=== PATIENT | female | born 1960 | race Caucasian/White ===

== ENCOUNTER 2016-05-07 15:34 | Emergency (ER) | payer MEDICAID ==
[~2016-05-07] VITALS: Ht 167.6 cm; Wt 60.0 kg
[~2016-05-07 15:34] MED LIST: ALBUAER3 INH; BENZ2TAB PO; HALO5TAB PO; HYDR1CAP30 PO; MIRTA15 PO; PRAZ5CAP PO; PRED20 PO; ZITHTAB PO
[2016-05-07 15:35] VITALS: BP 186/104; PULSE 120; RESP 14; TEMP 97.5; O2SAT 92
== END 2016-05-07 18:50 | disposition left against medical advice (07) ==
LOC: NED 15:34
DX: J98.9 Respiratory disorder, unspecified (principal)
CPT/HCPCS: 99281

== ENCOUNTER 2016-05-10 11:41 | Emergency (ER) | payer MEDICAID ==
[~2016-05-10] VITALS: Ht 167.6 cm; Wt 60.0 kg
[2016-05-10 11:49] VITALS: BP 127/94; PULSE 118; RESP 18; TEMP 97.7; O2SAT 94
== END 2016-05-10 18:55 | disposition left against medical advice (07) ==
LOC: NED 11:41
DX: R05 Cough (principal)
CPT/HCPCS: 99281

== ENCOUNTER 2016-05-12 15:56 | Inpatient (IN) | payer MEDICAID ==
[~2016-05-12] VITALS: Ht 167.6 cm; Wt 64.3 kg
[2016-05-12] VITALS (10 sets, daily range): BP systolic 118–177; BP diastolic 69–90; PULSE 93–135; RESP 16–24; TEMP 98–98.2; O2SAT 91–96
[2016-05-12] MEDS: SODIUM CHLORIDE 0.9% FLUSH 5 ML FLUSH IVF PRN ×2 (16:11→17:59)
[2016-05-12] MEDS ORDERED: methylPREDNISolone SOD SUCC 125 MG/2 ML VIAL IVP ONE (16:15)
--- NOTE | 2016-05-12 16:24 | PD ---
HPI Chief Complaint: Respiratory Distress Time Seen by Provider: 16:20 Travel History International Travel<30 days: No Contact w/Intl Traveler<30days: No Traveled to known affect area: No History of Present Illness HPI 55-year-old female presents to the ED via EMS for evaluation of 2 week history of shortness of breath. Patient states that she has become increasingly dyspneic on exertion. She endorses cough productive of yellowish sputum. She states she noticed small amount of blood in her sputum today. She denies fever or chills, chest pain or abdominal pain. Patient was evaluated on 04/26, diagnosis of bronchitis, prescribed azithromycin and endorses compliance. Current smoker. Patient endorses this years flu shot. EMS reports sats in the mid 80s on their arrival. Patient was administered [employer] nebs 2 in route. Sats in the low 90s on presentation. PFSH Past Medical History Asthma: No (S.O.B. ON EXERTION) Autoimmune Disease: No Anxiety: Yes Depression: Yes Cancer: No Cardiovascular Problems: No High Cholesterol: No Chemotherapy: No Chest Pain: Yes (THATS WHY SHE CAME TO HOSPITAL) Congestive Heart Failure: No COPD: No ( ) Cerebrovascular Accident: No Diabetes: No Diminished Hearing: No Endocrine: No GERD: No Genitourinary: No Headaches: No Hiatal Hernia: No Heparin Induced Thrombocytopen: No Hypertension: No Immune Disorder: No Implanted Vascular Access Dvce: No Kidney Stones: No Musculoskeletal: No Neurologic: No Psychiatric: Yes Reproductive: No Respiratory: Yes (S.O.B ON EXERTION) Migraines: No Radiation Therapy: No Renal Failure: No Schizophrenia: Yes Seizures: No Sickle Cell Disease: No Sleep Apnea: No Thyroid Disease: No Ulcer: No Menopausal: Yes Past Surgical History Abdominal Surgery: No AICD: No Arteriovenous Shunt: No Cardiac Surgery: No Section: Yes Ear Surgery: No Endocrine Surgery: No Eye Surgery: No Genitourinary Surgery: No Gynecologic Surgery: No Insulin Pump: No Joint Replacement: No Oral Surgery: No Pacemaker: No Thoracic Surgery: No Social History Alcohol Use: Yes (4 beers ) Tobacco Use: Yes (2PPD) Substance Use: No Allergies-Medications (Allergen,Severity, Reaction): Coded Allergies: Sulfa (Verified Allergy, Mild, 05/10/16) Reported Meds & Prescriptions Reported Meds & Active Scripts Active Zithromax Z-Darell (Azithromycin) 250 Mg Dspk 250 Mg PO DIRECTED 500 MG (2 tabs) day 1, then 1 tab days 2-5. Prednisone 20 Mg Tab 20 Mg PO BID Proair Hfa 8.5 GM Inh (Albuterol Sulfate) 90 Mcg/Act Aer 2 Puff INH Q4-6H PRN 108 mcg/actuation Reported Mirtazapine 15 Mg Tab 15 Mg PO HS Haloperidol 5 Mg Tab 5 Mg PO HS Hydroxyzine Pamoate 25 Mg Cap 25 Mg PO TID PRN Prazosin (Prazosin HCl) 5 Mg Cap 5 Mg PO HS Benztropine (Benztropine Mesylate) 2 Mg Tab 2 Mg PO HS Review of Systems Except as stated in HPI: all other systems reviewed are Neg Physical Exam Narrative GENERAL: Well-nourished, well-developed white female in no acute distress. SKIN: Warm and dry. HEAD: Normocephalic. EYES: No scleral icterus. No injection or drainage. NECK: Supple, trachea midline. No JVD or lymphadenopathy. CARDIOVASCULAR: Regular rate and rhythm without murmurs, gallops, or rubs. RESPIRATORY: Breath sounds equal bilaterally. Diffuse wheezing in all lung [place]. ++ accessory muscle use. Mildly tachypneic GASTROINTESTINAL: Abdomen soft, non-tender, nondistended. Active bowel sounds. MUSCULOSKELETAL: No cyanosis, or edema. BACK: Nontender without obvious deformity. No CVA tenderness. Data Data Last Documented VS Vital Signs Date Time Temp Pulse Resp B/P Pulse Ox O2 Delivery O2 Flow Rate FiO2 05/12/16 17:00 116 20 140/79 95 Nasal Cannula 2 05/12/16 16:00 98.0 Orders Complete Blood Count With Diff (05/12/16 16:05) Comprehensive Metabolic Panel (05/12/16 16:05) B-Type Natriuretic Peptide (05/12/16 16:05) Act Partial Throm Time (Ptt) (05/12/16 16:05) Prothrombin Time / Inr (Pt) (05/12/16 16:05) Magnesium (Mg) (05/12/16 16:05) Ckmb (Isoenzyme) Profile (05/12/16 16:05) Troponin I (05/12/16 16:05) Urinalysis - C+S If Indicated (05/12/16 16:05) Blood Culture (05/12/16 16:05) Iv Access Insert/Monitor (05/12/16 16:05) Electrocardiogram (05/12/16 16:05) Ecg Monitoring (05/12/16 16:05) Oximetry (05/12/16 16:05) Oxygen Administration (05/12/16 16:05) Chest, Single Ap (05/12/16 16:05) Sodium Chloride 0.9% Flush (Ns Flush) (05/12/16 16:15) Methylprednisolone So Succ Inj (Solumedr (05/12/16 16:15) Influenzae A/B Antigen (05/12/16 16:28) Urine Culture (05/12/16 16:15) Levofloxacin 500 Mg Premix Inj (Levaquin (05/12/16 17:45) Ceftriaxone Inj (Rocephin Inj) (05/12/16 17:45) Potassium Chloride (Kcl) (05/12/16 17:45) Admit Order (Ed Use Only) (05/12/16 17:54) Labs Laboratory Tests Test 05/12/16 16:15 White Blood Count 21.6 TH/MM3 Red Blood Count 4.24 MIL/MM3 Hemoglobin 12.9 GM/DL Hematocrit 38.1 % Mean Corpuscular Volume 89.9 FL Mean Corpuscular Hemoglobin 30.5 PG Mean Corpuscular Hemoglobin 33.9 % Concent Red Cell Distribution Width 15.3 % Platelet Count 320 TH/MM3 Mean Platelet Volume 8.3 FL Neutrophils (%) (Auto) 85.8 % Lymphocytes (%) (Auto) 5.8 % Monocytes (%) (Auto) 8.2 % Eosinophils (%) (Auto) 0.1 % Basophils (%) (Auto) 0.1 % Neutrophils # (Auto) 18.5 TH/MM3 Lymphocytes # (Auto) 1.3 TH/MM3 Monocytes # (Auto) 1.8 TH/MM3 Eosinophils # (Auto) 0.0 TH/MM3 Basophils # (Auto) 0.0 TH/MM3 CBC Comment DIFF FINAL Differential Comment Prothrombin Time 10.6 SEC Prothromb Time International 1.0 RATIO Ratio Activated Partial 34.5 SEC Thromboplast Time Urine Color YELLOW Urine Turbidity HAZY Urine pH 6.0 Urine Specific [place] 1.029 Urine Protein 300 mg/dL Urine Glucose (UA) NEG mg/dL Urine Ketones 10 mg/dL Urine Occult Blood MOD Urine Nitrite NEG Urine Bilirubin NEG Urine Urobilinogen 8.0 MG/DL Urine Leukocyte Esterase SMALL Urine RBC 10 /hpf Urine WBC 35 /hpf Urine Squamous Epithelial 4 /hpf Cells Urine Bacteria RARE /hpf Urine Hyaline Casts 4 /lpf Urine Mucus MANY /lpf Microscopic Urinalysis Comment CULTURE INDICATED Sodium Level 134 MEQ/L Potassium Level 3.2 MEQ/L Chloride Level 99 MEQ/L Carbon Dioxide Level 23.9 MEQ/L Anion Gap 11 MEQ/L Blood Urea Nitrogen 10 MG/DL Creatinine 0.91 MG/DL Estimat Glomerular Filtration 64 ML/MIN Rate Random Glucose 152 MG/DL Calcium Level 8.6 MG/DL Magnesium Level 1.8 MG/DL Total Bilirubin 0.8 MG/DL Aspartate Amino Transf 32 U/L (AST/SGOT) Alanine Aminotransferase 32 U/L (ALT/SGPT) Alkaline Phosphatase 130 U/L Total Creatine Kinase 99 U/L Troponin I LESS THAN 0.02 NG/ML B-Type Natriuretic Peptide 25 PG/ML Total Protein 7.8 GM/DL Albumin 2.8 GM/DL [facility] Medical Decision Making Medical Screen Exam Complete: Yes Emergency Medical Condition: Yes Differential Diagnosis Bronchitis versus COPD versus CHF versus pneumonia versus reactive airway disease versus other Narrative Course 55-year-old female presents to the ED via EMS for evaluation of 2 week history of shortness of breath. Patient states that she has become increasingly dyspneic on exertion. She endorses cough productive of yellowish sputum. She denies fever or chills, chest pain or abdominal pain. Patient was evaluated on 04/26, diagnosis of bronchitis, prescribed azithromycin and endorses compliance. Current smoker. Patient endorses this years flu shot. EMS reports sats in the mid 80s on their arrival. Patient was administered duo nebs 2 in route. Sats in the low 90s on 2 L NC on presentation. Patient tachycardic rate 135 on presentation. Physical exam reveals a ill appearing white female, racking wet cough. Diffuse wheezes and coarse breath sounds throughout all lung [place]. Otherwise unremarkable. IV was established. Patient was placed on continuous monitoring. CBC reveals WBCs 21.6, 85.8% neutrophil. Hemoglobin 12.9. INR 1.0. CMP: Sodium 134. Potassium 3.2. BNP 25. Cardiac enzymes negative. Chest x-ray reveals no acute cardiopulmonary process per radiology read. EKG rate 119, sinus rhythm. Normal intervals. Normal axis. No ischemic changes. Reviewed by Dr. Melgar. UA hazy, moderate occult blood, small leukocyte esterase, 35 wbc's, rare bacteria. Culture pending. Flu swab negative. Patient was administered IV Levaquin and Rocephin. By mouth potassium supplementation ordered. Discussed this patient with . The patient has failed outpatient treatment for bronchitis, now with leukocytosis, urinary tract infection, hypokalemia. Sats continue to drop into the high 80s without supplementation. Suspect early pneumonia based on physical exam. We'll admit to the medicine service for further evaluation, antibiotics. Dr. Melgar discussed this plan of care with the patient who is amenable. I discussed the case with the medical residents. They agreed to accept this patient to the service under Dr. Bowens. Please see medicine notes for disposition. Diagnosis Primary Impression: Pneumonia Qualified Code: J18.9 - Pneumonia due to infectious organism, unspecified laterality, unspecified part of lung Additional Impressions: Hypokalemia UTI (urinary tract infection) Qualified Code: N39.0 - Urinary tract infection without hematuria, site unspecified Steph Patricia May 12, 2016 16:24
[2016-05-12 16:36] LABS: AUTOMATED NEUTROPHIL # 18.5 TH/MM3 (1.8-7.7); BASOPHIL % 0.1 % (0.0-2.0); EOSINOPHIL % 0.1 % (0.0-4.0); HEMATOCRIT 38.1 % (35.0-46.0); HEMO FLAGS DIFF FINAL; LYMPH % 5.8 % (9.0-44.0); LYMPHOCYTE # 1.3 TH/MM3 (1.0-4.8); MEAN CELL VOLUME 89.9 FL (80.0-100.0); MEAN CORPUSCULAR HEMOGLOBIN 30.5 PG (27.0-34.0); MEAN CORPUSCULAR HGB CONC 33.9 % (32.0-36.0); MONO % 8.2 % (0.0-8.0); NEUT % 85.8 % (16.0-70.0); PLATELET COUNT 320 TH/MM3 (150-450); RED BLOOD COUNT 4.24 MIL/MM3 (4.00-5.30); RED CELL DISTRIBUTION WIDTH 15.3 % (11.6-17.2); WHITE BLOOD COUNT 21.6 TH/MM3 (4.0-11.0)
--- NOTE | 2016-05-12 16:37 | RADRPT ---
EXAM DATE/TIME: 05/12/2016 16:15 [place] COMPARISON: CHEST SINGLE AP, April 26, 2016, 17:05. INDICATIONS : Short of Breath, Chest Discomfort. MEDICAL HISTORY : Bronchitis. SURGICAL HISTORY : None. ENCOUNTER: Initial ACUITY: 2 weeks PAIN SCORE: 2/10 LOCATION: Bilateral chest FINDINGS: The heart and mediastinal structures are stable. The pulmonary vascular pattern is normal. The lung s are clear. CONCLUSION: 1. No acute cardiopulmonary disease. Jorge Johnson MD on May 12, 2016 at 16:27 Board Certified Radiologist. This report was verified electronically.
[2016-05-12 16:47] LABS: APTT (PATIENT) 34.5 SEC (24.3-30.1); PROTHROMBIN TIME - PATIENT 10.6 SEC (9.8-11.6)
[2016-05-12 16:50] LABS: BACTERIA, URINE RARE /hpf; BLOOD, URINE MOD (NEG); COMMENT (UR) CULTURE INDICATED; CULTURE IF INDICATED CULTURE INDICATED; GLUCOSE,URINE NEG (NEG); HYALINE CAST, URINE 4 /lpf (RARE); KETONE, URINE 10 mg/dL (NEG); MUCUS URINE MANY /lpf (OCC); NITRITE,URINE NEG (NEG); SQUAMOUS EPITHELIAL CELL URINE 4 /hpf (0-5); URINE COLOR YELLOW (YELLW/STRAW)
[2016-05-12 16:59] LABS: ALT (GPT) 32 U/L (10-53); ANION GAP 11 MEQ/L (5-15); AST (GOT) 32 U/L (15-37); BICARBONATE 23.9 MEQ/L (21.0-32.0); BLOOD UREA NITROGEN 10 MG/DL (7-18); CHLORIDE 99 MEQ/L (98-107); GLOMERULAR FILTRATION RATE 64 ML/MIN (>89); MAGNESIUM 1.8 MG/DL (1.5-2.5); POTASSIUM 3.2 MEQ/L (3.5-5.1); SODIUM (NA) 134 MEQ/L (136-145)
[2016-05-12 17:03] LABS: ALKALINE PHOSPHATASE 130 U/L (45-117); TOTAL BILIRUBIN ADULT 0.8 MG/DL (0.2-1.0)
[2016-05-12 17:09] LABS: CREATINE KINASE 99 U/L (26-192)
--- NOTE | 2016-05-12 17:35 | PD ---
Physical Exam Date Seen by Provider: May 12, 2016 Narrative Patient presents with cough and difficulty breathing. Even following several nebulizer treatments, she has diffuse expiratory wheezing and a persistent cough. Data Data Last Documented VS Vital Signs Date Time Temp Pulse Resp B/P Pulse Ox O2 Delivery O2 Flow Rate FiO2 05/12/16 17:00 116 20 140/79 95 Nasal Cannula 2 05/12/16 16:00 98.0 Orders Complete Blood Count With Diff (05/12/16 16:05) Comprehensive Metabolic Panel (05/12/16 16:05) B-Type Natriuretic Peptide (05/12/16 16:05) Act Partial Throm Time (Ptt) (05/12/16 16:05) Prothrombin Time / Inr (Pt) (05/12/16 16:05) Magnesium (Mg) (05/12/16 16:05) Ckmb (Isoenzyme) Profile (05/12/16 16:05) Troponin I (05/12/16 16:05) Urinalysis - C+S If Indicated (05/12/16 16:05) Blood Culture (05/12/16 16:05) Iv Access Insert/Monitor (05/12/16 16:05) Electrocardiogram (05/12/16 16:05) Ecg Monitoring (05/12/16 16:05) Oximetry (05/12/16 16:05) Oxygen Administration (05/12/16 16:05) Chest, Single Ap (05/12/16 16:05) Sodium Chloride 0.9% Flush (Ns Flush) (05/12/16 16:15) Methylprednisolone So Succ Inj (Solumedr (05/12/16 16:15) Influenzae A/B Antigen (05/12/16 16:28) Urine Culture (05/12/16 16:15) Labs Laboratory Tests Test 05/12/16 16:15 White Blood Count 21.6 TH/MM3 Red Blood Count 4.24 MIL/MM3 Hemoglobin 12.9 GM/DL Hematocrit 38.1 % Mean Corpuscular Volume 89.9 FL Mean Corpuscular Hemoglobin 30.5 PG Mean Corpuscular Hemoglobin 33.9 % Concent Red Cell Distribution Width 15.3 % Platelet Count 320 TH/MM3 Mean Platelet Volume 8.3 FL Neutrophils (%) (Auto) 85.8 % Lymphocytes (%) (Auto) 5.8 % Monocytes (%) (Auto) 8.2 % Eosinophils (%) (Auto) 0.1 % Basophils (%) (Auto) 0.1 % Neutrophils # (Auto) 18.5 TH/MM3 Lymphocytes # (Auto) 1.3 TH/MM3 Monocytes # (Auto) 1.8 TH/MM3 Eosinophils # (Auto) 0.0 TH/MM3 Basophils # (Auto) 0.0 TH/MM3 CBC Comment DIFF FINAL Differential Comment Prothrombin Time 10.6 SEC Prothromb Time International 1.0 RATIO Ratio Activated Partial 34.5 SEC Thromboplast Time Urine Color YELLOW Urine Turbidity HAZY Urine pH 6.0 Urine Specific [place] 1.029 Urine Protein 300 mg/dL Urine Glucose (UA) NEG mg/dL Urine Ketones 10 mg/dL Urine Occult Blood MOD Urine Nitrite NEG Urine Bilirubin NEG Urine Urobilinogen 8.0 MG/DL Urine Leukocyte Esterase SMALL Urine RBC 10 /hpf Urine WBC 35 /hpf Urine Squamous Epithelial 4 /hpf Cells Urine Bacteria RARE /hpf Urine Hyaline Casts 4 /lpf Urine Mucus MANY /lpf Microscopic Urinalysis Comment CULTURE INDICATED Sodium Level 134 MEQ/L Potassium Level 3.2 MEQ/L Chloride Level 99 MEQ/L Carbon Dioxide Level 23.9 MEQ/L Anion Gap 11 MEQ/L Blood Urea Nitrogen 10 MG/DL Creatinine 0.91 MG/DL Estimat Glomerular Filtration 64 ML/MIN Rate Random Glucose 152 MG/DL Calcium Level 8.6 MG/DL Magnesium Level 1.8 MG/DL Total Bilirubin 0.8 MG/DL Aspartate Amino Transf 32 U/L (AST/SGOT) Alanine Aminotransferase 32 U/L (ALT/SGPT) Alkaline Phosphatase 130 U/L Total Creatine Kinase 99 U/L Troponin I LESS THAN 0.02 NG/ML B-Type Natriuretic Peptide 25 PG/ML Total Protein 7.8 GM/DL Albumin 2.8 GM/DL MDM Supervised Visit with JOSEF: Yes Jhoana Melgar MD May 12, 2016 17:35
[2016-05-12] MEDS ORDERED: cefTRIAXone INJ 1,000 MG in SODIUM CHLORIDE 0.9% INJ 100 ML IV ONE (17:45)
[2016-05-12] MEDS ORDERED: POTASSIUM CHLORIDE 20 MEQ CONTROLLED RELEASE TAB PO ONE (17:45)
[2016-05-12] MEDS ORDERED: LEVOFLOXACIN 500 MG PREMIX INJ 100 ML IV ONE (17:45)
--- NOTE | 2016-05-12 18:05 | HHI.HP ---
[facility] Service Family Medicine Primary Care Physician Adonis Guerra MD Admission Diagnosis pneumonia, UTI, leukocytosis Diagnoses: International Travel<30 Days: No Contact w/Intl Traveler<30days: No Known Affected Area: No History of Present Illness Patient is a 55yo female with PMH significant for schizophrenia, possible COPD. Presented here today for continued productive cough and SOB on exertion. History significant for prior treatment of bronchitis that initially started as a cold 2 months ago and progressively worsened. Was treated with antibiotics ( azithromycin) and steroids 2 weeks ago. Since completion of that course, patient gradually began getting worse again which included both a productive cough and nasal discharge that were yellow in color. Endorses chest pain only when coughing that started today but not currently present. Denies any fevers. Also endorses urinary hesitancy but without dysuria. Sick contact includes boyfriend but this was 2 months ago at the initial onset. Also having decrease in appetite. (Cherelle Liu MD R2) Review of Systems Constitutional: COMPLAINS OF: Change in appetite, DENIES: Fever, Chills Endocrine: DENIES: Polyuria Eyes: DENIES: Eye pain Ears, nose, mouth, throat: COMPLAINS OF: Running Nose, DENIES: Throat pain Respiratory: COMPLAINS OF: Cough, Wheezing, Sputum production, Shortness of breath Cardiovascular: COMPLAINS OF: Chest pain, DENIES: Dyspnea on Exertion, Lower Extremity Edema, Orthopnea Gastrointestinal: DENIES: Abdominal pain, Nausea, Vomiting Genitourinary: DENIES: Dysuria Integumentary: DENIES: Rash Psychiatric: DENIES: Suicidal Ideation, Homicidal Ideation (Cherelle Liu MD R2) Past Family Social History Past Medical History Schizophrenia-Paranoid possible COPD Past Surgical History Reported Medications Patient reports that she has multiple medications for her schizophrenia but she does not take them, she only takes Seroquel 200 mg (Cherelle Liu MD R2 ) Allergies: Coded Allergies: Sulfa (Verified Allergy, Mild, 05/10/16) Family History Both mom and dad from heart attack. Grandmother had diabetes mellitus Brother: committed Suicide Sister overdosed on Percocet Social History Tobacco: 1-2ppd since age 22yo Alcohol: 4 16oz beer bottles a day. Denies a history of withdrawal Illicit: denies (Cherelle Liu MD R2) Physical Exam Vital Signs Vital Signs Date Time Temp Pulse Resp B/P Pulse Ox O2 Delivery O2 Flow Rate FiO2 05/12/16 17:00 116 20 140/79 95 Nasal Cannula 2 05/12/16 16:17 94 Nasal Cannula 2 05/12/16 16:17 24 91 Room Air 05/12/16 16:00 98.0 135 24 177/90 94 05/12/16 16:00 135 24 94 Nasal Cannula 2 Physical Exam GENERAL: This is a well-nourished, well-developed patient, in no apparent distress. SKIN: No rashes, ecchymoses or lesions. Cool and dry. EYES: Pupils equal round and reactive. Extraocular motions intact. No scleral icterus. No injection or drainage. ENT: Nose without bleeding, purulent drainage. Throat without erythema, tonsillar hypertrophy or exudate. Uvula midline. Airway patent. NECK: Trachea midline. No lymphadenopathy. Supple, nontender, no meningeal signs. CARDIOVASCULAR: Regular rate and rhythm without murmurs, gallops, or rubs. RESPIRATORY: Good air movement bilaterally. Diffuse wheezes with coarse crackles. No accessory muscle use. GASTROINTESTINAL: Abdomen soft, non-tender, nondistended. No hepato-splenomegaly , or palpable masses. No guarding. MUSCULOSKELETAL: Extremities without clubbing, cyanosis, or edema. No calf tenderness. NEUROLOGICAL: Awake and alert. Motor and sensory grossly within normal limits. Normal speech. Laboratory Laboratory Tests Test 05/12/16 16:15 White Blood Count 21.6 Red Blood Count 4.24 Hemoglobin 12.9 Hematocrit 38.1 Mean Corpuscular Volume 89.9 Mean Corpuscular Hemoglobin 30.5 Mean Corpuscular Hemoglobin 33.9 Concent Red Cell Distribution Width 15.3 Platelet Count 320 Mean Platelet Volume 8.3 Neutrophils (%) (Auto) 85.8 Lymphocytes (%) (Auto) 5.8 Monocytes (%) (Auto) 8.2 Eosinophils (%) (Auto) 0.1 Basophils (%) (Auto) 0.1 Neutrophils # (Auto) 18.5 Lymphocytes # (Auto) 1.3 Monocytes # (Auto) 1.8 Eosinophils # (Auto) 0.0 Basophils # (Auto) 0.0 CBC Comment DIFF FINAL Differential Comment Prothrombin Time 10.6 Prothromb Time International 1.0 Ratio Activated Partial 34.5 Thromboplast Time Urine Color YELLOW Urine Turbidity HAZY Urine pH 6.0 Urine Specific [place] 1.029 Urine Protein 300 Urine Glucose (UA) NEG Urine Ketones 10 Urine Occult Blood MOD Urine Nitrite NEG Urine Bilirubin NEG Urine Urobilinogen 8.0 Urine Leukocyte Esterase SMALL Urine RBC 10 Urine WBC 35 Urine Squamous Epithelial 4 Cells Urine Bacteria RARE Urine Hyaline Casts 4 Urine Mucus MANY Microscopic Urinalysis Comment CULTURE INDICATED Sodium Level 134 Potassium Level 3.2 Chloride Level 99 Carbon Dioxide Level 23.9 Anion Gap 11 Blood Urea Nitrogen 10 Creatinine 0.91 Estimat Glomerular Filtration 64 Rate Random Glucose 152 Calcium Level 8.6 Magnesium Level 1.8 Total Bilirubin 0.8 Aspartate Amino Transf 32 (AST/SGOT) Alanine Aminotransferase 32 (ALT/SGPT) Alkaline Phosphatase 130 Total Creatine Kinase 99 Troponin I LESS THAN 0.02 B-Type Natriuretic Peptide 25 Total Protein 7.8 Albumin 2.8 Date/Time Procedure Status Source Growth 05/12/16 17:00 Influenza Types A,B Antigen ([facility]) - Final Complete Nasal Washing NEGATIVE FOR FLU A AND B ANTIGEN.... 05/12/16 16:20 Aerobic Blood Culture Received Blood Line Pending 05/12/16 16:20 Anaerobic Blood Culture Received Blood Line Pending 05/12/16 16:15 Urine Culture Received Urine Clean Catch Pending (Cherelle Liu MD R2) Result Diagram: 05/12/16 1615 05/12/16 1615 Imaging Last 24 hours Impressions Chest X-Ray 05/12/16 1605 Signed Impressions: Service Date/Time: Thursday, May 12, 2016 16:15 - CONCLUSION: 1. No acute cardiopulmonary disease. Jorge Johnson MD (Cherelle Liu MD R2) Assessment and Plan Assessment and Plan Patient is a 55-year-old female with a PMH significant for schizophrenia and possible COPD. Admitted for possible pneumonia after failed outpatient therapy. Code Status Full Discussed Condition With Dr. Zhou (Cherelle Liu MD R2) Attending Attestation The patient has been seen and examined. The chart and all resident notes have been reviewed. I agree that inpatient care is appropriate and that a two midnight stay is expected for the reasons documented in the resident history and physical. I have discussed this with the resident and certify the resident s order for inpatient admission. (Jhoana Bowens MD) Problem List: (1) Pneumonia Status: Acute Plan: Failed outpatient treatment for bronchitis with steroids and azithromycin. Found to have leukocytosis and tachycardia on admission. Patient has an extensive smoking history likely contributing to respiratory issues. Etiology likely due to pneumonia versus COPD exacerbation. Will treat concomitantly. -Sputum cultures ordered, this is after antibiotic however -Troponin unremarkable. EKG still pending. * Unlikely to involve a cardiac component as chest pain is only present when coughing -Lactic acid ordered -O2 as needed needed to keep saturation 88 or above -Incentive spirometry Medications: * Levaquin 750 PO (05/13- * Levaquin 500 IV (05/12), Levaquin use rather than azithromycin due to failed previous treatment and need for coverage for atypicals. * Rocephin 1 g (05/12, continue due to possible UTI infection as well * Prednisone 40 mg daily * Solu-Medrol 60 mg 1 IV * Albuterol and Duonebs (2) Sepsis Status: Acute Plan: Met sepsis criteria on admission with tachycardia and leukocytosis. Source likely respiratory and/or urinary. -See plan above pneumonia (3) UTI (urinary tract infection) Status: Acute Plan: Possible UTI based on symptoms of urinary hesitancy as well as UA significant for occult blood, WBCs -Urine culture pending -Antibiotics for pneumonia also covers UTI (4) Alcohol abuse Status: Chronic Plan: Reports drinking 4 16 ounce bottles of beer daily. Denies a history of withdrawal -CIWA protocol ordered -Rally pack (5) Schizophrenia Status: Chronic Plan: History of paranoid schizophrenia. Treatment currently at [facility] -Has been prescribed multiple medications but only takes Seroquel 200 mg HS (6) Nutrition, metabolism, and development symptoms Status: Acute Plan: Diet: Regular Fluids: 1 L bolus 1, NS at 100 Electrolytes: Mild hypokalemia, repleted with 40 Meq DVT prophylaxis: Lovenox GI prophylaxis: Pepcid due to steroid use (Cherelle Liu MD R2) Physician Certification 2 Midnight Certification Type: Admission for Inpatient Services Order for Inpatient Services The services are ordered in accordance with Medicare regulations or non- Medicare payer requirements, as applicable. In the case of services not specified as inpatient-only, they are appropriately provided as inpatient services in accordance with the 2-midnight benchmark. Estimated LOS (days): 2 days is the estimated time the patient will need to remain in the hospital, assuming treatment plan goals are met and no additional complications. Post-Hospital Plan: Home (Cherelle Liu MD R2) Problem Qualifiers (1) Pneumonia: Qualified Code: J18.9 - Pneumonia due to infectious organism, unspecified laterality, unspecified part of lung (2) UTI (urinary tract infection): Qualified Code: N39.0 - Urinary tract infection without hematuria, site unspecified Cherelle Liu MD R2 May 12, 2016 18:05 Jhoana Bowens MD May 13, 2016 14:13
[2016-05-12] MEDS ORDERED: SERO200T PO (18:53)
[2016-05-12] MEDS ORDERED: RESP: ALBUTEROL 2.5 MG/3 ML NEB (PRN) INH (19:15)
[2016-05-12] MEDS ORDERED: LORazepam 1 MG TAB PO PRN (19:15)
[2016-05-12] MEDS ORDERED: NALOXONE HCL 0.4 MG/ML AMP IV PRN ×2 (19:15→20:30)
[2016-05-12] MEDS ORDERED: LORazepam 2 MG/ML VIAL IV PUSH PRN ×4 (19:15)
[2016-05-12] MEDS ORDERED: SODIUM CHLORIDE 0.9% FLUSH 5 ML FLUSH FLUSH PRN (19:15)
[2016-05-12] MEDS ORDERED: FLUMAZENIL 1 MG/10 ML VIAL IV PUSH PRN (19:15)
[2016-05-12] MEDS ORDERED: ONDANSETRON HCL 4 MG/2 ML VIAL IVP PRN (19:15)
[2016-05-12] MEDS ORDERED: LORazepam 2 MG TAB PO PRN (19:15)
[2016-05-12] MEDS ORDERED: SODIUM CHLOR 0.9% 1000 ML INJ 1,000 ML IV ONE (19:30)
[2016-05-12] MEDS: RESP: ALBUTEROL 2.5 MG/IPRATROPIUM 0.5 MG NEB (SCH) INH ×2 (19:41→23:44)
[2016-05-12] MEDS: ENOXAPARIN SODIUM 40 MG/0.4 ML SYRINGE SQ SCH (20:28)
[2016-05-12] MEDS: FAMOTIDINE 20 MG TAB PO SCH (20:28)
[2016-05-12] MEDS: NICOTINE 21 MG/24 HR PATCH TD SCH (20:29)
[2016-05-12] MEDS: SODIUM CHLOR 0.9% 1000 ML INJ 1,000 ML IV SCH (20:29)
[2016-05-12] MEDS ORDERED: ACETAMINOPHEN 325 MG TAB PO PRN (20:30)
[2016-05-12] MEDS ORDERED: ENALAPRILAT 1.25 MG/ML VIAL IV PRN (20:30)
[2016-05-12] MEDS: QUEtiapine FUMARATE 200 MG TAB PO SCH (21:00)
--- NOTE | 2016-05-12 21:26 | EKG ---
Date Performed: 05/12/2016 Time Performed: 17:08:00 PTAGE: 55 years EKG: SINUS TACHYCARDIA POSSIBLE RIGHT ATRIAL ENLARGEMENT POSSIBLE LEFT ATRIAL ENLARGEMENT BORDER LINE RIGHT AXIS DEVIATION NONSPECIFIC ST & T-WAVE ABNORMALITY ABNORMAL RHYTHM ECG PREVIOUS TRACING : 04/26/2016 16.42 No significant change from previous tracing noted. DOCTOR: John Resendez Interpretating Date/Time 05/12/2016 21:25:45
[2016-05-12] MEDS: SODIUM CHLORIDE 0.9% FLUSH 5 ML FLUSH FLUSH SCH (23:01)
[2016-05-13] VITALS (9 sets, daily range): BP systolic 108–126; BP diastolic 58–77; PULSE 86–102; RESP 18–20; TEMP 97.3–98.1; O2SAT 93–95
[2016-05-13] MEDS: RESP: ALBUTEROL 2.5 MG/IPRATROPIUM 0.5 MG NEB (SCH) INH ×5 (03:26→21:05)
[2016-05-13] MEDS: SODIUM CHLOR 0.9% 1000 ML INJ 1,000 ML IV SCH (05:43)
[2016-05-13 06:12] LABS: BASOPHIL % 0.3 % (0.0-2.0); HEMATOCRIT 34.4 % (35.0-46.0); HEMO FLAGS DIFF FINAL; LYMPH % 4.4 % (9.0-44.0); LYMPHOCYTE # 0.6 TH/MM3 (1.0-4.8); MEAN CORPUSCULAR HEMOGLOBIN 30.2 PG (27.0-34.0); MEAN CORPUSCULAR HGB CONC 33.5 % (32.0-36.0); MONO % 3.6 % (0.0-8.0); NEUT % 91.7 % (16.0-70.0); PLATELET COUNT 298 TH/MM3 (150-450); RED BLOOD COUNT 3.82 MIL/MM3 (4.00-5.30); RED CELL DISTRIBUTION WIDTH 15.2 % (11.6-17.2); WHITE BLOOD COUNT 14.1 TH/MM3 (4.0-11.0)
[2016-05-13 06:40] LABS: POTASSIUM 4.1 MEQ/L (3.5-5.1)
--- NOTE | 2016-05-13 08:49 | HHI.FPPN ---
Subjective Subjective Patient seen and examined with the resident team. Case reviewed and discussed Please refer to resident H&P for further details regarding HPI, ROS, PMH, SurgHx , Fh and SocHx In summary, patient is a 55yoF with a history of COPD, continued tobacco dependence, and schizophrenia presenting with 2 weeks of progressive worsening shortness of breath with exertion and productive cough. Intermittent chest pain with deep coughing. No fevers. Also complaining of urinary hesitancy. Patient is seen in her hospital room this am- reports some improvement with her breathing, but difficult with exertion. [facility] Objective Objective Last Impressions Chest X-Ray 05/12/16 1605 Signed Impressions: Service Date/Time: Thursday, May 12, 2016 16:15 - CONCLUSION: 1. No acute cardiopulmonary disease. Jorge Johnson MD Laboratory Tests - Abnormals Test 05/12/16 05/13/16 16:15 05:58 White Blood Count 21.6 TH/MM3 14.1 TH/MM3 Neutrophils (%) (Auto) 85.8 % 91.7 % Lymphocytes (%) (Auto) 5.8 % 4.4 % Monocytes (%) (Auto) 8.2 % Neutrophils # (Auto) 18.5 TH/MM3 13.0 TH/MM3 Monocytes # (Auto) 1.8 TH/MM3 Activated Partial 34.5 SEC Thromboplast Time Urine Turbidity HAZY Urine Protein 300 mg/dL Urine Ketones 10 mg/dL Urine Occult Blood MOD Urine Urobilinogen 8.0 MG/DL Urine Leukocyte Esterase SMALL Urine RBC 10 /hpf Urine WBC 35 /hpf Urine Bacteria RARE /hpf Urine Mucus MANY /lpf Sodium Level 134 MEQ/L Potassium Level 3.2 MEQ/L Estimat Glomerular Filtration 64 ML/MIN Rate Random Glucose 152 MG/DL 147 MG/DL Alkaline Phosphatase 130 U/L Troponin I LESS THAN 0.02 NG/ML Albumin 2.8 GM/DL Red Blood Count 3.82 MIL/MM3 Hemoglobin 11.5 GM/DL Hematocrit 34.4 % Lymphocytes # (Auto) 0.6 TH/MM3 Chloride Level 113 MEQ/L Blood Urea Nitrogen 6 MG/DL Vital Signs 05/12/16 05/12/16 05/12/16 05/12/16 16:00 16:00 16:17 16:17 Temp 98.0 Pulse 135 135 Resp 24 24 24 B/P 177/90 Pulse Ox 94 94 91 94 O2 Delivery Nasal Cannula Room Air Nasal Cannula O2 Flow Rate 2 2 05/12/16 05/12/16 05/12/16 05/12/16 17:00 18:00 19:43 20:30 Pulse 116 104 104 Resp 20 16 22 B/P 140/79 138/69 126/74 Pulse Ox 95 94 93 94 O2 Delivery Nasal Cannula Nasal Cannula Nasal Cannula Nasal Cannula O2 Flow Rate 2 2 2.00 2 05/12/16 05/12/16 05/12/16 05/12/16 20:57 22:00 22:00 23:16 Temp 98.2 Pulse 103 100 93 Resp 20 B/P 118/77 Pulse Ox 93 95 O2 Delivery Venturi Mask O2 Flow Rate 3.00 FiO2 31 05/12/16 05/13/16 05/13/16 05/13/16 23:46 00:23 04:00 08:27 Temp 97.8 97.9 Pulse 96 94 Resp 18 20 B/P 115/70 111/58 Pulse Ox 96 93 95 94 O2 Delivery Nasal Cannula Nasal Cannula O2 Flow Rate 2.00 2.00 INTAKE & OUTPUT 05/13/16 07:00 Intake Total 2273 ml Output Total 600 ml Balance 1673 ml Physical exam GENERAL: thin wdwn female, sitting up in bed SKIN: Warm and dry. Tanned skin, no rashes HEAD: Normocephalic. AT EYES: No scleral icterus. No injection or drainage. ENT: OP clear. MM slightly dry, NC in place. NECK: Supple, trachea midline. No JVD or lymphadenopathy. CARDIOVASCULAR: Regular rate and rhythm without audible murmurs, gallops, or rubs. RESPIRATORY: Breath sounds with extensive wheezing, prolonged expiratory phase. No accessory muscle use. GASTROINTESTINAL: Abdomen soft, non-tender, nondistended. normal active BS MUSCULOSKELETAL: No cyanosis, or edema. No calf tenderness BACK: Nontender without obvious deformity. No CVA tenderness. NEURO: Awake and alert. Normal speech. CN grossly intact. MAEW Assessment Assessment 55yoF admitted with: Sepsis due to UTI and possible PNA Acute exacerbation of COPD Tobacco dependence Hypokalemia Leukocytosis Failed outpatient therapy Homelessness Hyperglycemia PLAN PLAN Supplemental oxygen s/p IVF resuscitation blood and urine cultures Sputum culture Empiric antibiotic therapy Check flu, legionella, pneumococcal Duonebs Cm consult [facility] protocol Counseled on tobacco cessation monitor mood-stable at this time DVT proph Patient seen and examined. Case reviewed and discussed Agree with plan of care as discussed with me and documented in the resident note. Jhoana Bowens MD May 13, 2016 08:49
[2016-05-13] MEDS: cefTRIAXone INJ 1,000 MG in SODIUM CHLORIDE 0.9% INJ 100 ML IV SCH (09:36)
[2016-05-13] MEDS: FAMOTIDINE 20 MG TAB PO SCH ×2 (09:38→22:16)
[2016-05-13] MEDS: LEVOFLOXACIN 750 MG TAB PO SCH (09:38)
[2016-05-13] MEDS: MULTIVITAMINS/MINERALS THERAPEUTIC TAB PO SCH (09:38)
[2016-05-13] MEDS: FOLIC ACID 1 MG TAB PO SCH (09:38)
[2016-05-13] MEDS: predniSONE 20 MG TAB PO SCH (09:38)
[2016-05-13] MEDS: NICOTINE 21 MG/24 HR PATCH TD SCH (09:39)
[2016-05-13] MEDS: SODIUM CHLORIDE 0.9% FLUSH 5 ML FLUSH FLUSH SCH ×2 (09:39→22:17)
[2016-05-13] MEDS: THIAMINE HCL 100 MG TAB PO SCH (09:39)
[2016-05-13] MEDS: guaiFENesin E.R. 600 MG TAB PO SCH ×2 (13:07→22:16)
[2016-05-13] MEDS: QUEtiapine FUMARATE 200 MG TAB PO SCH (22:16)
[2016-05-13] MEDS: ACETAMINOPHEN/HYDROcodone 325 MG/5 MG TAB PO PRN (22:17)
[2016-05-13] MEDS: ENOXAPARIN SODIUM 40 MG/0.4 ML SYRINGE SQ SCH (22:18)
[2016-05-14] VITALS (9 sets, daily range): BP systolic 106–147; BP diastolic 66–84; PULSE 86–109; RESP 16–20; TEMP 97.6–98.4; O2SAT 91–96
[2016-05-14] MEDS: RESP: ALBUTEROL 2.5 MG/IPRATROPIUM 0.5 MG NEB (SCH) INH ×7 (00:57→23:55)
[2016-05-14 07:50] LABS: BASOPHIL % 0.2 % (0.0-2.0); EOSINOPHIL % 0.1 % (0.0-4.0); HEMATOCRIT 34.8 % (35.0-46.0); HEMO FLAGS DIFF FINAL; LYMPH % 13.5 % (9.0-44.0); LYMPHOCYTE # 2.5 TH/MM3 (1.0-4.8); MEAN CELL VOLUME 90.3 FL (80.0-100.0); MEAN CORPUSCULAR HEMOGLOBIN 29.8 PG (27.0-34.0); MONO % 4.9 % (0.0-8.0); NEUT % 81.3 % (16.0-70.0); PLATELET COUNT 320 TH/MM3 (150-450); RED BLOOD COUNT 3.85 MIL/MM3 (4.00-5.30); RED CELL DISTRIBUTION WIDTH 15.4 % (11.6-17.2); WHITE BLOOD COUNT 18.5 TH/MM3 (4.0-11.0)
[2016-05-14 08:01] LABS: BICARBONATE 24.2 MEQ/L (21.0-32.0)
[2016-05-14] MEDS: SODIUM CHLORIDE 0.9% FLUSH 5 ML FLUSH FLUSH SCH ×2 (09:00→21:10)
[2016-05-14] MEDS: THIAMINE HCL 100 MG TAB PO SCH (09:42)
[2016-05-14] MEDS: MULTIVITAMINS/MINERALS THERAPEUTIC TAB PO SCH (09:42)
[2016-05-14] MEDS: LEVOFLOXACIN 750 MG TAB PO SCH (09:42)
[2016-05-14] MEDS: FAMOTIDINE 20 MG TAB PO SCH (09:42)
[2016-05-14] MEDS: guaiFENesin E.R. 600 MG TAB PO SCH ×2 (09:42→21:10)
[2016-05-14] MEDS: predniSONE 20 MG TAB PO SCH (09:42)
[2016-05-14] MEDS: cefTRIAXone INJ 1,000 MG in SODIUM CHLORIDE 0.9% INJ 100 ML IV SCH (09:42)
[2016-05-14] MEDS: FOLIC ACID 1 MG TAB PO SCH (09:42)
[2016-05-14] MEDS: NICOTINE 21 MG/24 HR PATCH TD SCH (09:43)
[2016-05-14] MEDS: ACETAMINOPHEN/HYDROcodone 325 MG/10 MG TAB PO PRN ×2 (09:52→21:10)
--- NOTE | 2016-05-14 10:15 | HHI.FPPN ---
Subjective Remarks No acute events overnight. Vital signs unremarkable but remains on supplemental oxygen 1 L. This morning patient states that she does feel better but is continuing to have a productive cough with brown sputum. Denies bright red blood. Denies any chest pain but continues to have shortness of breath on exertion when walking to the bathroom. (Cherelle Liu MD R2) Objective Vitals Vital Signs Date Time Temp Pulse Resp B/P Pulse Ox O2 Delivery O2 Flow Rate FiO2 05/14/16 08:11 92 Nasal Cannula 2.00 05/14/16 08:00 97.8 90 16 111/70 94 05/14/16 04:00 Nasal Cannula 1.00 05/14/16 04:00 97.7 86 18 112/71 95 05/14/16 00:00 97.6 92 18 106/66 96 05/14/16 00:00 Nasal Cannula 1.00 05/13/16 22:30 Nasal Cannula 1.00 05/13/16 21:06 94 Nasal Cannula 2.00 05/13/16 20:00 89 05/13/16 20:00 Nasal Cannula 2.00 05/13/16 20:00 98.0 86 20 113/61 95 05/13/16 16:00 97.7 102 20 108/74 93 05/13/16 12:00 98.1 94 20 109/77 95 05/13/16 11:32 90 I/O 05/13/16 05/13/16 05/13/16 05/14/16 05/14/16 05/14/16 07:00 15:00 23:00 07:00 15:00 23:00 Intake Total 2273 ml 840 ml 360 ml Output Total 600 ml 200 ml 400 ml Balance 1673 ml 640 ml -40 ml Intake Oral 440 ml 840 ml 360 ml IV Total 1833 ml Output Urine Total 600 ml 200 ml 400 ml Emesis 0 ml # Voids 2 # Bowel Movements 0 0 0 (Cherelle Liu MD R2) Result Diagram: 05/14/1662905/14/1630 Objective Remarks GEN: Well-developed, well-nourished patient. No acute distress. CV: Regular rate and rhythm without obvious murmurs LUNGS: Good air movement bilaterally but with continued diffuse wheezing bilaterally. No crackles, rubs. No accessory muscle use. NEURO/PSYCH: Awake, aler. Appropriate insight and judgment. Normal speech (Cherelle Tucker MD R2) A/P Assessment and Plan Patient is a 55-year-old female with a PMH significant for schizophrenia and possible COPD. Admitted with: Discharge Planning Anticipate discharge tomorrow pending improvement of respiratory status dw Dr. Zhou wdw Dr. Bowens (Cherelle Liu MD R2) Attending Attestation Patient seen and examined. Case reviewed and discussed Agree with plan of care as discussed with me and documented in the resident note. (Jhoana Bowens MD) Problem List: (1) Pneumonia Status: Acute Plan: Failed outpatient treatment for bronchitis with steroids and azithromycin. Found to have leukocytosis and tachycardia on admission. Patient has an extensive smoking history likely contributing to respiratory issues. Etiology likely due to pneumonia versus COPD exacerbation. Will treat concomitantly. -Sputum cultures ordered, this is after antibiotic: results pending -O2 as needed needed to keep saturation 88 or above -Incentive spirometry, Acapella ordered -Home walk test ordered Medications: * Levaquin 750 PO (05/13- * Levaquin 500 IV (05/12), Levaquin use rather than azithromycin due to failed previous treatment and need for coverage for atypicals. * Rocephin 1 g (05/12, continued due to UTI infection). Anticipate discontinuing today * Prednisone 40 mg daily, will discuss with attending about increasing to 60 mg daily * Solu-Medrol 60 mg 1 IV * Albuterol and Duonebs * Mucinex * Added Fluticasone/Vilanterol (2) Sepsis Status: Resolved Plan: Met sepsis criteria on admission with tachycardia and leukocytosis. Source likely respiratory and/or urinary. Now resolved -See plan above pneumonia (3) UTI (urinary tract infection) Status: Acute Plan: UA positive for gram-negative sherie -Antibiotics for pneumonia also covers UTI (4) Alcohol abuse Status: Chronic Plan: Reports drinking 4 16 ounce bottles of beer daily. Denies a history of withdrawal. Currently asymptomatic -[facility] protocol ordered -Rally pack (5) Schizophrenia Status: Chronic Plan: History of paranoid schizophrenia. Treatment currently at [facility] -Has been prescribed multiple medications but only takes Seroquel 200 mg HS (6) Nutrition, metabolism, and development symptoms Status: Acute Plan: Diet: Regular Fluids: None Electrolytes: Unremarkable, continue to monitor DVT prophylaxis: Lovenox GI prophylaxis: Pepcid due to steroid use (Cherelle Liu MD R2) Problem Qualifiers (1) Pneumonia: Qualified Code: J18.9 - Pneumonia due to infectious organism, unspecified laterality, unspecified part of lung (2) UTI (urinary tract infection): Qualified Code: N39.0 - Urinary tract infection without hematuria, site unspecified Cherelle Liu MD R2 May 14, 2016 10:15 Jhoana Bowens MD May 14, 2016 17:05
[2016-05-14] MEDS: FLUTICASONE 100 MCG/VILANTEROL 25 MCG INHALER INH SCH (16:14)
[2016-05-14] MEDS: methylPREDNISolone SOD SUCC 40 MG/1 ML VIAL IV PUSH SCH ×3 (16:15→21:09)
[2016-05-14] MEDS ORDERED: PANTOPRAZOLE SOD 40 MG DELAYED RELEASE TAB PO SCH (21:00)
[2016-05-14] MEDS: ENOXAPARIN SODIUM 40 MG/0.4 ML SYRINGE SQ SCH (21:09)
[2016-05-14] MEDS: QUEtiapine FUMARATE 200 MG TAB PO SCH (21:10)
[2016-05-15] VITALS: BP 120/66; PULSE 95; RESP 20; TEMP 97.6; O2SAT 90; O2SAT 94
[2016-05-15 04:00] VITALS: BP 112/71; PULSE 101; RESP 20; TEMP 97.3; O2SAT 91
[2016-05-15] MEDS: RESP: ALBUTEROL 2.5 MG/IPRATROPIUM 0.5 MG NEB (SCH) INH ×3 (04:17→12:40)
[2016-05-15] MEDS: methylPREDNISolone SOD SUCC 40 MG/1 ML VIAL IV PUSH SCH (05:14)
[2016-05-15 07:13] LABS: AUTOMATED NEUTROPHIL # 10.9 TH/MM3 (1.8-7.7); BASOPHIL % 0.1 % (0.0-2.0); HEMATOCRIT 36.8 % (35.0-46.0); HEMO FLAGS DIFF FINAL; LYMPH % 5.9 % (9.0-44.0); LYMPHOCYTE # 0.7 TH/MM3 (1.0-4.8); MEAN CORPUSCULAR HEMOGLOBIN 29.4 PG (27.0-34.0); MEAN CORPUSCULAR HGB CONC 32.7 % (32.0-36.0); MONO % 4.1 % (0.0-8.0); NEUT % 89.9 % (16.0-70.0); PLATELET COUNT 368 TH/MM3 (150-450); RED BLOOD COUNT 4.09 MIL/MM3 (4.00-5.30); RED CELL DISTRIBUTION WIDTH 15.3 % (11.6-17.2); WHITE BLOOD COUNT 12.2 TH/MM3 (4.0-11.0)
[2016-05-15 07:49] LABS: BICARBONATE 29.2 MEQ/L (21.0-32.0); POTASSIUM 4.2 MEQ/L (3.5-5.1)
[2016-05-15 08:00] VITALS: BP 132/77; PULSE 100; RESP 16; TEMP 97.7; O2SAT 93
[2016-05-15] MEDS: guaiFENesin E.R. 600 MG TAB PO SCH (08:13)
[2016-05-15] MEDS: ACETAMINOPHEN/HYDROcodone 325 MG/10 MG TAB PO PRN (08:14)
[2016-05-15] MEDS: FOLIC ACID 1 MG TAB PO SCH (08:14)
[2016-05-15] MEDS: MULTIVITAMINS/MINERALS THERAPEUTIC TAB PO SCH (08:14)
[2016-05-15] MEDS: LEVOFLOXACIN 750 MG TAB PO SCH (08:14)
[2016-05-15] MEDS: THIAMINE HCL 100 MG TAB PO SCH (08:14)
[2016-05-15] MEDS: NICOTINE 21 MG/24 HR PATCH TD SCH (08:14)
[2016-05-15] MEDS: SODIUM CHLORIDE 0.9% FLUSH 5 ML FLUSH FLUSH SCH (08:15)
[2016-05-15] MEDS: FLUTICASONE 100 MCG/VILANTEROL 25 MCG INHALER INH SCH (08:15)
[2016-05-15] MEDS: cefTRIAXone INJ 1,000 MG in SODIUM CHLORIDE 0.9% INJ 100 ML IV SCH (08:15)
--- NOTE | 2016-05-15 08:20 | RADRPT ---
EXAM DATE/TIME: 05/15/2016 08:09 [place] COMPARISON: CHEST SINGLE AP, May 12, 2016, 16:15. INDICATIONS : Short of breath, chest pressure. MEDICAL HISTORY : None. SURGICAL HISTORY : None. ENCOUNTER: Subsequent ACUITY: 4 - 6 days PAIN SCORE: 0/10 LOCATION: Bilateral chest FINDINGS: A single view of the chest demonstrates the lungs to be symmetrically aerated without evidence of mas s, infiltrate or effusion. Hyperinflation is evident. The cardiomediastinal contours are unremarkab le. Osseous structures are intact. CONCLUSION: Hyperinflation otherwise negative. Zechariah Matson MD FACR on May 15, 2016 at 8:17 Board Certified Radiologist. This report was verified electronically.
--- NOTE | 2016-05-15 10:10 | HHI.FPPN ---
Subjective Remarks No events overnight. Patient is off oxygen this morning, maintaining oxygen sats > 90% at rest. O2 sats without oxygen during walk test this morning adequately remained at 90%. Patient reports she is feeling much better. Denies shortness of breath, denies cough, no fevers or chills. She has been afebrile, blood pressures stable. She denies chest pain, leg pain or swelling. (Kirk Zhou MD R1) Objective Vitals Vital Signs Date Time Temp Pulse Resp B/P Pulse Ox O2 Delivery O2 Flow Rate FiO2 05/15/16 08:00 97.7 100 16 132/77 93 05/15/16 04:00 Nasal Cannula 2.00 05/15/16 04:00 97.3 101 20 112/71 91 05/15/16 00:00 97.6 95 20 120/66 94 05/15/16 00:00 90 Nasal Cannula 2.00 05/14/16 20:17 92 05/14/16 20:00 Nasal Cannula 2.00 05/14/16 20:00 98.4 93 20 147/84 93 05/14/16 16:00 98.2 109 16 145/71 91 05/14/16 15:27 95 Nasal Cannula 2.00 05/14/16 12:00 98.4 103 16 108/68 93 I/O 05/14/16 05/14/16 05/14/16 05/15/16 05/15/16 05/15/16 07:00 15:00 23:00 07:00 15:00 23:00 Intake Total 360 ml 480 ml 480 ml 240 ml Output Total 400 ml 1600 ml 800 ml 700 ml Balance -40 ml -1120 ml -320 ml -460 ml Intake Oral 360 ml 480 ml 480 ml 240 ml Output Urine Total 400 ml 1600 ml 800 ml 700 ml # Bowel Movements 0 0 (Kirk Zhou MD R1) Result Diagram: 05/15/16 0646 05/15/16 0646 Objective Remarks GEN: Well-developed, well-nourished patient. No acute distress. CV: Regular rate and rhythm without obvious murmurs LUNGS: Good air movement bilaterally much improved from prior examination. Faint end-expiratory wheezing. No crackles. No accessory muscle use. NEURO/PSYCH: Awake, alert. Appropriate insight and judgment. Normal speech. ( Kirk Zhou MD R1) A/P Assessment and Plan Patient is a 55-year-old female with a PMH significant for schizophrenia admitted with: Discharge Planning Anticipate discharge today. (Kirk Zhou MD R1) Attending Attestation Patient seen and examined Case reviewed and discussed Agree with plan of care as discussed with me and documented in the resident note. (Jhoana Bowens MD) Problem List: (1) Pneumonia Status: Acute Plan: Failed outpatient treatment for bronchitis with steroids and azithromycin. Found to have leukocytosis and tachycardia on admission. Patient has an extensive smoking history likely contributing to respiratory issues. Etiology likely due to pneumonia versus COPD exacerbation. Will treat concomitantly. - Sputum cultures ordered, this is after antibiotic administration: heavy growth normal respiratory shashi - No longer requiring oxygen. Passed walk test this AM. - Incentive spirometry, Acapella ordered Medications: * Levaquin 750 PO (started 05/13) * Levaquin 500 IV (05/12), Levaquin use rather than azithromycin due to failed previous treatment and need for coverage for atypicals * Rocephin 1 g (started 05/12 continued due to UTI infection) * Solumedrol 40 mg IV q8h * Will send with prednisone taper on discharge * Albuterol and Duonebs * Mucinex * Added Fluticasone/Vilanterol (2) Sepsis Status: Resolved Plan: Met sepsis criteria on admission with tachycardia and leukocytosis. Source likely respiratory and/or urinary. Now resolved - Plan as above (3) UTI (urinary tract infection) Status: Acute Plan: Urine culture growing > 100,000 cfus E. coli, sensitive to Rocephin - Antibiotics for pneumonia also covers UTI (4) Alcohol abuse Status: Chronic Plan: Reports drinking 4 16 ounce bottles of beer daily. Denies a history of withdrawal. Currently asymptomatic -[facility] protocol ordered -Rally pack (5) Schizophrenia Status: Chronic Plan: History of paranoid schizophrenia. Treatment currently at [facility] -Has been prescribed multiple medications but only takes Seroquel 200 mg HS (6) Nutrition, metabolism, and development symptoms Status: Acute Plan: Diet: Regular Fluids: None Electrolytes: within normal limits DVT prophylaxis: Lovenox GI prophylaxis: Protonix sdw Dr. Liu wdw Dr. Bowens (Kirk Zhou MD R1) Problem Qualifiers (1) Pneumonia: Qualified Code: J18.9 - Pneumonia due to infectious organism, unspecified laterality, unspecified part of lung (2) UTI (urinary tract infection): Qualified Code: N39.0 - Urinary tract infection without hematuria, site unspecified Kirk Zhou MD R1 May 15, 2016 10:10 Jhoana Bowens MD May 15, 2016 13:25
[2016-05-15 12:00] VITALS: BP 106/59; PULSE 104; RESP 20; TEMP 98.5; O2SAT 90
[2016-05-15] MEDS ORDERED: LEVA750T PO ×2 (12:10→13:02)
[2016-05-15] MEDS: ACETAMINOPHEN/HYDROcodone 325 MG/5 MG TAB PO PRN (12:30)
[2016-05-15] MEDS ORDERED: PRED10 PO (13:01)
[2016-05-15] MEDS ORDERED: ADVA250A INH (13:01)
--- NOTE | 2016-05-15 13:05 | HHI.DCPOC ---
Discharge Care Plan Diagnosis: (1) COPD exacerbation (2) UTI (urinary tract infection) (3) Pneumonia Goals to Promote Your Health * To prevent worsening of your condition and complications * To maintain your health at the optimal level Directions to Meet Your Goals Take your medications as prescribed Follow your dietary instruction Follow activity as directed Keep your appointments as scheduled Take your immunizations and boosters as scheduled If your symptoms worsen call your PCP, if no PCP go to Urgent Care Center or Emergency Room Smoking is Dangerous to Your Health. Avoid second hand smoke Call the 24-hour hour crisis hotline for domestic abuse at Cherelle Liu MD R2 May 15, 2016 13:05
[2016-05-15] MEDS ORDERED: PANT40TA3 PO (13:06)
--- NOTE | 2016-05-15 13:50 | HHI.DS ---
Discharge Summary Admission Date May 12, 2016 at 17:56 Discharge Date: May 15, 2016 Admitting Diagnosis pneumonia, UTI, leukocytosis (1) Pneumonia Diagnosis: Principal Plan: Failed outpatient treatment for bronchitis with steroids and azithromycin. Found to have leukocytosis and tachycardia on admission. Patient has an extensive smoking history likely contributing to respiratory issues. Etiology likely due to pneumonia versus COPD exacerbation. Will treat concomitantly. - Sputum cultures ordered, this is after antibiotic administration: heavy growth normal respiratory shashi - No longer requiring oxygen. Passed walk test this AM. - Incentive spirometry, Acapella ordered Medications: * Levaquin 750 PO (started 05/13) * Levaquin 500 IV (05/12), Levaquin use rather than azithromycin due to failed previous treatment and need for coverage for atypicals * Rocephin 1 g (started 05/12 continued due to UTI infection) * Solumedrol 40 mg IV q8h * Will send with prednisone taper on discharge * Albuterol and Duonebs * Mucinex * Added Fluticasone/Vilanterol (2) Sepsis Diagnosis: Principal Plan: Met sepsis criteria on admission with tachycardia and leukocytosis. Source likely respiratory and/or urinary. Now resolved - Plan as above (3) UTI (urinary tract infection) Diagnosis: Principal Plan: Urine culture growing > 100,000 cfus E. coli, sensitive to Rocephin - Antibiotics for pneumonia also covers UTI (4) Alcohol abuse Diagnosis: Secondary Plan: Reports drinking 4 16 ounce bottles of beer daily. Denies a history of withdrawal. Currently asymptomatic -[facility] protocol ordered -Rally pack (5) Schizophrenia Diagnosis: Secondary Plan: History of paranoid schizophrenia. Treatment [facility] at [facility] -Has been prescribed multiple medications but only takes Seroquel 200 mg HS (6) Nutrition, metabolism, and development symptoms Diagnosis: Secondary Plan: Diet: Regular Fluids: None Electrolytes: within normal limits DVT prophylaxis: Lovenox GI prophylaxis: Protonix sdw Dr. Liu wdw Dr. Bowens Consultants None Brief History Patient is a 55yo female with PMH significant for schizophrenia, possible COPD. Presented here today for continued productive cough and SOB on exertion. History significant for prior treatment of bronchitis that initially started as a cold 2 months ago and progressively worsened. Was treated with antibiotics ( azithromycin) and steroids 2 weeks ago. Since completion of that course, patient gradually began getting worse again which included both a productive cough and nasal discharge that were yellow in color. Endorses chest pain only when coughing that started today but not currently present. Denies any fevers. Also endorses urinary hesitancy but without dysuria. Sick contact includes boyfriend but this was 2 months ago at the initial onset. Also having decrease in appetite. CBC/BMP: 05/15/16 0646 05/15/16 0646 Significant Findings Laboratory Tests Test 05/12/16 05/13/16 05/14/16 05/15/16 16:15 05:58 06:30 06:46 Activated Partial 34.5 SEC Thromboplast Time (24.3-30.1) Sodium Level 134 MEQ/L (136-145) Potassium Level 3.2 MEQ/L (3.5-5.1) Estimat Glomerular Filtration 64 ML/MIN (>89) Rate Random Glucose 152 MG/DL 147 MG/DL 133 MG/DL (74-106) (74-106) (74-106) Alkaline Phosphatase 130 U/L (45-117) Troponin I LESS THAN 0.02 NG/ML (0.02-0.05) Albumin 2.8 GM/DL (3.4-5.0) White Blood Count 21.6 TH/MM3 14.1 TH/MM3 18.5 TH/MM3 12.2 TH/MM3 (4.0-11.0) (4.0-11.0) (4.0-11.0) (4.0-11.0) Neutrophils (%) (Auto) 85.8 % 91.7 % 81.3 % 89.9 % (16.0-70.0) (16.0-70.0) (16.0-70.0) (16.0-70.0) Lymphocytes (%) (Auto) 5.8 % 4.4 % 5.9 % (9.0-44.0) (9.0-44.0) (9.0-44.0) Monocytes (%) (Auto) 8.2 % (0.0-8.0) Neutrophils # (Auto) 18.5 TH/MM3 13.0 TH/MM3 15.0 TH/MM3 10.9 TH/MM3 (1.8-7.7) (1.8-7.7) (1.8-7.7) (1.8-7.7) Monocytes # (Auto) 1.8 TH/MM3 (0-0.9) Urine Turbidity HAZY (CLEAR) Urine Protein 300 mg/dL (NEG-TRACE) Urine Ketones 10 mg/dL (NEG) Urine Occult Blood MOD (NEG) Urine Urobilinogen 8.0 MG/DL (LESS THAN 2.0) Urine Leukocyte Esterase SMALL (NEG) Urine RBC 10 /hpf (0-3) Urine WBC 35 /hpf (0-5) Urine Bacteria RARE /hpf (NONE) Urine Mucus MANY /lpf (OCC) Red Blood Count 3.82 MIL/MM3 3.85 MIL/MM3 (4.00-5.30) (4.00-5.30) Hemoglobin 11.5 GM/DL 11.5 GM/DL (11.6-15.3) (11.6-15.3) Hematocrit 34.4 % 34.8 % (35.0-46.0) (35.0-46.0) Lymphocytes # (Auto) 0.6 TH/MM3 0.7 TH/MM3 (1.0-4.8) (1.0-4.8) Chloride Level 113 MEQ/L 110 MEQ/L (98-107) (98-107) Blood Urea Nitrogen 6 MG/DL (7-18) 6 MG/DL (7-18) Calcium Level 8.3 MG/DL (8.5-10.1) Imaging Chest x-ray showing hyperinflation, otherwise negative PE at Discharge GEN: Well-developed, well-nourished patient. No acute distress. CV: Regular rate and rhythm without obvious murmurs LUNGS: Good air movement bilaterally much improved from prior examination. Faint end-expiratory wheezing. No crackles. No accessory muscle use. NEURO/PSYCH: Awake, alert. Appropriate insight and judgment. Normal speech. Hospital Course Levaquin was started for atypical coverage and as patient failed previous treatment with azithromycin, Rocephin was started given Escherichia coli found to be growing on urine culture. Patient had prompt improvement in respiratory status following IV administration of Solu-Medrol 40 mg every 8 hours. Blood cultures remained negative after 3 days, sputum culture was unremarkable. Patient passed home oxygen walk test, comfortable on room air. She is stable for discharge and will be discharged with instructions to complete a seven-day course of Levaquin as well as a steroid taper over 2 weeks. Pt Condition on Discharge: Stable Discharge Disposition: Discharge Home Discharge Instructions DIET: Follow Instructions for: As Tolerated, No Restrictions Activities you can perform: Regular-No Restrictions Follow up Referrals: PCP Follow-up - 1 Week New Medications: Fluticasone-Salmeterol Inh (Advair Diskus Inh) 250-50 Mcg/Blist Aer 1 PUFF INH BID Rinse mouth after use. #1 Ref 0 INHALER Prednisone (Prednisone) 10 Mg Tab 10 MG PO DIRECTED 2 Tabs (20mg) twice a day for 4 days. Then 1 Tab (10mg) twice a day for 4 days. Then 1 tab (10mg) daily for 4 days. #28 Ref 0 TAB Levofloxacin (Levaquin) 750 Mg Tab 750 MG PO DAILY #4 Ref 0 TAB Pantoprazole (Pantoprazole) 40 Mg Tab 40 MG PO DAILY@21 #21 TAB Continued Medications: Albuterol 8.5 GM Inh (Proair Hfa 8.5 GM Inh) 90 Mcg/Act Aer 2 PUFF INH Q4-6H 108 mcg/actuation PRN SHORTNESS OF BREATH #1 INHALER Quetiapine (Seroquel) 200 Mg Tab 200 MG PO HS #30 Ref 0 TAB Discontinued Medications: Azithromycin (Zithromax Z-Darell) 250 Mg Dspk 250 MG PO DIRECTED 500 MG (2 tabs) day 1, then 1 tab days 2-5. Infection #1 DSPK Benztropine (Benztropine) 2 Mg Tab 2 MG PO HS #30 Ref 0 TAB Haloperidol (Haloperidol) 5 Mg Tab 5 MG PO HS Ref 0 TAB Hydroxyzine Pamoate (Hydroxyzine Pamoate) 25 Mg Cap 25 MG PO TID PRN ANXIETY Ref 0 CAP Mirtazapine (Mirtazapine) 15 Mg Tab 15 MG PO HS Depression Control #30 Ref 0 TAB Prazosin (Prazosin) 5 Mg Cap 5 MG PO HS Blood Pressure Management #60 Ref 0 CAP Prednisone (Prednisone) 20 Mg Tab 20 MG PO BID #14 TAB Kirk Zhou MD R1 May 15, 2016 13:50
== END 2016-05-15 14:34 | disposition home or self-care (01) | DRG 871 ==
LOC: NEPA 15:56 → NEDA 17:56 → N04B 21:40
PROVIDERS: ADMIT Family Medicine; ATTEND Family Medicine
DX: A41.9 Sepsis, unspecified organism (principal); J18.9 Pneumonia, unspecified organism; J44.1 Chronic obstructive pulmonary disease with (acute) exacerbation; N39.0 Urinary tract infection, site not specified; F20.0 Paranoid schizophrenia; J44.0 Chronic obstructive pulmonary disease with (acute) lower respiratory infection; E87.6 Hypokalemia; F10.10 Alcohol abuse, uncomplicated; B96.20 Unspecified Escherichia coli [E. coli] as the cause of diseases classified elsewhere; F17.210 Nicotine dependence, cigarettes, uncomplicated
CPT/HCPCS: 71010; 80048; 80053; 81001; 82550; 83605; 83735; 83880; 84484; 85025; 85610; 85730; 87040; 87070; 87077; 87086; 87186; 87205; 87449; 87804; 93005; 94150; 94620; 94640; 94664; 94667; 94668; 96374; J0696; J1650; J1956; J2920; J2930; J7030; J7512

== ENCOUNTER 2016-06-02 18:49 | Observation (INO) | payer MEDICAID ==
[~2016-06-02] VITALS: Ht 162.6 cm; Wt 70.0 kg
[~2016-06-02 18:49] MED LIST changes: +ADVA250A INH; -BENZ2TAB PO; -HALO5TAB PO; -HYDR1CAP30 PO; +LEVA750T PO; -MIRTA15 PO; +PANT40TA3 PO; -PRAZ5CAP PO; +PRED10 PO; -PRED20 PO; +SERO200T PO; -ZITHTAB PO
[2016-06-02 19:03] VITALS: BP 129/85; PULSE 110; RESP 20; TEMP 98; O2SAT 96
--- NOTE | 2016-06-02 20:03 | PD ---
HPI Chief Complaint: Respiratory Distress Time Seen by Provider: 20:03 Travel History International Travel<30 days: No Contact w/Intl Traveler<30days: No Traveled to known affect area: No History of Present Illness HPI 55-year-old female with a history of COPD who continues to smoke cigarettes presents to the emergency department by EMS for evaluation of shortness of breath and wheezing. Per EMS report the patient had wheezing and shortness of breath on examination with 84% oxygen saturation on room air on initial assessment. She was given 2 albuterol treatments and Solu-Medrol 125 mg IV with improvement of symptoms. The patient states that she has had recurrent shortness of breath and productive cough with yellow sputum for about 2 months. States that she was seen in our ED for bronchitis and then again for pneumonia which she was admitted to the hospital. States that she was discharged with steroids and inhalers and has been using them as prescribed, last used her albuterol inhaler this afternoon. States that her symptoms have persisted and not improved. She admits to continuing to smoke cigarettes. She states that she is currently homeless and sleeps on the street. Denies any chest pain, lightheadedness, dizziness, nausea, vomiting, abdominal pain, swelling of the extremities. No other complaints. PFSH Past Medical History Autoimmune Disease: No Anxiety: Yes Depression: Yes Cancer: No Cardiovascular Problems: Yes High Cholesterol: No Chemotherapy: No Chest Pain: Yes (FROM COUGHING/BRONCHITIS) Congestive Heart Failure: No Cerebrovascular Accident: No Diabetes: No Diminished Hearing: No Endocrine: No GERD: No Genitourinary: No Headaches: No Hiatal Hernia: No Heparin Induced Thrombocytopen: No Hypertension: No Immune Disorder: No Implanted Vascular Access Dvce: No Kidney Stones: No Musculoskeletal: No Neurologic: Yes Psychiatric: Yes Reproductive: No Respiratory: Yes Migraines: No Radiation Therapy: No Renal Failure: No Schizophrenia: Yes Seizures: Yes (WITH PREG) Sickle Cell Disease: No Sleep Apnea: No Thyroid Disease: No Ulcer: No Menopausal: Yes Past Surgical History Abdominal Surgery: No AICD: No Arteriovenous Shunt: No Cardiac Surgery: No Section: Yes Ear Surgery: No Endocrine Surgery: No Eye Surgery: No Genitourinary Surgery: No Gynecologic Surgery: Yes (CSECTION) Insulin Pump: No Joint Replacement: No Oral Surgery: No Pacemaker: No Thoracic Surgery: No Social History Alcohol Use: Yes (4 beers ) Tobacco Use: Yes (2PPD) Substance Use: No Allergies-Medications (Allergen,Severity, Reaction): Coded Allergies: Sulfa (Verified Allergy, Mild, 06/02/16) Reported Meds & Prescriptions Reported Meds & Active Scripts Active Pantoprazole (Pantoprazole Sodium) 40 Mg Tab 40 Mg PO DAILY@21 Levaquin (Levofloxacin) 750 Mg Tab 750 Mg PO DAILY Prednisone 10 Mg Tab 10 Mg PO DIRECTED 2 Tabs (20mg) twice a day for 4 days. Then 1 Tab (10mg) twice a day for 4 days. Then 1 tab (10mg) daily for 4 days. Advair Diskus Inh (Fluticasone-Salmeterol Inh) 250-50 Mcg/Blist Aer 1 Puff INH BID Rinse mouth after use. Proair Hfa 8.5 GM Inh (Albuterol Sulfate) 90 Mcg/Act Aer 2 Puff INH Q4-6H PRN 108 mcg/actuation Reported Seroquel (Quetiapine Fumarate) 200 Mg Tab 200 Mg PO HS Review of Systems Except as stated in HPI: all other systems reviewed are Neg Physical Exam Narrative GENERAL: Well-nourished and well-developed female patient in no acute distress. SKIN: Warm and dry. HEAD: Normocephalic and atraumatic. EYES: No injection, drainage, or hyphema noted. PERRLA. EOMI. ENT: No nasal drainage noted. Oropharynx is clear. NECK: Supple and the trachea is midline. CARDIOVASCULAR: Regular rate and rhythm. RESPIRATORY: Slight expiratory wheeze at the bases bilaterally. No accessory muscle use, rhonchi, or crackles. GASTROINTESTINAL: Abdomen is soft, non-tender, and nondistended. MUSCULOSKELETAL: No obvious deformities, swelling, cyanosis, or ecchymosis is present throughout the upper and lower extremities. Patient has full range of motion without any signs of neurovascular compromise. NEUROLOGICAL: Awake, alert, and oriented. Normal speech and gait. Cranial nerves are grossly intact. Data Data Last Documented VS Vital Signs Date Time Temp Pulse Resp B/P Pulse Ox O2 Delivery O2 Flow Rate FiO2 06/02/16 21:53 102 15 101/59 97 Room Air 06/02/16 21:51 21 06/02/16 19:03 98.0 Orders Complete Blood Count With Diff (06/02/16 20:02) Comprehensive Metabolic Panel (06/02/16 20:02) Troponin I (06/02/16 20:02) Urinalysis - C+S If Indicated (06/02/16 20:02) Influenzae A/B Antigen (06/02/16 20:02) Iv Access Insert/Monitor (06/02/16 20:02) Electrocardiogram (06/02/16 20:02) Ecg Monitoring (06/02/16 20:02) Oximetry (06/02/16 20:02) Chest, Single Ap (06/02/16 20:02) Sodium Chloride 0.9% Flush (Ns Flush) (06/02/16 20:15) Albuterol-Ipratropium Neb (Duoneb Neb) (06/02/16 20:15) Sodium Chlor 0.9% 1000 Ml Inj (Ns 1000 M (06/02/16 21:47) Azithromycin Inj (Zithromax Inj) (06/02/16 22:45) Ceftriaxone Inj (Rocephin Inj) (06/02/16 22:45) Labs Laboratory Tests Test 06/02/16 20:40 White Blood Count 8.6 TH/MM3 Red Blood Count 4.78 MIL/MM3 Hemoglobin 14.4 GM/DL Hematocrit 43.3 % Mean Corpuscular Volume 90.5 FL Mean Corpuscular Hemoglobin 30.1 PG Mean Corpuscular Hemoglobin 33.3 % Concent Red Cell Distribution Width 16.0 % Platelet Count 371 TH/MM3 Mean Platelet Volume 7.7 FL Neutrophils (%) (Auto) 85.9 % Lymphocytes (%) (Auto) 12.7 % Monocytes (%) (Auto) 1.1 % Eosinophils (%) (Auto) 0.1 % Basophils (%) (Auto) 0.2 % Neutrophils # (Auto) 7.3 TH/MM3 Lymphocytes # (Auto) 1.1 TH/MM3 Monocytes # (Auto) 0.1 TH/MM3 Eosinophils # (Auto) 0.0 TH/MM3 Basophils # (Auto) 0.0 TH/MM3 CBC Comment DIFF FINAL Differential Comment Sodium Level 141 MEQ/L Potassium Level 4.6 MEQ/L Chloride Level 108 MEQ/L Carbon Dioxide Level 21.4 MEQ/L Anion Gap 12 MEQ/L Blood Urea Nitrogen 7 MG/DL Creatinine 0.72 MG/DL Estimat Glomerular Filtration 84 ML/MIN Rate Random Glucose 100 MG/DL Calcium Level 8.1 MG/DL Total Bilirubin 0.2 MG/DL Aspartate Amino Transf 32 U/L (AST/SGOT) Alanine Aminotransferase 23 U/L (ALT/SGPT) Alkaline Phosphatase 137 U/L Troponin I LESS THAN 0.02 NG/ML Total Protein 7.4 GM/DL Albumin 3.2 GM/DL MDM Medical Decision Making Medical Screen Exam Complete: Yes Emergency Medical Condition: Yes Differential Diagnosis COPD exacerbation versus pneumonia versus bronchitis versus tobacco abuse versus homelessness Narrative Course 55-year-old female is brought to the emergency department by EMS for evaluation of shortness of breath and wheezing. Patient is afebrile, vital signs are stable. She is slightly tachycardic with a rate of 110 bpm. She is currently on 2 L of oxygen and her oxygen saturations noted to be 98%. There is a slight wheeze to the lower lung [place] but otherwise physical examination is unremarkable. IV access is obtained, labs were drawn and sent. Chest x-ray has been ordered and is pending. Patient will be administered a DuoNeb treatment. CBC is unremarkable. Influenza swab is negative. Chest x-ray is negative for any acute Abnormalities. EKG shows sinus tachycardia with ventricular rate of 103 bpm with no acute ST elevations or depressions. CMP shows slightly elevated alkaline phosphatase but is otherwise unremarkable. Troponin is less than 0.02. The patient has received 125 mg IV Solu-Medrol, 2 albuterol treatments and 1 DuoNeb treatment. Her oxygen saturation on room air continues to remain around 90-91% and she continues to complain of shortness of breath with productive cough. We'll cover the patient with Zithromax 500 mg IV and Rocephin 1 g IV. We'll keep her in observation for repeat nebulizers and steroids. Physician Communication Physician Communication I spoke with Dr. Montoya [facility] who agrees to admit the patient under observation. Diagnosis Primary Impression: COPD exacerbation Admitting Information Admitting Physician Requests: Izabela Schulte Jun 02, 2016 20:03
[2016-06-02] MEDS ORDERED: RESP: ALBUTEROL 2.5 MG/IPRATROPIUM 0.5 MG NEB (SCH) INH ONE (20:15)
[2016-06-02] MEDS ORDERED: SODIUM CHLORIDE 0.9% FLUSH 5 ML FLUSH IVF PRN (20:15)
--- NOTE | 2016-06-02 20:43 | RADRPT ---
EXAM DATE/TIME: 06/02/2016 20:16 [place] COMPARISON: CHEST SINGLE AP, May 15, 2016, 8:09. INDICATIONS : Short of breath MEDICAL HISTORY : None. SURGICAL HISTORY : None. ENCOUNTER: Initial ACUITY: 2 months PAIN SCORE: 0/10 LOCATION: Bilateral chest FINDINGS: A single view of the chest demonstrates the lungs to be symmetrically aerated without evidence of mas s, infiltrate or effusion. The cardiomediastinal contours are unremarkable. Osseous structures are intact. CONCLUSION: The lungs are clear. Cordell Smith MD on June 02, 2016 at 20:41 Board Certified Radiologist. This report was verified electronically.
[2016-06-02 21:00] LABS: AUTOMATED NEUTROPHIL # 7.3 TH/MM3 (1.8-7.7); BASOPHIL % 0.2 % (0.0-2.0); EOSINOPHIL % 0.1 % (0.0-4.0); HEMATOCRIT 43.3 % (35.0-46.0); HEMO FLAGS DIFF FINAL; LYMPH % 12.7 % (9.0-44.0); LYMPHOCYTE # 1.1 TH/MM3 (1.0-4.8); MEAN CELL VOLUME 90.5 FL (80.0-100.0); MEAN CORPUSCULAR HEMOGLOBIN 30.1 PG (27.0-34.0); MEAN CORPUSCULAR HGB CONC 33.3 % (32.0-36.0); MONO % 1.1 % (0.0-8.0); NEUT % 85.9 % (16.0-70.0); PLATELET COUNT 371 TH/MM3 (150-450); RED BLOOD COUNT 4.78 MIL/MM3 (4.00-5.30); WHITE BLOOD COUNT 8.6 TH/MM3 (4.0-11.0)
[2016-06-02 21:29] LABS: ALKALINE PHOSPHATASE 137 U/L (45-117); ALT (GPT) 23 U/L (10-53); ANION GAP 12 MEQ/L (5-15); AST (GOT) 32 U/L (15-37); BICARBONATE 21.4 MEQ/L (21.0-32.0); BLOOD UREA NITROGEN 7 MG/DL (7-18); CHLORIDE 108 MEQ/L (98-107); GLOMERULAR FILTRATION RATE 84 ML/MIN (>89); SODIUM (NA) 141 MEQ/L (136-145); TOTAL BILIRUBIN ADULT 0.2 MG/DL (0.2-1.0)
[2016-06-02 21:30] LABS: POTASSIUM 4.6 MEQ/L (3.5-5.1)
[2016-06-02] MEDS ORDERED: SODIUM CHLOR 0.9% 1000 ML INJ 1,000 ML IV SCH (21:47)
[2016-06-02 21:51] VITALS: O2SAT 93
[2016-06-02 21:53] VITALS: BP 101/59; PULSE 102; RESP 15; O2SAT 97
[2016-06-02] MEDS ORDERED: NICOTINE 21 MG/24 HR PATCH TD PRN (22:45)
[2016-06-02] MEDS ORDERED: BISACODYL 10 MG SUPP PR PRN (22:45)
[2016-06-02] MEDS ORDERED: cefTRIAXone INJ 1,000 MG in SODIUM CHLORIDE 0.9% INJ 100 ML IV ONE (22:45)
[2016-06-02] MEDS ORDERED: RESP: ALBUTEROL 2.5 MG/IPRATROPIUM 0.5 MG NEB (PRN) NEB (22:45)
[2016-06-02] MEDS ORDERED: ACETAMINOPHEN/HYDROcodone 325 MG/10 MG TAB PO PRN (22:45)
[2016-06-02] MEDS ORDERED: AZITHROMYCIN INJ 500 MG in SODIUM CHLOR 0.9% 250 ML INJ 250 ML IV ONE (22:45)
[2016-06-02] MEDS ORDERED: ONDANSETRON HCL 4 MG/2 ML VIAL IVP PRN (22:45)
[2016-06-02] MEDS ORDERED: SODIUM CHLORIDE 0.9% FLUSH 5 ML FLUSH FLUSH PRN (22:45)
[2016-06-02] MEDS ORDERED: ACETAMINOPHEN 325 MG TAB PO PRN (22:45)
[2016-06-02] MEDS ORDERED: ACETAMINOPHEN/HYDROcodone 325 MG/5 MG TAB PO PRN (22:45)
--- NOTE | 2016-06-02 22:48 | HHI.HP ---
[facility] Physician Adonis Guerra MD Admission Diagnosis COPD Exacerbation Diagnoses: (1) COPD exacerbation Diagnosis: Principal (2) Schizophrenia Diagnosis: Principal (3) Tobacco abuse Diagnosis: Principal Travel History International Travel<30 Days: No Contact w/Intl Traveler <30 Da: No Traveled to Known Affected Are: No History of Present Illness This is a 55-year-old female with a PMH of COPD, Tobacco Abuse, Anxiety and Depression who was brought to the ER by EMS w/ complaints of SOB and wheezing x3 days. Denies fever or chills but reports productive cough w/ yellow-colored sputum. Recent admit 05/12-05/15/16 for Sepsis, PNA, UTI and COPD Exacerbation. Continues to smoke 2ppd. On arrival, BP 129/85, HR 110, O2 sat 96% on RA, Afebrile. CBC unremarkable. Chemistry essentially unremarkable. CXR no acute findings. S/p Solu-Medrol and DuoNeb w/ some improvement. Review of Systems Other ROS: 14 point review of systems otherwise negative. Past Family Social History Past Medical History PMH: COPD, Tobacco Abuse, Anxiety and Depression Past Surgical History PAST SURGICAL HISTORY: Allergies: Coded Allergies: Sulfa (Verified Allergy, Mild, 06/02/16) Family History PAST FAMILY HISTORY: Reviewed. No h/o DM or CAD Social History PAST SOCIAL HISTORY: Drinks 4 beers daily. Smokes 2ppd. Negative for drugs. Physical Exam Vital Signs Vital Signs Date Time Temp Pulse Resp B/P Pulse Ox O2 Delivery O2 Flow Rate FiO2 06/02/16 21:53 102 15 101/59 97 Room Air 06/02/16 21:51 93 21 06/02/16 19:03 18 97 06/02/16 19:03 98.0 110 20 129/85 96 Physical Exam PE: GENERAL: Middle-aged female in no acute distress. HEENT: PERRLA, EOMI. No scleral icterus or conjunctival pallor. No lid lag or facial droop. CARDIOVASCULAR: Regular rate and rhythm. No obvious murmurs to auscultation. No chest tenderness to palpation. RESPIRATORY: No obvious rhonchi. Occasional wheezing. Clear to auscultation. Breath sounds equal bilaterally. GASTROINTESTINAL: Abdomen soft, non-tender, nondistended. BS normal. MUSCULOSKELETAL: Extremities without clubbing, cyanosis, or edema. No obvious deformities. NEUROLOGICAL: Awake, alert and oriented x4. No focal neurologic deficits. Moving both upper and lower extremities spontaneously. Laboratory Laboratory Tests Test 06/02/16 20:40 White Blood Count 8.6 Red Blood Count 4.78 Hemoglobin 14.4 Hematocrit 43.3 Mean Corpuscular Volume 90.5 Mean Corpuscular Hemoglobin 30.1 Mean Corpuscular Hemoglobin 33.3 Concent Red Cell Distribution Width 16.0 Platelet Count 371 Mean Platelet Volume 7.7 Neutrophils (%) (Auto) 85.9 Lymphocytes (%) (Auto) 12.7 Monocytes (%) (Auto) 1.1 Eosinophils (%) (Auto) 0.1 Basophils (%) (Auto) 0.2 Neutrophils # (Auto) 7.3 Lymphocytes # (Auto) 1.1 Monocytes # (Auto) 0.1 Eosinophils # (Auto) 0.0 Basophils # (Auto) 0.0 CBC Comment DIFF FINAL Differential Comment Sodium Level 141 Potassium Level 4.6 Chloride Level 108 Carbon Dioxide Level 21.4 Anion Gap 12 Blood Urea Nitrogen 7 Creatinine 0.72 Estimat Glomerular Filtration 84 Rate Random Glucose 100 Calcium Level 8.1 Total Bilirubin 0.2 Aspartate Amino Transf 32 (AST/SGOT) Alanine Aminotransferase 23 (ALT/SGPT) Alkaline Phosphatase 137 Troponin I LESS THAN 0.02 Total Protein 7.4 Albumin 3.2 Date/Time Procedure Status Source Growth 06/02/16 20:40 Influenza Types A,B Antigen ([facility]IMO) - Final Complete Nasal Washing NEGATIVE FOR FLU A AND B ANTIGEN.... Result Diagram: 06/02/16203906/02/162039 Assessment and Plan Problem List: (1) COPD exacerbation ICD Code: J44.1 Status: Acute (2) Schizophrenia ICD Code: F20.9 Status: Chronic (3) Tobacco abuse ICD Code: Z72.0 Status: Acute Assessment and Plan A/P: 1. COPD: Chronic Respiratory Failure w/ Acute Exacerbation. +wheezing, continues to smoke. O2 sat 96% on RA. CXR w/ no acute findings. Continue Solu -Medrol, DuoNeb, Mucinex, Symbicort. Continue IV Levaquin for possible atypical PNA in light of productive cough 2. Tobacco Abuse: Pt counselled. Smokes 2ppd. Ativan/NicoDerm prn if needed 3. Schizophrenia: Resume home Seroquel. 4. DVT Prophylaxis: SCD/Teds. 5. Social work for d/c planning as needed. 6. Case discussed w/ ER physician at length Amanda Montoya MD Jun 02, 2016 22:48
[2016-06-02] MEDS ORDERED: LEVOFLOXACIN 750 MG PREMIX INJ 150 ML IV SCH (23:00)
[2016-06-02] MEDS: methylPREDNISolone SOD SUCC 40 MG/1 ML VIAL IV PUSH SCH (23:15)
[2016-06-02 23:17] VITALS: BP 105/62; PULSE 107; RESP 15; O2SAT 93
[2016-06-03] VITALS (11 sets, daily range): BP systolic 114–134; BP diastolic 61–84; PULSE 71–115; RESP 18–21; TEMP 96.9–98.4; O2SAT 92–97
[2016-06-03 05:07] LABS: BASOPHIL # 0.1 TH/MM3 (0-0.2); BASOPHIL % 0.6 % (0.0-2.0); HEMATOCRIT 39.8 % (35.0-46.0); HEMO FLAGS DIFF FINAL; LYMPH % 7.9 % (9.0-44.0); LYMPHOCYTE # 0.7 TH/MM3 (1.0-4.8); MEAN CELL VOLUME 90.1 FL (80.0-100.0); MEAN CORPUSCULAR HGB CONC 33.3 % (32.0-36.0); MONO % 0.5 % (0.0-8.0); PLATELET COUNT 336 TH/MM3 (150-450); RED BLOOD COUNT 4.42 MIL/MM3 (4.00-5.30); RED CELL DISTRIBUTION WIDTH 15.8 % (11.6-17.2); WHITE BLOOD COUNT 8.8 TH/MM3 (4.0-11.0)
[2016-06-03 05:47] LABS: ANION GAP 11 MEQ/L (5-15); AST (GOT) 17 U/L (15-37); BICARBONATE 19.6 MEQ/L (21.0-32.0); BLOOD UREA NITROGEN 6 MG/DL (7-18); CHLORIDE 111 MEQ/L (98-107); GLOMERULAR FILTRATION RATE 108 ML/MIN (>89); SODIUM (NA) 142 MEQ/L (136-145)
[2016-06-03 05:53] LABS: ALKALINE PHOSPHATASE 122 U/L (45-117); ALT (GPT) 21 U/L (10-53); TOTAL BILIRUBIN ADULT 0.2 MG/DL (0.2-1.0)
[2016-06-03] MEDS: methylPREDNISolone SOD SUCC 40 MG/1 ML VIAL IV PUSH SCH ×4 (05:58→23:26)
--- NOTE | 2016-06-03 06:12 | EKG ---
Date Performed: 06/02/2016 Time Performed: 20:35:49 PTAGE: 55 years EKG: SINUS TACHYCARDIA POSSIBLE RIGHT ATRIAL ENLARGEMENT BORDERLINE RIGHT AXIS DEVIATION POSSIBL E INFERIOR AND LATERAL INFARCT, AGE UNDETERMINED ABNORMAL RHYTHM ECG PREVIOUS TRACING : 05/12/2016 17.08 No significant change from previous tracing noted. DOCTOR: John Resendez Interpretating Date/Time 06/03/2016 06:09:54
[2016-06-03] MEDS: RESP: ALBUTEROL 2.5 MG/IPRATROPIUM 0.5 MG NEB (SCH) NEB ×4 (07:34→20:39)
[2016-06-03] MEDS: SODIUM CHLORIDE 0.9% FLUSH 5 ML FLUSH FLUSH SCH ×2 (08:01→21:54)
[2016-06-03] MEDS: guaiFENesin E.R. 600 MG TAB PO SCH ×2 (08:01→21:55)
[2016-06-03] MEDS: BUDESONIDE-FORMOTEROL 160/4.5 MCG INHALER INH SCH ×2 (08:10→21:55)
--- NOTE | 2016-06-03 11:20 | HHI.PR ---
Subjective Remarks Follow up for COPD exacerbation and possible pneumonia. The patient reports her breathing is slightly improved. She is still short of breath with cough productive of yellow sputum. Denies chest pain. No fevers or chills overnight. She does not feel ready for discharge yet today. She does not wear oxygen at home, O2 sat currently 93% on 2L NC. Objective Vitals Vital Signs Date Time Temp Pulse Resp B/P Pulse Ox O2 Delivery O2 Flow Rate FiO2 06/03/16 11:15 97.6 115 18 114/63 93 06/03/16 08:12 115 06/03/16 07:36 93 Nasal Cannula 2.00 06/03/16 07:27 98.0 110 18 120/68 94 06/03/16 04:00 97.8 71 21 134/84 97 06/03/16 00:45 95 06/03/16 00:40 96.9 102 20 117/71 92 06/02/16 23:17 107 15 105/62 93 Nasal Cannula 2 06/02/16 21:53 102 15 101/59 97 Room Air 06/02/16 21:51 93 21 06/02/16 19:03 18 97 06/02/16 19:03 98.0 110 20 129/85 96 Result Diagram: 06/03/16 0439 06/03/16 0439 Imaging Last Impressions Chest X-Ray 06/02/162001 Signed Impressions: Service Date/Time: Thursday, June 02, 2016 20:16 - CONCLUSION: The lungs are clear. Cordell Smith MD Objective Remarks GENERAL: Well-nourished, well-developed female patient in [facility]. SKIN: Warm and dry. HEAD: Atraumatic. Normocephalic. EYES: Pupils equal and round. No scleral icterus. No injection or drainage. ENT: No nasal bleeding or discharge. Mucous membranes pink and moist. NECK: Trachea midline. CARDIOVASCULAR: Regular rate and rhythm. RESPIRATORY: No accessory muscle use. Diffuse expiratory wheezing throughout all lung [place]. Breath sounds equal bilaterally. GASTROINTESTINAL: Abdomen soft, non-tender, nondistended. MUSCULOSKELETAL: Extremities without clubbing, cyanosis, or edema. No obvious deformities. NEUROLOGICAL: Awake and alert. No obvious cranial nerve deficits. Motor grossly within normal limits. Normal speech. PSYCHIATRIC: Appropriate mood and affect; insight and judgment normal. Medications and IVs Current Medications Medications (Trade) Dose Ordered Sig/Felipe Route Start Time Stop Time Status Last Admin (SoluMEDROL INJ) 40 mg Q6HR IV PUSH 06/03/16 00:00 06/03/16 05:58 (Mucinex Er) 600 mg BID PO 06/03/16 09:00 06/03/16 08:01 (Symbicort 160-4.5 Inh) 2 puff Q12HR INH 06/03/16 09:00 (Habitrol 21 Mg Patch.24 Hr) 1 patch DAILY PRN TD 06/02/16 22:45 (NS Flush) 2 ml UNSCH PRN FLUSH 06/02/16 22:45 (NS Flush) 2 ml BID FLUSH 06/03/16 09:00 06/03/16 08:01 (Zofran Inj) 4 mg Q6H PRN IVP 06/02/16 22:45 (Dulcolax Supp) 10 mg DAILY PRN OK 06/02/16 22:45 (Tylenol) 650 mg Q6H PRN PO 06/02/16 22:45 ([place] 5-325 Mg) 1 tab Q4H PRN PO 06/02/16 22:45 ([place] 10-325 Mg) 1 tab Q4H PRN PO 06/02/16 22:45 06/03/16 00:47 (Protonix) 40 mg DAILY@21 PO 06/03/16 21:00 Quetiapine Fumarate 200 mg 200 mg HS PO 06/03/16 21:00 (Levaquin 750 Mg Premix Inj) 150 ml @ 100 mls/hr Q24H IV 06/03/16 23:00 (Flu (Quadrivalent) Vaccine Inj) 0.5 ml ONCE ONCE IM 06/04/16 10:00 06/04/16 10:01 (Pneumovax-23 Inj) 25 mcg ONCE ONCE IM 06/04/16 10:00 06/04/16 10:01 Urinary Catheter: No Vascular Central Line Catheter: No A/P Problem List: (1) COPD exacerbation ICD Code: J44.1 Status: Acute (2) Schizophrenia ICD Code: F20.9 Status: Chronic (3) Tobacco abuse ICD Code: Z72.0 Status: Acute Assessment and Plan 55-year-old female with a PMH of COPD, Tobacco Abuse, Anxiety and Depression who was brought to the ER by EMS w/ complaints of SOB and wheezing x3 days. Acute COPD Exacerbation: +wheezing on exam, continues to smoke. CXR w/ no acute findings. Continue Solu-Medrol, DuoNeb, Mucinex, Symbicort. Continue IV Levaquin for possible atypical PNA in light of productive cough. Still wheezing today, not ready for discharge. Check home O2 walk test tomorrow am. Tobacco Abuse: Pt counselled. Smokes 2ppd. Nicotine patch ordered. Ativan prn. Schizophrenia: Resume home Seroquel. DVT Prophylaxis: SCD/Teds. Written by Diane Hollis, acting as scribe for Dr. Altman on 06/03/16 at 11:18. The documentation accurately reflects the work performed [id number] by me Dr. Altman on 06/03/16 at 11:18. Diane Hollis PA-C Jun 03, 2016 11:20 Juana Altman MD Jun 03, 2016 15:04
[2016-06-03] MEDS: NICOTINE 21 MG/24 HR PATCH TD SCH (12:07)
[2016-06-03] MEDS: REMOVE OLD NICODERM (NICOTINE) PATCH TD SCH (21:00)
[2016-06-03] MEDS: QUEtiapine FUMARATE 200 MG TAB PO SCH (21:55)
[2016-06-03] MEDS: PANTOPRAZOLE SOD 40 MG DELAYED RELEASE TAB PO SCH (21:55)
[2016-06-03] MEDS: LEVOFLOXACIN 750 MG PREMIX INJ 150 ML IV SCH (23:26)
[2016-06-04] VITALS (10 sets, daily range): BP systolic 104–125; BP diastolic 57–73; PULSE 91–125; RESP 16–18; TEMP 96.3–97.9; O2SAT 92–95
[2016-06-04] MEDS: methylPREDNISolone SOD SUCC 40 MG/1 ML VIAL IV PUSH SCH ×2 (06:30→11:28)
[2016-06-04] MEDS: BUDESONIDE-FORMOTEROL 160/4.5 MCG INHALER INH SCH ×2 (08:16→20:51)
[2016-06-04] MEDS: NICOTINE 21 MG/24 HR PATCH TD SCH (08:17)
[2016-06-04] MEDS: SODIUM CHLORIDE 0.9% FLUSH 5 ML FLUSH FLUSH SCH ×2 (08:17→20:49)
[2016-06-04] MEDS: guaiFENesin E.R. 600 MG TAB PO SCH ×2 (08:17→20:49)
[2016-06-04] MEDS: RESP: ALBUTEROL 2.5 MG/IPRATROPIUM 0.5 MG NEB (SCH) NEB ×4 (08:52→19:31)
--- NOTE | 2016-06-04 09:45 | HHI.PR ---
Subjective Remarks Follow-up for COPD exacerbation. The patient reports continued improvement overnight. She still has a mild cough, productive with yellow sputum. She denies any wheezing, chest pain with deep breath, nausea, vomiting, lightheadedness. 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 Objective Vitals Vital Signs Date Time Temp Pulse Resp B/P Pulse Ox O2 Delivery O2 Flow Rate FiO2 06/04/16 08:51 94 Nasal Cannula 2.50 06/04/16 08:07 96.3 93 18 113/70 94 06/04/16 08:02 109 06/04/16 06:03 97.9 125 16 125/66 92 06/04/16 00:09 97.8 91 16 108/57 93 06/03/16 20:39 96 Nasal Cannula 2.50 06/03/16 20:26 97.5 96 18 120/65 96 06/03/16 20:20 71 06/03/16 15:28 98.4 109 18 119/61 93 06/03/16 11:15 97.6 115 18 114/63 93 I/O 06/03/16 06/03/16 06/03/16 06/04/16 06/04/16 06/04/16 07:00 15:00 23:00 07:00 15:00 23:00 Intake Total 300 ml Balance 300 ml Intake Oral 300 ml # Voids 1 1 Result Diagram: 06/03/16 0439 06/03/16 0439 Imaging Last Impressions Chest X-Ray 06/02/162001 Signed Impressions: Service Date/Time: Thursday, June 02, 2016 20:16 - CONCLUSION: The lungs are clear. Cordell Smith MD Objective Remarks GENERAL: Well-developed well-nourished. In no acute distress. SKIN: Warm and dry. No lesions noted. HEENT: Normocephalic. Pupils equal and round. Mucous membranes pink and moist. CARDIOVASCULAR: Regular rate and rhythm. No murmur appreciated. RESPIRATORY: No accessory muscle use. Clear to auscultation. Breath sounds equal bilaterally. No wheezing. GASTROINTESTINAL: Abdomen soft, non-tender, nondistended. Bowel sounds x4. MUSCULOSKELETAL: No obvious deformities. No clubbing or cyanosis. No edema. NEUROLOGICAL: Awake and alert. No focal neurological deficits. Moves upper and lower extremities spontaneously. Normal speech. PSYCHIATRIC: Appropriate mood and affect; insight and judgment normal. A/P Problem List: (1) COPD exacerbation ICD Code: J44.1 Status: Acute (2) Schizophrenia ICD Code: F20.9 Status: Chronic (3) Tobacco abuse ICD Code: Z72.0 Status: Chronic Assessment and Plan 55-year-old female with a PMH of COPD, Tobacco Abuse, Anxiety and Depression who was brought to the ER by EMS w/ complaints of SOB and wheezing x3 days. Acute exacerbation of chronic COPD: Wheezing improved. CXR w/ no acute findings. Received IV Solu-Medrol, continue oral prednisone taper. Continue nebs, Symbicort. Antitussives as needed. Received IV Levaquin for possible atypical PNA in light of productive cough, continue oral Levaquin. Home O2 walk test performed, patient will need home oxygen, case management consulted. Tobacco Abuse: Pt counselled. Smokes 2ppd. Nicotine patch ordered. Ativan prn. Schizophrenia: Continue home Seroquel. DVT Prophylaxis: SCD/Teds. Written by Laureano Sanchez, acting as scribe for Dr. Altman on 06/04/16 at 09:45. The documentation accurately reflects the work performed [id number] by me Dr. Altman on 06/04/16 at 09:45. Discharge Planning Discharge patient to home Condition on discharge: Improved Regular Diet as tolerated Regular activity Rx written: Prednisone, Levaquin, nebulizer machine, oxygen Follow-up with primary care physician and pulmonology Laureano Sanchez Jun 04, 2016 09:45 Juana Altman MD Jun 04, 2016 14:11
[2016-06-04] MEDS ORDERED: PRED10PA2 PO (09:47)
[2016-06-04] MEDS ORDERED: LEVA750T PO (09:47)
[2016-06-04] MEDS ORDERED: IPRASOL NEB (09:47)
[2016-06-04] MEDS ORDERED: SYMB160A INH (09:47)
[2016-06-04] MEDS ORDERED: OXYGENTANK NAS.CANULA (09:49)
[2016-06-04] MEDS ORDERED: NEBULIZER1 MI1 (09:49)
[2016-06-04] MEDS ORDERED: PNEUMOCOCCAL POLYVALENT INJ 25 MCG/0.5 ML SYR IM ONE (10:00)
[2016-06-04] MEDS ORDERED: INFLUENZA VIRUS VACCINE (QUADRIVALENT) 0.5 ML SYR IM ONE (10:00)
[2016-06-04] MEDS: predniSONE 20 MG TAB PO SCH (20:49)
[2016-06-04] MEDS: PANTOPRAZOLE SOD 40 MG DELAYED RELEASE TAB PO SCH (20:49)
[2016-06-04] MEDS: QUEtiapine FUMARATE 200 MG TAB PO SCH (20:49)
[2016-06-04] MEDS: REMOVE OLD NICODERM (NICOTINE) PATCH TD SCH (20:53)
[2016-06-04] MEDS: LEVOFLOXACIN 750 MG PREMIX INJ 150 ML IV SCH (22:38)
[2016-06-05] VITALS (8 sets, daily range): BP systolic 124–139; BP diastolic 72–84; PULSE 68–96; RESP 18–20; TEMP 96.9–98.4; O2SAT 92–96
[2016-06-05] MEDS: SODIUM CHLORIDE 0.9% FLUSH 5 ML FLUSH FLUSH SCH ×2 (08:40→20:50)
[2016-06-05] MEDS: BUDESONIDE-FORMOTEROL 160/4.5 MCG INHALER INH SCH ×2 (08:41→20:49)
[2016-06-05] MEDS: guaiFENesin E.R. 600 MG TAB PO SCH ×2 (08:41→20:49)
[2016-06-05] MEDS: predniSONE 20 MG TAB PO SCH ×2 (08:41→20:49)
[2016-06-05] MEDS: REMOVE OLD NICODERM (NICOTINE) PATCH TD SCH (08:41)
[2016-06-05] MEDS: NICOTINE 21 MG/24 HR PATCH TD SCH (08:41)
[2016-06-05] MEDS: RESP: ALBUTEROL 2.5 MG/IPRATROPIUM 0.5 MG NEB (SCH) NEB ×2 (09:12→13:31)
--- NOTE | 2016-06-05 10:52 | HHI.PR ---
Subjective Remarks Follow-up for COPD exacerbation. The patient was discharged yesterday, but awaiting arrangement of home oxygen. She reports continued improvement in her breathing and feels at baseline today. Objective Vitals Vital Signs Date Time Temp Pulse Resp B/P Pulse Ox O2 Delivery O2 Flow Rate FiO2 06/05/16 09:12 96 Nasal Cannula 2.00 06/05/16 07:34 98.0 87 20 132/81 95 06/05/16 03:25 98.4 68 18 134/76 95 06/04/16 23:14 97.2 101 18 117/59 95 06/04/16 20:40 96 06/04/16 19:27 95 Nasal Cannula 2.00 06/04/16 18:17 101 18 122/73 95 06/04/16 12:00 104 18 104/64 94 I/O 06/04/16 06/04/16 06/04/16 06/05/16 06/05/16 06/05/16 07:00 15:00 23:00 07:00 15:00 23:00 Intake Total 700 ml Balance 700 ml Intake Oral 700 ml # Voids 2 Result Diagram: 06/03/16 0439 06/03/16 0439 Imaging Last Impressions Chest X-Ray 06/02/162001 Signed Impressions: Service Date/Time: Thursday, June 02, 2016 20:16 - CONCLUSION: The lungs are clear. Cordell Smith MD Objective Remarks GENERAL: Well-developed well-nourished. In no acute distress. SKIN: Warm and dry. No lesions noted. HEENT: Normocephalic. Pupils equal and round. Mucous membranes pink and moist. CARDIOVASCULAR: Regular rate and rhythm. No murmur appreciated. RESPIRATORY: No accessory muscle use. Clear to auscultation. Breath sounds equal bilaterally. No wheezing. GASTROINTESTINAL: Abdomen soft, non-tender, nondistended. Bowel sounds x4. MUSCULOSKELETAL: No obvious deformities. No clubbing or cyanosis. No edema. NEUROLOGICAL: Awake and alert. No focal neurological deficits. Moves upper and lower extremities spontaneously. Normal speech. PSYCHIATRIC: Appropriate mood and affect; insight and judgment normal. A/P Problem List: (1) COPD exacerbation ICD Code: J44.1 Status: Acute (2) Schizophrenia ICD Code: F20.9 Status: Chronic (3) Tobacco abuse ICD Code: Z72.0 Status: Chronic Assessment and Plan 55-year-old female with a PMH of COPD, Tobacco Abuse, Anxiety and Depression who was brought to the ER by EMS w/ complaints of SOB and wheezing x3 days. Acute exacerbation of chronic COPD: Wheezing improved. CXR w/ no acute findings. Received IV Solu-Medrol, continue oral prednisone taper. Continue nebs, Symbicort. Antitussives as needed. Received IV Levaquin for possible atypical PNA in light of productive cough, continue oral Levaquin. Home O2 walk test performed, patient will need home oxygen, case management consulted. Tobacco Abuse: Pt counselled. Smokes 2ppd. Nicotine patch ordered. Schizophrenia: Continue home Seroquel. DVT Prophylaxis: SCD/Teds. Written by Laureano Sanchez, acting as scribe for Dr. Altman on 06/05/16 at 10:51. The documentation accurately reflects the work performed [id number] by me Dr. Altman on 06/05/16 at 10:51. Discharge Planning Discharge patient to home Condition on discharge: Improved Regular Diet as tolerated Regular activity Rx written: Prednisone, Levaquin, nebulizer machine, oxygen Follow-up with primary care physician and pulmonology Laureano Sanchez Jun 05, 2016 10:52 Juana Altman MD Jun 05, 2016 13:33
[2016-06-05] MEDS: QUEtiapine FUMARATE 200 MG TAB PO SCH (20:49)
[2016-06-05] MEDS: PANTOPRAZOLE SOD 40 MG DELAYED RELEASE TAB PO SCH (20:49)
[2016-06-06 00:54] VITALS: BP 126/70; PULSE 86; RESP 20; TEMP 97.5; O2SAT 96
[2016-06-06 04:16] VITALS: BP 116/72; PULSE 82; RESP 20; TEMP 97.6; O2SAT 96
[2016-06-06 07:36] VITALS: O2SAT 96
[2016-06-06] MEDS: RESP: ALBUTEROL 2.5 MG/IPRATROPIUM 0.5 MG NEB (SCH) NEB ×2 (07:36→13:37)
[2016-06-06 08:00] VITALS: BP 110/76; PULSE 94; PULSE 96; RESP 18; TEMP 97.4; O2SAT 96
[2016-06-06] MEDS: NICOTINE 21 MG/24 HR PATCH TD SCH (08:32)
[2016-06-06] MEDS: BUDESONIDE-FORMOTEROL 160/4.5 MCG INHALER INH SCH (08:33)
[2016-06-06] MEDS: predniSONE 20 MG TAB PO SCH (08:33)
[2016-06-06] MEDS: guaiFENesin E.R. 600 MG TAB PO SCH (08:33)
[2016-06-06] MEDS: SODIUM CHLORIDE 0.9% FLUSH 5 ML FLUSH FLUSH SCH (08:34)
[2016-06-06] MEDS ORDERED: LEVOFLOXACIN 750 MG TAB PO SCH (09:00)
--- NOTE | 2016-06-06 11:52 | HHI.PR ---
Subjective Remarks Follow up for COPD exacerbation. The patient reports her breathing is much better, denies any current shortness of breath or wheezing. She passed her repeat Home O2 walk test and does not require home O2. She wants to be discharged. Objective Vitals Vital Signs Date Time Temp Pulse Resp B/P Pulse Ox O2 Delivery O2 Flow Rate FiO2 06/06/16 08:00 97.4 94 18 110/76 96 06/06/16 07:36 96 Nasal Cannula 2.00 06/06/16 04:16 97.6 82 20 116/72 96 06/06/16 00:54 97.5 86 20 126/70 96 06/05/16 20:15 95 06/05/16 19:44 98.2 96 20 134/84 96 06/05/16 15:28 98.0 95 18 139/72 92 Result Diagram: 06/03/16 0439 06/03/16 0439 Imaging Last Impressions Chest X-Ray 06/02/162001 Signed Impressions: Service Date/Time: Thursday, June 02, 2016 20:16 - CONCLUSION: The lungs are clear. Cordell Smith MD Objective Remarks GENERAL: Well-nourished, well-developed female patient in [facility]. SKIN: Warm and dry. HEAD: Atraumatic. Normocephalic. NECK: Trachea midline. CARDIOVASCULAR: Regular rate and rhythm. RESPIRATORY: No accessory muscle use. Lungs clear to auscultation. Breath sounds equal bilaterally. GASTROINTESTINAL: Abdomen soft, non-tender, nondistended. MUSCULOSKELETAL: Extremities without clubbing, cyanosis, or edema. No obvious deformities. NEUROLOGICAL: Awake and alert. No obvious cranial nerve deficits. Motor grossly within normal limits. Normal speech. PSYCHIATRIC: Appropriate mood and affect; insight and judgment normal. Medications and IVs Current Medications Medications (Trade) Dose Ordered Sig/Felipe Route Start Time Stop Time Status Last Admin (Mucinex Er) 600 mg BID PO 06/03/16 09:00 06/06/16 08:33 (Symbicort 160-4.5 Inh) 2 puff Q12HR INH 06/03/16 09:00 06/06/16 08:33 (NS Flush) 2 ml UNSCH PRN FLUSH 06/02/16 22:45 (NS Flush) 2 ml BID FLUSH 06/03/16 09:00 06/05/16 20:50 (Zofran Inj) 4 mg Q6H PRN IVP 06/02/16 22:45 (Dulcolax Supp) 10 mg DAILY PRN NM 06/02/16 22:45 (Tylenol) 650 mg Q6H PRN PO 06/02/16 22:45 (Protonix) 40 mg DAILY@21 PO 06/03/16 21:00 06/05/16 20:49 (SEROquel) 200 mg HS PO 06/03/16 21:00 06/05/16 20:49 (Habitrol 21 Mg Patch.24 Hr) 1 patch DAILY TD 06/03/16 11:30 06/06/16 08:32 Miscellaneous Information 1 HS TD 06/03/16 21:00 06/05/16 08:41 (Deltasone) 20 mg BID PO 06/04/16 21:00 06/06/16 08:33 (Levaquin) 750 mg DAILY PO 06/06/16 09:00 06/06/16 08:33 Urinary Catheter: No Vascular Central Line Catheter: No A/P Problem List: (1) COPD exacerbation ICD Code: J44.1 Status: Acute (2) Schizophrenia ICD Code: F20.9 Status: Chronic (3) Tobacco abuse ICD Code: Z72.0 Status: Chronic Assessment and Plan 55-year-old female with a PMH of COPD, Tobacco Abuse, Anxiety and Depression who was brought to the ER by EMS w/ complaints of SOB and wheezing x3 days. Acute exacerbation of chronic COPD: Significant wheezing upon arrival. CXR w/ no acute findings. Received IV Solu-Medrol, now on oral prednisone taper. Continue nebs, started on Symbicort. Antitussives as needed. Received IV Levaquin for possible atypical PNA in light of productive cough, continue oral Levaquin. Home O2 walk test performed 06/04, patient initially requiring home O2 however patient with continued improvement, repeat home O2 walk test done 06/06 and patient's O2 sat did not drop below 93% therefore she will not require home oxygen. Patient will be discharge. Tobacco Abuse: Pt counselled. Smokes 2ppd. Nicotine patch ordered. Patient has no desire to quit although extensive education provided. Schizophrenia: Continue home Seroquel. DVT Prophylaxis: SCD/Teds. Written by Diane Hollis, acting as scribe for Dr. Tripathi on 06/06/16 at 11: 51. Discharge Planning See discharge summary. Attending Statement The documentation accurately reflects the work performed [id number] by me on at 11:51. Diane Hollis PA-C Jun 06, 2016 11:52 Brian Payne MD Jun 11, 2016 13:14
[2016-06-06 12:00] VITALS: BP 112/78; PULSE 92; RESP 20; TEMP 97.1; O2SAT 96
--- NOTE | 2016-06-06 14:59 | HHI.DS ---
cc: Adonis Guerra MD Discharge Summary Admission Date Jun 02, 2016 at 10:45 pm Discharge Date: Jun 06, 2016 Admitting Diagnosis COPD Exacerbation (1) COPD exacerbation ICD Code: J44.1 Diagnosis: Principal (2) Schizophrenia ICD Code: F20.9 Diagnosis: Secondary (3) Tobacco abuse ICD Code: Z72.0 Diagnosis: Secondary Procedures None. Brief History - From Admission This is a 55-year-old female with a PMH of COPD, Tobacco Abuse, Anxiety and Depression who was brought to the ER by EMS w/ complaints of SOB and wheezing x3 days. Denies fever or chills but reports productive cough w/ yellow-colored sputum. Recent admit 05/12-05/15/16 for Sepsis, PNA, UTI and COPD Exacerbation. Continues to smoke 2ppd. On arrival, BP 129/85, HR 110, O2 sat 96% on RA, Afebrile. CBC unremarkable. Chemistry essentially unremarkable. CXR no acute findings. S/p Solu-Medrol and DuoNeb w/ some improvement. CBC/BMP: 06/03/16 0439 06/03/16 0439 Imaging Last Impressions Chest X-Ray 06/02/162001 Signed Impressions: Service Date/Time: Thursday, June 02, 2016 20:16 - CONCLUSION: The lungs are clear. Cordell Smith MD PE at Discharge GENERAL: Well-nourished, well-developed female patient in [facility]. SKIN: Warm and dry. HEAD: Atraumatic. Normocephalic. NECK: Trachea midline. CARDIOVASCULAR: Regular rate and rhythm. RESPIRATORY: No accessory muscle use. Lungs clear to auscultation. Breath sounds equal bilaterally. GASTROINTESTINAL: Abdomen soft, non-tender, nondistended. MUSCULOSKELETAL: Extremities without clubbing, cyanosis, or edema. No obvious deformities. NEUROLOGICAL: Awake and alert. No obvious cranial nerve deficits. Motor grossly within normal limits. Normal speech. PSYCHIATRIC: Appropriate mood and affect; insight and judgment normal. Hospital Course 55-year-old female with a PMH of COPD, Tobacco Abuse, Anxiety and Depression who was brought to the ER by EMS w/ complaints of SOB and wheezing x3 days. Acute exacerbation of chronic COPD: Significant wheezing upon arrival. CXR w/ no acute findings. Received IV Solu-Medrol, tapered to oral prednisone, Received duonebs q4h and prn. Started on Symbicort. Antitussives as needed. Received IV Levaquin for possible atypical PNA in light of productive cough, continued oral Levaquin at discharge. Home O2 walk test performed 06/04, patient initially requiring home O2 however patient with continued improvement, repeat home O2 walk test done 06/06 and patient's O2 sat did not drop below 93% therefore she will not require home oxygen. Patient will be discharge. Tobacco Abuse: Pt counselled. Smokes 2ppd. Nicotine patch ordered. Patient has no desire to quit although extensive education provided. Schizophrenia: Continue home Seroquel. DVT Prophylaxis: SCD/Teds. Written by Diane Hollis, acting as scribe for Dr. Tripathi on 06/06/16 at 11: 51. The documentation accurately reflects the work performed [id number] by me on at 11:51 Pt Condition on Discharge: Stable Discharge Disposition: Discharge Home Discharge Time: > 30 minutes Discharge Instructions DIET: Follow Instructions for: As Tolerated, No Restrictions Activities you can perform: Regular-No Restrictions Follow up Referrals: PCP Follow-up - 1 Week with Adonis Guerra MD Pulmonology - 2 Weeks New Medications: Nebulizer (Nebulizer) 1 Mis Mis 1 EA .ROUTE DIRECTED Breathing Treatment #1 Ref 0 EA Prednisone (48) 10 mg tab Dose Pack (Prednisone (48) 10 mg tab Dose Pack) 10 Mg Dspk 10 MG PO DIRECTED Inflammation #1 Ref 0 DSPK Budesonide-Formoterol Inh (Symbicort Inh) 160-4.5 Mcg/Act Aero 2 PUFF INH Q12HR Broncospasm #1 INHALER Ipratropium-Albuterol Neb (Duoneb) 0.5-2.5 Mg/3 Ml Neb 1 AMPULE NEB Q4-6H PRN SOB/WHEEZING #30 ML Continued Medications: Albuterol 8.5 GM Inh (Proair Hfa 8.5 GM Inh) 90 Mcg/Act Aer 2 PUFF INH Q4-6H 108 mcg/actuation PRN SHORTNESS OF BREATH #1 INHALER Levofloxacin (Levaquin) 750 Mg Tab 750 MG PO DAILY Broncospasm #7 Ref 0 TAB (This prescription has been renewed) Pantoprazole (Pantoprazole) 40 Mg Tab 40 MG PO DAILY@21 #21 TAB Quetiapine (Seroquel) 200 Mg Tab 200 MG PO HS #30 Ref 0 TAB Discontinued Medications: Fluticasone-Salmeterol Inh (Advair Diskus Inh) 250-50 Mcg/Blist Aer 1 PUFF INH BID Rinse mouth after use. #1 Ref 0 INHALER Prednisone (Prednisone) 10 Mg Tab 10 MG PO DIRECTED 2 Tabs (20mg) twice a day for 4 days. Then 1 Tab (10mg) twice a day for 4 days. Then 1 tab (10mg) daily for 4 days. #28 Ref 0 TAB Diane Hollis PA-C Jun 06, 2016 14:59 Brian Payne MD Jun 11, 2016 12:35
== END 2016-06-06 15:57 | disposition home or self-care (01) ==
LOC: NEPE 18:49 → NEDA 22:45 → NEPHCDU 06-03 00:06
PROVIDERS: ADMIT Hospitalist; ATTEND Hospitalist
DX: J44.1 Chronic obstructive pulmonary disease with (acute) exacerbation (principal); F20.9 Schizophrenia, unspecified; F17.210 Nicotine dependence, cigarettes, uncomplicated; R06.02 Shortness of breath; R06.2 Wheezing; F41.8 Other specified anxiety disorders; R05 Cough; Z59.0 Homelessness; Z23 Encounter for immunization
CPT/HCPCS: 71010; 80053; 84484; 85025; 87804; 90686; 90732; 93005; 94620; 94640; 94664; 99285; G0378; J0456; J0696; J1956; J2920; J7030; J7050; J7512; Q2038

== ENCOUNTER 2016-07-08 09:46 | Emergency (ER) | payer MEDICAID ==
[~2016-07-08] VITALS: Ht 167.6 cm; Wt 70.0 kg
[~2016-07-08 09:46] MED LIST changes: -ADVA250A INH; +IPRASOL NEB; +NEBULIZER1 MI1; -PRED10 PO; +PRED10PA2 PO; +SYMB160A INH
[2016-07-08 09:53] VITALS: PULSE 100; RESP 24; TEMP 98.6; O2SAT 93
[2016-07-08 10:15] VITALS: BP 116/82
[2016-07-08] MEDS ORDERED: methylPREDNISolone SOD SUCC 125 MG/2 ML VIAL IVP ONE (10:15)
[2016-07-08] MEDS ORDERED: SODIUM CHLORIDE 0.9% FLUSH 5 ML FLUSH IVF PRN (10:15)
--- NOTE | 2016-07-08 10:20 | PD ---
HPI Chief Complaint: Respiratory Distress Time Seen by Provider: 10:03 Travel History International Travel<30 days: No Contact w/Intl Traveler<30days: No Traveled to known affect area: No History of Present Illness HPI Patient is a 55-year-old female with history of COPD, presents to emergency room with complaints of COPD exacerbation and "pneumonia." Patient reports that she is a smoker and has history of COPD. Patient reports that she has had increased cough and increased thick yellow mucus production over the past few weeks. Patient reports that she was recently hospitalized last week at a hospital in [place] for treatment of COPD exacerbation as well as pneumonia, reports that she complete full course of antibiotics at that time. Reports that even after the antibiotics, she was still feeling sick with increased cough and congestion. Patient denies any fevers or chills at this time. Patient denies chest pain at this time. Patient reports that she is having her typical COPD exacerbation. PFSH Past Medical History Autoimmune Disease: No Anxiety: Yes Depression: Yes Cancer: No Cardiovascular Problems: Yes High Cholesterol: No Chemotherapy: No Chest Pain: Yes (FROM COUGHING/BRONCHITIS) Congestive Heart Failure: No Cerebrovascular Accident: No Diabetes: No Diminished Hearing: No Endocrine: No GERD: No Genitourinary: No Headaches: No Hiatal Hernia: No Heparin Induced Thrombocytopen: No Hypertension: No Immune Disorder: No Implanted Vascular Access Dvce: No Kidney Stones: No Musculoskeletal: No Neurologic: Yes Psychiatric: Yes Reproductive: No Respiratory: Yes Migraines: No Radiation Therapy: No Renal Failure: No Schizophrenia: Yes Seizures: Yes (WITH PREG) Sickle Cell Disease: No Sleep Apnea: No Thyroid Disease: No Ulcer: No Tetanus Vaccination: < 5 Years ?: Not Menopausal: Yes Past Surgical History Abdominal Surgery: No AICD: No Arteriovenous Shunt: No Cardiac Surgery: No Section: Yes Ear Surgery: No Endocrine Surgery: No Eye Surgery: No Genitourinary Surgery: No Gynecologic Surgery: Yes (CSECTION) Insulin Pump: No Joint Replacement: No Oral Surgery: No Pacemaker: No Thoracic Surgery: No Other Surgery: Yes Social History Alcohol Use: Yes (4 beers ) Tobacco Use: Yes (2PPD) Substance Use: No Allergies-Medications (Allergen,Severity, Reaction): Coded Allergies: Sulfa (Verified Allergy, Mild, 07/08/16) Reported Meds & Prescriptions Reported Meds & Active Scripts Active Proair Hfa 8.5 GM Inh (Albuterol Sulfate) 90 Mcg/Act Aer 2 Puff INH Q4-6H PRN 108 mcg/actuation Prednisone 20 Mg Tab 20 Mg PO BID Azithromycin 500 Mg Tab 500 Mg PO DAILY Nebulizer 1 Mis Mis 1 Ea .ROUTE DIRECTED Prednisone (48) 10 mg tab Dose Pack (Prednisone) 10 Mg Dspk 10 Mg PO DIRECTED Duoneb (Ipratropium-Albuterol Neb) 0.5-2.5 Mg/3 Ml Neb 1 Ampule NEB Q4-6H PRN Symbicort Inh (Budesonide/Formoterol Fumarate) 160-4.5 Mcg/Act Aero 2 Puff INH Q12HR Levaquin (Levofloxacin) 750 Mg Tab 750 Mg PO DAILY Pantoprazole (Pantoprazole Sodium) 40 Mg Tab 40 Mg PO DAILY@21 Proair Hfa 8.5 GM Inh (Albuterol Sulfate) 90 Mcg/Act Aer 2 Puff INH Q4-6H PRN 108 mcg/actuation Reported Seroquel (Quetiapine Fumarate) 200 Mg Tab 200 Mg PO HS Review of Systems General / Constitutional: No: Fever Eyes: No: Visual changes HENT: No: Headaches Cardiovascular: No: Chest Pain or Discomfort, Palpitations Respiratory: Positive: Cough, Shortness of Breath, Wheezing Gastrointestinal: No: Abdominal Pain Genitourinary: No: Dysuria Musculoskeletal: No: Pain Skin: No Rash Neurologic: No: Weakness Psychiatric: No: Depression Endocrine: No: Polydipsia Hematologic/Lymphatic: No: Easy Bruising Physical Exam Narrative GENERAL: Patient in mild distress SKIN: Warm and dry. HEAD: Atraumatic. Normocephalic. EYES: Pupils equal and round. No scleral icterus. No injection or drainage. ENT: No nasal bleeding or discharge. Mucous membranes pink and moist. NECK: Trachea midline. No JVD. CARDIOVASCULAR: Regular rate and rhythm. No murmur appreciated. RESPIRATORY: No accessory muscle use. Patient with scattered wheezing to upper and lower lobes of lungs GASTROINTESTINAL: Abdomen soft, non-tender, nondistended. Hepatic and splenic margins not palpable. MUSCULOSKELETAL: No obvious deformities. No clubbing. No cyanosis. No edema. NEUROLOGICAL: Awake and alert. No obvious cranial nerve deficits. Motor grossly within normal limits. Normal speech. PSYCHIATRIC: Appropriate mood and affect; insight and judgment normal. Data Data Last Documented VS Vital Signs Date Time Temp Pulse Resp B/P Pulse Ox O2 Delivery O2 Flow Rate FiO2 07/08/16 11:10 108 18 94 Nasal Cannula 2 07/08/16 10:29 21 07/08/16 10:15 116/82 07/08/16 09:53 98.6 Orders Complete Blood Count With Diff (07/08/16 10:09) Comprehensive Metabolic Panel (07/08/16 10:09) Act Partial Throm Time (Ptt) (07/08/16 10:09) Prothrombin Time / Inr (Pt) (07/08/16 10:09) Magnesium (Mg) (07/08/16 10:09) Urinalysis - C+S If Indicated (07/08/16 10:09) Iv Access Insert/Monitor (07/08/16 10:09) Electrocardiogram (07/08/16 10:09) Oximetry (07/08/16 10:09) Chest, Single Ap (07/08/16 10:09) Sodium Chloride 0.9% Flush (Ns Flush) (07/08/16 10:15) Methylprednisolone So Succ Inj (Solumedr (07/08/16 10:15) Albuterol-Ipratropium Neb (Duoneb Neb) (07/08/16 10:15) Magnesium Sulfate 1 Gm Premix (Magnesium (07/08/16 10:30) Labs Laboratory Tests Test 07/08/16 07/08/16 10:34 11:00 White Blood Count 10.4 TH/MM3 Red Blood Count 4.96 MIL/MM3 Hemoglobin 15.1 GM/DL Hematocrit 44.7 % Mean Corpuscular Volume 90.2 FL Mean Corpuscular Hemoglobin 30.4 PG Mean Corpuscular Hemoglobin 33.7 % Concent Red Cell Distribution Width 15.2 % Platelet Count 374 TH/MM3 Mean Platelet Volume 7.7 FL Neutrophils (%) (Auto) 65.4 % Lymphocytes (%) (Auto) 29.5 % Monocytes (%) (Auto) 3.6 % Eosinophils (%) (Auto) 0.2 % Basophils (%) (Auto) 1.3 % Neutrophils # (Auto) 6.8 TH/MM3 Lymphocytes # (Auto) 3.1 TH/MM3 Monocytes # (Auto) 0.4 TH/MM3 Eosinophils # (Auto) 0.0 TH/MM3 Basophils # (Auto) 0.1 TH/MM3 CBC Comment DIFF FINAL Differential Comment Prothrombin Time 10.6 SEC Prothromb Time International 1.0 RATIO Ratio Activated Partial 27.7 SEC Thromboplast Time Sodium Level 140 MEQ/L Potassium Level 4.0 MEQ/L Chloride Level 107 MEQ/L Carbon Dioxide Level 20.6 MEQ/L Anion Gap 12 MEQ/L Blood Urea Nitrogen 7 MG/DL Creatinine 0.70 MG/DL Estimat Glomerular Filtration 87 ML/MIN Rate Random Glucose 96 MG/DL Calcium Level 8.0 MG/DL Magnesium Level 2.1 MG/DL Total Bilirubin 0.2 MG/DL Aspartate Amino Transf 20 U/L (AST/SGOT) Alanine Aminotransferase 20 U/L (ALT/SGPT) Alkaline Phosphatase 151 U/L Total Protein 7.3 GM/DL Albumin 3.6 GM/DL Urine Color COLORLESS Urine Turbidity CLEAR Urine pH 5.0 Urine Specific [place] 1.002 Urine Protein NEG mg/dL Urine Glucose (UA) NEG mg/dL Urine Ketones NEG mg/dL Urine Occult Blood NEG Urine Nitrite NEG Urine Bilirubin NEG Urine Urobilinogen LESS THAN 2.0 MG/DL Urine Leukocyte Esterase NEG Urine WBC LESS THAN 1 /hpf Urine Squamous Epithelial 1 /hpf Cells Microscopic Urinalysis Comment CULT NOT INDICATED MDM Medical Decision Making Medical Screen Exam Complete: Yes Emergency Medical Condition: Yes Interpretation(s) Vital Signs Date Time Temp Pulse Resp B/P Pulse Ox O2 Delivery O2 Flow Rate FiO2 07/08/16 09:53 98.6 100 24 93 Differential Diagnosis COPD exacerbation, pneumonia, bronchitis, arrhythmia, electrolyte abnormality, PE Narrative Course Patient is a 55-year-old female who presents to emergency room for evaluation of COPD exacerbation. She reports that she is a smoker, reports that she was hospitalized last week for pneumonia with COPD exacerbation. Patient reports that she was discharged home with a prescription for albuterol treatments as well as a home nebulizer, patient reports that she has been unable to fill the prescription for albuterol treatments. Patient did report that she complete full course of antibiotic treatments. Patient with no fevers or chills at this time, reports increased productive cough. X-ray of the chest ordered, labwork ordered as well. Patient received Solu- Medrol by EMS on route to the emergency room. Will give patient neb treatments and reevaluate her after neb treatments Patient re-evaluated Patient feeling much better. Reviewed all labs and all studies with patient in detail. Patient will follow-up with her primary care doctor and return to ER as needed. Discussed need for her to stop smoking cigarettes cbc WBC 10.4 Hemoglobin 15.1 Hematocrit 44.7 Platelets 374 Sodium 140 Chloride 107 Potassium 4.0 BUN 7 Creatinine 0.7 Alkaline phosphatase 151 ua: neg nitrite, neg leuk esterase, less than 1 wbc chest xray: no acute cardiopulmonary abnormality all labs and studies reviewed with patient in detail Diagnosis Primary Impression: COPD exacerbation Additional Impression: Bronchitis Patient Instructions: General Instructions Additional Instructions: Please return to ER as needed Follow up with primary care doctor as soon as possible Please take all medications as prescribed Med/Other Pt SpecificInfo: Prescription(s) given Scripts Albuterol 8.5 GM Inh (Proair Hfa 8.5 GM Inh)90 Mcg/Act Aer2 Puff INH Q4-6H PRN ( SHORTNESS OF BREATH) #1 INHALER Ref 0 108 mcg/actuation Prov:Verónica Weaver DO 07/08/16 Prednisone 20 Mg Tab20 Mg PO BID #10 TAB Ref 0 Prov:Verónica Weaver DO 07/08/16 Azithromycin 500 Mg [id number] Mg PO DAILY #5 TAB Ref 0 Prov:Verónica Weaver DO 07/08/16 Disposition: 01 DISCHARGE HOME Condition: Stable Verónica Weaver DO Jul 08, 2016 10:20
[2016-07-08] MEDS: RESP: ALBUTEROL 2.5 MG/IPRATROPIUM 0.5 MG NEB (SCH) INH (10:26)
[2016-07-08 10:29] VITALS: O2SAT 95
[2016-07-08] MEDS: MAGNESIUM SULFATE 1 GM PREMIX 100 ML IV SCH ×2 (10:30→11:30)
--- NOTE | 2016-07-08 10:42 | RADRPT ---
EXAM DATE/TIME: 07/08/2016 10:15 [facility] COMPARISON: CHEST SINGLE AP, June 02, 2016, 20:16. INDICATIONS : Congestion, with shortness of breath. MEDICAL HISTORY : Chronic obstructive pulmonary disease. SURGICAL HISTORY : None. ENCOUNTER: Initial ACUITY: 1 day PAIN SCORE: 0/10 LOCATION: Bilateral chest FINDINGS: Portable AP view of the chest demonstrates a normal-sized cardiac silhouette. No effusion, consolidat ion, or pneumothorax is visualized. The bones and soft tissues demonstrate no acute abnormality. CONCLUSION: No acute cardiopulmonary abnormality is identified. Adonis Deleon MD on July 08, 2016 at 10:40 Board Certified Radiologist. This report was verified electronically.
[2016-07-08 10:49] LABS: AUTOMATED NEUTROPHIL # 6.8 TH/MM3 (1.8-7.7); BASOPHIL # 0.1 TH/MM3 (0-0.2); BASOPHIL % 1.3 % (0.0-2.0); EOSINOPHIL % 0.2 % (0.0-4.0); HEMATOCRIT 44.7 % (35.0-46.0); HEMO FLAGS DIFF FINAL; LYMPH % 29.5 % (9.0-44.0); LYMPHOCYTE # 3.1 TH/MM3 (1.0-4.8); MEAN CELL VOLUME 90.2 FL (80.0-100.0); MEAN CORPUSCULAR HEMOGLOBIN 30.4 PG (27.0-34.0); MEAN CORPUSCULAR HGB CONC 33.7 % (32.0-36.0); MONO % 3.6 % (0.0-8.0); NEUT % 65.4 % (16.0-70.0); PLATELET COUNT 374 TH/MM3 (150-450); RED BLOOD COUNT 4.96 MIL/MM3 (4.00-5.30); RED CELL DISTRIBUTION WIDTH 15.2 % (11.6-17.2); WHITE BLOOD COUNT 10.4 TH/MM3 (4.0-11.0)
[2016-07-08 10:57] LABS: APTT (PATIENT) 27.7 SEC (24.3-30.1); PROTHROMBIN TIME - PATIENT 10.6 SEC (9.8-11.6)
[2016-07-08 11:10] VITALS: PULSE 108; RESP 18; O2SAT 94
[2016-07-08 11:11] LABS: ALT (GPT) 20 U/L (10-53); ANION GAP 12 MEQ/L (5-15); AST (GOT) 20 U/L (15-37); BICARBONATE 20.6 MEQ/L (21.0-32.0); BLOOD UREA NITROGEN 7 MG/DL (7-18); CHLORIDE 107 MEQ/L (98-107); GLOMERULAR FILTRATION RATE 87 ML/MIN (>89); MAGNESIUM 2.1 MG/DL (1.5-2.5); SODIUM (NA) 140 MEQ/L (136-145)
[2016-07-08 11:14] LABS: ALKALINE PHOSPHATASE 151 U/L (45-117); TOTAL BILIRUBIN ADULT 0.2 MG/DL (0.2-1.0)
[2016-07-08 11:39] LABS: BLOOD, URINE NEG (NEG); COMMENT (UR) CULT NOT INDICATED; CULTURE IF INDICATED CULT NOT INDICATED; GLUCOSE,URINE NEG (NEG); KETONE, URINE NEG (NEG); NITRITE,URINE NEG (NEG); SQUAMOUS EPITHELIAL CELL URINE 1 /hpf (0-5); URINE COLOR COLORLESS (YELLW/STRAW)
[2016-07-08] MEDS ORDERED: ALBUAER3 INH (12:29)
[2016-07-08] MEDS ORDERED: PRED20 PO (12:29)
[2016-07-08] MEDS ORDERED: AZIT500T2 PO (12:29)
[2016-07-08 13:16] VITALS: BP 119/75; TEMP 98.3
--- NOTE | 2016-07-09 15:58 | EKG ---
Date Performed: 07/08/2016 Time Performed: 11:25:47 PTAGE: 55 years EKG: SINUS TACHYCARDIA POSSIBLE INFERIOR, LATERAL INFARCTS, AGE UNDETERMINED ABNORMAL RHYTHM ECG PREVIOUS TRACING : 06/02/2016 20.35 No significant change from previous tracing noted. DOCTOR: John Resendez Interpretating Date/Time 07/09/2016 15:56:28
== END 2016-07-08 13:00 | disposition home or self-care (01) ==
LOC: NEPC 09:46
DX: J44.1 Chronic obstructive pulmonary disease with (acute) exacerbation (principal); F17.210 Nicotine dependence, cigarettes, uncomplicated; R00.0 Tachycardia, unspecified; R06.02 Shortness of breath
CPT/HCPCS: 71010; 80053; 81001; 83735; 85025; 85610; 85730; 93005; 94640; 94664; 99284; J3475

== ENCOUNTER 2016-07-23 01:33 | Emergency (ER) | payer MEDICAID, OTHER ==
[~2016-07-23] VITALS: Ht 167.6 cm; Wt 80.0 kg
[~2016-07-23 01:33] MED LIST changes: +AZIT500T2 PO; -LEVA750T PO; -PRED10PA2 PO; +PRED20 PO
[2016-07-23 01:39] VITALS: BP 134/89; PULSE 110; RESP 18; TEMP 98.3; O2SAT 97
[2016-07-23 03:02] LABS: AUTOMATED NEUTROPHIL # 7.9 TH/MM3 (1.8-7.7); BASOPHIL # 0.1 TH/MM3 (0-0.2); BASOPHIL % 0.9 % (0.0-2.0); EOSINOPHIL # 0.1 TH/MM3 (0-0.4); HEMO FLAGS DIFF FINAL; LYMPH % 34.4 % (9.0-44.0); LYMPHOCYTE # 4.8 TH/MM3 (1.0-4.8); MEAN CELL VOLUME 91.1 FL (80.0-100.0); MEAN CORPUSCULAR HEMOGLOBIN 30.5 PG (27.0-34.0); MEAN CORPUSCULAR HGB CONC 33.5 % (32.0-36.0); MONO % 6.7 % (0.0-8.0); PLATELET COUNT 352 TH/MM3 (150-450); RED BLOOD COUNT 4.82 MIL/MM3 (4.00-5.30); RED CELL DISTRIBUTION WIDTH 15.4 % (11.6-17.2); WHITE BLOOD COUNT 13.9 TH/MM3 (4.0-11.0)
[2016-07-23 03:11] LABS: ACETAMINOPHEN LESS THAN 2.0 MCG/ML (10.0-30.0); ALT (GPT) 24 U/L (10-53); ANION GAP 9 MEQ/L (5-15); AST (GOT) 15 U/L (15-37); BICARBONATE 23.7 MEQ/L (21.0-32.0); BLOOD UREA NITROGEN 5 MG/DL (7-18); CHLORIDE 107 MEQ/L (98-107); GLOMERULAR FILTRATION RATE 104 ML/MIN (>89); POTASSIUM 3.8 MEQ/L (3.5-5.1); SODIUM (NA) 140 MEQ/L (136-145)
[2016-07-23 03:21] LABS: ALKALINE PHOSPHATASE 141 U/L (45-117); TOTAL BILIRUBIN ADULT 0.2 MG/DL (0.2-1.0)
--- NOTE | 2016-07-23 03:23 | PD ---
HPI Chief Complaint: Psychiatric Symptoms Time Seen by Provider: 03:19 Travel History International Travel<30 days: No Contact w/Intl Traveler<30days: No Traveled to known affect area: No History of Present Illness HPI 55-year-old white female presents to emergency department under [place] act by PD. The patient notified police that she was tired of living. She states that she can't live any longer out on the streets. She is tired of being homeless. She endorses alcohol abuse. She states that she suffers from schizophrenia. She feels that she cannot get any help. She is not been able to find a stable living facility. She denies any toxic ingestions. She will not elaborate on a plan on self-harm. She denies any homicidal ideation. Patient was just treated in the hospital for a COPD exacerbation. She continues to smoke. She denies any drugs. PFSH Past Medical History Autoimmune Disease: No Anxiety: Yes Depression: Yes Cancer: No Cardiovascular Problems: Yes High Cholesterol: No Chemotherapy: No Chest Pain: Yes (FROM COUGHING/BRONCHITIS) Congestive Heart Failure: No COPD: Yes ( ) Cerebrovascular Accident: No Diabetes: No Diminished Hearing: No Endocrine: No GERD: No Genitourinary: No Headaches: No Hiatal Hernia: No Heparin Induced Thrombocytopen: No Hypertension: No Immune Disorder: No Implanted Vascular Access Dvce: No Kidney Stones: No Musculoskeletal: No Neurologic: Yes Psychiatric: Yes Reproductive: No Respiratory: Yes Migraines: No Radiation Therapy: No Renal Failure: No Schizophrenia: Yes Seizures: Yes (WITH PREG) Sickle Cell Disease: No Sleep Apnea: No Thyroid Disease: No Ulcer: No ?: Not Menopausal: Yes Past Surgical History Abdominal Surgery: No AICD: No Arteriovenous Shunt: No Cardiac Surgery: No Section: Yes Ear Surgery: No Endocrine Surgery: No Eye Surgery: No Genitourinary Surgery: No Gynecologic Surgery: Yes (CSECTION) Insulin Pump: No Joint Replacement: No Oral Surgery: No Pacemaker: No Thoracic Surgery: No Other Surgery: Yes Social History Alcohol Use: Yes (4 beers ) Tobacco Use: Yes (2PPD) Substance Use: No Allergies-Medications (Allergen,Severity, Reaction): Coded Allergies: Sulfa (Verified Allergy, Mild, 07/23/16) Reported Meds & Prescriptions Reported Meds & Active Scripts Active Proair Hfa 8.5 GM Inh (Albuterol Sulfate) 90 Mcg/Act Aer 2 Puff INH Q4-6H PRN 108 mcg/actuation Prednisone 20 Mg Tab 20 Mg PO BID Azithromycin 500 Mg Tab 500 Mg PO DAILY Nebulizer 1 Mis Mis 1 Ea .ROUTE DIRECTED Duoneb (Ipratropium-Albuterol Neb) 0.5-2.5 Mg/3 Ml Neb 1 Ampule NEB Q4-6H PRN Symbicort Inh (Budesonide/Formoterol Fumarate) 160-4.5 Mcg/Act Aero 2 Puff INH Q12HR Pantoprazole (Pantoprazole Sodium) 40 Mg Tab 40 Mg PO DAILY@21 Reported Seroquel (Quetiapine Fumarate) 200 Mg Tab 200 Mg PO HS Review of Systems Except as stated in HPI: all other systems reviewed are Neg General / Constitutional: No: Fever, Chills Eyes: No: Diploplia, Photophobia HENT: No: Headaches, Lightheadedness Cardiovascular: No: Varicosities Respiratory: Positive: Cough, Shortness of Breath, Wheezing, No: Sneezing Gastrointestinal: No: Nausea, Vomiting, Abdominal Pain Genitourinary: No: Dysuria, Hematuria Musculoskeletal: No: Myalgias, Arthralgias Skin: No Rash, No Dryness Neurologic: No: Weakness, Headache Psychiatric: Positive: Depression, Suicidal Ideations, Mood Disorder, Substance Abuse, No: Anxiety, Disorder of Thought, Homicidal Ideation Physical Exam Narrative GENERAL: Well-nourished, well-developed patient. SKIN: Warm and dry. HEAD: Normocephalic and atraumatic. EYES: No scleral icterus. No injection or drainage. ENT: No nasal drainage noted. Mucous membranes pink. Airway patent. NECK: Supple, trachea midline. Moves head freely without obvious discomfort. CARDIOVASCULAR: Regular rate and rhythm without murmurs, gallops, or rubs. RESPIRATORY: Breath sounds equal bilaterally. No accessory muscle use. GASTROINTESTINAL: Abdomen soft, non-tender, nondistended. EXTREMITIES: No cyanosis or edema. BACK: Nontender without obvious deformity. No CVA tenderness. NEURO: Patient is alert and oriented. no sensorimotor deficits. Nonfocal. Normal speech. PSYCH: No delusions. No auditory or visual hallucinations. Data Data Last Documented VS Vital Signs Date Time Temp Pulse Resp B/P Pulse Ox O2 Delivery O2 Flow Rate FiO2 07/23/16 01:39 98.3 110 18 134/89 97 Orders Complete Blood Count With Diff (07/23/16 02:03) Comprehensive Metabolic Panel (07/23/16 02:03) Thyroid Stimulating Hormone (07/23/16 02:03) Urinalysis - C+S If Indicated (07/23/16 02:03) Psych Screen (07/23/16 02:03) Drug Screen, Random Urine (07/23/16 02:03) Alcohol (Ethanol) (07/23/16 02:03) Salicylates (Aspirin) (07/23/16 02:03) Tylenol (Acetaminophen) (07/23/16 02:03) Labs Laboratory Tests Test 07/23/16 07/23/16 02:40 02:45 White Blood Count 13.9 TH/MM3 Red Blood Count 4.82 MIL/MM3 Hemoglobin 14.7 GM/DL Hematocrit 44.0 % Mean Corpuscular Volume 91.1 FL Mean Corpuscular Hemoglobin 30.5 PG Mean Corpuscular Hemoglobin 33.5 % Concent Red Cell Distribution Width 15.4 % Platelet Count 352 TH/MM3 Mean Platelet Volume 7.4 FL Neutrophils (%) (Auto) 57.0 % Lymphocytes (%) (Auto) 34.4 % Monocytes (%) (Auto) 6.7 % Eosinophils (%) (Auto) 1.0 % Basophils (%) (Auto) 0.9 % Neutrophils # (Auto) 7.9 TH/MM3 Lymphocytes # (Auto) 4.8 TH/MM3 Monocytes # (Auto) 0.9 TH/MM3 Eosinophils # (Auto) 0.1 TH/MM3 Basophils # (Auto) 0.1 TH/MM3 CBC Comment DIFF FINAL Differential Comment Sodium Level 140 MEQ/L Potassium Level 3.8 MEQ/L Chloride Level 107 MEQ/L Carbon Dioxide Level 23.7 MEQ/L Anion Gap 9 MEQ/L Blood Urea Nitrogen 5 MG/DL Creatinine 0.60 MG/DL Estimat Glomerular Filtration 104 ML/MIN Rate Random Glucose 90 MG/DL Calcium Level 8.2 MG/DL Total Bilirubin 0.2 MG/DL Aspartate Amino Transf 15 U/L (AST/SGOT) Alanine Aminotransferase 24 U/L (ALT/SGPT) Alkaline Phosphatase 141 U/L Total Protein 7.1 GM/DL Albumin 3.3 GM/DL Thyroid Stimulating Hormone 2.350 uIU/ML 3rd Gen Acetaminophen Level LESS THAN 2.0 MCG/ML Ethyl Alcohol Level 295 MG/DL Salicylates Level 5.5 MG/DL MDM Medical Decision Making Medical Screen Exam Complete: Yes Emergency Medical Condition: Yes Medical Record Reviewed: Yes Interpretation(s) Laboratory Tests Test 07/23/16 07/23/16 02:40 02:45 White Blood Count 13.9 TH/MM3 Red Blood Count 4.82 MIL/MM3 Hemoglobin 14.7 GM/DL Hematocrit 44.0 % Mean Corpuscular Volume 91.1 FL Mean Corpuscular Hemoglobin 30.5 PG Mean Corpuscular Hemoglobin 33.5 % Concent Red Cell Distribution Width 15.4 % Platelet Count 352 TH/MM3 Mean Platelet Volume 7.4 FL Neutrophils (%) (Auto) 57.0 % Lymphocytes (%) (Auto) 34.4 % Monocytes (%) (Auto) 6.7 % Eosinophils (%) (Auto) 1.0 % Basophils (%) (Auto) 0.9 % Neutrophils # (Auto) 7.9 TH/MM3 Lymphocytes # (Auto) 4.8 TH/MM3 Monocytes # (Auto) 0.9 TH/MM3 Eosinophils # (Auto) 0.1 TH/MM3 Basophils # (Auto) 0.1 TH/MM3 CBC Comment DIFF FINAL Differential Comment Salicylates Level 5.5 MG/DL Differential Diagnosis MDM: High Differential diagnoses: Schizophrenia, schizoaffective disorder, bipolar, anxiety, depression, adjustment reaction, mood disorder NOS, ODD, depressive disorder NOS, dementia, dementia with agitation, psychosis NOS, substance induced mood disorder, intermittent explosive disorder, Asperger syndrome, infection,electrolyte abnormality, malingering. Narrative Course Mental health screening discussed with the patient. Psychiatric screen ordered. The patient's been medically cleared. This is alcohol induced mood disorder, depression Diagnosis Primary Impression: Alcohol-induced mood disorder Additional Impression: Depression Condition: Stable Myles Scott Jul 23, 2016 03:23
[2016-07-23 04:05] LABS: BLOOD, URINE NEG (NEG); GLUCOSE,URINE NEG (NEG); KETONE, URINE NEG (NEG); NITRITE,URINE NEG (NEG); SQUAMOUS EPITHELIAL CELL URINE 1 /hpf (0-5); URINE COLOR COLORLESS (YELLW/STRAW)
[2016-07-23 04:14] LABS: AMPHETAMINE, URINE NEG (NEG); BARBITURATES, URINE NEG (NEG); COCAINE, URINE NEG (NEG)
[2016-07-23 04:26] LABS: COMMENT (UR) CULT NOT INDICATED; CULTURE IF INDICATED CULT NOT INDICATED
== END 2016-07-23 05:20 | disposition short-term general hospital (02) ==
LOC: NEPA 01:33
DX: F10.14 Alcohol abuse with alcohol-induced mood disorder (principal); F17.200 Nicotine dependence, unspecified, uncomplicated; F20.9 Schizophrenia, unspecified; F32.9 Major depressive disorder, single episode, unspecified; Y90.8 Blood alcohol level of 240 mg/100 ml or more; Z59.0 Homelessness
CPT/HCPCS: 80053; 80307; 81001; 84443; 85025; 99284

== ENCOUNTER 2016-09-20 13:43 | Emergency (ER) | payer MEDICAID, OTHER ==
[~2016-09-20] VITALS: Ht 167.6 cm; Wt 59.0 kg
[2016-09-20 13:45] VITALS: BP 138/103; PULSE 97; TEMP 97.3; O2SAT 95
--- NOTE | 2016-09-20 13:49 | PD ---
Physical Exam Date Seen by Provider: September 20, 2016 Time Seen by Provider: 13:48 Narrative 55 YOWF C/O SOB H/O COPD STILL SMOKING. FAMILY MEMBER ALSO A PT IN THE ER. [facility] WAITING FOR BED PLACEMENT Data Data Last Documented VS Vital Signs Date Time Temp Pulse Resp B/P Pulse Ox O2 Delivery O2 Flow Rate FiO2 09/20/16 13:45 97.3 97 138/103 95 MDM Medical Record Reviewed: Yes Supervised Visit with JOSEF: Myles Coelho September 20, 2016 13:49
--- NOTE | 2016-09-20 14:16 | PD ---
HPI Chief Complaint: Respiratory Symptoms Time Seen by Provider: 14:16 Travel History International Travel<30 days: No Contact w/Intl Traveler<30days: No Traveled to known affect area: No History of Present Illness HPI 55-year-old female came to the emergency room with history of shortness of breath upon exertion. She says her abdomen is getting distended over the past 2 months. She used to be a chronic alcoholic and now she is trying to cut down. She also has history of COPD. No history of chest pain. She has an appointment with her primary care in another week or so but wanted to come in and be checked out anyway. Vital signs were within acceptable limits. Patient is a smoker as well. Patient is a smoker as well. [facility] Past Medical History Narrative Medical List of her past medical, surgical, social and family history was reviewed from the nursing note. Autoimmune Disease: No Anxiety: Yes Depression: Yes Cancer: No Cardiovascular Problems: Yes High Cholesterol: No Chemotherapy: No Chest Pain: Yes (FROM COUGHING/BRONCHITIS) Congestive Heart Failure: No COPD: Yes ( ) Cerebrovascular Accident: No Diabetes: No Diminished Hearing: No Endocrine: No GERD: No Genitourinary: No Headaches: No Hiatal Hernia: No Heparin Induced Thrombocytopen: No Hypertension: No Immune Disorder: No Implanted Vascular Access Dvce: No Kidney Stones: No Musculoskeletal: No Neurologic: Yes Psychiatric: Yes Reproductive: No Respiratory: Yes (COPD / PNEUMONIA) Migraines: No Radiation Therapy: No Renal Failure: No Schizophrenia: Yes Seizures: Yes (WITH PREG) Sickle Cell Disease: No Sleep Apnea: No Thyroid Disease: No Ulcer: No ?: Not Menopausal: Yes Past Surgical History Abdominal Surgery: No AICD: No Arteriovenous Shunt: No Cardiac Surgery: No Section: Yes Ear Surgery: No Endocrine Surgery: No Eye Surgery: No Genitourinary Surgery: No Gynecologic Surgery: Yes (CSECTION) Insulin Pump: No Joint Replacement: No Oral Surgery: No Pacemaker: No Thoracic Surgery: No Other Surgery: Yes Social History Alcohol Use: Yes (4 beers ) Tobacco Use: Yes (2PPD) Substance Use: Yes Allergies-Medications (Allergen,Severity, Reaction): Coded Allergies: Sulfa (Verified Allergy, Mild, 09/20/16) Comments List of her allergies reviewed from the nursing note. Reported Meds & Prescriptions Reported Meds & Active Scripts Active Symbicort Inh (Budesonide/Formoterol Fumarate) 80-4.5 Mcg/Act Aero 1 Puff INH Q12HR Ventolin Hfa 18 GM Inh (Albuterol Sulfate) 90 Mcg/Act Aer 2 Puff INH Q4-6H PRN Duoneb (Ipratropium-Albuterol Neb) 0.5-2.5 Mg/3 Ml Neb 1 Ampule NEB Q4-6H PRN Prednisone 20 Mg Tab 20 Mg PO BID 5 Days Proair Hfa 8.5 GM Inh (Albuterol Sulfate) 90 Mcg/Act Aer 2 Puff INH Q4-6H PRN 108 mcg/actuation Symbicort Inh (Budesonide/Formoterol Fumarate) 160-4.5 Mcg/Act Aero 2 Puff INH Q12HR Reported Tizanidine (Tizanidine HCl) 4 Mg Tab 4 Mg PO TID Seroquel (Quetiapine Fumarate) 200 Mg Tab 200 Mg PO HS Narrative Medication List of her home medications reviewed from the nursing note. Review of Systems Except as stated in HPI: all other systems reviewed are Neg Physical Exam Narrative GENERAL: Awake, alert, mild distress SKIN: Focused skin assessment warm/dry. HEAD: Atraumatic. Normocephalic. EYES: Pupils equal and round. No scleral icterus. No injection or drainage. ENT: No nasal bleeding or discharge. Mucous membranes pink and moist. NECK: Trachea midline. No JVD. CARDIOVASCULAR: Regular rate and rhythm. No murmur appreciated. RESPIRATORY: No accessory muscle use. Decreased air entry bilaterally with end expiratory wheeze. GASTROINTESTINAL: Abdomen soft, non-tender, abdomen is distended but not tense. Hepatic and splenic margins not palpable. MUSCULOSKELETAL: No obvious deformities. No clubbing. No cyanosis. No edema. NEUROLOGICAL: Awake and alert. No obvious cranial nerve deficits. Motor grossly within normal limits. Normal speech. PSYCHIATRIC: Appropriate mood and affect; insight and judgment normal. Data Data Last Documented VS Vital Signs Date Time Temp Pulse Resp B/P Pulse Ox O2 Delivery O2 Flow Rate FiO2 09/20/16 16:00 89 16 127/77 96 Room Air 09/20/16 13:45 97.3 Orders Complete Blood Count With Diff (09/20/16 14:26) Comprehensive Metabolic Panel (09/20/16 14:26) B-Type Natriuretic Peptide (09/20/16 14:26) Prothrombin Time / Inr (Pt) (09/20/16 14:26) Troponin I (09/20/16 14:26) Urinalysis - C+S If Indicated (09/20/16 14:26) Iv Access Insert/Monitor (09/20/16 14:26) Ecg Monitoring (09/20/16 14:26) Oximetry (09/20/16 14:26) Oxygen Administration (09/20/16 14:26) Chest, Single Ap (09/20/16 14:26) Sodium Chloride 0.9% Flush (Ns Flush) (09/20/16 14:30) Methylprednisolone So Succ Inj (Solumedr (09/20/16 14:30) Albuterol-Ipratropium Neb (Duoneb Neb) (09/20/16 14:30) Electrocardiogram (09/20/16 ) Labs Laboratory Tests Test 09/20/16 09/20/16 14:35 15:15 White Blood Count 9.4 TH/MM3 Red Blood Count 4.40 MIL/MM3 Hemoglobin 13.2 GM/DL Hematocrit 40.4 % Mean Corpuscular Volume 91.7 FL Mean Corpuscular Hemoglobin 30.0 PG Mean Corpuscular Hemoglobin 32.7 % Concent Red Cell Distribution Width 14.0 % Platelet Count 413 TH/MM3 Mean Platelet Volume 7.7 FL Neutrophils (%) (Auto) 54.4 % Lymphocytes (%) (Auto) 37.0 % Monocytes (%) (Auto) 6.1 % Eosinophils (%) (Auto) 1.4 % Basophils (%) (Auto) 1.1 % Neutrophils # (Auto) 5.1 TH/MM3 Lymphocytes # (Auto) 3.5 TH/MM3 Monocytes # (Auto) 0.6 TH/MM3 Eosinophils # (Auto) 0.1 TH/MM3 Basophils # (Auto) 0.1 TH/MM3 CBC Comment DIFF FINAL Differential Comment Prothrombin Time 10.0 SEC Prothromb Time International 0.9 RATIO Ratio Sodium Level 140 MEQ/L Potassium Level 3.8 MEQ/L Chloride Level 109 MEQ/L Carbon Dioxide Level 23.3 MEQ/L Anion Gap 8 MEQ/L Blood Urea Nitrogen 6 MG/DL Creatinine 0.77 MG/DL Estimat Glomerular Filtration 78 ML/MIN Rate Random Glucose 88 MG/DL Calcium Level 8.4 MG/DL Total Bilirubin 0.3 MG/DL Aspartate Amino Transf 20 U/L (AST/SGOT) Alanine Aminotransferase 22 U/L (ALT/SGPT) Alkaline Phosphatase 172 U/L Troponin I LESS THAN 0.02 NG/ML B-Type Natriuretic Peptide 5 PG/ML Total Protein 7.1 GM/DL Albumin 3.3 GM/DL Urine Color YELLOW Urine Turbidity CLEAR Urine pH 5.5 Urine Specific [place] 1.015 Urine Protein TRACE mg/dL Urine Glucose (UA) NEG mg/dL Urine Ketones NEG mg/dL Urine Occult Blood NEG Urine Nitrite NEG Urine Bilirubin NEG Urine Urobilinogen LESS THAN 2.0 MG/DL Urine Leukocyte Esterase NEG Urine WBC 1 /hpf Urine Squamous Epithelial 1 /hpf Cells Urine Mucus FEW /lpf Microscopic Urinalysis Comment CULT NOT INDICATED MDM Medical Decision Making Medical Screen Exam Complete: Yes Emergency Medical Condition: Yes Medical Record Reviewed: Yes Interpretation(s) Twelve-lead EKG was reviewed by me. Normal sinus rhythm, normal axis, nonspecific ST-T wave changes. Heart rate of 80 bpm. Differential Diagnosis COPD exacerbation, CHF, pneumonia, ascites Narrative Course 3:41 PM awaiting for the chemistry and BNP. Patient was given 3 duo nebs and IV Solu-Medrol. Chest x-rays within normal limit. CBC is within normal limit. I will reassess her in a bit. 4:43 PM BNP is back and within normal limit. I'll discharge her home on prednisone. Procedures EKG Prior to Arrival: No Diagnosis Primary Impression: Shortness of breath Additional Impressions: Acute asthma exacerbation Qualified Code: J45.41 - Moderate persistent asthma with acute exacerbation Needs smoking cessation education Chronic alcoholism Referrals: Primary Care Physician 3 days Additional Instructions: Please return to the ER if the condition worsens or any other new concerns. Otherwise follow-up with your primary care in couple days. You need to quit smoking in order to get better. Take your albuterol 2 puffs every 6 hours to see her primary care. Take the medication as per the prescription direction. Med/Other Pt SpecificInfo: Prescription(s) given Scripts Budesonide-Formoterol Inh (Symbicort Inh)80-4.5 Mcg/Act Aero1 Puff INH Q12HR # 1 INHALER Ref 0 Prov:Isidro Roe MD 09/20/16 Albuterol 18 GM Inh (Ventolin Hfa 18 GM Inh)90 Mcg/Act Aer2 Puff INH Q4-6H PRN ( SHORTNESS OF BREATH) #1 INHALER Ref 0 Prov:Isidro Roe MD 09/20/16 Ipratropium-Albuterol Neb (Duoneb)0.5-2.5 Mg/3 Ml Neb1 Ampule NEB Q4-6H PRN (SOB /WHEEZING) #30 ML Prov:Isidro Roe MD 09/20/16 Prednisone 20 Mg Tab20 Mg PO BID 5 Days Ref 0 Prov:Isidro Roe MD 09/20/16 Disposition: 01 DISCHARGE HOME Condition: Stable Isidro Roe MD September 20, 2016 14:16
[2016-09-20] MEDS ORDERED: TIZA4TAB PO (14:29)
[2016-09-20] MEDS ORDERED: SODIUM CHLORIDE 0.9% FLUSH 10 ML FLUSH IVF PRN (14:30)
[2016-09-20] MEDS ORDERED: methylPREDNISolone SOD SUCC 125 MG/2 ML VIAL IVP ONE (14:30)
[2016-09-20] MEDS: RESP: ALBUTEROL 2.5 MG/IPRATROPIUM 0.5 MG NEB (SCH) INH (14:47)
[2016-09-20 15:02] LABS: AUTOMATED NEUTROPHIL # 5.1 TH/MM3 (1.8-7.7); BASOPHIL # 0.1 TH/MM3 (0-0.2); BASOPHIL % 1.1 % (0.0-2.0); EOSINOPHIL # 0.1 TH/MM3 (0-0.4); EOSINOPHIL % 1.4 % (0.0-4.0); HEMATOCRIT 40.4 % (35.0-46.0); HEMO FLAGS DIFF FINAL; LYMPHOCYTE # 3.5 TH/MM3 (1.0-4.8); MEAN CELL VOLUME 91.7 FL (80.0-100.0); MEAN CORPUSCULAR HGB CONC 32.7 % (32.0-36.0); MONO % 6.1 % (0.0-8.0); NEUT % 54.4 % (16.0-70.0); PLATELET COUNT 413 TH/MM3 (150-450); WHITE BLOOD COUNT 9.4 TH/MM3 (4.0-11.0)
--- NOTE | 2016-09-20 15:25 | RADRPT ---
EXAM DATE/TIME: 09/20/2016 14:32 [facility] COMPARISON: CHEST SINGLE AP, July 08, 2016, 10:15. INDICATIONS : Short of breath, chest pain. MEDICAL HISTORY : Chronic obstructive pulmonary disease. fluid retention in her abdomen SURGICAL HISTORY : None. ENCOUNTER: Initial ACUITY: 1 day PAIN SCORE: 6/10 LOCATION: Bilateral chest FINDINGS: A single view of the chest demonstrates the lungs to be symmetrically aerated without evidence of mas s, infiltrate or effusion. The cardiomediastinal contours are unremarkable. Osseous structures are intact. CONCLUSION: No acute disease. Zechariah Matson MD FACR on September 20, 2016 at 15:23 Board Certified Radiologist. This report was verified electronically.
[2016-09-20 15:26] LABS: ANION GAP 8 MEQ/L (5-15); BICARBONATE 23.3 MEQ/L (21.0-32.0); BLOOD UREA NITROGEN 6 MG/DL (7-18); CHLORIDE 109 MEQ/L (98-107); GLOMERULAR FILTRATION RATE 78 ML/MIN (>89); POTASSIUM 3.8 MEQ/L (3.5-5.1); SODIUM (NA) 140 MEQ/L (136-145)
[2016-09-20 15:39] LABS: ALKALINE PHOSPHATASE 172 U/L (45-117); ALT (GPT) 22 U/L (10-53); AST (GOT) 20 U/L (15-37); TOTAL BILIRUBIN ADULT 0.3 MG/DL (0.2-1.0)
[2016-09-20 15:50] LABS: INTERNATIONAL NORMALIZED RATIO 0.9 RATIO
[2016-09-20 16:00] VITALS: BP 127/77; PULSE 89; RESP 16; O2SAT 96
[2016-09-20 16:05] LABS: BLOOD, URINE NEG (NEG); COMMENT (UR) CULT NOT INDICATED; CULTURE IF INDICATED CULT NOT INDICATED; GLUCOSE,URINE NEG (NEG); KETONE, URINE NEG (NEG); MUCUS URINE FEW /lpf (OCC); NITRITE,URINE NEG (NEG); PH, URINE 5.5 (5.0-8.5); SQUAMOUS EPITHELIAL CELL URINE 1 /hpf (0-5); URINE COLOR YELLOW (YELLW/STRAW)
[2016-09-20] MEDS ORDERED: PRED20 PO (16:45)
[2016-09-20] MEDS ORDERED: IPRASOL NEB (16:49)
[2016-09-20] MEDS ORDERED: VENTAER INH (16:49)
[2016-09-20] MEDS ORDERED: SYMB80AE INH (16:49)
--- NOTE | 2016-09-21 16:45 | EKG ---
Date Performed: 09/20/2016 Time Performed: 15:48:29 PTAGE: 55 years EKG: Sinus rhythm BORDERLINE RIGHT AXIS DEVIATION Compared to previous tracing, the patient is no longer tachycardic B ORDERLINE ECG PREVIOUS TRACING : 07/08/2016 11.25 DOCTOR: Melva Sullivan Interpretating Date/Time 09/21/2016 16:44:00
== END 2016-09-20 17:10 | disposition home or self-care (01) ==
LOC: NEPD 13:43
DX: R06.02 Shortness of breath (principal); J45.901 Unspecified asthma with (acute) exacerbation; F10.20 Alcohol dependence, uncomplicated; F17.210 Nicotine dependence, cigarettes, uncomplicated; R94.31 Abnormal electrocardiogram [ECG] [EKG]
CPT/HCPCS: 71010; 80053; 81001; 83880; 84484; 85025; 85610; 93005; 94664; 96374; 99284; J2930

== ENCOUNTER 2017-07-03 03:57 | Inpatient (IN) | payer MEDICAID ==
[~2017-07-03] VITALS: Ht 166.4 cm; Wt 51.9 kg
[~2017-07-03 03:57] MED LIST changes: -AZIT500T2 PO; -NEBULIZER1 MI1; -PANT40TA3 PO; +SYMB80AE INH; +TIZA4TAB PO; +VENTAER INH
[2017-07-03 03:59] VITALS: BP 109/76; PULSE 113; RESP 16; TEMP 98.1; O2SAT 98
[2017-07-03 04:22] LABS: BASOPHIL # 0.1 TH/MM3 (0-0.2); BASOPHIL % 1.1 % (0.0-2.0); EOSINOPHIL # 0.2 TH/MM3 (0-0.4); EOSINOPHIL % 2.2 % (0.0-4.0); LYMPH % 32.6 % (9.0-44.0); LYMPHOCYTE # 2.3 TH/MM3 (1.0-4.8); MEAN CELL VOLUME 86.6 FL (80.0-100.0); MEAN CORPUSCULAR HEMOGLOBIN 30.2 PG (27.0-34.0); MEAN CORPUSCULAR HGB CONC 34.9 % (32.0-36.0); MEAN PLATELET VOLUME 7.6 FL (7.0-11.0); MONO % 7.6 % (0.0-8.0); MONOCYTE # 0.5 TH/MM3 (0-0.9); NEUT % 56.5 % (16.0-70.0); PLATELET COUNT 343 TH/MM3 (150-450); RED BLOOD COUNT 4.97 MIL/MM3 (4.00-5.30); RED CELL DISTRIBUTION WIDTH 14.6 % (11.6-17.2); WHITE BLOOD COUNT 7.1 TH/MM3 (4.0-11.0)
[2017-07-03 04:34] LABS: BACTERIA, URINE RARE /hpf; BILIRUBIN, URINE NEG (NEG); BLOOD, URINE NEG (NEG); GLUCOSE,URINE NEG (NEG); KETONE, URINE NEG (NEG); MUCUS URINE FEW /lpf (OCC); NITRITE,URINE NEG (NEG); SQUAMOUS EPITHELIAL CELL URINE 21 /hpf (0-5); URINE COLOR LIGHT-YELLOW (YELLW/STRAW); URINE LEUKOCYTE ESTERASE NEG (NEG)
--- NOTE | 2017-07-03 04:57 | PD ---
HPI Chief Complaint: Psychiatric Symptoms Time Seen by Provider: 04:05 Travel History International Travel<30 days: No Contact w/Intl Traveler<30days: No Traveled to known affect area: No History of Present Illness HPI Patient is a 56-year-old female presenting to the emergency department voluntarily due to depression and suicidal ideations. Patient reported that she "does not know what time zone she is in". She started talking about how they used to be pine trees here and in ocean. Patient was advised that there continues to be pine trees and an ocean here and she said "oh that is right but it looks different now". She said she has been suicidal for a while. She reports wanting to put her head on a railroad track. Patient was not sure what year it was, what her location is. Patient is present with her significant other, he states that he is concerned because she wanders off and he has to go looking for her. He states he cannot leave her alone when he has to go often do things like go to the bathroom and go to the store. He states when he comes back she is gone. Patient denies any alcohol or drug use. PFSH Past Medical History Anxiety: Yes Depression: Yes Cardiovascular Problems: Yes COPD: Yes ( ) Neurologic: Yes Schizophrenia: Yes Seizures: Yes (WITH PREG) Tetanus Vaccination: Unknown ?: Not LMP: menapause Menopausal: Yes Past Surgical History Section: Yes (X 3) Other Surgery: Yes Social History Alcohol Use: No Tobacco Use: No Substance Use: No Allergies-Medications (Allergen,Severity, Reaction): Coded Allergies: Sulfa (Sulfonamide Antibiotics) (Unverified Allergy, Mild, 07/03/17) Reported Meds & Prescriptions Reported Meds & Active Scripts Active Symbicort Inh (Budesonide/Formoterol Fumarate) 80-4.5 Mcg/Act Aero 1 Puff INH Q12HR Ventolin Hfa 18 GM Inh (Albuterol Sulfate) 90 Mcg/Act Aer 2 Puff INH Q4-6H PRN Duoneb (Ipratropium-Albuterol Neb) 0.5-2.5 Mg/3 Ml Neb 1 Ampule NEB Q4-6H PRN Prednisone 20 Mg Tab 20 Mg PO BID 5 Days Proair Hfa 8.5 GM Inh (Albuterol Sulfate) 90 Mcg/Act Aer 2 Puff INH Q4-6H PRN 108 mcg/actuation Symbicort Inh (Budesonide/Formoterol Fumarate) 160-4.5 Mcg/Act Aero 2 Puff INH Q12HR Reported Tizanidine (Tizanidine HCl) 4 Mg Tab 4 Mg PO TID Seroquel (Quetiapine Fumarate) 200 Mg Tab 200 Mg PO HS Review of Systems Except as stated in HPI: all other systems reviewed are Neg Psychiatric: Positive: Depression, Suicidal Ideations, Disorder of Thought Physical Exam Narrative GENERAL: Thin, well-developed, alert, older than stated age appearing female. SKIN: Warm and dry. HEAD: Atraumatic. Normocephalic. EYES: Pupils equal and round. No scleral icterus. No injection or drainage. ENT: No nasal bleeding or discharge. Mucous membranes pink and moist. NECK: Trachea midline. No JVD. CARDIOVASCULAR: Regular rate and rhythm. RESPIRATORY: No accessory muscle use. Clear to auscultation. Breath sounds equal bilaterally. GASTROINTESTINAL: Abdomen soft, non-tender, nondistended. Hepatic and splenic margins not palpable. MUSCULOSKELETAL: Extremities without clubbing, cyanosis, or edema. No obvious deformities. NEUROLOGICAL: Awake and alert. No obvious cranial nerve deficits. Motor grossly within normal limits. Five out of 5 muscle strength in the arms and legs. Normal speech. PSYCHIATRIC: Appropriate mood and affect; insight and judgment impaired. Data Data Last Documented VS Vital Signs Date Time Temp Pulse Resp B/P (MAP) Pulse Ox O2 Delivery O2 Flow Rate FiO2 07/03/17 03:59 98.1 113 16 109/76 (87) 98 Orders Orders Complete Blood Count With Diff (07/03/17 04:05) Comprehensive Metabolic Panel (07/03/17 04:05) Thyroid Stimulating Hormone (07/03/17 04:05) Urinalysis - C+S If Indicated (07/03/17 04:05) Psych Screen (07/03/17 04:05) Drug Screen, Random Urine (07/03/17 04:05) Alcohol (Ethanol) (07/03/17 04:05) Salicylates (Aspirin) (07/03/17 04:05) Tylenol (Acetaminophen) (07/03/17 04:05) Iv Access Insert/Monitor (07/03/17 04:05) Potassium Chloride (Kcl) (3/1/18 05:15) Labs Laboratory Tests Test 07/03/17 04:15 07/03/17 04:20 White Blood Count 7.1 TH/MM3 Red Blood Count 4.97 MIL/MM3 Hemoglobin 15.0 GM/DL Hematocrit 43.0 % Mean Corpuscular Volume 86.6 FL Mean Corpuscular Hemoglobin 30.2 PG Mean Corpuscular Hemoglobin Concent 34.9 % Red Cell Distribution Width 14.6 % Platelet Count 343 TH/MM3 Mean Platelet Volume 7.6 FL Neutrophils (%) (Auto) 56.5 % Lymphocytes (%) (Auto) 32.6 % Monocytes (%) (Auto) 7.6 % Eosinophils (%) (Auto) 2.2 % Basophils (%) (Auto) 1.1 % Neutrophils # (Auto) 4.0 TH/MM3 Lymphocytes # (Auto) 2.3 TH/MM3 Monocytes # (Auto) 0.5 TH/MM3 Eosinophils # (Auto) 0.2 TH/MM3 Basophils # (Auto) 0.1 TH/MM3 CBC Comment DIFF FINAL Differential Comment Blood Urea Nitrogen 3 MG/DL Creatinine 0.66 MG/DL Random Glucose 120 MG/DL Total Protein 7.7 GM/DL Albumin 3.6 GM/DL Calcium Level 8.3 MG/DL Alkaline Phosphatase 180 U/L Aspartate Amino Transf (AST/SGOT) 16 U/L Alanine Aminotransferase (ALT/SGPT) 22 U/L Total Bilirubin 0.2 MG/DL Sodium Level 139 MEQ/L Potassium Level 3.1 MEQ/L Chloride Level 106 MEQ/L Carbon Dioxide Level 23.2 MEQ/L Anion Gap 10 MEQ/L Estimat Glomerular Filtration Rate 93 ML/MIN Thyroid Stimulating Hormone 3rd Gen 3.710 uIU/ML Salicylates Level 2.6 MG/DL Acetaminophen Level LESS THAN 2.0 MCG/ML Ethyl Alcohol Level LESS THAN 3 MG/DL Urine Color LIGHT-YELLOW Urine Turbidity HAZY Urine pH 6.0 Urine Specific [place] 1.003 Urine Protein NEG mg/dL Urine Glucose (UA) NEG mg/dL Urine Ketones NEG mg/dL Urine Occult Blood NEG Urine Nitrite NEG Urine Bilirubin NEG Urine Urobilinogen LESS THAN 2.0 MG/DL Urine Leukocyte Esterase NEG Urine RBC 1 /hpf Urine WBC 2 /hpf Urine Squamous Epithelial Cells 21 /hpf Urine Bacteria RARE /hpf Urine Mucus FEW /lpf Microscopic Urinalysis Comment CULT NOT INDICATED Urine Opiates Screen NEG Urine Barbiturates Screen NEG Urine Amphetamines Screen NEG Urine Benzodiazepines Screen NEG Urine Cocaine Screen NEG Urine Cannabinoids Screen NEG MDM Medical Decision Making Medical Screen Exam Complete: Yes Emergency Medical Condition: Yes Medical Record Reviewed: Yes Interpretation(s) Vital Signs Date Time Temp Pulse Resp B/P (MAP) Pulse Ox O2 Delivery O2 Flow Rate FiO2 07/03/17 03:59 98.1 113 16 109/76 (87) 98 Differential Diagnosis Mood disorder versus substance abuse versus metabolic abnormality versus other Narrative Course Patient is a 56-year-old female presenting voluntarily for psychiatric evaluation with her significant other. Patient is currently undomiciled, she was recently inpatient psych under a slightly different name (Holly Curry). Medical records reviewed, Mental health screening discussed with the patient. Psychiatric screen ordered. Labs reviewed, no acute findings in the thigh. Patient's potassium was 3.1, or replacement ordered. Patient is medically cleared for psychiatric evaluation. Diagnosis Primary Impression: Medical clearance for psychiatric admission Condition: Stable Esha Diane Jul 03, 2017 04:57
[2017-07-03 04:58] LABS: ALKALINE PHOSPHATASE 180 U/L (45-117); TOTAL BILIRUBIN ADULT 0.2 MG/DL (0.2-1.0); TOTAL PROTEIN 7.7 GM/DL (6.4-8.2)
[2017-07-03 05:09] LABS: ALBUMIN 3.6 GM/DL (3.4-5.0); ALT (GPT) 22 U/L (10-53); AST (GOT) 16 U/L (15-37); BICARBONATE 23.2 MEQ/L (21.0-32.0); BLOOD UREA NITROGEN 3 MG/DL (7-18); CALCIUM 8.3 MG/DL (8.5-10.1); CHLORIDE 106 MEQ/L (98-107); CREATININE 0.66 MG/DL (0.50-1.00); GLOMERULAR FILTRATION RATE 93 ML/MIN (>89); GLUCOSE,RANDOM 120 MG/DL (74-106); SODIUM (NA) 139 MEQ/L (136-145)
[2017-07-03 05:12] LABS: ACETAMINOPHEN LESS THAN 2.0 MCG/ML (10.0-30.0)
[2017-07-03] MEDS ORDERED: POTASSIUM CHLORIDE 10 MEQ CONTROLLED RELEASE TAB PO ONE (05:15)
[2017-07-03 06:25] VITALS: BP 124/82; PULSE 83; RESP 16; O2SAT 99
[2017-07-03 13:29] VITALS: BP 155/75; PULSE 80; RESP 18; RESP 20; TEMP 98.9; O2SAT 98
--- NOTE | 2017-07-03 14:42 | PD ---
History of Present Illness Chief Complaint: Schizophrenia, suicidal ideation Time Seen by Provider: 14:07 Travel History International Travel<30 Days: No Contact w/Intl Traveler<30days: No Known affected area: No Legal Status Legal Status: Voluntary History of Present Illness: Ms. Curry is a 56-year-old, single, homeless, female who presents voluntarily to the emergency department with reports of visual hallucinations and suicidal ideation. Patient has a long history of mental illness, and was discharged, after an inpatient stay, from this facility on June 29, 2017. She states that she "cannot grasp what it looks like outside". Reports being depressed and advises that she wants to "put my head on the railroad tracks until a train hits me". Reviewed emergency medical record and labs. Discussed patient with staff. Patient evaluated in D38. Patient is awake, alert, and oriented to self and place only. Her appearance is disheveled and she appears older than her stated age. Her speech is clear with some disorganization of thought pattern. She reports her mood as being depressed, however her affect is euthymic. She states that she is homeless, unemployed, [place] Reports difficulty getting to sleep at night and states she only sleeps 2-3 hours per night. She also reports a decreased appetite. She states that she complied with her follow-up instructions to go to [facility] and was given a prescription for Haldol. Additionally, she reports compliance with medication regimen. According to Ms. Curry, she began experiencing perceptual distortions and thoughts of self-harm a "couple of days ago". When asked to elaborate on what she sees, Ms. Curry states "I see the world and everything in it is really old, like it is the end of the world and everything is ." She denies having homicidal ideation as well as auditory hallucinations. Her thinking is bizarre as she reports that she "cannot see the people they all seem like they are ". When asked if this provider or her friend seem , she responds " I do not know". She reports being a some days cigarette smoker, denies using illicit substances, and states that she has not consumed alcohol in "a long time ". When asked, she denied having a history of alcohol abuse however, she does admit to having received multiple DUIs and DWIs. She has no family. She reports they have all . She does have a male friend with her whom she refers to as her boyfriend. She advises a family history of both mental illness , and reports that her brother by suicide. When asked if he had a firearm the patient responded "no, I wish I did". When asked what she meant by that statement, the patient stated "I would not be here now, I would already be ". Please note, the patient's last admission to this facility was made under the name Holly Curry with out her middle name. [facility] Past Medical History Narrative Medical Patient has been medically cleared by ED staff. Anxiety: Yes Depression: Yes Cardiovascular Problems: Yes COPD: Yes ( ) Neurologic: Yes Schizophrenia: Yes Seizures: Yes (WITH PREG) Tetanus Vaccination: Unknown ?: Not LMP: menapause Menopausal: Yes Past Surgical History Section: Yes (X 3) Other Surgery: Yes Psychiatric History Psychiatric History Patient's last admission was to this facility. She was discharged on the of this month. That record can be found under the name Holly Curry with no middle name. Hx Psychiatric Treatment: PATIENT WAS LAST ADMITTED TO [facility] FROM 04/02/10 TO 04/05/10 FOR DEPRESSION. History of Inpatient Treatment: Yes Guns or firearms in home: No Social History Homeless with "boyfriend", unemployed, reports smoking cigarettes some days, denies alcohol or substance abuse. Hx Alcohol Use: No Hx Tobacco Use: No Hx Substance Use: No Substance Use Type: Alcohol Hx of Substance Use Treatment: Yes Family Psychiatric History She reports that her brother committed suicide, there is an incidence of mental illness in several family members. Allergies-Medications (Allergen,Severity, Reaction): Coded Allergies: Sulfa (Sulfonamide Antibiotics) (Unverified Allergy, Mild, 07/03/17) Reported Meds & Prescriptions Reported Meds & Active Scripts Active Symbicort Inh (Budesonide/Formoterol Fumarate) 80-4.5 Mcg/Act Aero 1 Puff INH Q12HR Ventolin Hfa 18 GM Inh (Albuterol Sulfate) 90 Mcg/Act Aer 2 Puff INH Q4-6H PRN Duoneb (Ipratropium-Albuterol Neb) 0.5-2.5 Mg/3 Ml Neb 1 Ampule NEB Q4-6H PRN Prednisone 20 Mg Tab 20 Mg PO BID 5 Days Proair Hfa 8.5 GM Inh (Albuterol Sulfate) 90 Mcg/Act Aer 2 Puff INH Q4-6H PRN 108 mcg/actuation Symbicort Inh (Budesonide/Formoterol Fumarate) 160-4.5 Mcg/Act Aero 2 Puff INH Q12HR Reported Tizanidine (Tizanidine HCl) 4 Mg Tab 4 Mg PO TID Seroquel (Quetiapine Fumarate) 200 Mg Tab 200 Mg PO HS Mental Status Examination Appearance: Disheveled Consciousness: Alert Orientation: Person, Place, Situation Motor Activity: Other (Sitting on the bed) Speech: Unremarkable Language: Adequate Fund of Knowledge: Inadequate Attention and Concentration: Adequate Memory: Impaired Mood: Sad (Per patient) Affect: Euthymic (Smiles occasionally) Thought Process & Associations: Loose associations Thought Content: Bizarre thinking Hallucination Type: Visual (Reports that the outside looks "really old like the end of the world".) Delusion Type: None Suicidal Ideation: Yes Suicidal Plan: Yes ("I want to put my head on a railroad track and let the train hit me.") Suicidal Intention: Yes (Patient's boyfriend states he cannot leave her alone for fear that she will wander off and try to end her life.) Homicidal Ideation: No Homicidal Plan: No Homicidal Intention: No Insight: Poor Judgment: Poor MDM Medical Decision Making Medical Record Reviewed: Yes Assessment/Plan 56-year-old single, homeless, female presents voluntarily to the emergency department with reported visual hallucinations and suicidal ideation. Patient reports a history of schizophrenia. Her most recent inpatient admission was at this facility 4 days ago. She states that she complied with all follow-up instructions, yet began having thoughts of self-harm "a couple of days ago". Her thought process is bizarre. She endorses suicide by train. Denies homicidal ideation and auditory hallucinations. She reports insomnia and decreased appetite. Due to reported previous suicide attempt by overdose, and her current suicidal ideation, patient will be admitted voluntarily to the [facility] unit for further evaluation and treatment. Orders Orders Complete Blood Count With Diff (07/03/17 04:05) Comprehensive Metabolic Panel (07/03/17 04:05) Thyroid Stimulating Hormone (07/03/17 04:05) Urinalysis - C+S If Indicated (07/03/17 04:05) Psych Screen (07/03/17 04:05) Drug Screen, Random Urine (07/03/17 04:05) Alcohol (Ethanol) (07/03/17 04:05) Salicylates (Aspirin) (07/03/17 04:05) Tylenol (Acetaminophen) (07/03/17 04:05) Iv Access Insert/Monitor (07/03/17 04:05) Potassium Chloride (Kcl) (07/03/17 05:15) Diet Regular Basic (07/03/17 Breakfast) Results Vital Signs Date Time Temp Pulse Resp B/P (MAP) Pulse Ox O2 Delivery O2 Flow Rate FiO2 07/03/17 13:29 98.9 80 20 155/75 (101) 98 Room Air 07/03/17 06:25 83 16 124/82 (96) 99 Room Air 07/03/17 03:59 98.1 113 16 109/76 (87) 98 Laboratory Tests Test 07/03/17 04:15 07/03/17 04:20 White Blood Count 7.1 Red Blood Count 4.97 Hemoglobin 15.0 Hematocrit 43.0 Mean Corpuscular Volume 86.6 Mean Corpuscular Hemoglobin 30.2 Mean Corpuscular Hemoglobin Concent 34.9 Red Cell Distribution Width 14.6 Platelet Count 343 Mean Platelet Volume 7.6 Neutrophils (%) (Auto) 56.5 Lymphocytes (%) (Auto) 32.6 Monocytes (%) (Auto) 7.6 Eosinophils (%) (Auto) 2.2 Basophils (%) (Auto) 1.1 Neutrophils # (Auto) 4.0 Lymphocytes # (Auto) 2.3 Monocytes # (Auto) 0.5 Eosinophils # (Auto) 0.2 Basophils # (Auto) 0.1 CBC Comment DIFF FINAL Differential Comment Blood Urea Nitrogen 3 Creatinine 0.66 Random Glucose 120 Total Protein 7.7 Albumin 3.6 Calcium Level 8.3 Alkaline Phosphatase 180 Aspartate Amino Transf (AST/SGOT) 16 Alanine Aminotransferase (ALT/SGPT) 22 Total Bilirubin 0.2 Sodium Level 139 Potassium Level 3.1 Chloride Level 106 Carbon Dioxide Level 23.2 Anion Gap 10 Estimat Glomerular Filtration Rate 93 Thyroid Stimulating Hormone 3rd Gen 3.710 Salicylates Level 2.6 Acetaminophen Level LESS THAN 2.0 Ethyl Alcohol Level LESS THAN 3 Urine Color LIGHT-YELLOW Urine Turbidity HAZY Urine pH 6.0 Urine Specific [place] 1.003 Urine Protein NEG Urine Glucose (UA) NEG Urine Ketones NEG Urine Occult Blood NEG Urine Nitrite NEG Urine Bilirubin NEG Urine Urobilinogen LESS THAN 2.0 Urine Leukocyte Esterase NEG Urine RBC 1 Urine WBC 2 Urine Squamous Epithelial Cells 21 Urine Bacteria RARE Urine Mucus FEW Microscopic Urinalysis Comment CULT NOT INDICATED Urine Opiates Screen NEG Urine Barbiturates Screen NEG Urine Amphetamines Screen NEG Urine Benzodiazepines Screen NEG Urine Cocaine Screen NEG Urine Cannabinoids Screen NEG Diagnosis Primary Impression: Schizophrenia Additional Impression: Suicidal ideation Admitting Information Admitting Physician Requests: Admit Condition: Stable Problem Qualifiers Susu Ruggiero Jul 03, 2017 14:42
[2017-07-03] MEDS ORDERED: ACETAMINOPHEN 325 MG TAB PO PRN (14:45)
[2017-07-03] MEDS ORDERED: MAGNESIUM HYDROXIDE SUSP 30 ML CUP PO PRN (14:45)
[2017-07-03] MEDS ORDERED: ALUMINUM/MAGNESIUM/SIMETH 30 ML CUP PO PRN (14:45)
[2017-07-03 16:30] VITALS: BP 160/75; PULSE 82; RESP 18; TEMP 98.4; O2SAT 99
[2017-07-04 05:02] VITALS: BP 130/68; PULSE 99; RESP 16; TEMP 98.1; O2SAT 97
[2017-07-04] MEDS: NICOTINE 21 MG/24 HR PATCH T-DERMAL SCH (09:00)
[2017-07-04] MEDS: REMOVE OLD PATCH T-DERMAL SCH (09:00)
[2017-07-04 10:39] LABS: BICARBONATE 29.7 MEQ/L (21.0-32.0); BLOOD UREA NITROGEN 8 MG/DL (7-18); CALCIUM 9.1 MG/DL (8.5-10.1); CHLORIDE 103 MEQ/L (98-107); CHOLESTEROL 180 MG/DL (120-200); CHOLESTEROL/ HDL RATIO 3.55 RATIO; CREATININE 0.62 MG/DL (0.50-1.00); GLOMERULAR FILTRATION RATE 100 ML/MIN (>89); GLUCOSE,RANDOM 66 MG/DL (74-106); HDL CHOLESTEROL 50.6 MG/DL (40.0-60.0); LDL CHOLESTEROL 109 MG/DL (0-99); SODIUM (NA) 141 MEQ/L (136-145); TRIGLYCERIDES 101 MG/DL (42-150)
[2017-07-04] MEDS ORDERED: hydrOXYzine HCL 25 MG TAB PO PRN (10:45)
[2017-07-04] MEDS: SERTRALINE HCL 50 MG TAB PO SCH (10:45)
[2017-07-04] MEDS ORDERED: PILL SPLITTER OTHER PRN (11:00)
[2017-07-04] MEDS: HALOPERIDOL 5 MG TAB PO SCH ×2 (11:00→22:13)
--- NOTE | 2017-07-04 11:53 | HHI.HP ---
Provisional Diagnosis Admission Date Jul 03, 2017 at 14:46 [place]. Schizophrenia Certification of Person's Competence To Provide Express and Informed Consent I have personally examined Holly Curry , a person being served at [facility] on, Jul 04, 2017 11:50. Express and informed consent means consent voluntarily given in writing, by a competent person, after sufficient explanation and disclosure of the subject matter involved to enable the person to make a knowing and willful decision without any element of force, fraud, deceit, duress, or other form of constraint or coercion. This person is 18 years of age or older, is not now known to be incompetent to consent to treatment with a guardian advocate, and does not have a health care surrogate or proxy currently making medical treatment decisions. I have found this person to be one of the following: [xxx] Competent to provide express and informed consent, as defined above, for voluntary admission to this facility and is competent to provide express and informed consent for treatment. He/she has the consistent capacity to make well reasoned, willful, and knowing decisions concerning his or her medical or mental health treatment. The person fully and consistently understands the purpose of the admission for examination/placement and is fully capable of personally exercising all rights assured [place] Incompetent to provide express and informed consent to voluntary admission, and this is incompetent to provide express and informed consent to treatment. The person must be transferred to involuntary status and a petition for a guardian advocate filed with the Circuit Court. [] Refusing to provide express and informed consent to voluntary admission but is competent to provide express and informed consent for treatment. The person must be discharged or transferred to involuntary status. Form shall be completed within 24 hours of a person's arrival at the receiving facility and filed in the clinical record of each person: 1. Admitted on a voluntary basis 2. Permitted to provide express and informed consent to his/her own treatment 3. Allowed to transfer from involuntary to voluntary status 4. Prior to permitting a person to consent to his or her own treatment after having been previously found incompetent to consent to treatment. History of Present Illness Capacity: Has Capacity HPI Patient is a 56 y/o woman, but , unemployed, homeless , with past psychiatric history of schizophrenia, multiple psychiatric admissions, previous suicide attempt, no history of self injurious behavior, non compliance with treatment, who was brought in by self accompanied by boyfriend due to worsening depressive symptoms and suicidal ideation with plan to put her head [place] railroad tracks and was brought in by her boyfriend and admitted to the inpatient psychiatry unit for further evaluation and management. Patient was found in day room noted B, cooperative and. Respiratory patient was brought in by self due to present symptoms along with suicide ideation, recently discharged on 06/29/17. He had in the medial use patient states that after she was discharged from her recent hospitalization she regard to [email or web address] and had filled her prescriptions and received "shock" last week. Patient states that recently had an argument with her boyfriend which she was worried that she would her herself and brought her to the ED. Patient states she has been having suicide ideation for the past week with thoughts of going to the regular tracks. Patient continues report feeling depressed, "I do not like this world". Family psychiatric history: Brother committed suicide Past psychiatric history previous psychiatric diagnoses schizophrenia, multiple hospitalizations, one previous suicide attempt years ago via overdose. Substance use history: Tobacco use, denies any drug or alcohol use. Past Alvaro history: Denies Allergies: Sulfas Social history: , homeless, unemployed, [place]ic[place] which both have been homeless. Past Psych History Violence risk - others (6 mos) low Violence risk - self (6 mos) elevated due to current suicidal ideation and history of prior suicide attempt Substance Abuse History Drugs/Alcohol past 12 months denies Past Family Social History Coded Allergies: Sulfa (Sulfonamide Antibiotics) (Unverified Allergy, Mild, 07/03/17) Active Scripts Budesonide-Formoterol Inh (Symbicort Inh) 80-4.5 Mcg/Act Aero, 1 PUFF INH Q12HR for Asthma Management, #1 INHALER 0 Refills Prov:Isidro Roe MD 09/20/16 Albuterol 18 GM Inh (Ventolin Hfa 18 GM Inh) 90 Mcg/Act Aer, 2 PUFF INH Q4-6H Y for SHORTNESS OF BREATH, #1 INHALER 0 Refills Prov:Isidro Roe MD 09/20/16 Ipratropium-Albuterol Neb (Duoneb) 0.5-2.5 Mg/3 Ml Neb, 1 AMPULE NEB Q4-6H Y for SOB/WHEEZING, #30 ML Prov:Isidro Roe MD 09/20/16 Prednisone (Prednisone) 20 Mg Tab, 20 MG PO BID for 5 Days, TAB 0 Refills Prov:Isidro Roe MD 09/20/16 Albuterol 8.5 GM Inh (Proair Hfa 8.5 GM Inh) 90 Mcg/Act Aer, 2 PUFF INH Q4-6H Y for SHORTNESS OF BREATH, #1 INHALER 0 Refills 108 mcg/actuation Prov:Verónica Weaver DO 07/08/16 Budesonide-Formoterol Inh (Symbicort Inh) 160-4.5 Mcg/Act Aero, 2 PUFF INH Q12HR for Broncospasm, #1 INHALER Prov:Laureano Sanchez 06/04/16 Reported Medications Tizanidine (Tizanidine) 4 Mg Tab, 4 MG PO TID for Muscle Spasm, TAB 0 Refills 09/20/16 Quetiapine (Seroquel) 200 Mg Tab, 200 MG PO HS, #30 TAB 0 Refills 05/12/16 Current Medications Medications (Trade) Dose Ordered Sig/Felipe Route Start Time Stop Time Status Last Admin (Tylenol) 650 mg Q4H PRN PO 07/03/17 14:45 (Milk Of Magnesia Liq) 30 ml DAILY PRN PO 07/03/17 14:45 (Mag-Al Plus Susp Liq) 30 ml Q6H PRN PO 07/03/17 14:45 (Habitrol 21 Mg Patch.24 Hr) 1 patch DAILY T-DERMAL 07/04/17 09:00 Miscellaneous Information 1 DAILY T-DERMAL 07/04/17 09:00 (Haldol) 7.5 mg BID PO 07/04/17 11:00 07/04/17 11:00 (Zoloft) 50 mg DAILY PO 07/04/17 10:45 07/04/17 10:45 (Atarax) 25 mg Q6H PRN PO 07/04/17 10:45 (Benadryl) 50 mg HS PRN PO 07/04/17 21:00 (Pill Splitter) 1 ea UNSCH PRN OTHER 07/04/17 11:00 Family Psych History brother committed suicide Social History , homeless, unemployed, domic[place] which both have been homeless. Patient's Strengths (min. 2) verbal and communicative Physical Exam Vital Signs Vital Signs Date Time Temp Pulse Resp B/P (MAP) Pulse Ox O2 Delivery O2 Flow Rate FiO2 07/04/17 05:02 98.1 99 16 130/68 (88) 97 07/03/17 13:29 Room Air Lab Results Test 07/04/17 08:50 Blood Urea Nitrogen 8 MG/DL Creatinine 0.62 MG/DL Random Glucose 66 MG/DL Calcium Level 9.1 MG/DL Sodium Level 141 MEQ/L Potassium Level 4.2 MEQ/L Chloride Level 103 MEQ/L Carbon Dioxide Level 29.7 MEQ/L Anion Gap 8 MEQ/L Estimat Glomerular Filtration Rate 100 ML/MIN Triglycerides Level 101 MG/DL Cholesterol Level 180 MG/DL LDL Cholesterol 109 MG/DL HDL Cholesterol 50.6 MG/DL Cholesterol/HDL Ratio 3.55 RATIO Mental Status Examination Appearance: Disheveled Consciousness: Alert Orientation: Person, Place, Situation Motor Activity: Other (Sitting on the bed) Speech: Unremarkable Language: Adequate Fund of Knowledge: Inadequate Attention and Concentration: Adequate Memory: Impaired Mood: Sad (Per patient) Affect: Euthymic (Smiles occasionally) Thought Process & Associations: Loose associations Thought Content: Bizarre thinking Hallucination Type: Visual (Reports that the outside looks "really old like the end of the world".) Delusion Type: None Suicidal Ideation: Yes Suicidal Plan: Yes ("I want to put my head on a railroad track and let the train hit me.") Suicidal Intention: Yes (Patient's boyfriend states he cannot leave her alone for fear that she will wander off and try to end her life.) Homicidal Ideation: No Homicidal Plan: No Homicidal Intention: No Insight: Poor Judgment: Poor Assessment & Plan Problem List: (1) Schizophrenia ICD Codes: F20.9 - Schizophrenia, unspecified Status: Chronic Assessment & Plan Estimated LOS: 5-7 days. Patient is a 56 y/o woman, but , unemployed, homeless, with past psychiatric history of schizophrenia , multiple psychiatric admissions, previous suicide attempt, no history of self injurious behavior, non compliance with treatment, who was brought in by self accompanied by boyfriend due to worsening depressive symptoms and suicidal ideation with plan to put her head on railroad tracks and requires inpatient stabilization. Patient will be re-started on haloperidol 7.5mg PO BID, start sertraline 50mg PO daily, continue to monitor mood and behavior, Social work intervention for psychosocial assessment. Discharge planning in progress. Discharge Planning To be determined. Papa Tracy MD Jul 04, 2017 11:53
[2017-07-04 15:04] LABS: HEMOGLOBIN A1C 6.4 % (4.3-6.0)
[2017-07-04 17:36] VITALS: BP 127/83; PULSE 83; RESP 16; TEMP 97.9; O2SAT 97
--- NOTE | 2017-07-04 18:04 | EKG ---
Date Performed: 07/04/2017 Time Performed: 10:10:10 PTAGE: 56 years EKG: Sinus rhythm BORDERLINE RIGHT AXIS DEVIATION BORDERLINE ECG PREVIOUS TRACING : 09/20/2016 15.48 Since the prior tracing, there has been no significant julien DOCTOR: Melva Sullivan Interpretating Date/Time 07/04/2017 18:01:04
[2017-07-04] MEDS ORDERED: diphenhydrAMINE HCL 50 MG CAP PO PRN (21:00)
[2017-07-05 05:44] VITALS: BP 101/55; PULSE 68; RESP 18; TEMP 97.5; O2SAT 97
[2017-07-05] MEDS: NICOTINE 21 MG/24 HR PATCH T-DERMAL SCH (09:00)
[2017-07-05] MEDS: REMOVE OLD PATCH T-DERMAL SCH (09:00)
[2017-07-05] MEDS: HALOPERIDOL 5 MG TAB PO SCH ×2 (09:14→20:59)
[2017-07-05] MEDS: SERTRALINE HCL 50 MG TAB PO SCH (09:14)
--- NOTE | 2017-07-05 12:59 | HHI.PYPN ---
Subjective Remarks Patient was seen and case discussed with nursing. Patient is pleasant and cooperative with exam. Denies suicidal homicidal ideation intent or plan. She does appear to minimize her discharge and has poor insight. She is quite disheveled. Compliant with medications and behaving well on the unit Mental Status Examination Appearance: Disheveled Consciousness: Alert Orientation: Person, Place, Situation Motor Activity: Other (Sitting on the bed) Speech: Unremarkable Language: Adequate Fund of Knowledge: Inadequate Attention and Concentration: Adequate Memory: Impaired Mood: Sad (Per patient) Affect: Euthymic (Smiles occasionally) Thought Process & Associations: Loose associations Thought Content: Bizarre thinking Hallucination Type: Visual (Reports that the outside looks "really old like the end of the world".) Delusion Type: None Suicidal Ideation: No Suicidal Plan: No Suicidal Intention: No Homicidal Ideation: No Homicidal Plan: No Homicidal Intention: No Insight: Poor Judgment: Poor Results Vitals/IOs Vital Signs Date Time Temp Pulse Resp B/P (MAP) Pulse Ox O2 Delivery O2 Flow Rate FiO2 07/05/17 05:44 97.5 68 18 101/55 (70) 97 07/03/17 13:29 Room Air Assessment & Plan Problem List: (1) Schizophrenia ICD Codes: F20.9 - Schizophrenia, unspecified Status: Chronic Assessment & Plan Continue current treatment plan Justification for Cont. Inpt. Patient would decompensate in a less restrictive setting Kaushik Torres DO Jul 05, 2017 12:59
[2017-07-05 18:13] VITALS: BP 108/62; PULSE 66; RESP 18; TEMP 97.6; O2SAT 100
[2017-07-06 04:51] VITALS: BP 103/61; PULSE 92; RESP 16; TEMP 97.8; O2SAT 98
[2017-07-06] MEDS: NICOTINE 21 MG/24 HR PATCH T-DERMAL SCH (09:00)
[2017-07-06] MEDS: REMOVE OLD PATCH T-DERMAL SCH (09:00)
[2017-07-06] MEDS: HALOPERIDOL 5 MG TAB PO SCH ×2 (09:10→20:54)
[2017-07-06] MEDS: SERTRALINE HCL 50 MG TAB PO SCH (09:11)
--- NOTE | 2017-07-06 11:31 | HHI.PYPN ---
Subjective Remarks Patient was seen and case discussed with nursing. Patient continues to be disheveled with poor insight. Plans include going to act. Mood is described as "good." No outbursts or agitation. Compliant with medications. Denies auditory visual hallucinations Mental Status Examination Appearance: Disheveled Consciousness: Alert Orientation: Person, Place, Situation Motor Activity: Other (Sitting on the bed) Speech: Unremarkable Language: Adequate Fund of Knowledge: Inadequate Attention and Concentration: Adequate Memory: Impaired Mood: Appropriate Affect: Euthymic (Smiles occasionally) Thought Process & Associations: Loose associations Thought Content: Bizarre thinking Hallucination Type: Visual (Reports that the outside looks "really old like the end of the world".) Delusion Type: None Suicidal Ideation: No Suicidal Plan: No Suicidal Intention: No Homicidal Ideation: No Homicidal Plan: No Homicidal Intention: No Insight: Poor Judgment: Poor Results Vitals/IOs Vital Signs Date Time Temp Pulse Resp B/P (MAP) Pulse Ox O2 Delivery O2 Flow Rate FiO2 07/06/17 04:51 97.8 92 16 103/61 (75) 98 07/03/17 13:29 Room Air Assessment & Plan Problem List: (1) Schizophrenia ICD Codes: F20.9 - Schizophrenia, unspecified Status: Chronic Assessment & Plan Continue current treatment plan Justification for Cont. Inpt. Patient will decompensate in a less restrictive setting Kaushik Torres DO Jul 06, 2017 11:31
[2017-07-06 16:38] VITALS: BP 107/62; PULSE 91; RESP 18; TEMP 98.3; O2SAT 95
[2017-07-07 05:24] VITALS: BP 110/69; PULSE 78; RESP 16; TEMP 98.8; O2SAT 96
[2017-07-07] MEDS: NICOTINE 21 MG/24 HR PATCH T-DERMAL SCH (08:41)
[2017-07-07] MEDS: SERTRALINE HCL 50 MG TAB PO SCH (08:41)
[2017-07-07] MEDS: HALOPERIDOL 5 MG TAB PO SCH (08:41)
[2017-07-07] MEDS: REMOVE OLD PATCH T-DERMAL SCH (08:42)
[2017-07-07] MEDS ORDERED: HALO5TAB PO (15:11)
[2017-07-07] MEDS ORDERED: ZOLO50TA PO (15:11)
[2017-07-07] MEDS ORDERED: SERO200T PO (15:11)
[2017-07-07] MEDS ORDERED: DIPH50CA PO (15:11)
--- NOTE | 2017-07-07 15:19 | HHI.DS ---
Psychiatry Discharge Summary Inpatient Psychiatric care?: Yes Advance Directive: No Reason Not Provided: PT DOES NOT HAVE Mental Health AdvanceDirective: No Health Care Proxy: No Admission Admission Date Jul 03, 2017 at 14:46 Admission Diagnosis: (1) Schizophrenia ICD Code: F20.9 - Schizophrenia, unspecified Brief History Patient is a 56 y/o woman, but , unemployed, homeless , with past psychiatric history of schizophrenia, multiple psychiatric admissions, previous suicide attempt, no history of self injurious behavior, non compliance with treatment, who was brought in by self accompanied by boyfriend due to worsening depressive symptoms and suicidal ideation with plan to put her head on railroad tracks and was brought in by her boyfriend and admitted to the inpatient psychiatry unit for further evaluation and management. Patient was found in day room noted B, cooperative and. Respiratory patient was brought in by self due to present symptoms along with suicide ideation, recently discharged on 06/29/17. He had in the medial use patient states that after she was discharged from her recent hospitalization she regard to [facility] and had filled her prescriptions and received "shock" last week. Patient states that recently had an argument with her boyfriend which she was worried that she would her herself and brought her to the ED. Patient states she has been having suicide ideation for the past week with thoughts of going to the regular tracks. Patient continues report feeling depressed, "I do not like this world". Family psychiatric history: Brother committed suicide Past psychiatric history previous psychiatric diagnoses schizophrenia, multiple hospitalizations, one previous suicide attempt years ago via overdose. Substance use history: Tobacco use, denies any drug or alcohol use. Past Alvaro history: Denies Allergies: Sulfas Social history: , homeless, unemployed, [place]ic[place] which both have been homeless. Tobacco Use In Past 30 Days: Cigarettes But Not Daily Alcohol Use: Never Hospital Course Patient was admitted to a locked psychiatric facility with proper safety precautions in place at all times. She was seen on a daily basis by psychiatry as well as a counselor. Patient was stabilized on psychotropic medications. Patient tolerated medications well no reported side effects. Reviewed electronic medical record, labs, and discussed case with staff. Upon examination today patient reports feeling "good". She denies having any thoughts of self-harm, homicidal ideation, auditory or visual hallucinations. I can elicit no delusions at this time. She states that she would like to be discharged, and her boyfriend is waiting. She reports that she has been sleeping well and eating well. She claims that she is much improved from her original admission. She no longer meets inpatient admission criteria and has received maximum benefit from admission at this time. At this time patient presents no eminent danger to herself or others. She will be discharged with follow-up instructions and has been advised to return as necessary. Results Blood Pressure 110 / 69 Vital Signs Date Time Temp Pulse Resp B/P (MAP) Pulse Ox O2 Delivery O2 Flow Rate FiO2 07/07/17 05:24 98.8 78 16 110/69 (83) 96 07/03/17 13:29 Room Air Laboratory Results Test 07/04/17 08:50 Cholesterol Level 180 MG/DL (120-200) HDL Cholesterol 50.6 MG/DL (40.0-60.0) Hemoglobin A1c 6.4 % (4.3-6.0) LDL Cholesterol 109 MG/DL (0-99) Triglycerides Level 101 MG/DL (42-150) Summary of Procedures None Pending results at discharge: No Medications # of Antipsychotic meds at D/C: 1 Approp Antipsych med options 1 - Minimum of three failed multiple trials of monotherapy. 2 - Documented plan to taper to monotherapy due to previous use of multiple meds OR cross-taper in progress at D/C. 3 - Documentation of augmentation of Clozapine. 4 - Justification other than those listed in allowable values 1-3, document here : Discharge Discharge Date: Jul 07, 2017 Discharge Diagnosis: (1) Schizophrenia Diagnosis: Principal ICD Code: F20.9 - Schizophrenia, unspecified Status: Chronic Pt Condition on Discharge: Stable Discharge Disposition: Discharge Home Discharge Instructions Diet Instructions: As Tolerated, No Restrictions Activities you can perform: Regular-No Restrictions Discharge Time > 30 minutes Mental Status Examination Appearance: Disheveled Consciousness: Alert Orientation: Person, Place, Situation Motor Activity: Other (Sitting on the bed) Speech: Unremarkable Language: Adequate Fund of Knowledge: Inadequate Attention and Concentration: Adequate Memory: Impaired Mood: Appropriate Affect: Euthymic (Smiles occasionally) Thought Process & Associations: Loose associations Thought Content: Bizarre thinking Hallucination Type: Visual (Reports that the outside looks "really old like the end of the world".) Delusion Type: None Suicidal Ideation: No Suicidal Plan: No Suicidal Intention: No Homicidal Ideation: No Homicidal Plan: No Homicidal Intention: No Insight: Poor Judgment: Poor Discharge/Advance Care Plan Health Problems: (1) Schizophrenia Goals to promote your health * To prevent worsening of your condition and complications * To maintain your health at the optimal level Directions to meet your goals Take your medications as prescribed Follow your dietary instruction Follow activity as directed Keep your appointments as scheduled Take your immunizations and boosters as scheduled If your symptoms worsen call your PCP, if no PCP go to Urgent Care Center or Emergency Room For 25/11 questions related to your inpatient stay or results of tests pending at discharge, please contact Dr. Susu Ruggiero at Smoking is Dangerous to Your Health. Avoid second hand smoking Susu Ruggiero Jul 07, 2017 15:19
== END 2017-07-07 15:40 | disposition home or self-care (01) | DRG 885 ==
LOC: NEPD 03:57 → NEDA 14:46 → H260 16:19
PROVIDERS: ADMIT Student in an Organized Health Care Education/Training Program; ATTEND Student in an Organized Health Care Education/Training Program
DX: F20.9 Schizophrenia, unspecified (principal); R45.851 Suicidal ideations; Z68.1 Body mass index [BMI] 19.9 or less, adult; J44.9 Chronic obstructive pulmonary disease, unspecified; R63.0 Anorexia; F17.210 Nicotine dependence, cigarettes, uncomplicated; F32.9 Major depressive disorder, single episode, unspecified; Z59.0 Homelessness; Z81.8 Family history of other mental and behavioral disorders; Z88.2 Allergy status to sulfonamides; Z91.19 Patient's noncompliance with other medical treatment and regimen; Z91.5 Personal history of self-harm
CPT/HCPCS: 80048; 80053; 80061; 80307; 81001; 83036; 84443; 85025; 93005

== ENCOUNTER 2017-07-18 14:43 | Emergency (ER) | payer MEDICAID ==
[~2017-07-18] VITALS: Ht 167.6 cm; Wt 51.0 kg
[~2017-07-18 14:43] MED LIST changes: +DIPH50CA PO; +HALO5TAB PO; +ZOLO50TA PO
[2017-07-18 15:41] VITALS: BP 102/62; PULSE 104; RESP 18; TEMP 98.6; O2SAT 98
[2017-07-18 17:01] VITALS: BP 107/68; PULSE 111; RESP 16; TEMP 98.7; O2SAT 98
[2017-07-18] MEDS ORDERED: REME30TA PO (18:01)
[2017-07-18] MEDS ORDERED: SERO100T PO (18:01)
[2017-07-18] MEDS ORDERED: HALO100P IM (18:02)
[2017-07-18] MEDS ORDERED: COLA100C5 PO (18:03)
[2017-07-18 18:25] LABS: AUTOMATED NEUTROPHIL # 7.5 TH/MM3 (1.8-7.7); BASOPHIL # 0.1 TH/MM3 (0-0.2); EOSINOPHIL # 0.1 TH/MM3 (0-0.4); EOSINOPHIL % 0.5 % (0.0-4.0); HEMATOCRIT 40.5 % (35.0-46.0); HEMOGLOBIN 13.6 GM/DL (11.6-15.3); LYMPHOCYTE # 2.4 TH/MM3 (1.0-4.8); MEAN CELL VOLUME 87.3 FL (80.0-100.0); MEAN CORPUSCULAR HEMOGLOBIN 29.3 PG (27.0-34.0); MEAN CORPUSCULAR HGB CONC 33.5 % (32.0-36.0); MEAN PLATELET VOLUME 7.2 FL (7.0-11.0); MONO % 9.3 % (0.0-8.0); NEUT % 67.2 % (16.0-70.0); PLATELET COUNT 602 TH/MM3 (150-450); RED BLOOD COUNT 4.64 MIL/MM3 (4.00-5.30); RED CELL DISTRIBUTION WIDTH 15.1 % (11.6-17.2); WHITE BLOOD COUNT 11.1 TH/MM3 (4.0-11.0)
[2017-07-18 18:30] LABS: BACTERIA, URINE MOD /hpf; BLOOD, URINE NEG (NEG); GLUCOSE,URINE NEG (NEG); HYALINE CAST, URINE 21 /lpf (RARE); KETONE, URINE 10 mg/dL (NEG); MUCUS URINE MANY /lpf (OCC); NITRITE,URINE NEG (NEG); PH, URINE 6.5 (5.0-8.5); SQUAMOUS EPITHELIAL CELL URINE 11 /hpf (0-5); URINE COLOR YELLOW (YELLW/STRAW); URINE LEUKOCYTE ESTERASE SMALL (NEG)
[2017-07-18 18:35] LABS: BILIRUBIN, URINE NEG (NEG)
[2017-07-18 18:38] LABS: ALBUMIN 3.3 GM/DL (3.4-5.0); AST (GOT) 12 U/L (15-37); BICARBONATE 30.7 MEQ/L (21.0-32.0); BLOOD UREA NITROGEN 13 MG/DL (7-18); CALCIUM 9.3 MG/DL (8.5-10.1); CHLORIDE 99 MEQ/L (98-107); CREATININE 1.28 MG/DL (0.50-1.00); GLOMERULAR FILTRATION RATE 43 ML/MIN (>89); GLUCOSE,RANDOM 91 MG/DL (74-106); SODIUM (NA) 139 MEQ/L (136-145)
[2017-07-18 18:39] LABS: ALT (GPT) 20 U/L (10-53)
[2017-07-18 18:49] LABS: ALKALINE PHOSPHATASE 151 U/L (45-117); TOTAL BILIRUBIN ADULT 0.2 MG/DL (0.2-1.0)
[2017-07-18 19:06] LABS: ACETAMINOPHEN LESS THAN 2.0 MCG/ML (10.0-30.0)
--- NOTE | 2017-07-18 20:17 | PD ---
HPI Chief Complaint: Psychiatric Symptoms Time Seen by Provider: 19:57 Travel History International Travel<30 days: No Contact w/Intl Traveler<30days: No Traveled to known affect area: No History of Present Illness HPI Patient 56-year-old female with a history of schizophrenia has been taking all her medications presents emergency department for evaluation of suicidal ideation this morning. Patient states she has been depressed for the past 2 weeks. She states that she would lay down on the train tracks to try and kill herself. She denies any physical complaints at this time, denies any chest pain shortness breath abdominal pain nausea vomiting. Patient's symptoms are severe, context as above, duration as above, associated signs and symptoms as above, gradually worsening. PFSH Past Medical History Autoimmune Disease: No Anxiety: Yes Depression: Yes Cancer: No Cardiovascular Problems: No Chest Pain: No COPD: Yes ( ) Cerebrovascular Accident: No Patient Takes Glucophage: No Diminished Hearing: No Endocrine: No Genitourinary: No Immune Disorder: No Musculoskeletal: No Neurologic: Yes Psychiatric: Yes Reproductive: No Respiratory: Yes Schizophrenia: Yes Seizures: Yes (WITH PREG) Tetanus Vaccination: Unknown ?: Not Menopausal: Yes Past Surgical History Section: Yes (X 3) Gynecologic Surgery: Yes (CSECTION) Other Surgery: Yes Social History Alcohol Use: No Tobacco Use: No Substance Use: No Allergies-Medications (Allergen,Severity, Reaction): Coded Allergies: Sulfa (Sulfonamide Antibiotics) (Unverified Allergy, Mild, 07/03/17) Reported Meds & Prescriptions Reported Meds & Active Scripts Active Reported Colace (Docusate Sodium) 100 Mg Capsule 100 Mg PO BID Haldol Decanoate Inj (Haloperidol Decanoate) 100 Mg/Ml Inj 100 Mg IM Q28D Remeron (Mirtazapine) 30 Mg Tab 30 Mg PO HS Seroquel (Quetiapine Fumarate) 100 Mg Tab 100 Mg PO HS Review of Systems Except as stated in HPI: all other systems reviewed are Neg Physical Exam Narrative GENERAL: Well-developed well-nourished, no obvious distress peer SKIN: Focused skin assessment warm/dry. HEAD: Atraumatic. Normocephalic. EYES: Pupils equal and round. No scleral icterus. No injection or drainage. ENT: No nasal bleeding or discharge. Mucous membranes pink and moist. NECK: Trachea midline. No JVD. CARDIOVASCULAR: Regular rate and rhythm. No murmur appreciated. RESPIRATORY: No accessory muscle use. Clear to auscultation. Breath sounds equal bilaterally. GASTROINTESTINAL: Abdomen soft, non-tender, nondistended. Hepatic and splenic margins not palpable. MUSCULOSKELETAL: No obvious deformities. No clubbing. No cyanosis. No edema. NEUROLOGICAL: Awake and alert. No obvious cranial nerve deficits. Motor grossly within normal limits. Normal speech. PSYCHIATRIC: Endorses suicidal ideation, behavior, flat affect. Insight and judgment appear normal Data Data Last Documented VS Vital Signs Date Time Temp Pulse Resp B/P (MAP) Pulse Ox O2 Delivery O2 Flow Rate FiO2 07/19/17 02:11 99.4 82 17 118/55 (76) 95 Room Air Orders Orders Complete Blood Count With Diff (07/18/17 17:50) Comprehensive Metabolic Panel (07/18/17 17:50) Thyroid Stimulating Hormone (07/18/17 17:50) Urinalysis - C+S If Indicated (07/18/17 17:50) Psych Screen (07/18/17 17:50) Drug Screen, Random Urine (07/18/17 17:50) Alcohol (Ethanol) (07/18/17 17:50) Salicylates (Aspirin) (07/18/17 17:50) Tylenol (Acetaminophen) (07/18/17 17:50) Urine Culture (07/18/17 16:34) Cephalexin (Keflex) (07/18/17 20:30) Diphenhydramine (Benadryl) (07/18/17 22:45) Diet Regular Basic (07/19/17 Breakfast) Labs Laboratory Tests Test 07/18/17 16:34 07/18/17 18:10 Urine Color YELLOW Urine Turbidity HAZY Urine pH 6.5 Urine Specific [place] 1.018 Urine Protein 100 mg/dL Urine Glucose (UA) NEG mg/dL Urine Ketones 10 mg/dL Urine Occult Blood NEG Urine Nitrite NEG Urine Bilirubin NEG Urine Urobilinogen 4.0 MG/DL Urine Leukocyte Esterase SMALL Urine WBC 17 /hpf Urine Squamous Epithelial Cells 11 /hpf Urine Bacteria MOD /hpf Urine Hyaline Casts 21 /lpf Urine Granular Casts 21 /lpf Urine Mucus MANY /lpf Microscopic Urinalysis Comment CULTURE INDICATED Urine Opiates Screen NEG Urine Barbiturates Screen NEG Urine Amphetamines Screen NEG Urine Benzodiazepines Screen NEG Urine Cocaine Screen NEG Urine Cannabinoids Screen NEG White Blood Count 11.1 TH/MM3 Red Blood Count 4.64 MIL/MM3 Hemoglobin 13.6 GM/DL Hematocrit 40.5 % Mean Corpuscular Volume 87.3 FL Mean Corpuscular Hemoglobin 29.3 PG Mean Corpuscular Hemoglobin Concent 33.5 % Red Cell Distribution Width 15.1 % Platelet Count 602 TH/MM3 Mean Platelet Volume 7.2 FL Neutrophils (%) (Auto) 67.2 % Lymphocytes (%) (Auto) 22.0 % Monocytes (%) (Auto) 9.3 % Eosinophils (%) (Auto) 0.5 % Basophils (%) (Auto) 1.0 % Neutrophils # (Auto) 7.5 TH/MM3 Lymphocytes # (Auto) 2.4 TH/MM3 Monocytes # (Auto) 1.0 TH/MM3 Eosinophils # (Auto) 0.1 TH/MM3 Basophils # (Auto) 0.1 TH/MM3 CBC Comment DIFF FINAL Differential Comment Blood Urea Nitrogen 13 MG/DL Creatinine 1.28 MG/DL Random Glucose 91 MG/DL Total Protein 7.0 GM/DL Albumin 3.3 GM/DL Calcium Level 9.3 MG/DL Alkaline Phosphatase 151 U/L Aspartate Amino Transf (AST/SGOT) 12 U/L Alanine Aminotransferase (ALT/SGPT) 20 U/L Total Bilirubin 0.2 MG/DL Sodium Level 139 MEQ/L Potassium Level 3.0 MEQ/L Chloride Level 99 MEQ/L Carbon Dioxide Level 30.7 MEQ/L Anion Gap 9 MEQ/L Estimat Glomerular Filtration Rate 43 ML/MIN Thyroid Stimulating Hormone 3rd Gen 2.380 uIU/ML Salicylates Level 5.2 MG/DL Acetaminophen Level LESS THAN 2.0 MCG/ML Ethyl Alcohol Level LESS THAN 3 MG/DL MDM Medical Decision Making Medical Screen Exam Complete: Yes Emergency Medical Condition: Yes Differential Diagnosis Suicidal ideation, schizophrenia, depression. Narrative Course Patient seen and examined by me, has a history of depression, she states been compliant with Remeron Haldol. She woke this morning with suicidal ideations and plans to put her head on the railroad tracks to get run over. She states that she wants to see the psychiatrist but her only other complaint is that she cannot sleep. She has no medical complaints to warrant further workup this time. Minimal evidence of urinary tract infection will be placed on Keflex. She is medically cleared for psychiatric evaluation. She understands that she will be here until the morning until psychiatrist sees her peer Diagnosis Primary Impression: Suicidal ideation Condition: Jorge Red MD Jul 18, 2017 20:17
[2017-07-18] MEDS: CEPHALEXIN MONOHYDRATE 500 MG CAP PO SCH (20:30)
[2017-07-18 22:21] VITALS: BP 110/68; PULSE 94; RESP 18; TEMP 98.6; O2SAT 95
[2017-07-18] MEDS ORDERED: diphenhydrAMINE HCL 25 MG CAP PO ONE (22:45)
[2017-07-19] MEDS: CEPHALEXIN MONOHYDRATE 500 MG CAP PO SCH ×2 (01:36→06:00)
[2017-07-19 02:11] VITALS: BP 118/55; PULSE 82; RESP 17; TEMP 99.4; O2SAT 95
[2017-07-19] MEDS ORDERED: POTASSIUM CHLORIDE 20 MEQ CONTROLLED RELEASE TAB PO ONE (07:45)
--- NOTE | 2017-07-19 08:08 | PD ---
History of Present Illness Chief Complaint: adjustment disorder Time Seen by Provider: 07:49 Travel History International Travel<30 Days: No Contact w/Intl Traveler<30days: No Known affected area: No Legal Status Legal Status: Voluntary History of Present Illness: 56 year-old single, homeless, female presented to this facility voluntarily with c/o suicidal ideation. Patient is well known to this facility and her last admission was at this facility from 07/03-07/07/2017. Reviewed medical record, labs, and discussed patient with staff. Evaluated patient in her room in the [facility]. She is awake, alert and oriented X 4. Her speech is clear, logical, and organized. Her mood is good and her affect is euthymic. This morning she reports that she feels better after a good night's sleep. She denies SI, HI, visual and auditory hallucinations and I can elicit no delusional material. Her medical evaluation did reveal a urinary tract infection and hypokalemia for which she is being treated. Ms. Curry reports that she takes long acting injections for her psychotropic medications and the next one is due on the 07/21 and she plans on being at that appointment. She is homeless and travels with a boyfriend who she reports is "down the road" waiting for her. It is not uncommon for this patient to request discharge after a night or two of sleep in the hospital. [facility] Past Medical History Narrative Medical UTI and hypokalemia, treatment by ER staff. Autoimmune Disease: No Anxiety: Yes Depression: Yes Cancer: No Cardiovascular Problems: No Chest Pain: No COPD: Yes ( ) Cerebrovascular Accident: No Patient Takes Glucophage: No Diminished Hearing: No Endocrine: No Genitourinary: No Immune Disorder: No Musculoskeletal: No Neurologic: Yes Psychiatric: Yes Reproductive: No Respiratory: Yes Schizophrenia: Yes Seizures: Yes (WITH PREG) Tetanus Vaccination: Unknown ?: Not Menopausal: Yes Past Surgical History Section: Yes (X 3) Gynecologic Surgery: Yes (CSECTION) Other Surgery: Yes Psychiatric History Psychiatric History History of inpatient and is established outpatient with [facility]. Receives long- acting injections. Reports that she is compliant. Hx Psychiatric Treatment: Patient with a hx of schizophrenia currently receiving Haldol Deconate injection monthly at [facility]. Last dose given 06/30/2017. Patient states she also sees Dr. Guerra. Her last [facility] admission was Jul 2017. History of Inpatient Treatment: Yes Guns or firearms in home: No Social History Homeless. Smokes ~ 1ppd tobacco. Denies current ETOH and illicit drug use. 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 Hx Alcohol Use: Yes ("years ago") Hx Tobacco Use: No Hx Substance Use: No Substance Use Type: Alcohol Hx of Substance Use Treatment: Yes Allergies-Medications (Allergen,Severity, Reaction): Coded Allergies: Sulfa (Sulfonamide Antibiotics) (Unverified Allergy, Mild, 07/03/17) Reported Meds & Prescriptions Reported Meds & Active Scripts Active Reported Colace (Docusate Sodium) 100 Mg Capsule 100 Mg PO BID Haldol Decanoate Inj (Haloperidol Decanoate) 100 Mg/Ml Inj 100 Mg IM Q28D Remeron (Mirtazapine) 30 Mg Tab 30 Mg PO HS Seroquel (Quetiapine Fumarate) 100 Mg Tab 100 Mg PO HS Mental Status Examination Appearance: Dirty, Disheveled, Malodorous Consciousness: Alert Orientation: x4 Motor Activity: Normal gait Speech: Unremarkable Language: Adequate Fund of Knowledge: Adequate Attention and Concentration: Adequate Memory: Unremarkable Mood: Appropriate, Good Affect: Appropriate, Euthymic Thought Process & Associations: Intact Thought Content: Appropriate Hallucination Type: None Delusion Type: None Suicidal Ideation: No Suicidal Plan: No Suicidal Intention: No Homicidal Ideation: No Homicidal Plan: No Homicidal Intention: No Insight: Adequate Judgment: Adequate [facility] Medical Decision Making Assessment/Plan 56 y/o homeless, single, white female presents voluntarily to this facility with reported suicidal ideation. Patient is well known to this facility, last admission was 07/03-07/07/17. This morning upon evaluation, this patient advises that she feels "much better". Her speech is clear, logical, and organized. She is alert and oriented X 4. Her mood is good and her affect is euthymic. She reports that the "good nights sleep" helped her. She denies thoughts of self harm, homicidal ideation, auditory or visual hallucinations. She does not appear to be delusional. She advises that she will follow-up for her Haldol injection at [facility] on 07/21. Patient will be discharged with instructions to keep her follow-up, as well as medication from the medical side for her UTI. She is advised to return to the ED if her condition worsens. She will be provided with a bus pass to take her to her landscape engineer's location which she states is "down the road". She contracts for safety. Orders Orders Complete Blood Count With Diff (07/18/17 17:50) Comprehensive Metabolic Panel (07/18/17 17:50) Thyroid Stimulating Hormone (07/18/17 17:50) Urinalysis - C+S If Indicated (07/18/17 17:50) Psych Screen (07/18/17 17:50) Drug Screen, Random Urine (07/18/17 17:50) Alcohol (Ethanol) (07/18/17 17:50) Salicylates (Aspirin) (07/18/17 17:50) Tylenol (Acetaminophen) (07/18/17 17:50) Urine Culture (07/18/17 16:34) Cephalexin (Keflex) (07/18/17 20:30) Diphenhydramine (Benadryl) (07/18/17 22:45) Diet Regular Basic (07/19/17 Breakfast) Potassium Chloride (Kcl) (07/19/17 07:45) Results Vital Signs Date Time Temp Pulse Resp B/P (MAP) Pulse Ox O2 Delivery O2 Flow Rate FiO2 07/19/17 02:11 99.4 82 17 118/55 (76) 95 Room Air 07/18/17 22:21 98.6 94 18 110/68 (82) 95 Room Air 07/18/17 17:01 98.7 111 16 107/68 (81) 98 Room Air 07/18/17 15:41 98.6 104 18 102/62 (75) 98 Laboratory Tests Test 07/18/17 16:34 07/18/17 18:10 Urine Color YELLOW Urine Turbidity HAZY Urine pH 6.5 Urine Specific [place] 1.018 Urine Protein 100 Urine Glucose (UA) NEG Urine Ketones 10 Urine Occult Blood NEG Urine Nitrite NEG Urine Bilirubin NEG Urine Urobilinogen 4.0 Urine Leukocyte Esterase SMALL Urine WBC 17 Urine Squamous Epithelial Cells 11 Urine Bacteria MOD Urine Hyaline Casts 21 Urine Granular Casts 21 Urine Mucus MANY Microscopic Urinalysis Comment CULTURE INDICATED Urine Opiates Screen NEG Urine Barbiturates Screen NEG Urine Amphetamines Screen NEG Urine Benzodiazepines Screen NEG Urine Cocaine Screen NEG Urine Cannabinoids Screen NEG White Blood Count 11.1 Red Blood Count 4.64 Hemoglobin 13.6 Hematocrit 40.5 Mean Corpuscular Volume 87.3 Mean Corpuscular Hemoglobin 29.3 Mean Corpuscular Hemoglobin Concent 33.5 Red Cell Distribution Width 15.1 Platelet Count 602 Mean Platelet Volume 7.2 Neutrophils (%) (Auto) 67.2 Lymphocytes (%) (Auto) 22.0 Monocytes (%) (Auto) 9.3 Eosinophils (%) (Auto) 0.5 Basophils (%) (Auto) 1.0 Neutrophils # (Auto) 7.5 Lymphocytes # (Auto) 2.4 Monocytes # (Auto) 1.0 Eosinophils # (Auto) 0.1 Basophils # (Auto) 0.1 CBC Comment DIFF FINAL Differential Comment Blood Urea Nitrogen 13 Creatinine 1.28 Random Glucose 91 Total Protein 7.0 Albumin 3.3 Calcium Level 9.3 Alkaline Phosphatase 151 Aspartate Amino Transf (AST/SGOT) 12 Alanine Aminotransferase (ALT/SGPT) 20 Total Bilirubin 0.2 Sodium Level 139 Potassium Level 3.0 Chloride Level 99 Carbon Dioxide Level 30.7 Anion Gap 9 Estimat Glomerular Filtration Rate 43 Thyroid Stimulating Hormone 3rd Gen 2.380 Salicylates Level 5.2 Acetaminophen Level LESS THAN 2.0 Ethyl Alcohol Level LESS THAN 3 Date/Time Source Procedure Growth Status 07/18/17 16:34 Urine Clean Catch Urine Culture Pending Received Diagnosis Primary Impression: Adjustment disorder Psychiatrically Cleared: Yes Susu Ruggiero Jul 19, 2017 08:08
[2017-07-19] MEDS ORDERED: CEPH-460 PO (09:07)
--- NOTE | 2017-07-19 09:20 | PD ---
Physical Exam Narrative I was asked by the psych department to discharge patient after patient was evaluated and cleared by psych. Patient was previously medically cleared by previous provider. Please see their documentation for full H&P. Patient denies any homicidal or suicidal ideations. Denies any medical concerns at this time. Denies anything making symptoms better or worse. Denies any pain or radiation of pain. Data Data Last Documented VS Vital Signs Date Time Temp Pulse Resp B/P (MAP) Pulse Ox O2 Delivery O2 Flow Rate FiO2 07/19/17 02:11 99.4 82 17 118/55 (76) 95 Room Air Orders Orders Complete Blood Count With Diff (07/18/17 17:50) Comprehensive Metabolic Panel (07/18/17 17:50) Thyroid Stimulating Hormone (07/18/17 17:50) Urinalysis - C+S If Indicated (07/18/17 17:50) Psych Screen (07/18/17 17:50) Drug Screen, Random Urine (07/18/17 17:50) Alcohol (Ethanol) (07/18/17 17:50) Salicylates (Aspirin) (07/18/17 17:50) Tylenol (Acetaminophen) (07/18/17 17:50) Urine Culture (07/18/17 16:34) Cephalexin (Keflex) (07/18/17 20:30) Diphenhydramine (Benadryl) (07/18/17 22:45) Diet Regular Basic (07/19/17 Breakfast) Potassium Chloride (Kcl) (07/19/17 07:45) Ed Discharge Order (07/19/17 09:20) Labs Laboratory Tests Test 07/18/17 16:34 07/18/17 18:10 Urine Color YELLOW Urine Turbidity HAZY Urine pH 6.5 Urine Specific [place] 1.018 Urine Protein 100 mg/dL Urine Glucose (UA) NEG mg/dL Urine Ketones 10 mg/dL Urine Occult Blood NEG Urine Nitrite NEG Urine Bilirubin NEG Urine Urobilinogen 4.0 MG/DL Urine Leukocyte Esterase SMALL Urine WBC 17 /hpf Urine Squamous Epithelial Cells 11 /hpf Urine Bacteria MOD /hpf Urine Hyaline Casts 21 /lpf Urine Granular Casts 21 /lpf Urine Mucus MANY /lpf Microscopic Urinalysis Comment CULTURE INDICATED Urine Opiates Screen NEG Urine Barbiturates Screen NEG Urine Amphetamines Screen NEG Urine Benzodiazepines Screen NEG Urine Cocaine Screen NEG Urine Cannabinoids Screen NEG White Blood Count 11.1 TH/MM3 Red Blood Count 4.64 MIL/MM3 Hemoglobin 13.6 GM/DL Hematocrit 40.5 % Mean Corpuscular Volume 87.3 FL Mean Corpuscular Hemoglobin 29.3 PG Mean Corpuscular Hemoglobin Concent 33.5 % Red Cell Distribution Width 15.1 % Platelet Count 602 TH/MM3 Mean Platelet Volume 7.2 FL Neutrophils (%) (Auto) 67.2 % Lymphocytes (%) (Auto) 22.0 % Monocytes (%) (Auto) 9.3 % Eosinophils (%) (Auto) 0.5 % Basophils (%) (Auto) 1.0 % Neutrophils # (Auto) 7.5 TH/MM3 Lymphocytes # (Auto) 2.4 TH/MM3 Monocytes # (Auto) 1.0 TH/MM3 Eosinophils # (Auto) 0.1 TH/MM3 Basophils # (Auto) 0.1 TH/MM3 CBC Comment DIFF FINAL Differential Comment Blood Urea Nitrogen 13 MG/DL Creatinine 1.28 MG/DL Random Glucose 91 MG/DL Total Protein 7.0 GM/DL Albumin 3.3 GM/DL Calcium Level 9.3 MG/DL Alkaline Phosphatase 151 U/L Aspartate Amino Transf (AST/SGOT) 12 U/L Alanine Aminotransferase (ALT/SGPT) 20 U/L Total Bilirubin 0.2 MG/DL Sodium Level 139 MEQ/L Potassium Level 3.0 MEQ/L Chloride Level 99 MEQ/L Carbon Dioxide Level 30.7 MEQ/L Anion Gap 9 MEQ/L Estimat Glomerular Filtration Rate 43 ML/MIN Thyroid Stimulating Hormone 3rd Gen 2.380 uIU/ML Salicylates Level 5.2 MG/DL Acetaminophen Level LESS THAN 2.0 MCG/ML Ethyl Alcohol Level LESS THAN 3 MG/DL [facility] Supervised Visit with JOSEF: No Narrative Course Patient in no obvious distress upon re-evaluation. All pertinent laboratory result(s) discussed with patient. Patient was asked if they wanted to speak to my attending, which the patient did not wish to do at this time. Any questions/ concerns in reference to patient diagnosis/condition discussed and clarified prior to patient's discharge. Reinforced sheer importance of close follow up with patient's primary physician or primary care clinic. Instructed patient to return to ED immediately, if symptoms return/worsen. Patient showed understanding of above instructions. Further instructions and recommendations were detailed in discharge paperwork. Patient ambulated without difficulty out of ED at discharge. Diagnosis Primary Impression: Adjustment disorder Additional Impression: UTI (urinary tract infection) Qualified Codes: N39.0 - Urinary tract infection, site not specified Referrals: [facility] Patient Instructions: General Instructions, Urinary Tract Infection in Women ( ED) Additional Instruction: Follow-up with your primary care physician and/or Sunil Davis this week for reevaluation. Take all medication as prescribed. Return to the emergency department if symptoms get worse. Med/Other Pt SpecificInfo: Prescription(s) given Scripts Cephalexin (Keflex) 500 Mg Cap 500 MG PO Q8H for Infection, #30 CAP 0 Refills Prov: Jorge Delgado MD 07/19/17 Disposition: 01 DISCHARGE HOME Condition: Stable Migue Wilson Jul 19, 2017 09:20
[2017-07-19 09:40] VITALS: BP 118/76; TEMP 98.3
== END 2017-07-19 09:59 | disposition home or self-care (01) ==
LOC: NEPJ 14:43
DX: F43.20 Adjustment disorder, unspecified (principal); N39.0 Urinary tract infection, site not specified; Z79.899 Other long term (current) drug therapy
CPT/HCPCS: 80053; 80307; 81001; 84443; 85025; 87086; 99283

== ENCOUNTER 2017-09-22 16:55 | Emergency (ER) | payer MEDICAID ==
[~2017-09-22 16:55] MED LIST changes: -ALBUAER3 INH; +CEPH-460 PO; +COLA100C5 PO; -DIPH50CA PO; +HALO100P IM; -HALO5TAB PO; -IPRASOL NEB; -PRED20 PO; +REME30TA PO; +SERO100T PO; -SERO200T PO; -SYMB160A INH; -SYMB80AE INH; -TIZA4TAB PO; -VENTAER INH; -ZOLO50TA PO
[2017-09-22 17:00] VITALS: O2SAT 95
[2017-09-22 17:05] VITALS: BP 125/70; PULSE 114; RESP 30; TEMP 98.9; O2SAT 83; O2SAT 93
[2017-09-22] MEDS ORDERED: RESP: ALBUTEROL 2.5 MG/IPRATROPIUM 0.5 MG NEB (SCH) ONE (17:08)
[2017-09-22] MEDS ORDERED: RESP: ALBUTEROL 2.5 MG/3 ML NEB (SCH) ONE (17:09)
[2017-09-22] MEDS ORDERED: RESP: ALBUTEROL 2.5 MG/3 ML NEB (SCH) INH (17:15)
--- NOTE | 2017-09-22 17:41 | RADRPT ---
EXAM DATE/TIME: 09/22/2017 17:18 [place] COMPARISON: CHEST SINGLE AP, September 20, 2016, 14:32. INDICATIONS : Short of breath. MEDICAL HISTORY : Chronic obstructive pulmonary disease. SURGICAL HISTORY : None. ENCOUNTER: Initial ACUITY: 2 months PAIN SCORE: 0/10 LOCATION: Bilateral chest FINDINGS: A single view of the chest demonstrates the lungs to be symmetrically hyperinflated with no acute inf iltrate. Heart size is normal. Osseous structures are intact. CONCLUSION: Hyperinflation with no acute cardiopulmonary process. Héctor Fang MD on September 22, 2017 at 17:38 Board Certified Radiologist. This report was verified electronically.
[2017-09-22 17:55] LABS: AUTOMATED NEUTROPHIL # 9.2 TH/MM3 (1.8-7.7); BASOPHIL # 0.1 TH/MM3 (0-0.2); BASOPHIL % 0.6 % (0.0-2.0); EOSINOPHIL % 0.1 % (0.0-4.0); HEMOGLOBIN 15.7 GM/DL (11.6-15.3); LYMPH % 12.3 % (9.0-44.0); LYMPHOCYTE # 1.4 TH/MM3 (1.0-4.8); MEAN CELL VOLUME 92.1 FL (80.0-100.0); MEAN CORPUSCULAR HEMOGLOBIN 30.1 PG (27.0-34.0); MEAN CORPUSCULAR HGB CONC 32.6 % (32.0-36.0); MEAN PLATELET VOLUME 8.6 FL (7.0-11.0); MONOCYTE # 0.9 TH/MM3 (0-0.9); PLATELET COUNT 333 TH/MM3 (150-450); RED BLOOD COUNT 5.21 MIL/MM3 (4.00-5.30); RED CELL DISTRIBUTION WIDTH 16.2 % (11.6-17.2); WHITE BLOOD COUNT 11.7 TH/MM3 (4.0-11.0)
[2017-09-22 18:13] LABS: ALBUMIN 2.8 GM/DL (3.4-5.0); AST (GOT) 17 U/L (15-37); BICARBONATE 33.9 MEQ/L (21.0-32.0); BLOOD UREA NITROGEN 9 MG/DL (7-18); CALCIUM 8.7 MG/DL (8.5-10.1); CHLORIDE 98 MEQ/L (98-107); CREATININE 0.62 MG/DL (0.50-1.00); GLOMERULAR FILTRATION RATE 100 ML/MIN (>89); GLUCOSE,RANDOM 131 MG/DL (74-106); SODIUM (NA) 138 MEQ/L (136-145)
[2017-09-22 18:21] VITALS: BP 118/71; PULSE 114; RESP 20; O2SAT 94
[2017-09-22 18:23] LABS: ALKALINE PHOSPHATASE 152 U/L (45-117); ALT (GPT) 20 U/L (10-53); TOTAL BILIRUBIN ADULT 0.2 MG/DL (0.2-1.0); TOTAL PROTEIN 7.6 GM/DL (6.4-8.2); TROPONIN I LESS THAN 0.02 NG/ML (0.02-0.05)
--- NOTE | 2017-09-22 18:30 | PD ---
HPI Chief Complaint: Respiratory Distress Time Seen by Provider: 17:06 Travel History International Travel<30 days: No Contact w/Intl Traveler<30days: No Traveled to known affect area: No History of Present Illness HPI This is a 56-year-old female who presents to the emergency department with increasing shortness of breath it has been going on for 4 days, constant, severe , associated with a productive cough with yellow sputum. She denies any fevers or chills. She does smoke cigarettes. She has a known diagnosis of COPD but she is out of her albuterol. When EVAC got to her house she was 78% on room air. PFSH Past Medical History Autoimmune Disease: No Anxiety: Yes Depression: Yes Cancer: No Cardiovascular Problems: No Chest Pain: No COPD: Yes ( ) Cerebrovascular Accident: No Diminished Hearing: No Endocrine: No Genitourinary: No Immune Disorder: No Musculoskeletal: No Neurologic: Yes Psychiatric: Yes Reproductive: No Respiratory: Yes Schizophrenia: Yes Seizures: Yes (WITH PREG) ?: Not Menopausal: Yes Past Surgical History Section: Yes (X 3) Gynecologic Surgery: Yes (CSECTION) Other Surgery: Yes Social History Alcohol Use: Yes ("years ago") Tobacco Use: No (1PPD) Substance Use: No Allergies-Medications (Allergen,Severity, Reaction): Coded Allergies: Sulfa (Sulfonamide Antibiotics) (Unverified Allergy, Mild, 09/22/17) Reported Meds & Prescriptions Reported Meds & Active Scripts Active Reported Haldol Decanoate Inj (Haloperidol Decanoate) 100 Mg/Ml Inj 100 Mg IM Q28D Remeron (Mirtazapine) 30 Mg Tab 30 Mg PO HS Seroquel (Quetiapine Fumarate) 100 Mg Tab 100 Mg PO HS Review of Systems Except as stated in HPI: all other systems reviewed are Neg Physical Exam Narrative GENERAL: Thin, mild respiratory distress SKIN: Focused skin assessment warm and dry. HEAD: Atraumatic. Normocephalic. EYES: Pupils equal and round. No injection or drainage. ENT: Moist mucous membranes NECK: Trachea midline. CARDIOVASCULAR: Regular rate and rhythm. No murmur appreciated. RESPIRATORY: diffuse wheezing bilaterally, speaking 3-4 word sentences, tachypneic GASTROINTESTINAL: Abdomen soft, non-tender, nondistended. MUSCULOSKELETAL: No obvious deformities. NEUROLOGICAL: Awake and alert. No obvious cranial nerve deficits. Moving all extremities. PSYCHIATRIC: Appropriate mood and affect; insight and judgment normal. Data Data Last Documented VS Vital Signs Date Time Temp Pulse Resp B/P (MAP) Pulse Ox O2 Delivery O2 Flow Rate FiO2 09/22/17 18:21 114 20 118/71 (87) 94 Room Air 09/22/17 17:05 98.9 09/22/17 17:00 5.00 Orders Orders Albuterol-Ipratropium Neb (Duoneb Neb) (09/22/17 17:08) Electrocardiogram (09/22/17 17:09) Complete Blood Count With Diff (09/22/17 17:09) Comprehensive Metabolic Panel (09/22/17 17:09) Chest, Single Ap (09/22/17 17:09) Albuterol Neb (Albuterol Neb) (09/22/17 17:15) Troponin I (09/22/17 17:09) B-Type Natriuretic Peptide (09/22/17 17:09) Albuterol Neb (Albuterol Neb) (09/22/17 17:09) Labs Laboratory Tests Test 09/22/17 15:33 White Blood Count 11.7 TH/MM3 Red Blood Count 5.21 MIL/MM3 Hemoglobin 15.7 GM/DL Hematocrit 48.0 % Mean Corpuscular Volume 92.1 FL Mean Corpuscular Hemoglobin 30.1 PG Mean Corpuscular Hemoglobin Concent 32.6 % Red Cell Distribution Width 16.2 % Platelet Count 333 TH/MM3 Mean Platelet Volume 8.6 FL Neutrophils (%) (Auto) 79.0 % Lymphocytes (%) (Auto) 12.3 % Monocytes (%) (Auto) 8.0 % Eosinophils (%) (Auto) 0.1 % Basophils (%) (Auto) 0.6 % Neutrophils # (Auto) 9.2 TH/MM3 Lymphocytes # (Auto) 1.4 TH/MM3 Monocytes # (Auto) 0.9 TH/MM3 Eosinophils # (Auto) 0.0 TH/MM3 Basophils # (Auto) 0.1 TH/MM3 CBC Comment DIFF FINAL Differential Comment Blood Urea Nitrogen 9 MG/DL Creatinine 0.62 MG/DL Random Glucose 131 MG/DL Total Protein 7.6 GM/DL Albumin 2.8 GM/DL Calcium Level 8.7 MG/DL Alkaline Phosphatase 152 U/L Aspartate Amino Transf (AST/SGOT) 17 U/L Alanine Aminotransferase (ALT/SGPT) 20 U/L Total Bilirubin 0.2 MG/DL Sodium Level 138 MEQ/L Potassium Level 3.9 MEQ/L Chloride Level 98 MEQ/L Carbon Dioxide Level 33.9 MEQ/L Anion Gap 6 MEQ/L Estimat Glomerular Filtration Rate 100 ML/MIN Troponin I LESS THAN 0.02 NG/ML B-Type Natriuretic Peptide 154 PG/ML MDM Medical Decision Making Medical Screen Exam Complete: Yes Emergency Medical Condition: Yes Interpretation(s) Afebrile, tachycardic, tachypneic, hypoxic Mild leukocytosis Bicarb is 33 BNP is 154 Last 24 hours Impressions Chest X-Ray 09/22/17 1709 Signed Impressions: Service Date/Time: Friday, September 22, 2017 17:18 - CONCLUSION: Hyperinflation with no acute cardiopulmonary process. Héctor Fang MD Differential Diagnosis COPD exacerbation, pneumonia, pneumothorax, pleural effusion, congestive heart failure Narrative Course This is a 56-year-old female who has a history of COPD who presents to the emergency department with increasing wheezing and shortness of breath. She was placed on a monitor and IV was established. She was significantly hypoxic on arrival. She was given serial bronchodilator treatments. She received IV Solu- Medrol with EMS. Chest x-ray is reassuring with no evidence of pneumonia. Patient requires admission for continued bronchodilator treatments as she continues to have increased work of breathing. Diagnosis Primary Impression: COPD exacerbation Bev Osorio MD September 22, 2017 18:30
[2017-09-22 19:10] VITALS: BP 96/59; PULSE 119; RESP 32; O2SAT 93
[2017-09-22] MEDS ORDERED: DEXAMETHASONE 6 MG TAB PO ONE (19:30)
[2017-09-22] MEDS ORDERED: ALBUTEROL SULFATE 90 MCG/ACT HFA 8 GM INHALER INH ONE (19:30)
[2017-09-22] MEDS ORDERED: DEXAMETHASONE 4 MG TAB PO ONE (20:00)
[2017-09-23] MEDS ORDERED: methylPREDNISolone SOD SUCC 40 MG/1 ML VIAL IV PUSH SCH
--- NOTE | 2017-09-23 17:06 | EKG ---
Date Performed: 09/22/2017 Time Performed: 17:47:06 PTAGE: 56 years EKG: SINUS TACHYCARDIA RIGHT ATRIAL ENLARGEMENT POSSIBLE RIGHT VENTRICULAR HYPERTROPHY MODERATE ST DEPRESSION ABNORMAL ECG PREVIOUS TRACING : 07/04/2017 10.10 Since the previous tracing, no significant change noted DOCTOR: Aba Huggins Interpretating Date/Time 09/23/2017 17:04:56
== END 2017-09-22 20:26 | disposition left against medical advice (07) ==
LOC: NEPE 16:55
DX: J44.1 Chronic obstructive pulmonary disease with (acute) exacerbation (principal); F20.9 Schizophrenia, unspecified; F17.210 Nicotine dependence, cigarettes, uncomplicated
CPT/HCPCS: 71045; 80053; 83880; 84484; 85025; 93005; 94640; 94664; 99285; J7613

== ENCOUNTER 2017-10-17 14:48 | Emergency (ER) | payer MEDICAID ==
[~2017-10-17] VITALS: Ht 165.1 cm; Wt 57.0 kg
[~2017-10-17 14:48] MED LIST changes: -CEPH-460 PO; -COLA100C5 PO
[2017-10-17 14:57] VITALS: BP 129/78; PULSE 88; RESP 20; O2SAT 99
[2017-10-17 15:16] VITALS: BP 127/81; PULSE 80; RESP 20; O2SAT 92
--- NOTE | 2017-10-17 15:16 | PD ---
HPI Chief Complaint: Fall Time Seen by Provider: 14:56 Travel History International Travel<30 days: No Contact w/Intl Traveler<30days: No Traveled to known affect area: No History of Present Illness HPI Patient is a phasic secondary to stroke. She per EVAC. Patient has right- sided weakness from prior CVA and was trying to self transfer, when her foot got caught in a blanket and she failed. She did hit her head no LOC. Initially patient was complaining of neck and back pain, but not currently. She denies headache, chest pain, shortness of breath, abdominal pain. PFSH Past Medical History Autoimmune Disease: No Anxiety: Yes Depression: Yes Cancer: No Cardiovascular Problems: No Chest Pain: No COPD: Yes ( ) Cerebrovascular Accident: No Diminished Hearing: No Endocrine: No Genitourinary: No Immune Disorder: No Musculoskeletal: No Neurologic: Yes Psychiatric: Yes Reproductive: No Respiratory: Yes Schizophrenia: Yes Seizures: Yes (WITH PREG) ?: Not Menopausal: Yes Past Surgical History Section: Yes (X 3) Gynecologic Surgery: Yes (CSECTION) Other Surgery: Yes Social History Alcohol Use: Yes ("years ago") Tobacco Use: No (1PPD) Substance Use: No Allergies-Medications (Allergen,Severity, Reaction): Coded Allergies: Sulfa (Sulfonamide Antibiotics) (Unverified Allergy, Mild, 09/22/17) Reported Meds & Prescriptions Reported Meds & Active Scripts Active Review of Systems Except as stated in HPI: all other systems reviewed are Neg Physical Exam Exam Limitations: Other: (Aphasic from prior stroke) Narrative GENERAL: No acute distress. SKIN: Focused skin assessment warm/dry. HEAD: Mild swelling right periorbital area. Normocephalic. EYES: Pupils equal and round. No scleral icterus. No injection or drainage. ENT: No nasal bleeding or discharge. Mucous membranes pink and moist. NECK: Trachea midline. No JVD. No focal C-spine tenderness CARDIOVASCULAR: Regular rate and rhythm. No murmur appreciated. RESPIRATORY: No accessory muscle use. Clear to auscultation. Breath sounds equal bilaterally. GASTROINTESTINAL: Abdomen soft, non-tender, nondistended. Hepatic and splenic margins not palpable. MUSCULOSKELETAL: No obvious deformities. No clubbing. No cyanosis. No edema. No focal T or L-spine tenderness. NEUROLOGICAL: Awake and alert. Right-sided weakness from prior CVA. PSYCHIATRIC: Appropriate mood and affect; insight and judgment normal. Data Data Last Documented VS Vital Signs Date Time Temp Pulse Resp B/P (MAP) Pulse Ox O2 Delivery O2 Flow Rate FiO2 10/17/17 16:55 112/74 (87) 10/17/17 16:44 80 16 96 Room Air Orders Orders Ct Brain W/O Iv Contrast(Rout) (10/17/17 15:06) Ct Cerv Spine W/O Contrast (10/17/17 15:06) Ct Thor Spine W/O Contrast (10/17/17 15:06) Ct Lumb Spine W/O Contrast (10/17/17 15:06) Ct Facial Bones W/O Iv Cont (10/17/17 15:06) Electrocardiogram (10/17/17 16:36) Ecg Monitoring (10/17/17 16:36) Iv Access Insert/Monitor (10/17/17 16:36) Oximetry (10/17/17 16:36) Sodium Chloride 0.9% Flush (Ns Flush) (10/17/17 16:45) MDM Medical Decision Making Medical Screen Exam Complete: Yes Emergency Medical Condition: Yes Interpretation(s) Last Impressions Thoracic Spine CT 10/17/17 1506 Signed Impressions: CONCLUSION: 1. Negative for acute compression. Maxillofacial CT 10/17/17 1506 Signed Impressions: CONCLUSION: 1. Negative for fracture Head CT 10/17/17 1506 Signed Impressions: CONCLUSION: 1. Subacute stroke left proximal occipital region. Stroke is probably 3-[address] old[address] Spine CT 10/17/17 1506 Signed Impressions: CONCLUSION: No acute bony injury in the cervical spine. Differential Diagnosis CVA, ICH, spinal fracture, spinal dislocation Narrative Course Patient presents to the emergency department status post fall. Initially patient was complaining of neck pain and back pain we will do an Accu-Chek and CT head/face/C and T and L-spine. 1745: We will discharge patient. Her states that she is at her baseline since the stroke. Physician Communication Physician Communication Spoke to Dr. Matson and advised of patient's CVA at the end of September. She went to [facility], so we don't have results. States that they findings could be 2 /2 that CVA. 1700: Neurology paged. Believes that the CT findings are likely from the old stroke, particularly as it matches with her R side weakness. Called [facility] to determine who patient's neurologist was and what the outpatient plan was as her doesn't know. Apparently her medical records have been locked as I spoke to ER attending and he tried to access her records and someone else did in their ER and couldn't as well. He advised that her medical records have been locked and were in accessable. Diagnosis Primary Impression: Fall Qualified Codes: W19.XXXA - Unspecified fall, initial encounter Referrals: Wilmar Pickering MD Patient Instructions: Acute Headache (ED), General Instructions Additional Instructions: 1. Follow-up with neurology in 48-72 hours. Patient has been provided with the neurologist on-call today. 2. Return to ER for vomiting, fever, numbness/ tingling, any new neurological symptoms, chest pain, shortness of breath, or for any new/worrisome/worsening symptoms. Scripts No Active Prescriptions or Reported Meds Disposition: 01 DISCHARGE HOME Condition: Stable Anca Kowalski MD Oct 17, 2017 15:16
--- NOTE | 2017-10-17 15:48 | RADRPT ---
EXAM DATE: 10/17/2017 3:44 PM EDT AGE/SEX: 56 years / Female INDICATIONS: Fall today. Head and neck pain. CLINICAL DATA: This is the patient's initial encounter. Patient reports that signs and symptoms have been present for 1 day and indicates a pain score of 5/10. MEDICAL/SURGICAL HISTORY: Stroke. Seizures. Schizophrenia. None. RADIATION DOSE: 42.77 CTDI (mGy) [place] [facility] [place]. . TECHNIQUE: CT of the head without contrast. Using automated exposure control and adjustment of the mA and/or kV according to patient size, radiation dose was kept as low as reasonably achievable to ob tain optimal diagnostic quality images. FINDINGS: The study is abnormal. There is edema in the left proximal region suspicious for subacute stroke. The right hemisphere is unremarkable Ventricular size is appropriate There is no parenchymal hemorrhage Posterior fossa is unremarkable. CONCLUSION: 1. Subacute stroke left proximal occipital region. Stroke is probably 3-5 days old. Electronically signed by: Zechariah Matson MD 10/17/2017 3:46 PM EDT
--- NOTE | 2017-10-17 16:09 | RADRPT ---
EXAM DATE: 10/17/2017 4:02 PM EDT AGE/SEX: 56 years / Female INDICATIONS: Fall today. Head and neck pain. CLINICAL DATA: This is the patient's initial encounter. Patient reports that signs and symptoms have been present for 1 day and indicates a pain score of 5/10. MEDICAL/SURGICAL HISTORY: Stroke. Seizures. Schizophrenia. None. RADIATION DOSE: 13.59 CTDI (mGy) COMPARISON: No prior exams available for comparison. TECHNIQUE: Contiguous axial images were obtained using helical multirow detector technique. The vol umetric data was post-processed with multiplanar reconstruction in oblique axial, sagittal, and coron al planes. Using automated exposure control and adjustment of the mA and/or kV according to patient s ize, radiation dose was kept as low as reasonably achievable to obtain optimal diagnostic quality bryson ges. FINDINGS: The cervical spine alignment is satisfactory. There is no evidence of cervical spine fracture. There are degenerative changes throughout with disc space narrowing at multiple levels and prominent primar diane ventral endplate osteophytes and syndesmophytes. No significant bony canal compromise. Foramina a ppear satisfactory. There is no evidence of paraspinal hematoma. CONCLUSION: No acute bony injury in the cervical spine. Electronically signed by: Adonis Bianchi MD 10/17/2017 4:08 PM EDT
--- NOTE | 2017-10-17 16:13 | RADRPT ---
EXAM DATE: 10/17/2017 4:03 PM EDT AGE/SEX: 56 years / Female INDICATIONS: Fall today. Head and neck pain. CLINICAL DATA: This is the patient's initial encounter. Patient reports that signs and symptoms have been present for 1 day and indicates a pain score of 5/10. MEDICAL/SURGICAL HISTORY: Stroke. Seizures. Schizophrenia. None. RADIATION DOSE: 64.07 CTDI (mGy) COMPARISON: No prior exams available for comparison. TECHNIQUE: Contiguous images in the axial and coronal planes were obtained using helical multirow de tector technique. Using automated exposure control and adjustment of the mA and/or kV according to p atient size, radiation dose was kept as low as reasonably achievable to obtain optimal diagnostic nelly lity images. FINDINGS: Orbits: The orbital and infraorbital osseous structures are intact. The retroconal structures have a normal configuration. No radiopaque foreign bodies are seen. Nasal Bone: The nasal bone and maxillary spine are intact. Zygomatic Arches: Symmetric without evidence of fracture. Sinuses: The maxillary, ethmoid, and frontal sinuses are intact. No air-fluid levels seen. Nasal Cavity: The nasal septum is intact and midline. The lacrimal ducts are intact. Soft Tissues: No radiopaque foreign bodies seen. No soft-tissue swelling is seen. Intracranial: No intracranial air seen. Cribriform Plate: Grossly intact. CONCLUSION: 1. Negative for fracture Electronically signed by: Zechariah Matson MD 10/17/2017 4:11 PM EDT
--- NOTE | 2017-10-17 16:20 | RADRPT ---
EXAM DATE: 10/17/2017 4:16 PM EDT AGE/SEX: 56 years / Female INDICATIONS: Fall today. Back pain. CLINICAL DATA: This is the patient's initial encounter. Patient reports that signs and symptoms have been present for 1 day and indicates a pain score of 5/10. MEDICAL/SURGICAL HISTORY: Stroke. Seizures. Schizophrenia. None. RADIATION DOSE: 13.45 CTDI (mGy) ; Combined studies COMPARISON: No prior exams available for comparison. TECHNIQUE: Contiguous axial images were acquired using a multirow detector CT scanner without contra st. Multiplanar reconstruction in the sagittal and coronal planes was performed. Using automated exp osure control and adjustment of the mA and/or kV according to patient size, radiation dose was kept a s low as reasonably achievable to obtain optimal diagnostic quality images. FINDINGS: Vertebrae: Normal vertebral body height. Alignment: Normal. No subluxation. Mild degenerative changes with minimal anterior osteophytes. T1 - T2: Normal. T2 - T3: The thecal sac has a normal diameter. No evidence of disc bulge or protrusion. T3 - T4: The thecal sac has a normal diameter. No evidence of disc bulge or protrusion. T4 - T5: The thecal sac has a normal diameter. No evidence of disc bulge or protrusion. T5 - T6: The thecal sac has a normal diameter. No evidence of disc bulge or protrusion. T6 - T7: The thecal sac has a normal diameter. No evidence of disc bulge or protrusion. T7 - T8: The thecal sac has a normal diameter. No evidence of disc bulge or protrusion. T8 - T9: The thecal sac has a normal diameter. No evidence of disc bulge or protrusion. T9 - T10: The thecal sac has a normal diameter. No evidence of disc bulge or protrusion. T10 - T11: The thecal sac has a normal diameter. No evidence of disc bulge or protrusion. T11 - T12: The thecal sac has a normal diameter. No evidence of disc bulge or protrusion. T12 - L1: The thecal sac has a normal diameter. No evidence of disc bulge or protrusion. CONCLUSION: 1. Negative for acute compression. Electronically signed by: Zechariah Matson MD 10/17/2017 4:19 PM EDT
--- NOTE | 2017-10-17 16:30 | RADRPT ---
EXAM DATE: 10/17/2017 4:26 PM EDT AGE/SEX: 56 years / Female INDICATIONS: Fall today. Back pain. CLINICAL DATA: This is the patient's initial encounter. Patient reports that signs and symptoms have been present for 1 day and indicates a pain score of 5/10. MEDICAL/SURGICAL HISTORY: Stroke. Seizures. Schizophrenia. None. RADIATION DOSE: 13.45 CTDI (mGy) COMPARISON: No prior exams available for comparison. TECHNIQUE: Contiguous axial images were acquired with a multirow detector CT scanner without contras t. Multiplanar reconstructions in the sagittal and coronal plane were also performed. Using automate d exposure control and adjustment of the mA and/or kV according to patient size, radiation dose was k ept as low as reasonably achievable to obtain optimal diagnostic quality images. FINDINGS: Vertebrae: Normal vertebral body height. Alignment: Normal. No subluxation. T12-L1: The thecal sac has a normal diameter. No evidence of disc bulge or protrusion. The neural foramina are patent bilaterally. L1-L2: The thecal sac has a normal diameter. No evidence of disc bulge or protrusion. The neural f oramina are patent bilaterally. L2-L3: The thecal sac has a normal diameter. No evidence of disc bulge or protrusion. The neural f oramina are patent bilaterally. L3-L4: The thecal sac has a normal diameter. No evidence of disc bulge or protrusion. The neural f oramina are patent bilaterally. L4-L5: The thecal sac has a normal diameter. No evidence of disc bulge or protrusion. Minimal face t degenerative changes The neural foramina are patent bilaterally. L5-S1: The thecal sac has a normal diameter. Minimal central disc bulge.. Minimal facet degenerative changes The neural foramina are patent bilaterally. SI joints are normal CONCLUSION: 1. Minimal bulge L5-S1. 2. Negative for acute compression fracture. Electronically signed by: Zechariah Matson MD 10/17/2017 4:29 PM EDT
[2017-10-17 16:44] VITALS: BP 112/74; PULSE 80; RESP 16; O2SAT 96
[2017-10-17] MEDS ORDERED: SODIUM CHLORIDE 0.9% FLUSH 10 ML FLUSH IVF PRN (16:45)
[2017-10-17 16:55] VITALS: BP 112/74; PULSE 80; RESP 16; O2SAT 96
== END 2017-10-17 18:42 ==
LOC: NEPC 14:48
DX: S09.90XA Unspecified injury of head, initial encounter (principal); M54.2 Cervicalgia; I69.320 Aphasia following cerebral infarction; I69.351 Hemiplegia and hemiparesis following cerebral infarction affecting right dominant side; W19.XXXA Unspecified fall, initial encounter
CPT/HCPCS: 70450; 70486; 72125; 72128; 72131; 99283

== ENCOUNTER 2017-12-13 08:43 | Inpatient (IN) ==
--- NOTE | 2017-12-13 09:34 | ED ---
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 Per EMS family called because she was "not acting right." EMS does not have any further information. Patient is unable to provide much further information but does answer no to several questions. She denies chest pain, dyspnea, abdominal pain, back pain, extremity pain. Her later showed up and stated that she'd been doing well until several days ago when she seemed to forget she had a stroke and became anxious about her paralysis/weakness. Onset (ago): unknown Radiation: other Quality: other Pain Consistency: other Relieving factors: other Exacerbating factors: other Associated symptoms: other Treatments prior to arrival: none Related Data Home Medications Medication Instructions Recorded Confirmed No Known Home Medications 12/13/17 12/13/17 Allergies Allergy/AdvReac Type Severity Reaction Status Date / Time Sulfa (Sulfonamide Allergy Mild Swelling Verified 12/13/17 12:12 Antibiotics) of Lip/Tongue/Throat Review of Systems ROS Unobtainable ROS Unobtainable: other (Patient states 'No' but unable to understand other responses) ROS: all other systems reviewed are negative Constitutional Denies fever(s) ENT Denies sore throat Cardiovascular Denies chest pain Respiratory Denies dyspnea Gastrointestinal Denies abdominal pain Genitourinary Denies flank pain Musculoskeletal Denies back pain and Denies neck pain Integumentary/Breasts Denies rash Neurologic Denies headache(s) [facility] Medical History Medical History CVA (cerebral vascular accident) (Acute) Social History Social History Substance History: No History of Abuse Smoking Status: Former smoker How Often Do You Have a Drink Containing Alcohol: Never Recent Travel in [facility] within the Last 8 Weeks: No Recent Out of Country Travel within the Last 8 Weeks: No Immunization History Tetanus Immunization: Unsure Exam Narrative Exam Narrative: GENERAL: Well-appearing female in no acute distress SKIN: Focused skin assessment warm/dry. No rashes. HEAD: Atraumatic. Normocephalic. EYES: Pupils equal and round. No scleral icterus. No injection or drainage. ENT: No nasal bleeding or discharge. Mucous membranes pink and moist. NECK: Trachea midline. No JVD. CARDIOVASCULAR: Regular rate and rhythm. No murmur appreciated. RESPIRATORY: No accessory muscle use. Clear to auscultation. Breath sounds equal bilaterally. GASTROINTESTINAL: Abdomen soft, non-tender, nondistended. Hepatic and splenic margins not palpable. MUSCULOSKELETAL: No obvious deformities. No clubbing. No cyanosis. No edema. NEUROLOGICAL: Awake and alert. Significant aphasia, unable to understand speech. R extremity paralysis. PSYCHIATRIC: Anxious appearing Course Initial Documented Vital Signs Temperature 97.7 F 12/13/17 08:51 Pulse Rate 94 H 12/13/17 08:51 Respiratory Rate 19 12/13/17 08:51 Blood Pressure 117/74 12/13/17 08:51 Pulse Oximetry 95 12/13/17 08:51 Last Documented Vital Signs Temperature 97.7 F 12/13/17 08:51 Pulse Rate 90 12/13/17 13:05 Respiratory Rate 20 12/13/17 13:05 Blood Pressure 110/59 L 12/13/17 13:05 Pulse Oximetry 95 12/13/17 13:05 Medical Decision Making [facility] Narrative Medical decision making narrative: Patient is a 57-year-old female, past medical history significant for CVA with residual right-sided deficits and aphasia, who presents with complaint of worsening memory and anxiety. She is hemodynamically stable on arrival. Labs are unremarkable except for urinary tract infection for which she has been given Rocephin. CT did show an evolving old infarct in addition to a subacute infarct. Dr Zarate of neurology was then called regarding this infarct. He stated that it was not new, but recommended she be admitted for a stroke workup as she has not been worked up previously and is not taking any medications at home. Differential Diagnosis Differential Diagnosis: Differential diagnosis includes but is not limited to acute stroke, encephalitis, infection, acute coronary syndrome. Medical Records Medical records reviewed: Yes I reviewed the patient's medical records. Lab Data Lab results reviewed: Yes I reviewed the patient's lab results. Lab results narrative: Labs show UTI but otherwise unremarkable. Result diagrams: 12/13/17 09:48 12/13/17 11:52 Lab Results 12/13/17 12/13/1712/13/18 Range/Units 09:40 09:48 09:48 WBC 8.0 (4.0-11.0) th/mm3 RBC 5.02 (4.00-5.30) mil/mm3 Hgb 13.8 (11.6-15.3) gm/dL Hct 42.3 (35.0-46.0) % MCV 84.2 (80.0-100.0) fL MCH 27.5 (27.0-34.0) pg MCHC 32.7 (32.0-36.0) % RDW 17.2 (11.6-17.2) % Plt Count 365 (150-450) th/mm3 MPV 8.7 (7.0-11.0) fL Neut % (Auto) 50.8 (16.0-70.0) % Lymph % (Auto) 39.9 (9.0-44.0) % [place] % (Auto) 7.2 (0.0-8.0) % Eos % (Auto) 1.2 (0.0-4.0) % Baso % (Auto) 0.9 (0.0-2.0) % Neut # (Auto) 4.1 (1.8-7.7) th/mm3 Lymph # (Auto) 3.2 (1.0-4.8) th/mm3 [place] # (Auto) 0.6 (0.0-0.9) th/mm3 Eos # (Auto) 0.1 (0.0-0.4) th/mm3 Baso # (Auto) 0.1 (0.0-0.2) th/mm3 WBC Differential . Differential Comment Auto diff final ESR (0-30) mm/hr Sodium (136-145) meq/L Potassium (3.5-5.1) meq/L Chloride (98-107) meq/L Carbon Dioxide (21.0-32.0) meq/L Anion Gap (5-15) meq/L BUN (7-18) mg/dL Creatinine (0.50-1.00) mg/dL Estimated GFR (>89) mL/min Random Glucose (74-106) mg/dL Calcium (8.5-10.1) mg/dL Total Bilirubin (0.2-1.0) mg/dL AST (15-37) U/L ALT (10-53) U/L Alkaline Phosphatase (45-117) U/L Ammonia 17 (11-32) mcmol/L Troponin I (0.02-0.05) ng/mL Total Protein (6.4-8.2) g/dL Albumin (3.4-5.0) g/dL TSH (0.358-3.740) uIU/mL Urine Color [place] (Yellw/Straw) Urine Clarity Cloudy H (Clear) Urine pH 5.0 (5.0-8.5) Ur Specific [place] 1.017 (1.002-1.035) Urine Protein 30 H (Neg-Trace) mg/dL Urine Glucose (UA) Negative (Negative) mg/dL Urine Ketones Trace H (Negative) mg/dL Urine Occult Blood Moderate H (Negative) Urine Nitrate Negative (Negative) Urine Bilirubin Negative (Negative) Urine Urobilinogen 4 or greater (Less than 2) mg/dL Ur Leukocyte Esterase Moderate H (Negative) Urine RBC 11 H (0-3) /hpf Urine WBC (0-5) /hpf Ur Squamous Epith Cells 1 (0-5) /hpf Urine Bacteria Rare H (None) /hpf Urine Mucus Few H (Occasional) /lpf Micro UA Comment Cath-culture ind Urine Culture Comments Cath-cult indicated 12/13/17 12/13/17 Range/Units 09:48 11:52 WBC (4.0-11.0) th/mm3 RBC (4.00-5.30) mil/mm3 Hgb (11.6-15.3) gm/dL Hct (35.0-46.0) % MCV (80.0-100.0) fL MCH (27.0-34.0) pg MCHC (32.0-36.0) % RDW (11.6-17.2) % Plt Count (150-450) th/mm3 MPV (7.0-11.0) fL Neut % (Auto) (16.0-70.0) % Lymph % (Auto) (9.0-44.0) % [place] % (Auto) (0.0-8.0) % Eos % (Auto) (0.0-4.0) % Baso % (Auto) (0.0-2.0) % Neut # (Auto) (1.8-7.7) th/mm3 Lymph # (Auto) (1.0-4.8) th/mm3 [place] # (Auto) (0.0-0.9) th/mm3 Eos # (Auto) (0.0-0.4) th/mm3 Baso # (Auto) (0.0-0.2) th/mm3 WBC Differential Differential Comment ESR 11 (0-30) mm/hr Sodium 142 (136-145) meq/L Potassium 3.7 (3.5-5.1) meq/L Chloride 109 H (98-107) meq/L Carbon Dioxide 22.7 (21.0-32.0) meq/L Anion Gap 10 (5-15) meq/L BUN 6 L (7-18) mg/dL Creatinine 0.66 (0.50-1.00) mg/dL Estimated GFR Greater than 89 (>89) mL/min Random Glucose 85 (74-106) mg/dL Calcium 9.0 (8.5-10.1) mg/dL Total Bilirubin 0.4 (0.2-1.0) mg/dL AST 21 (15-37) U/L ALT 22 (10-53) U/L Alkaline Phosphatase 141 H (45-117) U/L Ammonia (11-32) mcmol/L Troponin I Less than 0.02 L (0.02-0.05) ng/mL Total Protein 7.3 (6.4-8.2) g/dL Albumin 3.3 L (3.4-5.0) g/dL TSH 1.700 (0.358-3.740) uIU/mL Urine Color (Yellw/Straw) Urine Clarity (Clear) Urine pH (5.0-8.5) Ur Specific [place] (1.002-1.035) Urine Protein (Neg-Trace) mg/dL Urine Glucose (UA) (Negative) mg/dL Urine Ketones (Negative) mg/dL Urine Occult Blood (Negative) Urine Nitrate (Negative) Urine Bilirubin (Negative) Urine Urobilinogen (Less than 2) mg/dL Ur Leukocyte Esterase (Negative) Urine RBC (0-3) /hpf Urine WBC (0-5) /hpf Ur Squamous Epith Cells (0-5) /hpf Urine Bacteria (None) /hpf Urine Mucus (Occasional) /lpf Micro UA Comment Urine Culture Comments Imaging Data Attestation: I personally reviewed and interpreted this imaging study as follows : My impression: Subacute infarct with old infarct. Radiologist's impression: Head MRI 12/13/17 00:00 CONCLUSION: 1. There is a subacute infarct involving the posterior temporal and posterior left parietal lobe. 2. Small old infarct involving the peripheral aspect the right cerebellar hemisphere. Head MRA 12/13/17 00:00 CONCLUSION: 1. Unremarkable MRA of the [place]. Neck MRA 12/13/17 00:00 CONCLUSION: 1. Grossly unremarkable MRA of the carotids. Percent stenosis is calculated using the diameter of the stenotic region over the diameter of the normal distal internal carotid artery Chest X-Ray 12/13/17 09:13 CONCLUSION: No acute cardiopulmonary disease Head CT 12/13/17 09:13 CONCLUSION: 1. Evolving left parietal infarct. 2. Subacute right cerebellar infarct. . Discharge Plan Discharge Disposition Patient Disposition: 30 Still Patient Discharge Condition Condition: Stable Discharge Details Diagnosis: CVA (cerebrovascular accident) Physicians Team ED Provider: Amie Villaseñor Primary Care Provider: Primary Care Charlene Garcia Attending Provider: Juana Altman Discharge Interventions Interventions: Vital Signs Last Done: 12/13/17 13:05 Status ED Status: Admitted Patient
--- NOTE | 2017-12-13 09:46 | CT ---
EXAM DATE: 12/13/2017 9:42 AM EDT AGE/SEX: 57 years / Female INDICATIONS: Altered mental status. CLINICAL DATA: This is the patient's initial encounter. Patient reports that signs and symptoms have been present for 1 day and indicates a pain score of Nonresponsive. MEDICAL/SURGICAL HISTORY: Stroke. None. RADIATION DOSE: 56.35 CTDI (mGy) COMPARISON: [facility] – [place] BRAIN W/O CONTRAST, 10/17/2017. . TECHNIQUE: CT of the head without contrast. Using automated exposure control and adjustment of the mA and/or kV according to patient size, radiation dose was kept as low as reasonably achievable to ob tain optimal diagnostic quality images. DICOM format image data is available electronically for revi ew and comparison. FINDINGS: Cerebrum: Evolving left parietal infarct. The ventricles are normal for age. No evidence of midline shift, mass lesion, hemorrhage . No extraaxial fluid collections are seen. Posterior Fossa: Brainstem intact. Small right subacute cerebellar infarct. The 4th ventricle is mi dline. The cerebellopontine angle is unremarkable. Extracranial: The visualized portion of the orbits is intact. Skull: The calvaria is intact. No evidence of skull fracture. CONCLUSION: 1. Evolving left parietal infarct. 2. Subacute right cerebellar infarct. . Electronically signed by: Papa Reza MD 12/13/2017 9:44 AM EDT
--- NOTE | 2017-12-13 09:50 | XR ---
EXAM DATE: 12/13/2017 9:37 AM EDT AGE/SEX: 57 years / Female INDICATIONS: Shortness of breath. CLINICAL DATA: This is the patient's initial encounter. Patient reports that signs and symptoms have been present for 1 day and indicates a pain score of 0/10. MEDICAL/SURGICAL HISTORY: Stroke. Seizures. None. COMPARISON: [facility] – [place], [place]ST SINGLE AP, 09/22/2017. . FINDINGS: A single AP view of the chest demonstrates the lungs to be hyperaerated without evidence of mass, inf iltrate or effusion. The cardiomediastinal contours are unremarkable. Osseous structures are intact . CONCLUSION: No acute cardiopulmonary disease Electronically signed by: Papa Reza MD 12/13/2017 9:49 AM EDT
[2017-12-13 10:15] LABS: Baso # (Auto) 0.1 th/mm3 (0.0-0.2); Baso % (Auto) 0.9 % (0.0-2.0); Eos # (Auto) 0.1 th/mm3 (0.0-0.4); Eos % (Auto) 1.2 % (0.0-4.0); Hematocrit 42.3 % (35.0-46.0); Hemoglobin 13.8 gm/dL (11.6-15.3); Lymph # (Auto) 3.2 th/mm3 (1.0-4.8); Lymph % (Auto) 39.9 % (9.0-44.0); Mean Corpuscular HGB Conc 32.7 % (32.0-36.0); Mean Corpuscular Hemoglobin 27.5 pg (27.0-34.0); Mean Corpuscular Volume 84.2 fL (80.0-100.0); Mean Platelet Volume 8.7 fL (7.0-11.0); Mono # (Auto) 0.6 th/mm3 (0.0-0.9); Mono % (Auto) 7.2 % (0.0-8.0); Neut # (Auto) 4.1 th/mm3 (1.8-7.7); Neut % (Auto) 50.8 % (16.0-70.0); Platelet Count 365 th/mm3 (150-450); Red Blood Count 5.02 mil/mm3 (4.00-5.30); Red Cell Distribution Width 17.2 % (11.6-17.2)
[2017-12-13 10:17] LABS: Bacteria,Urine Rare /hpf; Bilirubin,Urine Negative (Negative); Clarity,Urine Cloudy (Clear); Color,Urine Amber (Yellw/Straw); Glucose,Urine (UA) Negative (Negative); Leukocyte Esterase,Urine Moderate (Negative); Mucus,Urine Few /lpf (Occasional); Nitrite,Urine Negative (Negative); Specific Gravity,Urine 1.017 (1.002-1.035); Squamous Epithelial Cell,Urine 1 /hpf (0-5); Urobilinogen,Urine 4 or Greater mg/dL (Less than 2)
--- NOTE | 2017-12-13 12:42 | P.PNNEU ---
Subjective Subjective Comments: dictation service not work The patient is here in the ER a 57-year-old right-handed woman who comes in with her significant other with borderline diabetes COPD otherwise very healthy and on September 04 she had a stroke which left her aphasic and weak on the right side. She was seen up at [facility] unclear what the etiology was of the infarct. She has not been on aspirin or any blood thinners. She comes in today because her significant other felt like she just was not acting properly. Review of systems no history of hypertension hypercholesterolemia [place] stent angioplasty A. fib Coumadin CABG heart problems renal or hepatic disease thyroid disease lupus ulcer cancer seizure She does have some history of psychiatric history in the past. Social history is not a smoker or drinker lives with her family history negative for cancer seizure stroke. Home meds none. Active Medications: Active Medications Sodium Chloride (Ns Flush) 2 ml IV.FLUSH PRN PRN PRN Reason: FLUSH AFTER USING IV ACCESS Allergies/Adverse Reactions: Allergies Allergy/AdvReac Type Severity Reaction Status Date / Time Sulfa (Sulfonamide Allergy Mild Swelling Verified 12/13/17 12:12 Antibiotics) of Lip/Tongue/Throat Physical Exam Vital signs: Vital Signs 12/13/17 08:51 12/13/17 09:35 Temperature 97.7 F Pulse Rate 94 H Respiratory Rate 19 Blood Pressure 117/74 Pulse Oximetry 95 96 Intake & Output 12/12/17 12/13/17 12/13/17 18:59 06:59 18:59 Weight 58.967 kg Narrative: There are no carotid bruits heart was regular rhythm I did not take a murmur. She appears to have diminished visual field to the right. She face moves symmetrically tongue was midline she has increased tone in 0 out of 5 in the right upper extremity. Right lower extremity I can lift up and she can hold it up. The left upper and lower extremity seemed to work fine. Mild increased tone right lower extremity. She obviously has an expressive aphasia she cannot hold up 2 fingers when I hold her fingers up to the left side of her visual field. There is some receptive and expressive aphasia. She is in no apparent distress. DTRs slightly hyperreflexive on the right - Urinary Catheter Management Straight Cath placed during this visit: yes, but has since been removed by the nurse Reason for continuing: Not indwelling catheter Insertion date: 12/13/17 Insertion time: 09:48 Removal date: 12/13/17 Removal time: 09:49 Objective Laboratory Results - last 24 hr 12/13/17 12/13/17 12/13/17 09:40 09:48 09:48 WBC 8.0 RBC 5.02 Hgb 13.8 Hct 42.3 MCV 84.2 MCH 27.5 MCHC 32.7 RDW 17.2 Plt Count 365 MPV 8.7 Neut % (Auto) 50.8 Lymph % (Auto) 39.9 [place] % (Auto) 7.2 Eos % (Auto) 1.2 Baso % (Auto) 0.9 Neut # (Auto) 4.1 Lymph # (Auto) 3.2 [place] # (Auto) 0.6 Eos # (Auto) 0.1 Baso # (Auto) 0.1 WBC Differential . Differential Comment Auto diff final Ammonia 17 Urine Color Maegan Urine Clarity Cloudy H Urine pH 5.0 Ur Specific [place] 1.017 Urine Protein 30 H Urine Glucose (UA) Negative Urine Ketones Trace H Urine Occult Blood Moderate H Urine Nitrate Negative Urine Bilirubin Negative Urine Urobilinogen 4 or greater Ur Leukocyte Esterase Moderate H Urine RBC 11 H Urine WBC Ur Squamous Epith Cells 1 Urine Bacteria Rare H Urine Mucus Few H Micro UA Comment Cath-culture ind Urine Culture Comments Cath-cult indicated Review/Management - Review/Management Plan: Impression Most of the blood work is pending. CAT scan shows a subacute left large MCA infarct and a small what appears to be chronic right cerebellar infarct. I reviewed these films compared to a CAT scan done in October of this year and there is no significant change in the cerebellar region. Her UA is positive for UTI. It is unclear why she had a stroke but possibly she has had 2 infarcts in the past and anticoagulation could be considered. We will check a MRI of the brain and MRA neck and w[place] of [place] echocardiogram Holter monitor. Check your LDL. For now we will put her on an aspirin a day and depending on what we come up with could consider anticoagulation. I think it is unlikely that is anything new neurologically going on here however. She would benefit from seeing for Botox for the right arm.
[2017-12-13 12:59] LABS: Alanine Aminotransferase 22 U/L (10-53); Albumin 3.3 g/dL (3.4-5.0); Anion Gap 10 meq/L (5-15); Aspartate Aminotransferase 21 U/L (15-37); Blood Urea Nitrogen 6 mg/dL (7-18); Carbon Dioxide 22.7 meq/L (21.0-32.0); Chloride 109 meq/L (98-107); Glomerular Filtration Rate Greater Than 89 mL/min (>89); Potassium 3.7 meq/L (3.5-5.1); Sodium 142 meq/L (136-145)
[2017-12-13 13:00] LABS: Glucose,Random 85 mg/dL (74-106); Total Protein 7.3 g/dL (6.4-8.2)
[2017-12-13] MEDS: Aspirin 325 MG Tablet PO SCH (13:03)
[2017-12-13 13:08] LABS: Alkaline Phosphatase 141 U/L (45-117)
[2017-12-13] MEDS ORDERED: Gadobutrol PF 10 MMOL/10 ML Vial (for RAD) IV.SIG ONE (13:47)
[2017-12-13] MEDS ORDERED: Acetaminophen 325 MG Tablet PO PRN (14:23)
[2017-12-13] MEDS ORDERED: Prochlorperazine 25 MG Supp RECTAL PRN (14:23)
[2017-12-13] MEDS ORDERED: Bisacodyl 10 MG Supp RECTAL PRN (14:23)
--- NOTE | 2017-12-13 15:03 | MR ---
EXAM DATE: 12/13/2017 2:48 PM EDT AGE/SEX: 57 years / Female INDICATIONS: Altered mental status. Abnormal CT. CLINICAL DATA: This is the patient's initial encounter. Patient reports that signs and symptoms have been present for 1 day and indicates a pain score of 0/10. MEDICAL/SURGICAL HISTORY: Cerebrovascular disease. section. [place] [facility] [place]2017. . TECHNIQUE: Multiplanar, multisequence examination of the brain was performed without and with 10cc ml Gadavist (gadobutrol) contrast as a single exam dose. FINDINGS: Cerebrum: The ventricles are normal for age. No evidence of midline shift, mass lesion, hemorrhage. However, there is a subacute infarct involving the posterior left temporal and left posterior pariet al lobes. There is gyral enhancement on the postcontrast images consistent with a subacute infarct. White Matter: No significant signal abnormalities are seen in the white matter. Posterior Fossa: There appears to be a small old infarct involving the peripheral aspect the right ce rebellar hemisphere. Otherwise the fourth ventricle is normal in size and midline in position. The mi dbrain is unremarkable. Diffusion Imaging: There is increased signal involving the posterior left temporal and posterior lef t parietal lobe consistent with a subacute infarct. Extracranial: The visualized portions of the orbits and paranasal sinuses are unremarkable. Post Contrast: There is gyral enhancement involving the posterior left temporal and posterior left p arietal lobe consistent with a subacute infarct. CONCLUSION: 1. There is a subacute infarct involving the posterior temporal and posterior left parietal lobe. 2. Small old infarct involving the peripheral aspect the right cerebellar hemisphere. Electronically signed by: Shane Smith MD 12/13/2017 3:01 PM EDT
--- NOTE | 2017-12-13 15:04 | MR ---
EXAM DATE: 12/13/2017 2:47 PM EDT AGE/SEX: 57 years / Female INDICATIONS: Altered mental status. Abnormal CT. CLINICAL DATA: This is the patient's initial encounter. Patient reports that signs and symptoms have been present for 1 day and indicates a pain score of 0/10. MEDICAL/SURGICAL HISTORY: Cerebrovascular disease. section. COMPARISON: [facility] – [place], [place] HEAD W & W/O CONTRAST, 12/13/2017. . TECHNIQUE: 3D [id number] MRA was performed. Source images, multiplanar STS MIP, and 3D volum e MIP reconstructions were reviewed. FINDINGS: There is excellent visualization of the major intracranial arteries out to the second-order branch ve ssels. There is no evidence for aneurysm, vessel truncation or stenosis, and no evidence for vascula r malformation. CONCLUSION: 1. Unremarkable MRA of the [place]. Electronically signed by: Shane Smith MD 12/13/2017 3:03 PM EDT
--- NOTE | 2017-12-13 15:06 | MR ---
EXAM DATE: 12/13/2017 2:47 PM EDT AGE/SEX: 57 years / Female INDICATIONS: . Increased confusion. CLINICAL DATA: This is the patient's initial encounter. Patient reports that signs and symptoms have been present for 1 day and indicates a pain score of 0/10. MEDICAL/SURGICAL HISTORY: Cerebrovascular disease. section. COMPARISON: No prior exams available for comparison. TECHNIQUE: 10cc ml Gadavist (gadobutrol) contrast infused MRA (single exam dose) of the extracrania l circulation was performed using a neurovascular coil. Postprocessing was performed, including rota ting sub-volume maximum intensity projections of each carotid artery, rotating full-volume maximum in tensity projections of both carotid arteries, sagittal and coronal sliding thin-slab reformations of each carotid artery, and left oblique sliding thin-slab reformation through the aortic arch to includ e the origin of the arch branch vessels. FINDINGS: Aortic Arch : There is a three-vessel origin of the great vessels from the aorta. No evidence of o stial narrowing. Right Carotid : The common carotid artery is intact. The carotid bulb has a normal configuration wi thout ulceration or narrowing. The internal carotid artery lumen is smooth without stenosis. The ex ternal carotid artery is intact. Left Carotid : The common carotid artery is intact. The carotid bulb has a normal configuration wit hout ulceration or narrowing. The internal carotid artery lumen is smooth without stenosis. The ext ernal carotid artery is intact. Vertebrals : The vertebral arteries are patent bilaterally. The left side is dominant. CONCLUSION: 1. Grossly unremarkable MRA of the carotids. Percent stenosis is calculated using the diameter of the stenotic region over the diameter of the nor mal distal internal carotid artery Electronically signed by: Shane Smith MD 12/13/2017 3:05 PM EDT
[2017-12-13] MEDS: Sod Chloride 0.9% Inj 1,000 ML IV.CONT SCH (15:20)
--- NOTE | 2017-12-13 16:45 | P.HP ---
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 Per EMS family called because she was "not acting right." EMS does not have any further information. Patient is unable to provide much further information but does answer no to several questions. She denies chest pain, dyspnea, abdominal pain, back pain, extremity pain. Her /significant other stated that she'd been doing well until several days ago when she seemed to forget she had a stroke and became anxious about her paralysis/weakness. She is noted more lethargic at times and not at her normal. Says she was able to ambulate with a walker with supervision 2 day sago and she is not herself anymore. There is change in her behavior . other barb[place] patient is without fever, change in urination, n/v/d/c. No change in urination, no pain , frequency or change in color of the urine. However the patient is noted with UTI and started rocephin IV abx, urine cx pending/ Patient is with expressive aphasia and is not able to communicate whitch it seems is at baseline aphasia per significant other. Family History: Patient and significant other says no family history of stroke, HTN, diabetes, family is healthy Inpatient Certification: I certify that the inpatient services were ordered in accordance with Medicare regulations governing the order. This includes certification that hospital inpatient services are reasonable and necessary and in the case of services not specified as inpatient-only under 42 CFR 419.22(n), that they are appropriately provided as inpatient services in accordance to with the 2-midnight benchmark under 43 CFR 412.3(e) Review of Systems All other systems reviewed negative except as stated in HPI PMFSH - History History Provided By: [facility] / EMT - Medical History Medical History: Medical History (Last Reviewed 12/13/17 @ 16:31 by Juana Altman MD) CVA (cerebral vascular accident) - Surgical History Surgical History: Surgical History (Last Updated 12/13/17 @ 17:25 by Juana Altman MD) H/O: section (Acute) - Tobacco History Smoking Status: Former smoker - Alcohol History How Often Do You Have a Drink Containing Alcohol: Never - Substance Use History Substance History: No History of Abuse - Travel History Recent Travel in the [place] Within the Last 8 Weeks: No Recent Travel Out of the Country Within the Last 8 Weeks: No - Immunization History Tetanus Immunization: Unsure Medications and Allergies Active Medications: Active Medications Acetaminophen (Tylenol) 650 mg PO Q4H PRN PRN Reason: Temp > 100.4 Al Hydroxide/Mg Hydroxide (Milk Of Magnesia Liq) 30 ml PO Q12H PRN PRN Reason: Mild Constipation Aspirin (Aspirin) 325 mg PO DAILY [facility] Last Admin: 12/13/17 13:03 Dose: 325 mg Bisacodyl (Dulcolax Supp) 10 mg RECTAL DAILY PRN PRN Reason: SEVERE CONSITIPATION Sodium Chloride (Ns Inj) 1,000 mls @ 100 mls/hr IV.CONT .Q10H [facility] Last Admin: 12/13/17 15:20 Dose: 100 mls/hr Lactulose (Lactulose Liq) 30 ml PO DAILY PRN PRN Reason: SEVERE CONSITIPATION Ondansetron HCl (Zofran Inj) 4 mg IV.PUSH Q6H PRN PRN Reason: NAUSEA OR VOMITING Prochlorperazine (Compazine Supp) 25 mg RECTAL Q12H PRN PRN Reason: NAUSEA OR VOMITING Senna/Docusate Sodium (Rosetta-Colace) 1 tab PO BID [facility] Sennosides (Senokot) 17.2 mg PO Q12H PRN PRN Reason: Moderate Constipation Sodium Chloride (Ns Flush) 2 ml IV.FLUSH PRN PRN PRN Reason: FLUSH AFTER USING IV ACCESS Allergies Allergy/AdvReac Type Severity Reaction Status Date / Time Sulfa (Sulfonamide Allergy Mild Swelling Verified 12/13/17 12:12 Antibiotics) of Lip/Tongue/Throat Home Medications Medication Instructions Recorded Confirmed Type No Known Home Medications 12/13/17 12/13/17 History Exam Vital signs: Vital Signs 12/13/17 08:51 12/13/17 09:35 12/13/17 13:05 Temperature 97.7 F Pulse Rate 94 H 90 Respiratory Rate 19 20 Blood Pressure 117/74 110/59 L Pulse Oximetry 95 96 95 12/13/17 15:15 Temperature Pulse Rate 88 Respiratory Rate 19 Blood Pressure 141/87 H Pulse Oximetry 95 Intake & Output 12/12/17 12/13/17 12/13/17 18:59 06:59 18:59 Intake Total 100 / 100 Output Total 400 / 400 Balance -300 / -300 Weight 58.967 kg Intake: IV 100 / 100 Rocephin Inj 1,000 MG In NS Inj 100 / 100 100 ML @ 200 mls/hr IV.SIG ONCE ONE Rx#:[id number] Output: Urine 400 / 400 Other: # Voids 1 Narrative: GENERAL: Pleasant 57 yo female, in bed, with expressive aphasia. SKIN: Warm and dry. HEAD: Atraumatic. Normocephalic. EYES: Pupils equal and round. No scleral icterus. No injection or drainage. ENT: No nasal bleeding or discharge. Mucous membranes pink and moist. NECK: Trachea midline. No JVD. CARDIOVASCULAR: Regular rate and rhythm. RESPIRATORY: No accessory muscle use. Clear to auscultation. Breath sounds equal bilaterally. GASTROINTESTINAL: Abdomen soft, non-tender, nondistended. Hepatic and splenic margins not palpable. MUSCULOSKELETAL: Extremities without clubbing, cyanosis, or edema. Spasticity right arm. NEUROLOGICAL: Awake and alert. Five out of 5 muscle strength in the right arm and leg, 0/5 on left arm, 1/5 right leg. Diminished right visual field. Abnormal speech. Expressive aphasia. Results - Labs CBC & Chem 7: 12/13/17 09:48 12/13/17 11:52 Labs: Laboratory Results - last 24 hr 12/13/17 12/13/17 12/13/17 09:40 09:48 09:48 WBC 8.0 RBC 5.02 Hgb 13.8 Hct 42.3 MCV 84.2 MCH 27.5 MCHC 32.7 RDW 17.2 Plt Count 365 MPV 8.7 Neut % (Auto) 50.8 Lymph % (Auto) 39.9 [place] % (Auto) 7.2 Eos % (Auto) 1.2 Baso % (Auto) 0.9 Neut # (Auto) 4.1 Lymph # (Auto) 3.2 [place] # (Auto) 0.6 Eos # (Auto) 0.1 Baso # (Auto) 0.1 WBC Differential . Differential Comment Auto diff final ESR Sodium Potassium Chloride Carbon Dioxide Anion Gap BUN Creatinine Estimated GFR Random Glucose Calcium Total Bilirubin AST ALT Alkaline Phosphatase Ammonia 17 Troponin I Total Protein Albumin TSH Urine Color [place] Urine Clarity Cloudy H Urine pH 5.0 Ur Specific [place] 1.017 Urine Protein 30 H Urine Glucose (UA) Negative Urine Ketones Trace H Urine Occult Blood Moderate H Urine Nitrate Negative Urine Bilirubin Negative Urine Urobilinogen 4 or greater Ur Leukocyte Esterase Moderate H Urine RBC 11 H Urine WBC Ur Squamous Epith Cells 1 Urine Bacteria Rare H Urine Mucus Few H Micro UA Comment Cath-culture ind Urine Culture Comments Cath-cult indicated 12/13/17 12/13/17 09:48 11:52 WBC RBC Hgb Hct MCV MCH MCHC RDW Plt Count MPV Neut % (Auto) Lymph % (Auto) [place] % (Auto) Eos % (Auto) Baso % (Auto) Neut # (Auto) Lymph # (Auto) [place] # (Auto) Eos # (Auto) Baso # (Auto) WBC Differential Differential Comment ESR 11 Sodium 142 Potassium 3.7 Chloride 109 H Carbon Dioxide 22.7 Anion Gap 10 BUN 6 L Creatinine 0.66 Estimated GFR Greater than 89 Random Glucose 85 Calcium 9.0 Total Bilirubin 0.4 AST 21 ALT 22 Alkaline Phosphatase 141 H Ammonia Troponin I Less than 0.02 L Total Protein 7.3 Albumin 3.3 L TSH 1.700 Urine Color Urine Clarity Urine pH Ur Specific [place] Urine Protein Urine Glucose (UA) Urine Ketones Urine Occult Blood Urine Nitrate Urine Bilirubin Urine Urobilinogen Ur Leukocyte Esterase Urine RBC Urine WBC Ur Squamous Epith Cells Urine Bacteria Urine Mucus Micro UA Comment Urine Culture Comments - Imaging Impressions Head MRI 12/13/17 00:00 CONCLUSION: 1. There is a subacute infarct involving the posterior temporal and posterior left parietal lobe. 2. Small old infarct involving the peripheral aspect the right cerebellar hemisphere. Head MRA 12/13/17 00:00 CONCLUSION: 1. Unremarkable MRA of the ca[place] of [place]. Neck MRA 12/13/17 00:00 CONCLUSION: 1. Grossly unremarkable MRA of the carotids. Percent stenosis is calculated using the diameter of the stenotic region over the diameter of the normal distal internal carotid artery Chest X-Ray 12/13/17 09:13 CONCLUSION: No acute cardiopulmonary disease Head CT 12/13/17 09:13 CONCLUSION: 1. Evolving left parietal infarct. 2. Subacute right cerebellar infarct. . Caprini VTE Risk Assessment Caprini VTE Risk Assessment: No/Low Risk (score <= 1) Caprini Risk Assessment Model: Point Value = 1 Point Value = 2 Point Value = 3 Point Value = 5 Age 41-60 Minor surgery BMI > 25 kg/m2 Swollen legs Varicose veins or History of unexplained or recurrent spontaneous Oral contraceptives or hormone replacement Sepsis (< 1 month) Serious lung disease, including pneumonia (< 1 month) Abnormal pulmonary function Acute myocardial infarction Congestive heart failure (< 1 month) History of inflammatory bowel disease Medical patient at bed rest Age 61-74 Arthroscopic surgery Major open surgery (> 45 min) Laparoscopic surgery (> 45 min) Malignancy Confined to bed (> 72 hours) Immobilizing plaster cast Central venous access Age >= 75 History of VTE Family history of VTE Factor V Leiden Prothrombin [id number] Lupus anticoagulant Anticardiolipin antibodies Elevated serum homocysteine Heparin-induced thrombocytopenia Other congenital or acquired thrombophilia Stroke (< 1 month) Elective arthroplasty Hip, pelvis, or leg fracture Acute spinal cord injury (< 1 month) Prophylaxis Regimen: Total Risk Factor Score Risk Level Prophylaxis Regimen 0-1 Low Early ambulation 2 Moderate Order ONE of the following: *Sequential Compression Device (SCD) *Heparin 5000 units SQ BID 3-4 Higher Order ONE of the following medications: *Heparin 5000 units SQ TID *Enoxaparin/Lovenox 40 mg SQ daily (WT < 150 kg, CrCl > 30 mL/min) *Enoxaparin/Lovenox 30 mg SQ daily (WT < 150 kg, CrCl > 10-29 mL/min) *Enoxaparin/Lovenox 30 mg SQ BID (WT < 150 kg, CrCl > 30 mL/min) AND/OR *Sequential Compression Device (SCD) 5 or more Highest Order ONE of the following medications: *Heparin 5000 units SQ TID (Preferred with Epidurals) *Enoxaparin/Lovenox 40 mg SQ daily (WT < 150 kg, CrCl > 30 mL/min) *Enoxaparin/Lovenox 30 mg SQ daily (WT < 150 kg, CrCl > 10-29 mL/min) *Enoxaparin/Lovenox 30 mg SQ BID (WT < 150 kg, CrCl > 30 mL/min) AND *Sequential Compression Device (SCD) Assessment and Plan - Plan 57 yo F with h/o previous CVA Subacute left large MCA infarct and chronic right cerebellar infarct UTI Neurology has seen the patient Dr. Zarate, appreciate recommendations CAT scan shows a subacute left large MCA infarct and a small what appears to be chronic right cerebellar infarct. UA is positive for UTI. Start Rocephin. Monitor urione cx Check a MRI of the brain and MRA neck and cahto of [place], echocardiogram, Holter monitor. Check Lipid panel, A1c Started aspirin, pending further imaging results per neuro might consider anticoagulation. Per Neurology, she would benefit from seeing for Botox for the right arm. DVT ppx scd/teds
[2017-12-13] MEDS: Senna/Docusate Sodium 8.6/50 MG Tablet PO SCH (21:58)
[2017-12-14 08:14] LABS: Baso # (Auto) 0.1 th/mm3 (0.0-0.2); Baso % (Auto) 1.3 % (0.0-2.0); Eos # (Auto) 0.1 th/mm3 (0.0-0.4); Eos % (Auto) 1.2 % (0.0-4.0); Hematocrit 39.9 % (35.0-46.0); Hemoglobin 12.7 gm/dL (11.6-15.3); Lymph # (Auto) 2.5 th/mm3 (1.0-4.8); Lymph % (Auto) 38.4 % (9.0-44.0); Mean Corpuscular HGB Conc 31.8 % (32.0-36.0); Mean Corpuscular Volume 85.2 fL (80.0-100.0); Mean Platelet Volume 8.4 fL (7.0-11.0); Mono # (Auto) 0.5 th/mm3 (0.0-0.9); Mono % (Auto) 7.4 % (0.0-8.0); Neut # (Auto) 3.4 th/mm3 (1.8-7.7); Neut % (Auto) 51.7 % (16.0-70.0); Platelet Count 318 th/mm3 (150-450); Red Blood Count 4.69 mil/mm3 (4.00-5.30); Red Cell Distribution Width 17.3 % (11.6-17.2); White Blood Count 6.6 th/mm3 (4.0-11.0)
--- NOTE | 2017-12-14 08:18 | P.PN ---
Physical Exam Vital signs: Vital Signs 12/13/17 08:51 12/13/17 09:35 12/13/17 13:05 Temperature 97.7 F Pulse Rate 94 H 90 Respiratory Rate 19 20 Blood Pressure 117/74 110/59 L Pulse Oximetry 95 96 95 12/13/17 15:15 12/13/17 17:15 12/13/17 20:00 Temperature 98.3 F 97.6 F Pulse Rate 88 86 87 Respiratory Rate 19 20 18 Blood Pressure 141/87 H 137/82 133/84 Pulse Oximetry 95 94 L 94 L 12/14/17 00:00 Temperature 97.3 F L Pulse Rate 82 Respiratory Rate 18 Blood Pressure 127/79 Pulse Oximetry 94 L Intake & Output 12/13/17 12/14/17 12/14/17 18:59 06:59 18:59 Intake Total 100 / 100 Output Total 400 / 400 Balance -300 / -300 Weight 58.967 kg 58.3 kg Intake: IV 100 / 100 Rocephin Inj 1,000 MG In NS Inj 100 / 100 100 ML @ 200 mls/hr IV.SIG ONCE ONE Rx#:[id number] Output: Urine 400 / 400 Other: # Voids 1 1 Date of Last Bowel Movement 12/10/17 12/14/17 # Bowel Movements 1 Narrative: Subjective Follow up possible new CVA. Subacute left large MCA infarct and chronic right cerebral infarct/UTI She is in bed no new motor deficit. More awake and alert less agitated. No fever chills overnight. No suprapubic pain. Improving Physical examination GENERAL: Pleasant 57 yo female, in bed, with expressive aphasia. CARDIOVASCULAR: Regular rate and rhythm. RESPIRATORY: No accessory muscle use. Clear to auscultation. Breath sounds equal bilaterally. GASTROINTESTINAL: Abdomen soft, non-tender, nondistended. Hepatic and splenic margins not palpable. MUSCULOSKELETAL: Extremities without clubbing, cyanosis, or edema. Spasticity right arm. NEUROLOGICAL: Awake and alert. Five out of 5 muscle strength in the right arm and leg, 0/5 on left arm, 1/5 right leg. Diminished right visual field. Abnormal speech. Expressive aphasia. Assessment and Plan - Plan 57 yo F with h/o previous CVA Subacute left large MCA infarct and chronic right cerebellar infarct UTI Neurology has seen the patient Dr. Zarate, appreciate recommendations CAT scan shows a subacute left large MCA infarct and a small what appears to be chronic right cerebellar infarct. UA is positive for UTI. Start Rocephin. Monitor urione cx Check a MRI of the brain and MRA neck and ho[place] of [place], echocardiogram, Holter monitor. Check Lipid panel, A1c Started aspirin, pending further imaging results per neuro might consider anticoagulation. Per Neurology, she would benefit from seeing for Botox for the right arm , it is a doing patient or can follow-up as outpatient Lipid panel is pending hypercoag pending if echo neg and holter done can dc PT/OT/ST following DVT ppx scd/teds Discharge plan. Possible discharge to sniff versus home with home health. Significant other is taking care of her. She was able to ambulate with a walker prior to admission. - Urinary Catheter Management Straight Cath placed during this visit: yes, but has since been removed by the nurse Reason for continuing: Not indwelling catheter Insertion date: 12/13/17 Insertion time: 09:48 Removal date: 12/13/17 Removal time: 09:49 Results - Labs CBC & Chem 7: 12/14/17 06:56 12/14/17 06:56 Laboratory Results - last 24 hr 12/13/17 12/13/17 12/13/17 09:40 09:48 09:48 WBC 8.0 RBC 5.02 Hgb 13.8 Hct 42.3 MCV 84.2 MCH 27.5 MCHC 32.7 RDW 17.2 Plt Count 365 MPV 8.7 Neut % (Auto) 50.8 Lymph % (Auto) 39.9 [place] % (Auto) 7.2 Eos % (Auto) 1.2 Baso % (Auto) 0.9 Neut # (Auto) 4.1 Lymph # (Auto) 3.2 [place] # (Auto) 0.6 Eos # (Auto) 0.1 Baso # (Auto) 0.1 WBC Differential . Differential Comment Auto diff final ESR Sodium Potassium Chloride Carbon Dioxide Anion Gap BUN Creatinine Estimated GFR Random Glucose Calcium Total Bilirubin AST ALT Alkaline Phosphatase Ammonia 17 Troponin I Total Protein Albumin TSH Urine Color [place] Urine Clarity Cloudy H Urine pH 5.0 Ur Specific [place] 1.017 Urine Protein 30 H Urine Glucose (UA) Negative Urine Ketones Trace H Urine Occult Blood Moderate H Urine Nitrate Negative Urine Bilirubin Negative Urine Urobilinogen 4 or greater Ur Leukocyte Esterase Moderate H Urine RBC 11 H Urine WBC Ur Squamous Epith Cells 1 Urine Bacteria Rare H Urine Mucus Few H Micro UA Comment Cath-culture ind Urine Culture Comments Cath-cult indicated 12/13/17 12/13/17 12/14/17 09:48 11:52 06:56 WBC 6.6 RBC 4.69 Hgb 12.7 Hct 39.9 MCV 85.2 MCH 27.0 MCHC 31.8 L RDW 17.3 H Plt Count 318 MPV 8.4 Neut % (Auto) 51.7 Lymph % (Auto) 38.4 [place] % (Auto) 7.4 Eos % (Auto) 1.2 Baso % (Auto) 1.3 Neut # (Auto) 3.4 Lymph # (Auto) 2.5 [place] # (Auto) 0.5 Eos # (Auto) 0.1 Baso # (Auto) 0.1 WBC Differential . Differential Comment Auto diff final ESR 11 Sodium 142 Potassium 3.7 Chloride 109 H Carbon Dioxide 22.7 Anion Gap 10 BUN 6 L Creatinine 0.66 Estimated GFR Greater than 89 Random Glucose 85 Calcium 9.0 Total Bilirubin 0.4 AST 21 ALT 22 Alkaline Phosphatase 141 H Ammonia Troponin I Less than 0.02 L Total Protein 7.3 Albumin 3.3 L TSH 1.700 Urine Color Urine Clarity Urine pH Ur Specific [place] Urine Protein Urine Glucose (UA) Urine Ketones Urine Occult Blood Urine Nitrate Urine Bilirubin Urine Urobilinogen Ur Leukocyte Esterase Urine RBC Urine WBC Ur Squamous Epith Cells Urine Bacteria Urine Mucus Micro UA Comment Urine Culture Comments - Imaging Impressions Head MRI 12/13/17 00:00 CONCLUSION: 1. There is a subacute infarct involving the posterior temporal and posterior left parietal lobe. 2. Small old infarct involving the peripheral aspect the right cerebellar hemisphere. Head MRA 12/13/17 00:00 CONCLUSION: 1. Unremarkable MRA of the [place] of [place]. Neck MRA 12/13/17 00:00 CONCLUSION: 1. Grossly unremarkable MRA of the carotids. Percent stenosis is calculated using the diameter of the stenotic region over the diameter of the normal distal internal carotid artery Chest X-Ray 12/13/17 09:13 CONCLUSION: No acute cardiopulmonary disease Head CT 12/13/17 09:13 CONCLUSION: 1. Evolving left parietal infarct. 2. Subacute right cerebellar infarct. . Assessment and Plan - Plan 57 yo F with h/o previous CVA Subacute left large MCA infarct and chronic right cerebellar infarct UTI Neurology has seen the patient Dr. Zarate, appreciate recommendations CAT scan shows a subacute left large MCA infarct and a small what appears to be chronic right cerebellar infarct. UA is positive for UTI. Start Rocephin. Monitor urione cx Check a MRI of the brain and MRA neck and ho-chunk of [place], echocardiogram, Holter monitor. Check Lipid panel, A1c Started aspirin, pending further imaging results per neuro might consider anticoagulation. Per Neurology, she would benefit from seeing for Botox for the right arm. DVT ppx scd/teds
[2017-12-14 08:24] LABS: Anion Gap 8 meq/L (5-15); Blood Urea Nitrogen 8 mg/dL (7-18); Calcium 8.6 mg/dL (8.5-10.1); Carbon Dioxide 23.1 meq/L (21.0-32.0); Chloride 112 meq/L (98-107); Glomerular Filtration Rate Greater Than 89 mL/min (>89); Glucose,Random 80 mg/dL (74-106); Potassium 3.7 meq/L (3.5-5.1); Sodium 143 meq/L (136-145)
--- NOTE | 2017-12-14 08:41 | ECG ---
Date Performed: 12/13/2017 Time Performed: 10:05:48 PTAGE: 57 years EKG: Sinus rhythm BORDERLINE RIGHT AXIS DEVIATION BORDERLINE ECG PREVIOUS TRACING : 09/22/2017 17.47 DOCTOR: Jairo Hendricks Interpretating Date/Time 12/14/2017 08:32:48
[2017-12-14 09:01] LABS: Chol/HDL Ratio 3.8 Ratio; Free T4 (Free Thyroxine) 1.09 ng/dL (0.76-1.46); HDL Cholesterol 43.6 mg/dL (40.0-60.0); Thyroid Stimulating Hormone 2.17 uIU/mL (0.358-3.740)
--- NOTE | 2017-12-14 09:02 | P.PNNEU ---
Subjective Subjective Comments: sr Active Medications: Active Medications Acetaminophen (Tylenol) 650 mg PO Q4H PRN PRN Reason: Temp > 100.4 Al Hydroxide/Mg Hydroxide (Milk Of Magnesia Liq) 30 ml PO Q12H PRN PRN Reason: Mild Constipation Aspirin (Aspirin) 325 mg PO DAILY [facility] Last Admin: 12/13/17 13:03 Dose: 325 mg Bisacodyl (Dulcolax Supp) 10 mg RECTAL DAILY PRN PRN Reason: SEVERE CONSITIPATION Sodium Chloride (Ns Inj) 1,000 mls @ 100 mls/hr IV.CONT .Q10H [facility] Last Admin: 12/13/17 15:20 Dose: 100 mls/hr Ceftriaxone Sodium 1,000 mg/ (Sodium Chloride) 100 mls @ 200 mls/hr IV.SIG Q24H [facility] Lactulose (Lactulose Liq) 30 ml PO DAILY PRN PRN Reason: SEVERE CONSITIPATION Ondansetron HCl (Zofran Inj) 4 mg IV.PUSH Q6H PRN PRN Reason: NAUSEA OR VOMITING Prochlorperazine (Compazine Supp) 25 mg RECTAL Q12H PRN PRN Reason: NAUSEA OR VOMITING Senna/Docusate Sodium (Rosetta-Colace) 1 tab PO BID [facility] Last Admin: 12/13/17 21:58 Dose: Not Given Sennosides (Senokot) 17.2 mg PO Q12H PRN PRN Reason: Moderate Constipation Sodium Chloride (Ns Flush) 2 ml IV.FLUSH PRN PRN PRN Reason: FLUSH AFTER USING IV ACCESS Allergies/Adverse Reactions: Allergies Allergy/AdvReac Type Severity Reaction Status Date / Time Sulfa (Sulfonamide Allergy Mild Swelling Verified 12/13/17 12:12 Antibiotics) of Lip/Tongue/Throat Physical Exam Vital signs: Vital Signs 12/13/17 09:35 12/13/17 13:05 12/13/17 15:15 Temperature Pulse Rate 90 88 Respiratory Rate 20 19 Blood Pressure 110/59 L 141/87 H Pulse Oximetry 96 95 95 12/13/17 17:15 12/13/17 20:00 12/14/17 00:00 Temperature 98.3 F 97.6 F 97.3 F L Pulse Rate 86 87 82 Respiratory Rate 20 18 18 Blood Pressure 137/82 133/84 127/79 Pulse Oximetry 94 L 94 L 94 L Intake & Output 12/13/17 12/14/17 12/14/17 18:59 06:59 18:59 Intake Total 100 / 100 Output Total 400 / 400 Balance -300 / -300 Weight 58.967 kg 58.3 kg Intake: IV 100 / 100 Rocephin Inj 1,000 MG In NS Inj 100 / 100 100 ML @ 200 mls/hr IV.SIG ONCE ONE Rx#:[id number] Output: Urine 400 / 400 Other: # Voids 1 1 Date of Last Bowel Movement 12/10/17 12/14/17 # Bowel Movements 1 Narrative: aphasic moves left well alert frustrated - Urinary Catheter Management Straight Cath placed during this visit: yes, but has since been removed by the nurse Reason for continuing: Not indwelling catheter Insertion date: 12/13/17 Insertion time: 09:48 Removal date: 12/13/17 Removal time: 09:49 Objective Laboratory Results - last 24 hr 12/13/17 12/13/17 12/13/17 09:40 09:48 09:48 WBC 8.0 RBC 5.02 Hgb 13.8 Hct 42.3 MCV 84.2 MCH 27.5 MCHC 32.7 RDW 17.2 Plt Count 365 MPV 8.7 Neut % (Auto) 50.8 Lymph % (Auto) 39.9 [place] % (Auto) 7.2 Eos % (Auto) 1.2 Baso % (Auto) 0.9 Neut # (Auto) 4.1 Lymph # (Auto) 3.2 [place] # (Auto) 0.6 Eos # (Auto) 0.1 Baso # (Auto) 0.1 WBC Differential . Differential Comment Auto diff final ESR Sodium Potassium Chloride Carbon Dioxide Anion Gap BUN Creatinine Estimated GFR Random Glucose Calcium Total Bilirubin AST ALT Alkaline Phosphatase Ammonia 17 Troponin I Total Protein Albumin Triglycerides Cholesterol TSH Urine Color Maegan Urine Clarity Cloudy H Urine pH 5.0 Ur Specific [place] 1.017 Urine Protein 30 H Urine Glucose (UA) Negative Urine Ketones Trace H Urine Occult Blood Moderate H Urine Nitrate Negative Urine Bilirubin Negative Urine Urobilinogen 4 or greater Ur Leukocyte Esterase Moderate H Urine RBC 11 H Urine WBC Ur Squamous Epith Cells 1 Urine Bacteria Rare H Urine Mucus Few H Micro UA Comment Cath-culture ind Urine Culture Comments Cath-cult indicated 12/13/17 12/13/17 12/14/17 09:48 11:52 06:46 WBC RBC Hgb Hct MCV MCH MCHC RDW Plt Count MPV Neut % (Auto) Lymph % (Auto) [place] % (Auto) Eos % (Auto) Baso % (Auto) Neut # (Auto) Lymph # (Auto) [place] # (Auto) Eos # (Auto) Baso # (Auto) WBC Differential Differential Comment ESR 11 Sodium 142 Potassium 3.7 Chloride 109 H Carbon Dioxide 22.7 Anion Gap 10 BUN 6 L Creatinine 0.66 Estimated GFR Greater than 89 Random Glucose 85 Calcium 9.0 Total Bilirubin 0.4 AST 21 ALT 22 Alkaline Phosphatase 141 H Ammonia Troponin I Less than 0.02 L Total Protein 7.3 Albumin 3.3 L Triglycerides 104 Cholesterol 166 TSH 1.700 Urine Color Urine Clarity Urine pH Ur Specific [place] Urine Protein Urine Glucose (UA) Urine Ketones Urine Occult Blood Urine Nitrate Urine Bilirubin Urine Urobilinogen Ur Leukocyte Esterase Urine RBC Urine WBC Ur Squamous Epith Cells Urine Bacteria Urine Mucus Micro UA Comment Urine Culture Comments 12/14/17 12/14/17 06:56 06:56 WBC 6.6 RBC 4.69 Hgb 12.7 Hct 39.9 MCV 85.2 MCH 27.0 MCHC 31.8 L RDW 17.3 H Plt Count 318 MPV 8.4 Neut % (Auto) 51.7 Lymph % (Auto) 38.4 [place] % (Auto) 7.4 Eos % (Auto) 1.2 Baso % (Auto) 1.3 Neut # (Auto) 3.4 Lymph # (Auto) 2.5 [place] # (Auto) 0.5 Eos # (Auto) 0.1 Baso # (Auto) 0.1 WBC Differential . Differential Comment Auto diff final ESR Sodium 143 Potassium 3.7 Chloride 112 H Carbon Dioxide 23.1 Anion Gap 8 BUN 8 Creatinine 0.54 Estimated GFR Greater than 89 Random Glucose 80 Calcium 8.6 Total Bilirubin AST ALT Alkaline Phosphatase Ammonia Troponin I Total Protein Albumin Triglycerides Cholesterol TSH Urine Color Urine Clarity Urine pH Ur Specific [place] Urine Protein Urine Glucose (UA) Urine Ketones Urine Occult Blood Urine Nitrate Urine Bilirubin Urine Urobilinogen Ur Leukocyte Esterase Urine RBC Urine WBC Ur Squamous Epith Cells Urine Bacteria Urine Mucus Micro UA Comment Urine Culture Comments Review/Management - Review/Management Plan: Impression Most of the blood work is pending. CAT scan shows a subacute left large MCA infarct and a small what appears to be chronic right cerebellar infarct. I reviewed these films compared to a CAT scan done in October of this year and there is no significant change in the cerebellar region. Her UA is positive for UTI. It is unclear why she had a stroke but possibly she has had 2 infarcts in the past and anticoagulation could be considered. We will check a MRI of the brain and MRA neck and [place] echocardiogram Holter monitor. Check your LDL. For now we will put her on an aspirin a day and depending on what we come up with could consider anticoagulation. I think it is unlikely that is anything new neurologically going on here however. She would benefit from seeing for Botox for the right arm. 12/14/17 imp no new cva left ica mild dz left vert dom and r vert ends in ? pica ldl pend hypercoag ordered ua positive on abt oob if echo neg and holter done can dc would benefit see dr vickers here or o/p for botox rue
[2017-12-14] MEDS: Aspirin 325 MG Tablet PO SCH (09:47)
[2017-12-14] MEDS: Senna/Docusate Sodium 8.6/50 MG Tablet PO SCH ×2 (09:47→22:13)
--- NOTE | 2017-12-14 10:30 | MG ---
cc: Rubens Zarate MD EEG NUMBER: [id number] INDICATIONS: Left stroke, right cerebellar stroke, left MCA stroke. FINDINGS: A lot of muscle artifact is seen. Some diffuse alpha and beta rhythms are noted over the central head region. A small amount of theta slowing is seen over the left hemisphere, but there is so much muscle artifact throughout much of the recording, especially over the left temporal lobe, it makes interpretation difficult. Photic stimulation is performed without significant posterior driving. IMPRESSION: Generally unremarkable recording. Some mild left hemisphere slowing. No seizure activity seen. No epileptiform activity noted. Rubens Zarate MD DJM/daniella , 07:57 AM , 08:01 AM
[2017-12-14] MEDS: Sod Chloride 0.9% Inj 1,000 ML IV.CONT SCH (22:13)
--- NOTE | 2017-12-15 07:30 | P.PN ---
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 Per EMS family called because she was "not acting right. " EMS does not have any further information. Patient is unable to provide much further information but does answer no to several questions. She denies chest pain, dyspnea, abdominal pain, back pain, extremity pain. Her /significant other stated that she'd been doing well until several days ago when she seemed to forget she had a stroke and became anxious about her paralysis/weakness. She is noted more lethargic at times and not at her normal. Says she was able to ambulate with a walker with supervision 2 day sago and she is not herself anymore. There is change in her behavior . other [place] patient is without fever, change in urination, n/v/d/c. No change in urination, no pain , frequency or change in color of the urine. However the patient is noted with UTI and started rocephin IV abx, urine cx pending/ Patient is with expressive aphasia and is not able to communicate whitch it seems is at baseline aphasia per significant other. 12/15 No significant change. Discussed with nursing staff, no acute issues noted overnight. Patient with expressive aphasia and unable to communicate effectively. She appears comfortable and in no distress. No family at the bedside this morning. Physical Exam Vital signs: Vital Signs 12/14/17 08:00 12/14/17 09:01 12/14/17 12:00 Temperature 97.5 F L 98.1 F Pulse Rate 83 96 H Respiratory Rate 20 20 Blood Pressure 138/87 128/88 Pulse Oximetry 92 L 93 L 94 L 12/14/17 16:00 12/14/17 20:00 12/15/17 00:00 Temperature 97.7 F 97.9 F 97.8 F Pulse Rate 79 77 68 Respiratory Rate 20 18 18 Blood Pressure 157/84 H 135/83 148/82 H Pulse Oximetry 94 L 94 L 90 L 12/15/17 04:00 Temperature Pulse Rate 67 Respiratory Rate Blood Pressure Pulse Oximetry Intake & Output 12/14/17 12/15/17 12/15/17 18:59 06:59 18:59 Intake Total 480 / 480 Output Total Balance 479 / 479 Intake: Oral 480 / 480 Output: Stool Other: # Voids 3 Date of Last Bowel Movement 12/14/17 12/14/17 Narrative: GENERAL: WDWN female, INAD. Awake and alert. +Expressive aphasia. SKIN: Warm and dry. No generalized rash. HEAD: Atraumatic. Normocephalic. EYES: Pupils equal and round. No scleral icterus. No injection or drainage. + diminished right visual field. ENT: No nasal bleeding or discharge. Mucous membranes pink and moist. NECK: Trachea midline. No JVD. CARDIOVASCULAR: Regular rate and rhythm. No murmur appreciated on auscultation. RESPIRATORY: No accessory muscle use. Clear to auscultation. Breath sounds equal bilaterally. GASTROINTESTINAL: Abdomen soft, non-tender, nondistended. +BS. MUSCULOSKELETAL: Extremities without clubbing, cyanosis, or edema. +Spasticity in right arm. Unable to move right upper or lower extremity. NEUROLOGICAL: Awake and alert. Motor grossly within normal limits in left upper and lower extremity. 0/5 muscle strength in RUE and RLE. Abnormal speech , expressive aphasia.. PSYCHIATRIC: Calm and cooperative. - Urinary Catheter Management Straight Cath placed during this visit: yes, but has since been removed by the nurse Reason for continuing: Not indwelling catheter Insertion date: 12/13/17 Insertion time: 09:48 Removal date: 12/13/17 Removal time: 09:49 Results - Labs CBC & Chem 7: 12/14/17 06:56 12/14/17 06:56 Laboratory Results - last 24 hr 12/13/17 12/14/17 12/14/17 09:48 06:46 06:56 WBC 6.6 RBC 4.69 Hgb 12.7 Hct 39.9 MCV 85.2 MCH 27.0 MCHC 31.8 L RDW 17.3 H Plt Count 318 MPV 8.4 Neut % (Auto) 51.7 Lymph % (Auto) 38.4 [place] % (Auto) 7.4 Eos % (Auto) 1.2 Baso % (Auto) 1.3 Neut # (Auto) 3.4 Lymph # (Auto) 2.5 [place] # (Auto) 0.5 Eos # (Auto) 0.1 Baso # (Auto) 0.1 WBC Differential . Differential Comment Auto diff final Sodium Potassium Chloride Carbon Dioxide Anion Gap BUN Creatinine Estimated GFR Random Glucose Calcium Total Protein (PEP) 6.2 L Triglycerides 104 Cholesterol 166 LDL Cholesterol, Calc 102 H HDL Cholesterol 43.6 Cholesterol/HDL Ratio 3.80 Vitamin B12 419 TSH 2.170 Free T4 1.09 Urine Color Maegan Urine Clarity Cloudy H Urine pH 5.0 Ur Specific [place] 1.017 Urine Protein 30 H Urine Glucose (UA) Negative Urine Ketones Trace H Urine Occult Blood Moderate H Urine Nitrate Negative Urine Bilirubin Negative Urine Urobilinogen 4 or greater Ur Leukocyte Esterase Moderate H Urine RBC 11 H Urine WBC Ur Squamous Epith Cells 1 Urine Bacteria Rare H Urine Mucus Few H Micro UA Comment Cath-culture ind Urine Culture Comments Cath-cult indicated 12/14/17 06:56 WBC RBC Hgb Hct MCV MCH MCHC RDW Plt Count MPV Neut % (Auto) Lymph % (Auto) [place] % (Auto) Eos % (Auto) Baso % (Auto) Neut # (Auto) Lymph # (Auto) [place] # (Auto) Eos # (Auto) Baso # (Auto) WBC Differential Differential Comment Sodium 143 Potassium 3.7 Chloride 112 H Carbon Dioxide 23.1 Anion Gap 8 BUN 8 Creatinine 0.54 Estimated GFR Greater than 89 Random Glucose 80 Calcium 8.6 Total Protein (PEP) Triglycerides Cholesterol LDL Cholesterol, Calc HDL Cholesterol Cholesterol/HDL Ratio Vitamin B12 TSH Free T4 Urine Color Urine Clarity Urine pH Ur Specific [place] Urine Protein Urine Glucose (UA) Urine Ketones Urine Occult Blood Urine Nitrate Urine Bilirubin Urine Urobilinogen Ur Leukocyte Esterase Urine RBC Urine WBC Ur Squamous Epith Cells Urine Bacteria Urine Mucus Micro UA Comment Urine Culture Comments Microbiology 12/13/17 09:48 Clean Catch Urine Urine Culture - Preliminary gram negative rods - Imaging ITS Impressions Head MRI 12/13/17 00:00 CONCLUSION: 1. There is a subacute infarct involving the posterior temporal and posterior left parietal lobe. 2. Small old infarct involving the peripheral aspect the right cerebellar hemisphere. Head MRA 12/13/17 00:00 CONCLUSION: 1. Unremarkable MRA of the [place]. Neck MRA 12/13/17 00:00 CONCLUSION: 1. Grossly unremarkable MRA of the carotids. Percent stenosis is calculated using the diameter of the stenotic region over the diameter of the normal distal internal carotid artery Chest X-Ray 12/13/17 09:13 CONCLUSION: No acute cardiopulmonary disease Head CT 12/13/17 09:13 CONCLUSION: 1. Evolving left parietal infarct. 2. Subacute right cerebellar infarct. . - Procedures None Assessment and Plan - Plan 57 yo F with h/o previous CVA and residual aphasia and right sided paralysis who presented with AMS: Hx of left large MCA infarct and chronic right cerebellar infarct with residual expressive and receptive aphasia and right sided weakness September 2017 MRI +subacute infarct involving the posterior temporal and posterior left parietal lobe and small old infarct involving the peripheral aspect the right cerebellar hemisphere -Neurology following, appreciate recommendations. No new CVA. Continue ASA for now unless echo is abnl. ?ALEX, pending records from [facility]. -Hypercoagulable w/u pending -LDL 102 fasting, start on Lipitor 10mg qhs -2D echo pending -Per Neuro, patient would benefit from eval by Dr. Weber for possible botox to right arm. Consult pending. -continue with PT/OT/ST - recommending rehab UTI UA + GNR -Continue on IV Ceftriaxone -follow up on final urine cx results DVT ppx scd/teds Code Status: FULL Discussed Condition With: patient. nursing staff, CM Discharge Planning: D/c planning in progress. Possibly home with home health vs SNF placement. CM assisting with ongoing discharge planning.
--- NOTE | 2017-12-15 07:50 | P.PNNEU ---
Subjective Subjective Comments: sr Active Medications: Active Medications Acetaminophen (Tylenol) 650 mg PO Q4H PRN PRN Reason: Temp > 100.4 Al Hydroxide/Mg Hydroxide (Milk Of Magnesia Liq) 30 ml PO Q12H PRN PRN Reason: Mild Constipation Aspirin (Aspirin) 325 mg PO DAILY [facility] Last Admin: 12/14/17 09:47 Dose: 325 mg Bisacodyl (Dulcolax Supp) 10 mg RECTAL DAILY PRN PRN Reason: SEVERE CONSITIPATION Sodium Chloride (Ns Inj) 1,000 mls @ 100 mls/hr IV.CONT .Q10H [facility] Last Admin: 12/14/17 22:13 Dose: 100 mls/hr Ceftriaxone Sodium 1,000 mg/ (Sodium Chloride) 100 mls @ 200 mls/hr IV.SIG Q24H [facility] Last Admin: 12/14/17 14:42 Dose: 200 mls/hr Lactulose (Lactulose Liq) 30 ml PO DAILY PRN PRN Reason: SEVERE CONSITIPATION Ondansetron HCl (Zofran Inj) 4 mg IV.PUSH Q6H PRN PRN Reason: NAUSEA OR VOMITING Prochlorperazine (Compazine Supp) 25 mg RECTAL Q12H PRN PRN Reason: NAUSEA OR VOMITING Senna/Docusate Sodium (Rosetta-Colace) 1 tab PO BID [facility] Last Admin: 12/14/17 22:13 Dose: 1 tab Sennosides (Senokot) 17.2 mg PO Q12H PRN PRN Reason: Moderate Constipation Sodium Chloride (Ns Flush) 2 ml IV.FLUSH PRN PRN PRN Reason: FLUSH AFTER USING IV ACCESS Allergies/Adverse Reactions: Allergies Allergy/AdvReac Type Severity Reaction Status Date / Time Sulfa (Sulfonamide Allergy Mild Swelling Verified 12/13/17 12:12 Antibiotics) of Lip/Tongue/Throat Physical Exam Vital signs: Vital Signs 12/14/17 08:00 12/14/17 09:01 12/14/17 12:00 Temperature 97.5 F L 98.1 F Pulse Rate 83 96 H Respiratory Rate 20 20 Blood Pressure 138/87 128/88 Pulse Oximetry 92 L 93 L 94 L 12/14/17 16:00 12/14/17 20:00 12/15/17 00:00 Temperature 97.7 F 97.9 F 97.8 F Pulse Rate 79 77 68 Respiratory Rate 20 18 18 Blood Pressure 157/84 H 135/83 148/82 H Pulse Oximetry 94 L 94 L 90 L 12/15/17 04:00 Temperature Pulse Rate 67 Respiratory Rate Blood Pressure Pulse Oximetry Intake & Output 12/14/17 12/15/17 12/15/17 18:59 06:59 18:59 Intake Total 480 / 480 Output Total Balance 479 / 479 Intake: Oral 480 / 480 Output: Stool Other: # Voids 3 Date of Last Bowel Movement 12/14/17 12/14/17 Narrative: awake alert aphasic rhp no change - Urinary Catheter Management Straight Cath placed during this visit: yes, but has since been removed by the nurse Reason for continuing: Not indwelling catheter Insertion date: 12/13/17 Insertion time: 09:48 Removal date: 12/13/17 Removal time: 09:49 Objective Laboratory Results - last 24 hr 12/13/17 12/14/17 12/14/17 09:48 06:46 06:56 WBC 6.6 RBC 4.69 Hgb 12.7 Hct 39.9 MCV 85.2 MCH 27.0 MCHC 31.8 L RDW 17.3 H Plt Count 318 MPV 8.4 Neut % (Auto) 51.7 Lymph % (Auto) 38.4 [place] % (Auto) 7.4 Eos % (Auto) 1.2 Baso % (Auto) 1.3 Neut # (Auto) 3.4 Lymph # (Auto) 2.5 [place] # (Auto) 0.5 Eos # (Auto) 0.1 Baso # (Auto) 0.1 WBC Differential . Differential Comment Auto diff final Sodium Potassium Chloride Carbon Dioxide Anion Gap BUN Creatinine Estimated GFR Random Glucose Calcium Total Protein (PEP) 6.2 L Triglycerides 104 Cholesterol 166 LDL Cholesterol, Calc 102 H HDL Cholesterol 43.6 Cholesterol/HDL Ratio 3.80 Vitamin B12 419 TSH 2.170 Free T4 1.09 Urine Color Maegan Urine Clarity Cloudy H Urine pH 5.0 Ur Specific [place] 1.017 Urine Protein 30 H Urine Glucose (UA) Negative Urine Ketones Trace H Urine Occult Blood Moderate H Urine Nitrate Negative Urine Bilirubin Negative Urine Urobilinogen 4 or greater Ur Leukocyte Esterase Moderate H Urine RBC 11 H Urine WBC Ur Squamous Epith Cells 1 Urine Bacteria Rare H Urine Mucus Few H Micro UA Comment Cath-culture ind Urine Culture Comments Cath-cult indicated 12/14/17 06:56 WBC RBC Hgb Hct MCV MCH MCHC RDW Plt Count MPV Neut % (Auto) Lymph % (Auto) [place] % (Auto) Eos % (Auto) Baso % (Auto) Neut # (Auto) Lymph # (Auto) [place] # (Auto) Eos # (Auto) Baso # (Auto) WBC Differential Differential Comment Sodium 143 Potassium 3.7 Chloride 112 H Carbon Dioxide 23.1 Anion Gap 8 BUN 8 Creatinine 0.54 Estimated GFR Greater than 89 Random Glucose 80 Calcium 8.6 Total Protein (PEP) Triglycerides Cholesterol LDL Cholesterol, Calc HDL Cholesterol Cholesterol/HDL Ratio Vitamin B12 TSH Free T4 Urine Color Urine Clarity Urine pH Ur Specific [place] Urine Protein Urine Glucose (UA) Urine Ketones Urine Occult Blood Urine Nitrate Urine Bilirubin Urine Urobilinogen Ur Leukocyte Esterase Urine RBC Urine WBC Ur Squamous Epith Cells Urine Bacteria Urine Mucus Micro UA Comment Urine Culture Comments Microbiology 12/13/17 09:48 Urine Culture - Preliminary Clean Catch Urine gram negative rods Review/Management - Review/Management Plan: Impression Most of the blood work is pending. CAT scan shows a subacute left large MCA infarct and a small what appears to be chronic right cerebellar infarct. I reviewed these films compared to a CAT scan done in October of this year and there is no significant change in the cerebellar region. Her UA is positive for UTI. It is unclear why she had a stroke but possibly she has had 2 infarcts in the past and anticoagulation could be considered. We will check a MRI of the brain and MRA neck and [place] echocardiogram Holter monitor. Check your LDL. For now we will put her on an aspirin a day and depending on what we come up with could consider anticoagulation. I think it is unlikely that is anything new neurologically going on here however. She would benefit from seeing for Botox for the right arm. 12/14/17 imp no new cva left ica mild dz left vert dom and r vert ends in ? pica ldl pend hypercoag ordered ua positive on abt oob if echo neg and holter done can dc would benefit see dr vickers here or o/p for botox rue 12/15/17 no change echo pend ldl 102 if this is not fasting then i would not start statin asa for now unless echo is abn hypercoag pend at some point could do nirmala i will have to see what was done at [facility]
[2017-12-15] MEDS: Aspirin 325 MG Tablet PO SCH (08:12)
[2017-12-15] MEDS: Senna/Docusate Sodium 8.6/50 MG Tablet PO SCH ×2 (08:12→21:25)
[2017-12-15] MEDS: Sod Chloride 0.9% Inj 1,000 ML IV.CONT SCH ×3 (08:16→16:43)
--- NOTE | 2017-12-15 16:51 | HM ---
Date Performed: 12/13/2017 Time Performed: 15:40:00 HOOKUP DATE: 12/13/17 03:40:00 PM Sat ANALYSIS START TIME: 12/13/2017 3:45:00 PM ANALYSIS END TIME: 12/14/2017 3:42:06 PM PATIENT AGE: 57 PATIENT HEIGHT: 67 PATIENT WEIGHT: 130 DRUG LIST: ROOM 1502 PATIENT DIAGNOSIS: NEURO TEST NARRATIVE: The patient's average heart rate was 83 BPM. Heart rates greater than 120 B PM were noted < 1% of the time. No episodes of bradycardia were noted. No pauses exceeding 2.0 s econds were noted. No ventricular ectopics were noted. 9 supraventricular ectopics, which rep resented < 1% of the total beat count, were noted. The highest supraventricular ectopic frequency oc curred from 04:00 PM to 05:00 PM Sat. During this time 2 SVE(s) occurred. No episodes of ST depr ession (defined as -1.0 mm or more) were noted in channel 1. In channel 2, a single episode of ST de pression (defined as -1.0 mm or more) occurred at 11:07:29 AM Sun with a maximum depression of -1.6 m m. No episodes of ST depression (defined as -1.0 mm or more) were noted in channel 3. NO DIARY ENTRI ES WERE RECORDED BY PATIENT TEST INTERPRETATION: MINIMUM HEART RATE 55, MAXIMUM HEART RATE 145, AVERAGE 83. OBVIOUSLY HOLTER . OCCASIONAL PAC'S. NO SIGNIFICANT PVC'S, NO ATRIAL FIBRILLATION. Signed by : Aba Huggins
--- NOTE | 2017-12-15 16:56 | ECHRPT ---
Indication: CVA/TIA CONCLUSIONS The left ventricular systolic function is mildly reduced with an estimated ejection fraction in the range of 45- 50%. There is global left ventricular dysfunction. There is trace tricuspid valve regurgitation. There is a small pericardial effusion present. No hemodynamically significant echocardiographic features were observed (no pre-tamponade physiology). BP: / HR: Rhythm: MEASUREMENTS (Male / Female) Normal Values Technical Quality: 2D ECHO LV Diastolic Diameter PLAX 4.2 cm 4.2 - 5.9 / 3.9 - 5.3 cm LV Systolic Diameter PLAX 3.1 cm IVS Diastolic Thickness 0.8 cm 0.6 - 1.0 / 0.6 - 0.9 cm LVPW Diastolic Thickness 0.6 cm 0.6 - 1.0 / 0.6 - 0.9 cm LV Relative Wall Thickness 0.3 RV Internal Dim ED PLAX 2.2 cm LA Systolic Diameter LX 3.1 cm 3.0 - 4.0 / 2.7 - 3.8 cm M-MODE AV Cusp Separation MM 1.8 cm DOPPLER Mitral E Point Velocity 60.7 cm/s Mitral A Point Velocity 73.1 cm/s Mitral E to A Ratio 0.8 TR Peak Velocity 175.0 cm/s TR Peak Gradient 12.3 mmHg Right Atrial Pressure 10.0 mmHg Pulmonary Artery Systolic Pressu 22.3 mmHg Right Ventricular Systolic Press 22.3 mmHg FINDINGS LEFT VENTRICLE Normal left ventricular size. Wall thickness is normal. The left ventricular systolic function is mildly reduced with an estimated ejection fraction in the range of 45- 50%. There is global left ventricular dysfunction. RIGHT VENTRICLE Normal right ventricular size and systolic function. LEFT ATRIUM The left atrial size is normal. RIGHT ATRIUM The right atrial size is normal. ATRIAL SEPTUM Normal atrial septal thickness AORTA The aortic root and proximal ascending aorta are normal in size on limited imaging. MITRAL VALVE Grossly normal mitral valve. No mitral valve stenosis or regurgitation. AORTIC VALVE Grossly normal aortic valve. No aortic valve stenosis or regurgitation. TRICUSPID VALVE Grossly normal There is trace tricuspid valve regurgitation. The estimated pulmonary arterial pressure is 23 mmHg. PULMONARY VALVE No pulmonary valve regurgitation or stenosis. VESSELS The inferior vena cava is normal in size. PERICARDIUM There is a small pericardial effusion present. No hemodynamically significant echocardiographic features were observed (no pre-tamponade physiology). Donald Paniagua DO (Electronically Signed) Final Date:15 December 2017 16:55
[2017-12-16] MEDS: Sod Chloride 0.9% Inj 1,000 ML IV.CONT SCH ×3 (06:22→20:02)
--- NOTE | 2017-12-16 07:08 | P.PNNEU ---
Subjective Subjective Comments: No acute events reported No headache No chest pain No dyspnea Active Medications: Active Medications Acetaminophen (Tylenol) 650 mg PO Q4H PRN PRN Reason: Temp > 100.4 Al Hydroxide/Mg Hydroxide (Milk Of Magnesia Liq) 30 ml PO Q12H PRN PRN Reason: Mild Constipation Aspirin (Aspirin) 325 mg PO DAILY [facility] Last Admin: 12/15/17 08:12 Dose: 325 mg Atorvastatin Calcium (Lipitor) 10 mg PO HS [facility] Last Admin: 12/15/17 21:25 Dose: 10 mg Bisacodyl (Dulcolax Supp) 10 mg RECTAL DAILY PRN PRN Reason: SEVERE CONSITIPATION Sodium Chloride (Ns Inj) 1,000 mls @ 100 mls/hr IV.CONT .Q10H [facility] Last Admin: 12/16/17 06:22 Dose: 100 mls/hr Ceftriaxone Sodium 1,000 mg/ (Sodium Chloride) 100 mls @ 200 mls/hr IV.SIG Q24H [facility] Last Infusion: 12/15/17 13:53 Dose: Infused Lactulose (Lactulose Liq) 30 ml PO DAILY PRN PRN Reason: SEVERE CONSITIPATION Ondansetron HCl (Zofran Inj) 4 mg IV.PUSH Q6H PRN PRN Reason: NAUSEA OR VOMITING Prochlorperazine (Compazine Supp) 25 mg RECTAL Q12H PRN PRN Reason: NAUSEA OR VOMITING Senna/Docusate Sodium (Rosetta-Colace) 1 tab PO BID [facility] Last Admin: 12/15/17 21:25 Dose: 1 tab Sennosides (Senokot) 17.2 mg PO Q12H PRN PRN Reason: Moderate Constipation Sodium Chloride (Ns Flush) 2 ml IV.FLUSH PRN PRN PRN Reason: FLUSH AFTER USING IV ACCESS Allergies/Adverse Reactions: Allergies Allergy/AdvReac Type Severity Reaction Status Date / Time Sulfa (Sulfonamide Allergy Mild Swelling Verified 12/13/17 12:12 Antibiotics) of Lip/Tongue/Throat Physical Exam Vital signs: Vital Signs 12/15/17 08:00 12/15/17 15:44 12/15/17 20:00 Temperature 97.5 F L 97.5 F L 97.7 F Pulse Rate 116 H 80 87 Respiratory Rate 20 19 18 Blood Pressure 130/74 91/53 L 135/85 Pulse Oximetry 95 95 95 12/15/17 23:31 12/16/17 00:00 12/16/17 04:00 Temperature 98.3 F 98.3 F 98.2 F Pulse Rate 81 70 75 Respiratory Rate 18 Blood Pressure 137/80 156/85 H 140/82 Pulse Oximetry 95 95 95 Intake & Output 12/15/17 12/16/17 12/16/17 18:59 06:59 18:59 Intake Total 3464 / 3464 1224 / 1224 Output Total 400 / 400 401 / 401 Balance 3064 / 3064 823 / 823 Intake: IV 3200 / 3200 NS Inj 1,000 ML @ 100 mls/hr IV 3000 / 3000 .CONT .Q10H [facility] Rx#:[id number] Rocephin Inj 1,000 MG In NS Inj 200 / 200 100 ML @ 200 mls/hr IV.SIG Q24H [facility] Rx#:[id number] Oral 264 / 264 24 / 24 Other 1200 / 1200 Output: Urine 400 / 400 400 / 400 Stool Other: # Incontinent Voids 1 # Urine Diapers 2 Date of Last Bowel Movement 12/15/17 # Bowel Movements 1 Narrative: no change aphasic r hp - Urinary Catheter Management Straight Cath placed during this visit: yes, but has since been removed by the nurse Reason for continuing: Not indwelling catheter Insertion date: 12/13/17 Insertion time: 09:48 Removal date: 12/13/17 Removal time: 09:49 Objective Laboratory Results - last 24 hr 12/14/17 12/14/17 06:46 06:56 Albumin (PEP) 3.48 L Albumin/Globulin Ratio 1.28 L Tebdr-2-Erfurpvba 0.22 Oyxrh-6-Qcvanxovf 0.78 Beta Globulins 0.70 Gamma Globulins 1.02 ABRAM Screen Neg Microbiology 12/13/17 09:48 Urine Culture - Final Clean Catch Urine Escherichia coli Review/Management - Review/Management Plan: Impression Most of the blood work is pending. CAT scan shows a subacute left large MCA infarct and a small what appears to be chronic right cerebellar infarct. I reviewed these films compared to a CAT scan done in October of this year and there is no significant change in the cerebellar region. Her UA is positive for UTI. It is unclear why she had a stroke but possibly she has had 2 infarcts in the past and anticoagulation could be considered. We will check a MRI of the brain and MRA neck and [place] echocardiogram Holter monitor. Check your LDL. For now we will put her on an aspirin a day and depending on what we come up with could consider anticoagulation. I think it is unlikely that is anything new neurologically going on here however. She would benefit from seeing for Botox for the right arm. 12/14/17 imp no new cva left ica mild dz left vert dom and r vert ends in ? pica ldl pend hypercoag ordered ua positive on abt oob if echo neg and holter done can dc would benefit see dr vickers here or o/p for botox rue 12/15/17 no change echo pend ldl 102 if this is not fasting then i would not start statin asa for now unless echo is abn hypercoag pend at some point could do nirmala i will have to see what was done at [facility] 12/16/17 no change echo and holter neg hyper pend was not of [facility] have been [facility] would have to get records there
--- NOTE | 2017-12-16 07:29 | P.PN ---
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 Per EMS family called because she was "not acting right. " EMS does not have any further information. Patient is unable to provide much further information but does answer no to several questions. She denies chest pain, dyspnea, abdominal pain, back pain, extremity pain. Her /significant other stated that she'd been doing well until several days ago when she seemed to forget she had a stroke and became anxious about her paralysis/weakness. She is noted more lethargic at times and not at her normal. Says she was able to ambulate with a walker with supervision 2 day sago and she is not herself anymore. There is change in her behavior . other [place] patient is without fever, change in urination, n/v/d/c. No change in urination, no pain , frequency or change in color of the urine. However the patient is noted with UTI and started rocephin IV abx, urine cx pending/ Patient is with expressive aphasia and is not able to communicate which seems is at baseline aphasia per significant other. 12/15 No significant change. Discussed with nursing staff, no acute issues noted overnight. Patient with expressive aphasia and unable to communicate effectively. She appears comfortable and in no distress. No family at the bedside this morning. 12/16 No change. Patient appears comfortable. She does not seem to indicate she is having any pain. DW nursing staff, patient with poor po intake. Patient is afebrile. VSS. Physical Exam Vital signs: Vital Signs 12/15/17 08:00 12/15/17 15:44 12/15/17 20:00 Temperature 97.5 F L 97.5 F L 97.7 F Pulse Rate 116 H 80 87 Respiratory Rate 20 18 Blood Pressure 130/74 91/53 L 135/85 Pulse Oximetry 95 95 95 12/15/17 23:31 12/16/17 00:00 12/16/17 04:00 Temperature 98.3 F 98.3 F 98.2 F Pulse Rate 81 70 75 Respiratory Rate 18 18 Blood Pressure 137/80 156/85 H 140/82 Pulse Oximetry 95 95 95 Intake & Output 12/15/17 12/16/17 12/16/17 18:59 06:59 18:59 Intake Total 3464 / 3464 1224 / 1224 Output Total 400 / 400 401 / 401 Balance 3064 / 3064 823 / 823 Intake: IV 3200 / 3200 NS Inj 1,000 ML @ 100 mls/hr IV 3000 / 3000 .CONT .Q10H [facility] Rx#:[id number] Rocephin Inj 1,000 MG In NS Inj 200 / 200 100 ML @ 200 mls/hr IV.SIG Q24H [facility] Rx#:[id number] Oral 264 / 264 24 / 24 Other 1200 / 1200 Output: Urine 400 / 400 400 / 400 Stool 1 / Other: # Incontinent Voids 1 # Urine Diapers 2 Date of Last Bowel Movement 12/15/17 # Bowel Movements 1 Narrative: GENERAL: WDWN female, INAD. Awake and alert lying in bed. + Expressive/receptive aphasia. SKIN: Warm and dry. No generalized rash. HEENT: Atraumatic. Normocephalic. Pupils equal and round. No scleral icterus. No injection or drainage. +diminished right visual field. No nasal bleeding or discharge. Mucous membranes pink and moist. NECK: Trachea midline. CARDIOVASCULAR: Regular rate and rhythm. No murmur appreciated on auscultation. RESPIRATORY: No accessory muscle use. Clear to auscultation. Breath sounds equal bilaterally. GASTROINTESTINAL: Abdomen soft, non-tender, nondistended. +BS. MUSCULOSKELETAL: Extremities without clubbing, cyanosis, or edema. +Spasticity in right arm. Unable to move right upper or lower extremity. NEUROLOGICAL: Awake and alert. Motor grossly within normal limits in left upper and lower extremity. 0/5 muscle strength in RUE and RLE. Abnormal speech , expressive aphasia. PSYCHIATRIC: Calm and cooperative. - Urinary Catheter Management Straight Cath placed during this visit: yes, but has since been removed by the nurse Reason for continuing: Not indwelling catheter Insertion date: 12/13/17 Insertion time: 09:48 Removal date: 12/13/17 Removal time: 09:49 Results - Labs CBC & Chem 7: 12/14/17 06:56 12/14/17 06:56 Laboratory Results - last 24 hr 12/14/17 12/14/17 06:46 06:56 Albumin (PEP) 3.48 L Albumin/Globulin Ratio 1.28 L Bxsjd-3-Gkaeyospf 0.22 Ucvcp-8-Murocgetw 0.78 Beta Globulins 0.70 Gamma Globulins 1.02 ABRAM Screen Neg Microbiology 12/13/17 09:48 Clean Catch Urine Urine Culture - Final Escherichia coli - Imaging ITS Impressions Head MRI 12/13/17 00:00 CONCLUSION: 1. There is a subacute infarct involving the posterior temporal and posterior left parietal lobe. 2. Small old infarct involving the peripheral aspect the right cerebellar hemisphere. Head MRA 12/13/17 00:00 CONCLUSION: 1. Unremarkable MRA of the [place]. Neck MRA 12/13/17 00:00 CONCLUSION: 1. Grossly unremarkable MRA of the carotids. Percent stenosis is calculated using the diameter of the stenotic region over the diameter of the normal distal internal carotid artery Chest X-Ray 12/13/17 09:13 CONCLUSION: No acute cardiopulmonary disease Head CT 12/13/17 09:13 CONCLUSION: 1. Evolving left parietal infarct. 2. Subacute right cerebellar infarct. . - Procedures None Assessment and Plan - Assessment (1) Carotid stenosis, bilateral Code(s): I65.23 - Occlusion and stenosis of bilateral carotid arteries Status : Acute (2) CVA (cerebrovascular accident) Code(s): I63.9 - Cerebral infarction, unspecified Status: Acute - Plan 57 yo F with h/o previous CVA and residual aphasia and right sided paralysis who presented with AMS: Hx of left large MCA infarct and chronic right cerebellar infarct with residual expressive and receptive aphasia and right sided weakness September 2017 MRI +subacute infarct involving the posterior temporal and posterior left parietal lobe and small old infarct involving the peripheral aspect the right cerebellar hemisphere 2D echo EF 45-50%, global left ventricular dysfunction, trace tricuspid valve regurgitation, small pericardial effusion -Neurology following, appreciate recommendations. No new CVA. Continue ASA for now unless echo is abnl. MICHAEL Zarate today - no medical records from [place]. Will d/w and obtain records from that facility if appropriate. If ALEX not done, will order here. -Hypercoagulable w/u pending -LDL 102 fasting, started on Lipitor 10mg qhs, continue -Per Neuro, patient would benefit from eval by Dr. Weber for possible botox to right arm. Consult pending. MICHAEL Weber today who will evaluate patient. -continue with PT/OT/ST - recommending rehab. Patient's is refusing rehab or home health care. -not eating well, consult quality assurance supervisor for calorie count E coli UTI, pansensitive -Continue on IV Ceftriaxone DVT ppx scd/teds Code Status: FULL Discussed Condition With: patient, crm functional analyst Planning: D/c planning in progress. Patient's is refusing HHC or rehab. Discharge pending ALEX results and neurology clearance. (2) CVA (cerebrovascular accident) Qualifiers: CVA mechanism: other Qualified Code(s): I63.8 - Other cerebral infarction
[2017-12-16] MEDS: Aspirin 325 MG Tablet PO SCH ×2 (09:33→09:36)
[2017-12-16] MEDS: Senna/Docusate Sodium 8.6/50 MG Tablet PO SCH ×2 (09:33→20:10)
--- NOTE | 2017-12-16 15:49 | P.CONREH ---
History of Present Illness Service: Physical medicine and rehabilitation Consult date: 12/16/17 Reason for Consult: Comprehensive rehabilitation evaluation/spasticity evaluation Primary Care Provider: No Primary Care Physician Chief Complaint: confusion, agitation History of Present Illness: Holly Curry is a 57-year-old female admitted to [facility] 12/13/17 with change in mental status. Patient had a history of previous stroke 09/03/17 with right hemiparesis and aphasia. Head CT showed large subacute left MCA infarct and chronic right cerebellar infarct. Brain MRI 12/13/17 shows subacute infarct in the left posterior parietal temporal region. She was treated for urinary tract infection. She has been receiving physical/occupational and speech therapy. She is noted to have significant tone in the right upper and lower extremity which are affecting range of motion as well as weightbearing through the right lower extremity for transfers and gait with physical therapy. She is currently not receiving any anti-spasticity medications. Allergies are reviewed and include sulfa. Review of Systems other (Unable to complete) [facility] - History History Provided By: Secondary Art Teacher / EMT - Medical History Medical History: Medical History (Last Updated 12/16/17 @ 15:45 by Mayuri Weber MD) COPD (chronic obstructive pulmonary disease) (Acute) Diabetes mellitus (Acute) CVA (cerebral vascular accident) - Surgical History Surgical History: Surgical History (Last Reviewed 12/16/17 @ 08:22 by Benji Cordon) H/O: section (Acute) - Tobacco History Smoking Status: Former smoker - Alcohol History How Often Do You Have a Drink Containing Alcohol: Never - Substance Use History Substance History: No History of Abuse - Travel History Recent Travel in the [place] Within the Last 8 Weeks: No Recent Travel Out of the Country Within the Last 8 Weeks: No - Immunization History Tetanus Immunization: Unsure Medications and Allergies Active Medications: Active Medications Acetaminophen (Tylenol) 650 mg PO Q4H PRN PRN Reason: Temp > 100.4 Al Hydroxide/Mg Hydroxide (Milk Of Magnesia Liq) 30 ml PO Q12H PRN PRN Reason: Mild Constipation Aspirin (Aspirin) 325 mg PO DAILY [facility] Last Admin: 12/16/17 09:36 Dose: Not Given Atorvastatin Calcium (Lipitor) 10 mg PO HS [facility] Last Admin: 12/15/17 21:25 Dose: 10 mg Bisacodyl (Dulcolax Supp) 10 mg RECTAL DAILY PRN PRN Reason: SEVERE CONSITIPATION Sodium Chloride (Ns Inj) 1,000 mls @ 42 mls/hr IV.CONT .[id number] [facility] Last Admin: 12/16/17 13:42 Dose: Not Given Ceftriaxone Sodium 1,000 mg/ (Sodium Chloride) 100 mls @ 200 mls/hr IV.SIG Q24H [facility] Last Infusion: 12/16/17 13:42 Dose: Infused Lactulose (Lactulose Liq) 30 ml PO DAILY PRN PRN Reason: SEVERE CONSITIPATION Ondansetron HCl (Zofran Inj) 4 mg IV.PUSH Q6H PRN PRN Reason: NAUSEA OR VOMITING Prochlorperazine (Compazine Supp) 25 mg RECTAL Q12H PRN PRN Reason: NAUSEA OR VOMITING Senna/Docusate Sodium (Rosetta-Colace) 1 tab PO BID [facility] Last Admin: 12/16/17 09:33 Dose: 1 tab Sennosides (Senokot) 17.2 mg PO Q12H PRN PRN Reason: Moderate Constipation Sodium Chloride (Ns Flush) 2 ml IV.FLUSH PRN PRN PRN Reason: FLUSH AFTER USING IV ACCESS Allergies Allergy/AdvReac Type Severity Reaction Status Date / Time Sulfa (Sulfonamide Allergy Mild Swelling Verified 12/13/17 12:12 Antibiotics) of Lip/Tongue/Throat Home Medications Medication Instructions Recorded Confirmed Type No Known Home Medications 12/13/17 12/13/17 History Exam - Physical Examination Vital Signs / I&O: Vital Signs 12/15/17 15:44 12/15/17 20:00 12/15/17 23:31 Temperature 97.5 F L 97.7 F 98.3 F Pulse Rate 80 87 81 Respiratory Rate 19 18 18 Blood Pressure 91/53 L 135/85 137/80 Pulse Oximetry 95 95 95 12/16/17 00:00 12/16/17 04:00 12/16/17 08:00 Temperature 98.3 F 98.2 F 98.1 F Pulse Rate 70 75 79 Respiratory Rate 18 18 16 Blood Pressure 156/85 H 140/82 123/83 Pulse Oximetry 95 95 93 L 12/16/17 12:00 Temperature 98.2 F Pulse Rate 80 Respiratory Rate 18 Blood Pressure 130/82 Pulse Oximetry 94 L Intake & Output 12/15/17 12/16/17 12/16/17 18:59 06:59 18:59 Intake Total 3464 / 3464 1224 / 1224 100 / 100 Output Total 400 / 400 401 / 401 Balance 3064 / 3064 823 / 823 100 / 100 Intake: IV 3200 / 3200 100 / 100 NS Inj 1,000 ML @ 100 mls/hr IV 3000 / 3000 .CONT .Q10H [facility] Rx#:[id number] Rocephin Inj 1,000 MG In NS Inj 200 / 200 100 / 100 100 ML @ 200 mls/hr IV.SIG Q24H [facility] Rx#:[id number] Oral 264 / 264 24 / Other 1200 / 1200 Output: Urine 400 / 400 400 / 400 Stool Other: # Incontinent Voids 1 # Urine Diapers 2 Date of Last Bowel Movement 12/15/17 # Bowel Movements 1 Intake & Output 12/14/17 12/15/17 12/16/17 12/17/17 06:59 06:59 06:59 06:59 Intake Total 1100 / 1100 480 / 480 4688 / 4688 100 / 100 Output Total 400 / 400 801 / 801 Balance 700 / 700 479 / 479 3887 / 3887 100 / 100 Weight 58.3 kg 58.2 kg General: No acute distress Respiratory: Lungs CTA, Non-labored respirations, BS equal Gastrointestinal: Positive bowel sounds, Non-distended, Non-tender Date of Last Bowel Movement: 12/15/17 Cardiovascular: Normal rate, Regular rhythm Psychiatric: Cooperative - Neurologic Neurologic: Pupils (PERRLA), EOM (Tracks bilaterally left greater than right), Speech (Aphasic; patient does not appear to be accurate for yes no) Motor: Right Upper Extremity (Tone is increased Elbow/wrist/finger flexion MAS 3 ), Left Upper Extremity (Grossly intact), Right Lower Extremity (Tone is increased for ankle inversion and plantar flexion MAS 3; knee extension MAS 2), Left Lower Extremity (Grossly intact) Balance: Standing (Standing balance is poor with decreased weightbearing through the right lower extremity) Results - Labs CBC & Chem 7: 12/14/17 06:56 12/14/17 06:56 Labs: Laboratory Results - last 24 hr 12/14/17 06:46 Albumin (PEP) 3.48 L Albumin/Globulin Ratio 1.28 L Gdaer-7-Zglmtjloj 0.22 Jtrql-3-Ngvrbxhxg 0.78 Beta Globulins 0.70 Gamma Globulins 1.02 Assessment and Plan (1) CVA (cerebrovascular accident) Status: Acute Code(s): I63.9 - Cerebral infarction, unspecified - Plan Assessment: 1. 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 Diabetes mellitus 3. COPD 4. Urinary tract infection 5. Sulfa allergy Recommendations: 1. Patient is tolerating mechanical soft diet with thin liquids per speech therapy recommendations. Continue to address communication 2. Continue mobilize with physical therapy. Patient is now moderate to maximal assistance for transfers and ambulating 12 feet 3. Baclofen 5 mg 3 times daily to help with right upper and lower extremity spasticity. Anticipate dose will need to be titrated. Will follow regarding this 4. Occupational therapy is addressing ADLs and minimal assistance for grooming and maximal assistance for remainder of self-care ADLs 5. Will follow while hospitalized and is appropriate at discharge. Will consider chemodenervation of botulinum toxin A as response to baclofen and is evaluated. Thank you for this consult (1) CVA (cerebrovascular accident) Qualifiers: CVA mechanism: other Qualified Code(s): I63.8 - Other cerebral infarction
--- NOTE | 2017-12-16 17:36 | P.DIET ---
Nutritional Evaluation Type of nutrition evaluation: initial Nutrition screening: [facility] (Calorie Counting) Subjective Subjective Comments: Expressive aphasia Objective - Diagnosis Acute Stroke or TIA - Objective % IBW: 95 (IBW = 135#) Body Weight Used for Calculations: Actual (58.2) Energy Needs - Lower Range (kCal/kg): 30 Energy Needs - Upper Range (kCal/kg): 35 Lower Limit kCal/kg (kCals): 1,746 Upper Limit kCal/kg (kCals): 2,037 Lower Limit Protein Factor (Grams per Kg): 1.0 Upper Limit Protein Factor (Grams per Kg): 1.5 Lower Protein Needs (Protein): 58 Upper Protein Needs (Protein): 87 Fluid Factor (ml/kg): 35 Estimated Fluid Needs (ml): 2,037 Dietitian Reviewed in Medical Record: Current diet, Curent medications, Intake & Output, Labs, Medical history Diet Order: Heart Healthy, mechanical soft Objective Comments: BMI 20.1 Feeding - Current PO Supplement Current Supplement: Ensure Enlive Current Supplement Flavor: Vanilla Current Frequency of Supplement: Three times a day Current kCals Provided by Supplement: 350 (per 8 oz serving) Current Protein Provided by Supplement: 20 (per 8 oz serving) Assessment Assessment: Calorie counts initiated per Dr's order. Poor po intake has been reported. Pt presents at 95% of her IBW with a BMI of 20.1. Will send Ensure Enlive tid and monitor acceptance. Pt has hx of DM listed, however, glucose had been wnl and pt is on no DM meds. Recommendations: 1. Diet texture per ST 2. Ensure Enlive tid 3. calorie counts 12/16-12/19 Dietitian to Monitor: Lab values, Supplement acceptance, Intake & Output, Diet tolerance, Weight change, PO Intake, Swallow recommendations, Medical course
[2017-12-16] MEDS: Baclofen 10 MG Tablet PO SCH (22:42)
[2017-12-17] MEDS: Baclofen 10 MG Tablet PO SCH ×3 (07:01→21:17)
--- NOTE | 2017-12-17 07:20 | P.PNNEU ---
Subjective Subjective Comments: No acute events reported No headache No chest pain No dyspnea Active Medications: Active Medications Acetaminophen (Tylenol) 650 mg PO Q4H PRN PRN Reason: Temp > 100.4 Al Hydroxide/Mg Hydroxide (Milk Of Magnesia Liq) 30 ml PO Q12H PRN PRN Reason: Mild Constipation Aspirin (Aspirin) 325 mg PO DAILY [facility] Last Admin: 12/16/17 09:36 Dose: Not Given Atorvastatin Calcium (Lipitor) 10 mg PO HS [facility] Last Admin: 12/16/17 20:10 Dose: 10 mg Baclofen (Lioresal) 5 mg PO Q8HR [facility] Last Admin: 12/17/17 07:01 Dose: 5 mg Bisacodyl (Dulcolax Supp) 10 mg RECTAL DAILY PRN PRN Reason: SEVERE CONSITIPATION Sodium Chloride (Ns Inj) 1,000 mls @ 42 mls/hr IV.CONT .[id number] [facility] Last Admin: 12/16/17 20:02 Dose: 42 mls/hr Ceftriaxone Sodium 1,000 mg/ (Sodium Chloride) 100 mls @ 200 mls/hr IV.SIG Q24H [facility] Last Infusion: 12/16/17 13:42 Dose: Infused Lactulose (Lactulose Liq) 30 ml PO DAILY PRN PRN Reason: SEVERE CONSITIPATION Miscellaneous (Pill Splitter) 1 each OTHER UNSCH PRN PRN Reason: PILL SPLITTER Ondansetron HCl (Zofran Inj) 4 mg IV.PUSH Q6H PRN PRN Reason: NAUSEA OR VOMITING Prochlorperazine (Compazine Supp) 25 mg RECTAL Q12H PRN PRN Reason: NAUSEA OR VOMITING Senna/Docusate Sodium (Rosetta-Colace) 1 tab PO BID [facility] Last Admin: 12/16/17 20:10 Dose: 1 tab Sennosides (Senokot) 17.2 mg PO Q12H PRN PRN Reason: Moderate Constipation Sodium Chloride (Ns Flush) 2 ml IV.FLUSH PRN PRN PRN Reason: FLUSH AFTER USING IV ACCESS Allergies/Adverse Reactions: Allergies Allergy/AdvReac Type Severity Reaction Status Date / Time Sulfa (Sulfonamide Allergy Mild Swelling Verified 12/13/17 12:12 Antibiotics) of Lip/Tongue/Throat Physical Exam Vital signs: Vital Signs 12/16/17 08:00 12/16/17 12:00 12/16/17 16:00 Temperature 98.1 F 98.2 F 98.4 F Pulse Rate 79 80 82 Respiratory Rate 16 18 18 Blood Pressure 123/83 130/82 129/87 Pulse Oximetry 93 L 94 L 93 L 12/16/17 20:00 12/17/17 00:00 12/17/17 04:00 Temperature 97.6 F 98 F 97.3 F L Pulse Rate 83 67 66 Respiratory Rate 16 16 16 Blood Pressure 119/77 129/73 117/73 Pulse Oximetry 95 95 94 L Intake & Output 12/16/17 12/17/17 12/17/17 18:59 06:59 18:59 Intake Total 1580 / 1580 980 / 980 Output Total 600 / 600 Balance 980 / 980 980 / 980 Weight 50.9 kg Intake: IV 1100 / 1100 NS Inj 1,000 ML @ 42 mls/hr IV. 1000 / 1000 CONT .[id number] [facility] Rx#:[id number] Rocephin Inj 1,000 MG In NS Inj 100 / 100 100 ML @ 200 mls/hr IV.SIG Q24H [facility] Rx#:[id number] Oral 480 / 480 480 / 480 Other 500 / 500 Output: Urine 600 / 600 Other: Other Intake Source Saline Solution # Voids 1 # Incontinent Voids 2 Date of Last Bowel Movement 12/15/17 12/16/17 # Incontinent Bowel Movements 1 Narrative: no change here rhp aphasia - Urinary Catheter Management Straight Cath placed during this visit: yes, but has since been removed by the nurse Reason for continuing: Not indwelling catheter Insertion date: 12/13/17 Insertion time: 09:48 Removal date: 12/13/17 Removal time: 09:49 Objective Laboratory Results - last 24 hr 12/14/17 06:46 PEP Pathologist Comment Review/Management - Review/Management Plan: Impression Most of the blood work is pending. CAT scan shows a subacute left large MCA infarct and a small what appears to be chronic right cerebellar infarct. I reviewed these films compared to a CAT scan done in October of this year and there is no significant change in the cerebellar region. Her UA is positive for UTI. It is unclear why she had a stroke but possibly she has had 2 infarcts in the past and anticoagulation could be considered. We will check a MRI of the brain and MRA neck and [place] echocardiogram Holter monitor. Check your LDL. For now we will put her on an aspirin a day and depending on what we come up with could consider anticoagulation. I think it is unlikely that is anything new neurologically going on here however. She would benefit from seeing for Botox for the right arm. 12/14/17 imp no new cva left ica mild dz left vert dom and r vert ends in ? pica ldl pend hypercoag ordered ua positive on abt oob if echo neg and holter done can dc would benefit see dr vickers here or o/p for botox rue 12/15/17 no change echo pend ldl 102 if this is not fasting then i would not start statin asa for now unless echo is abn hypercoag pend at some point could do nirmala i will have to see what was done at [facility] 12/16/17 no change echo and holter neg hyper [facility] would have to get records there /12/17/17 stable neuro oob await [facility] records if nirmala done or not etc if hypercoag neg would recommend loop placed sr here still
--- NOTE | 2017-12-17 08:08 | P.PN ---
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 Per EMS family called because she was "not acting right. " EMS does not have any further information. Patient is unable to provide much further information but does answer no to several questions. She denies chest pain, dyspnea, abdominal pain, back pain, extremity pain. Her /significant other stated that she'd been doing well until several days ago when she seemed to forget she had a stroke and became anxious about her paralysis/weakness. She is noted more lethargic at times and not at her normal. Says she was able to ambulate with a walker with supervision 2 day sago and she is not herself anymore. There is change in her behavior . other [place] patient is without fever, change in urination, n/v/d/c. No change in urination, no pain , frequency or change in color of the urine. However the patient is noted with UTI and started rocephin IV abx, urine cx pending/ Patient is with expressive aphasia and is not able to communicate which seems is at baseline aphasia per significant other. 12/15 No significant change. Discussed with nursing staff, no acute issues noted overnight. Patient with expressive aphasia and unable to communicate effectively. She appears comfortable and in no distress. No family at the bedside this morning. 12/16 No change. Patient appears comfortable. She does not seem to indicate she is having any pain. DW nursing staff, patient with poor po intake. Patient is afebrile. VSS. 12/17 Patient seen and examined. Patient encountered lying awake in her bed. She appears comfortable. She appears to communicate that she is not in any pain. Discussed with nursing staff, no acute issues noted. Reviewed medical records from [facility], no mention of ALEX. She is afebrile. Vital signs stable. Physical Exam Vital signs: Vital Signs 12/16/17 12:00 12/16/17 16:00 12/16/17 20:00 Temperature 98.2 F 98.4 F 97.6 F Pulse Rate 80 82 83 Respiratory Rate 18 18 16 Blood Pressure 130/82 129/87 119/77 Pulse Oximetry 94 L 93 L 95 12/17/17 00:00 12/17/17 04:00 Temperature 98 F 97.3 F L Pulse Rate 67 66 Respiratory Rate 16 16 Blood Pressure 129/73 117/73 Pulse Oximetry 95 94 L Intake & Output 12/16/17 12/17/17 12/17/17 18:59 06:59 18:59 Intake Total 1580 / 1580 980 / 980 Output Total 600 / 600 Balance 980 / 980 980 / 980 Weight 50.9 kg Intake: IV 1100 / 1100 NS Inj 1,000 ML @ 42 mls/hr IV. 1000 / 1000 CONT .[id number] [facility] Rx#:[id number] Rocephin Inj 1,000 MG In NS Inj 100 / 100 100 ML @ 200 mls/hr IV.SIG Q24H [facility] Rx#:[id number] Oral 480 / 480 480 / 480 Other 500 / 500 Output: Urine 600 / 600 Other: Other Intake Source Saline Solution # Voids 1 # Incontinent Voids 2 Date of Last Bowel Movement 12/15/17 12/16/17 # Incontinent Bowel Movements 1 Narrative: GENERAL: WDWN female, INAD. Awake and alert lying in bed. + Expressive/receptive aphasia. SKIN: Warm and dry. No generalized rash. HEENT: Atraumatic. Normocephalic. Pupils equal and round. No scleral icterus. No injection or drainage. +diminished right visual field. No nasal bleeding or discharge. Mucous membranes pink and moist. NECK: Trachea midline. CARDIOVASCULAR: Regular rate and rhythm. No murmur appreciated on auscultation. RESPIRATORY: No accessory muscle use. Clear to auscultation. Breath sounds equal bilaterally. GASTROINTESTINAL: Abdomen soft, non-tender, nondistended. +BS. MUSCULOSKELETAL: Extremities without clubbing, cyanosis, or edema. +Spasticity in right arm. Right arm in splint. Unable to move right upper or lower extremity. NEUROLOGICAL: Awake and alert. Motor grossly within normal limits in left upper and lower extremity. 0/5 muscle strength in RUE and RLE. Abnormal speech , expressive aphasia. PSYCHIATRIC: Calm and cooperative. - Urinary Catheter Management Straight Cath placed during this visit: yes, but has since been removed by the nurse Reason for continuing: Not indwelling catheter Insertion date: 12/13/17 Insertion time: 09:48 Removal date: 12/13/17 Removal time: 09:49 Results - Labs CBC & Chem 7: 12/14/17 06:56 12/14/17 06:56 Laboratory Results - last 24 hr 12/14/17 06:46 PEP Pathologist Comment - Imaging ITS Impressions Head MRI 12/13/17 00:00 CONCLUSION: 1. There is a subacute infarct involving the posterior temporal and posterior left parietal lobe. 2. Small old infarct involving the peripheral aspect the right cerebellar hemisphere. Head MRA 12/13/17 00:00 CONCLUSION: 1. Unremarkable MRA of the [place]. Neck MRA 12/13/17 00:00 CONCLUSION: 1. Grossly unremarkable MRA of the carotids. Percent stenosis is calculated using the diameter of the stenotic region over the diameter of the normal distal internal carotid artery Chest X-Ray 12/13/17 09:13 CONCLUSION: No acute cardiopulmonary disease Head CT 12/13/17 09:13 CONCLUSION: 1. Evolving left parietal infarct. 2. Subacute right cerebellar infarct. . - Procedures None Assessment and Plan - Plan 57 yo F with h/o previous CVA and residual aphasia and right sided paralysis who presented with AMS: Hx of left large MCA infarct and chronic right cerebellar infarct with residual expressive and receptive aphasia and right sided weakness September 2017 MRI +subacute infarct involving the posterior temporal and posterior left parietal lobe and small old infarct involving the peripheral aspect the right cerebellar hemisphere 2D echo EF 45-50%, global left ventricular dysfunction, trace tricuspid valve regurgitation, small pericardial effusion Reviewed medical records from [facility] -Neurology following, appreciate recommendations. No new CVA. Continue ASA for now unless echo is abnl. -Consult cardiology for ALEX, appreciate assistance -Hypercoagulable w/u pending -LDL 102 fasting, started on Lipitor 10mg qhs, continue -Dr. Weber following, started on baclofen 5 mg 3 times daily with plans to titrate up. Considering Botox chemodeneravationn pending response to baclofen. -continue with PT/OT/ST - recommending rehab. Patient's is refusing rehab or home health care. -not eating well, dietitian following, calorie count 12/16-12/19. Add Ensure Enlive 3 times daily. E coli UTI, pansensitive -Discontinue IV ceftriaxone -Change to Ceftin 250 mg twice daily 5 days DVT ppx scd/teds Code Status: FULL Discussed Condition With: patient, RN, Dr. Suero Discharge Planning: Not ready for discharge. Discharge pending neurology clearance. Scheduled to have ALEX done on 12/19.
[2017-12-17] MEDS: Senna/Docusate Sodium 8.6/50 MG Tablet PO SCH ×2 (08:49→21:16)
[2017-12-17] MEDS: Aspirin 325 MG Tablet PO SCH (08:49)
--- NOTE | 2017-12-17 13:07 | P.CONCA ---
<Julita Hameed N - Last Filed: 12/17/17 12:37> History of Present Illness Service: Cardiology Consult date: 12/17/17 Requesting Physician: Alexandra Metzger Reason for Consult: Evaluation for ALEX Primary Care Provider: No Primary Care Physician Chief Complaint: confusion, agitation History of Present Illness: This is a very pleasant 57-year-old female, with a history of CVA with residual aphasia and right-sided paralysis. She was brought in by EMS with complaints of altered mental status per the family. She has a history of CVA, diabetes, COPD, former smoker and . This history was obtained via record review, unable to obtain any more health history due to patient's expressive aphasia and family unavailable at this time. She does shake her head yes and no to questions and follows commands. She currently denies any chest pain, pressure, palpitations, dizziness or shortness of breath. Review of Systems All other systems reviewed negative except as stated in HPI PMFSH - History History Provided By: [employer] / EMT - Medical History Medical History: Medical History (Last Reviewed 12/17/17 @ 09:33 by Pauline Garcia) COPD (chronic obstructive pulmonary disease) (Acute) Diabetes mellitus (Acute) CVA (cerebral vascular accident) - Surgical History Surgical History: Surgical History (Last Reviewed 12/17/17 @ 09:33 by Pauline Garcia) H/O: section (Acute) - Tobacco History Smoking Status: Former smoker - Alcohol History How Often Do You Have a Drink Containing Alcohol: Never - Substance Use History Substance History: No History of Abuse - Travel History Recent Travel in the [place] Within the Last 8 Weeks: No Recent Travel Out of the Country Within the Last 8 Weeks: No - Immunization History Tetanus Immunization: Unsure Medications and Allergies Allergies Allergy/AdvReac Type Severity Reaction Status Date / Time Sulfa (Sulfonamide Allergy Mild Swelling Verified 12/13/17 12:12 Antibiotics) of Lip/Tongue/Throat Home Medications Medication Instructions Recorded Confirmed Type No Known Home Medications 12/13/17 12/13/17 History Active Medications: Active Medications Acetaminophen (Tylenol) 650 mg PO Q4H PRN PRN Reason: Temp > 100.4 Al Hydroxide/Mg Hydroxide (Milk Of Magnesia Liq) 30 ml PO Q12H PRN PRN Reason: Mild Constipation Aspirin (Aspirin) 325 mg PO DAILY [facility] Last Admin: 12/17/17 08:49 Dose: 325 mg Atorvastatin Calcium (Lipitor) 10 mg PO HS [facility] Last Admin: 12/16/17 20:10 Dose: 10 mg Baclofen (Lioresal) 5 mg PO Q8HR [facility] Last Admin: 12/17/17 07:01 Dose: 5 mg Bisacodyl (Dulcolax Supp) 10 mg RECTAL DAILY PRN PRN Reason: SEVERE CONSITIPATION Sodium Chloride (Ns Inj) 1,000 mls @ 42 mls/hr IV.CONT .[id number] [facility] Last Admin: 12/16/17 20:02 Dose: 42 mls/hr Ceftriaxone Sodium 1,000 mg/ (Sodium Chloride) 100 mls @ 200 mls/hr IV.SIG Q24H [facility] Last Admin: 12/17/17 12:32 Dose: 200 mls/hr Lactulose (Lactulose Liq) 30 ml PO DAILY PRN PRN Reason: SEVERE CONSITIPATION Miscellaneous (Pill Splitter) 1 each OTHER UNSCH PRN PRN Reason: PILL SPLITTER Ondansetron HCl (Zofran Inj) 4 mg IV.PUSH Q6H PRN PRN Reason: NAUSEA OR VOMITING Prochlorperazine (Compazine Supp) 25 mg RECTAL Q12H PRN PRN Reason: NAUSEA OR VOMITING Senna/Docusate Sodium (Rosetta-Colace) 1 tab PO BID [facility] Last Admin: 12/17/17 08:49 Dose: 1 tab Sennosides (Senokot) 17.2 mg PO Q12H PRN PRN Reason: Moderate Constipation Sodium Chloride (Ns Flush) 2 ml IV.FLUSH PRN PRN PRN Reason: FLUSH AFTER USING IV ACCESS Exam Vital signs: Vital Signs 12/16/17 16:00 12/16/17 20:00 12/17/17 00:00 Temperature 98.4 F 97.6 F 98 F Pulse Rate 82 83 67 Respiratory Rate 18 16 16 Blood Pressure 129/87 119/77 129/73 Pulse Oximetry 93 L 95 95 12/17/17 04:00 12/17/17 08:00 Temperature 97.3 F L 98.0 F Pulse Rate 66 78 Respiratory Rate 16 16 Blood Pressure 117/73 113/81 Pulse Oximetry 94 L 92 L Intake & Output 12/16/17 12/17/17 12/17/17 18:59 06:59 18:59 Intake Total 1580 / 1580 980 / 980 Output Total 600 / 600 Balance 980 / 980 980 / 980 Weight 50.9 kg Intake: IV 1100 / 1100 NS Inj 1,000 ML @ 42 mls/hr IV. 1000 / 1000 CONT .[id number] [facility] Rx#:[id number] Rocephin Inj 1,000 MG In NS Inj 100 / 100 100 ML @ 200 mls/hr IV.SIG Q24H [facility] Rx#:[id number] Oral 480 / 480 480 / 480 Other 500 / 500 Output: Urine 600 / 600 Other: Other Intake Source Saline Solution # Voids 1 # Incontinent Voids 2 Date of Last Bowel Movement 12/15/17 12/16/17 # Incontinent Bowel Movements 1 - Constitutional no acute distress - Routine HEENT Exam Head: Present: normocephalic Eye: Present: EOMI, PERRL ENT: Present: mucous membranes moist - Routine Neck Exam Present: supple - Routine Respiratory Exam Present: CTA bilaterally - Routine Cardiovascular Exam Present: S1, S2. Absent: murmur, gallop, rubs - Routine Abdominal Exam Present: soft - Routine Extremities Exam Present: pulses intact, normal capillary refill. Absent: cyanosis, clubbing, edema Comments: Right upper and lower paralysis due to previous CVA. - Routine Skin Exam Present: intact - Routine Neurological Exam Expressive aphasia Results 12/14/17 06:56 12/14/17 06:56 Intake and Output 12/16/17 12/17/17 12/17/17 22:59 06:59 14:59 Intake Total 1480 / 1480 980 / 980 Output Total 600 / 600 Balance 880 / 880 980 / 980 Intake: IV 1000 / 1000 NS Inj 1,000 ML @ 42 mls/hr IV. 1000 / 1000 CONT .[id number] [facility] Rx#:[id number] Oral 480 / 480 480 / 480 Other 500 / 500 Output: Urine 600 / 600 Other: Other Intake Source Saline Solution # Voids 1 # Incontinent Voids 2 Date of Last Bowel Movement 12/16/17 12/16/17 # Incontinent Bowel Movements 1 Weight 50.9 kg EKG interpretations - EKG EKG results cardiology: sinus rhythm Assessment and Plan - Assessment (1) CVA (cerebrovascular accident) Code(s): I63.9 - Cerebral infarction, unspecified Status: Acute (2) Expressive aphasia Code(s): R47.01 - Aphasia Status: Acute (3) Carotid stenosis, bilateral Code(s): I65.23 - Occlusion and stenosis of bilateral carotid arteries Status : Acute (4) COPD (chronic obstructive pulmonary disease) Code(s): J44.9 - Chronic obstructive pulmonary disease, unspecified Status: Acute (5) Diabetes mellitus Code(s): E11.9 - Type 2 diabetes mellitus without complications Status: Acute - Plan ALEX scheduled for the , keep patient npo 8 hours prior to procedure. Patient currently on aspirin, continue to monitor for atrial fibrillation. Continue with current cardiac treatment plan and adjust as needed. The patient was seen and evaluated by Dr. Patrick who participated in care, management and decision-making. <Hannah Patrick - Last Filed: 12/17/17 17:15> History of Present Illness Primary Care Provider: No Primary Care Physician [facility] - Medical History Medical History: Medical History (Last Reviewed 12/17/17 @ 09:33 by Pauline Garcia) COPD (chronic obstructive pulmonary disease) (Acute) Diabetes mellitus (Acute) CVA (cerebral vascular accident) - Surgical History Surgical History: Surgical History (Last Reviewed 12/17/17 @ 09:33 by Pauline Garcia) H/O: section (Acute) Medications and Allergies Active Medications: Active Medications Acetaminophen (Tylenol) 650 mg PO Q4H PRN PRN Reason: Temp > 100.4 Al Hydroxide/Mg Hydroxide (Milk Of Joseph Krishnamurthy) 30 ml PO Q12H PRN PRN Reason: Mild Constipation Aspirin (Aspirin) 325 mg PO DAILY [facility] Last Admin: 12/17/17 08:49 Dose: 325 mg Atorvastatin Calcium (Lipitor) 10 mg PO HS [facility] Last Admin: 12/16/17 20:10 Dose: 10 mg Baclofen (Lioresal) 10 mg PO Q8HR [facility] Bisacodyl (Dulcolax Supp) 10 mg RECTAL DAILY PRN PRN Reason: SEVERE CONSITIPATION Cefuroxime Axetil (Ceftin) 250 mg PO Q12HR [facility] Stop: 12/22/17 20:59 Sodium Chloride (Ns Inj) 1,000 mls @ 42 mls/hr IV.CONT .[id number] [facility] Last Admin: 12/17/17 15:21 Dose: Not Given Lactulose (Lactulose Liq) 30 ml PO DAILY PRN PRN Reason: SEVERE CONSITIPATION Miscellaneous (Pill Splitter) 1 each OTHER UNSCH PRN PRN Reason: PILL SPLITTER Ondansetron HCl (Zofran Inj) 4 mg IV.PUSH Q6H PRN PRN Reason: NAUSEA OR VOMITING Prochlorperazine (Compazine Supp) 25 mg RECTAL Q12H PRN PRN Reason: NAUSEA OR VOMITING Senna/Docusate Sodium (Rosetta-Colace) 1 tab PO BID [facility] Last Admin: 12/17/17 08:49 Dose: 1 tab Sennosides (Senokot) 17.2 mg PO Q12H PRN PRN Reason: Moderate Constipation Sodium Chloride (Ns Flush) 2 ml IV.FLUSH PRN PRN PRN Reason: FLUSH AFTER USING IV ACCESS Exam Vital signs: Vital Signs 12/16/17 20:00 12/17/17 00:00 12/17/17 04:00 Temperature 97.6 F 98 F 97.3 F L Pulse Rate 83 67 66 Respiratory Rate 16 16 16 Blood Pressure 119/77 129/73 117/73 Pulse Oximetry 95 95 94 L 12/17/17 08:00 Temperature 98.0 F Pulse Rate 78 Respiratory Rate 16 Blood Pressure 113/81 Pulse Oximetry 92 L Intake & Output 12/16/17 12/17/17 12/17/17 18:59 06:59 18:59 Intake Total 1580 / 1580 980 / 980 100 / 100 Output Total 600 / 600 Balance 980 / 980 980 / 980 100 / 100 Weight 112 lb 3.445 oz Intake: IV 1100 / 1100 100 / 100 NS Inj 1,000 ML @ 42 mls/hr IV. 1000 / 1000 CONT .[id number] [facility] Rx#:[id number] Rocephin Inj 1,000 MG In NS Inj 100 / 100 100 / 100 100 ML @ 200 mls/hr IV.SIG Q24H [facility] Rx#:[id number] Oral 480 / 480 480 / 480 Other 500 / 500 Output: Urine 600 / 600 Other: Other Intake Source Saline Solution # Voids 1 # Incontinent Voids 2 Date of Last Bowel Movement 12/15/17 12/16/17 # Incontinent Bowel Movements 1 Results 12/14/17 06:56 12/14/17 06:56 Intake and Output 12/17/17 12/17/17 12/17/17 06:59 14:59 22:59 Intake Total 980 / 980 100 / 100 Balance 980 / 980 100 / 100 Intake: IV 100 / 100 Rocephin Inj 1,000 MG In NS Inj 100 / 100 100 ML @ 200 mls/hr IV.SIG Q24H [facility] Rx#:[id number] Oral 480 / 480 Other 500 / 500 Other: Other Intake Source Saline Solution # Incontinent Voids 2 Date of Last Bowel Movement 12/16/17 # Incontinent Bowel Movements 1 Weight 112 lb 3.445 oz Assessment and Plan - Assessment (1) CVA (cerebrovascular accident) Code(s): I63.9 - Cerebral infarction, unspecified Status: Acute (2) Expressive aphasia Code(s): R47.01 - Aphasia Status: Acute (3) Carotid stenosis, bilateral Code(s): I65.23 - Occlusion and stenosis of bilateral carotid arteries Status : Acute (4) COPD (chronic obstructive pulmonary disease) Code(s): J44.9 - Chronic obstructive pulmonary disease, unspecified Status: Acute (5) Diabetes mellitus Code(s): E11.9 - Type 2 diabetes mellitus without complications Status: Acute - Attending Attestation Patient seen and examined. I reviewed and agree with the evaluation and plan as presented. Continue monitoring on tele for AF. Schedule ALEX. D/w pt and significant other. <Julita Hameed - Last Filed: 12/17/17 12:37> (1) CVA (cerebrovascular accident) Qualifiers: CVA mechanism: other Qualified Code(s): I63.8 - Other cerebral infarction <Hannah Patrick - Last Filed: 12/17/17 17:15> (1) CVA (cerebrovascular accident) Qualifiers: Qualified Code(s): I63.8 - Other cerebral infarction
[2017-12-17] MEDS: Sod Chloride 0.9% Inj 1,000 ML IV.CONT SCH (15:21)
[2017-12-17 15:50] LABS: Dil Russell Viper Venom Conf ( ND (NEGATIVE); Dil Russell Viper Venom Time M ND (CORRECTED); Lupus Anticoagulant PTT Screen 34 seconds (< OR = 40)
--- NOTE | 2017-12-17 17:15 | P.PNREH ---
Subjective Interval history: Patient resting comfortably in bed. Not in any apparent distress. Aphasic but appears to deny any pain complaints. No shortness of breath noted. Right resting hand splint is in place. Review of Systems other (Unable to complete due to aphasia) Exam - Physical Examination Vital Signs / I&O: Vital Signs 12/16/17 20:00 12/17/17 00:00 12/17/17 04:00 Temperature 97.6 F 98 F 97.3 F L Pulse Rate 83 67 66 Respiratory Rate 16 16 16 Blood Pressure 119/77 129/73 117/73 Pulse Oximetry 95 95 94 L 12/17/17 08:00 Temperature 98.0 F Pulse Rate 78 Respiratory Rate 16 Blood Pressure 113/81 Pulse Oximetry 92 L Intake & Output 12/16/17 12/17/17 12/17/17 18:59 06:59 18:59 Intake Total 1580 / 1580 980 / 980 100 / 100 Output Total 600 / 600 Balance 980 / 980 980 / 980 100 / 100 Weight 50.9 kg Intake: IV 1100 / 1100 100 / 100 NS Inj 1,000 ML @ 42 mls/hr IV. 1000 / 1000 CONT .[id number] [facility] Rx#:[id number] Rocephin Inj 1,000 MG In NS Inj 100 / 100 100 / 100 100 ML @ 200 mls/hr IV.SIG Q24H [facility] Rx#:[id number] Oral 480 / 480 480 / 480 Other 500 / 500 Output: Urine 600 / 600 Other: Other Intake Source Saline Solution # Voids 1 # Incontinent Voids 2 Date of Last Bowel Movement 12/15/17 12/16/17 # Incontinent Bowel Movements 1 Intake & Output 12/15/17 12/16/17 12/17/17 12/18/17 06:59 06:59 06:59 06:59 Intake Total 480 / 480 4688 / 4688 2560 / 2560 100 / 100 Output Total 1 / 1 801 / 801 600 / 600 Balance 479 / 479 3887 / 3887 1960 / 1960 100 / 100 Weight 58.2 kg 50.9 kg General: No acute distress, Other (Awake and alert) Date of Last Bowel Movement: 12/16/17 Psychiatric: Cooperative - Neurologic Motor: Right Upper Extremity (Hand splint in place; elbow flexor tone MAS 23; finger and wrist flexor tone MAS 3), Right Lower Extremity (Knee flexor tone MAS 23; ankle plantarflexion tone MAS 3 with sustained clonus at the ankle in inversion) Objective Laboratory Results - last 24 hr 12/14/17 12/14/17 10:42 10:42 Thrombin Time ND Lupus Anticoagulant LA PTT Screen 34 dRVVT Screen 40 LA dRVVT Confirm ND dRVVT Mix ND Hexagonal Phase Confirm ND Factor VIII Activity 91 Assessment and Plan (1) CVA (cerebrovascular accident) Status: Acute Code(s): I63.9 - Cerebral infarction, unspecified Qualifiers: CVA mechanism: other Qualified Code(s): I63.8 - Other cerebral infarction - Plan Assessment: 1. 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 Diabetes mellitus 3. COPD 4. Urinary tract infection 5. Sulfa allergy Recommendations: 1. Patient is tolerating mechanical soft diet with thin liquids per speech therapy recommendations. Continue to address communication 2. Continue mobilize with physical therapy. 3. Baclofen was started 12/16/17 at 5 mg 3 times daily to help with right upper and lower extremity spasticity. No sedation is noted. Dose is increased to 10 mg 3 times a day. Will continue to follow to adjust. 4. Occupational therapy is addressing ADLs and minimal assistance for grooming and maximal assistance for remainder of self-care ADLs 5. Will follow while hospitalized and is appropriate at discharge. Will consider chemodenervation of botulinum toxin A as response to baclofen is evaluated.
[2017-12-18 03:51] LABS: Activated Protein C Resistance 4.4 ratio (> OR = 2.1); Homocysteine (Cardiovascular) 12.7 umol/L (<10.4)
[2017-12-18] MEDS: Baclofen 10 MG Tablet PO SCH ×3 (05:36→21:33)
--- NOTE | 2017-12-18 06:50 | P.PN ---
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 Per EMS family called because she was "not acting right. " EMS does not have any further information. Patient is unable to provide much further information but does answer no to several questions. She denies chest pain, dyspnea, abdominal pain, back pain, extremity pain. Her /significant other stated that she'd been doing well until several days ago when she seemed to forget she had a stroke and became anxious about her paralysis/weakness. She is noted more lethargic at times and not at her normal. Says she was able to ambulate with a walker with supervision 2 day sago and she is not herself anymore. There is change in her behavior . other [place] patient is without fever, change in urination, n/v/d/c. No change in urination, no pain , frequency or change in color of the urine. However the patient is noted with UTI and started rocephin IV abx, urine cx pending/ Patient is with expressive aphasia and is not able to communicate which seems is at baseline aphasia per significant other. 12/15 No significant change. Discussed with nursing staff, no acute issues noted overnight. Patient with expressive aphasia and unable to communicate effectively. She appears comfortable and in no distress. No family at the bedside this morning. 12/16 No change. Patient appears comfortable. She does not seem to indicate she is having any pain. DW nursing staff, patient with poor po intake. Patient is afebrile. VSS. 12/17 Patient seen and examined. Patient encountered lying awake in her bed. She appears comfortable. She appears to communicate that she is not in any pain. Discussed with nursing staff, no acute issues noted. Reviewed medical records from [facility], no mention of ALEX. She is afebrile. Vital signs stable. 12/18 Patient encountered lying in her bed. She is awake and alert. She appears comfortable. She is not in any distress. She is afebrile and VSS. No events noted overnight. Physical Exam Vital signs: Vital Signs 12/17/17 08:00 12/17/17 12:00 12/17/17 16:00 Temperature 98.0 F 98.0 F 98.7 F Pulse Rate 69 95 H 90 Respiratory Rate 16 18 16 Blood Pressure 113/81 140/82 120/74 Pulse Oximetry 92 L 94 L 93 L 12/17/17 20:00 12/18/17 00:00 12/18/17 04:00 Temperature 98.5 F 97.3 F L 97.7 F Pulse Rate 85 85 73 Respiratory Rate 16 Blood Pressure 104/63 115/66 113/56 L Pulse Oximetry 95 95 94 L Intake & Output 12/17/17 12/17/17 12/18/17 06:59 18:59 06:59 Intake Total 980 / 980 100 / 100 1000 / 1000 Output Total 750 / 750 Balance 980 / 980 -650 / -650 1000 / 1000 Weight 50.9 kg 52.9 kg Intake: IV 100 / 100 1000 / 1000 NS Inj 1,000 ML @ 42 mls/hr IV. 1000 / 1000 CONT .[id number] [facility] Rx#:[id number] Rocephin Inj 1,000 MG In NS Inj 100 / 100 100 ML @ 200 mls/hr IV.SIG Q24H [facility] Rx#:[id number] Oral 480 / 480 Other 500 / 500 Output: Urine Amount (Catheter) 750 / 750 Female External 750 / 750 Other: Other Intake Source Saline Solution # Incontinent Voids 2 1 Date of Last Bowel Movement 12/16/17 12/16/17 12/16/17 # Incontinent Bowel Movements 1 Narrative: GENERAL: WDWN female, INAD. Awake and alert lying in bed. + Expressive/receptive aphasia. Appears comfortable. SKIN: Warm and dry. No generalized rash. HEENT: Atraumatic. Normocephalic. Pupils equal and round. No scleral icterus. No injection or drainage. +diminished right visual field. No nasal bleeding or discharge. Mucous membranes pink and moist. NECK: Trachea midline. CARDIOVASCULAR: Regular rate and rhythm. No murmur appreciated on auscultation. RESPIRATORY: No accessory muscle use. Clear to auscultation. Breath sounds equal bilaterally. GASTROINTESTINAL: Abdomen soft, non-tender, nondistended. +BS. MUSCULOSKELETAL: Extremities without clubbing, cyanosis, or edema. +Spasticity in right arm. Unable to move right upper or lower extremity. NEUROLOGICAL: Awake and alert. Motor grossly within normal limits in left upper and lower extremity. 0/5 muscle strength in RUE and RLE. Abnormal speech , expressive aphasia. PSYCHIATRIC: Calm and cooperative. - Urinary Catheter Management Straight Cath placed during this visit: yes, but has since been removed by the nurse Reason for continuing: Not indwelling catheter Insertion date: 12/13/17 Insertion time: 09:48 Removal date: 12/13/17 Removal time: 09:49 Female External Cath placed during this visit: no Results - Labs CBC & Chem 7: 12/14/17 06:56 12/14/17 06:56 Laboratory Results - last 24 hr 12/14/17 12/14/17 10:42 10:42 Thrombin Time ND Lupus Anticoagulant LA PTT Screen 34 dRVVT Screen 40 LA dRVVT Confirm ND dRVVT Mix ND Hexagonal Phase Confirm ND APC Resistance 4.4 Antithrombin III Activ 117 Factor VIII Activity 91 Homocysteine Cardiovas 12.7 H Beta-2-GPI IgG Ab <9 Beta-2-GPI IgA Ab <9 Beta-2-GPI IgM Ab <9 Phosphatidylserine IgG Less than 10.0 Phosphatidylserine IgA Less than 20.0 Phosphatidylserine IgM Less than 25.0 MTHFR Mutation Detect Prothrombin [id number] Mut - Imaging ITS Impressions Head MRI 12/13/17 00:00 CONCLUSION: 1. There is a subacute infarct involving the posterior temporal and posterior left parietal lobe. 2. Small old infarct involving the peripheral aspect the right cerebellar hemisphere. Head MRA 12/13/17 00:00 CONCLUSION: 1. Unremarkable MRA of the [place]. Neck MRA 12/13/17 00:00 CONCLUSION: 1. Grossly unremarkable MRA of the carotids. Percent stenosis is calculated using the diameter of the stenotic region over the diameter of the normal distal internal carotid artery Chest X-Ray 12/13/17 09:13 CONCLUSION: No acute cardiopulmonary disease Head CT 12/13/17 09:13 CONCLUSION: 1. Evolving left parietal infarct. 2. Subacute right cerebellar infarct. . - Procedures None Assessment and Plan - Assessment (1) CVA (cerebrovascular accident) Code(s): I63.9 - Cerebral infarction, unspecified Status: Acute (2) Carotid stenosis, bilateral Code(s): I65.23 - Occlusion and stenosis of bilateral carotid arteries Status : Acute (3) Expressive aphasia Code(s): R47.01 - Aphasia Status: Acute - Plan 57 yo F with h/o previous CVA and residual aphasia and right sided paralysis who presented with AMS: Hx of left large MCA infarct and chronic right cerebellar infarct with residual expressive and receptive aphasia and right sided weakness September 2017 MRI +subacute infarct involving the posterior temporal and posterior left parietal lobe and small old infarct involving the peripheral aspect the right cerebellar hemisphere 2D echo EF 45-50%, global left ventricular dysfunction, trace tricuspid valve regurgitation, small pericardial effusion Reviewed medical records from [facility] -Neurology following, appreciate recommendations. No new CVA. Continue ASA for now. -Cardiology following, appreciate assistance. For ALEX in am. -Hypercoagulable w/u pending, neg thusfar. Per Neuro, if ALEX neg, recommends loop recorder placement. -LDL 102 fasting, started on Lipitor 10mg qhs, continue -Dr. Weber following, started on baclofen 5 mg 3 times daily, increased to 10mg TID. Considering Botox chemodeneravationn pending response to baclofen. -continue with PT/OT/ST - recommending rehab. Patient's is refusing rehab or home health care. -not eating well, dietitian following, calorie count 12/16-12/19. Continue Ensure Enlive 3 times daily. E coli UTI, pansensitive -Continue Ceftin 250 mg twice daily 5 days DVT ppx scd/teds Code Status: FULL Discussed Condition With: patient, Dr. 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 Discharge pending neurology clearance. Scheduled to have ALEX done on 12/19. (1) CVA (cerebrovascular accident) Qualifiers: CVA mechanism: other Qualified Code(s): I63.8 - Other cerebral infarction
--- NOTE | 2017-12-18 08:28 | P.PNNEU ---
Subjective Subjective Comments: No acute events reported No headache No chest pain No dyspnea Active Medications: Active Medications Acetaminophen (Tylenol) 650 mg PO Q4H PRN PRN Reason: Temp > 100.4 Al Hydroxide/Mg Hydroxide (Milk Of Magnesia Liq) 30 ml PO Q12H PRN PRN Reason: Mild Constipation Aspirin (Aspirin) 325 mg PO DAILY [facility] Last Admin: 12/17/17 08:49 Dose: 325 mg Atorvastatin Calcium (Lipitor) 10 mg PO HS [facility] Last Admin: 12/17/17 21:17 Dose: 10 mg Baclofen (Lioresal) 10 mg PO Q8HR [facility] Last Admin: 12/18/17 05:36 Dose: 10 mg Bisacodyl (Dulcolax Supp) 10 mg RECTAL DAILY PRN PRN Reason: SEVERE CONSITIPATION Cefuroxime Axetil (Ceftin) 250 mg PO Q12HR [facility] Stop: 12/22/17 20:59 Last Admin: 12/17/17 21:17 Dose: 250 mg Sodium Chloride (Ns Inj) 1,000 mls @ 42 mls/hr IV.CONT .[id number] [facility] Last Infusion: 12/18/17 06:45 Dose: Infused Lactulose (Lactulose Liq) 30 ml PO DAILY PRN PRN Reason: SEVERE CONSITIPATION Miscellaneous (Pill Splitter) 1 each OTHER UNSCH PRN PRN Reason: PILL SPLITTER Ondansetron HCl (Zofran Inj) 4 mg IV.PUSH Q6H PRN PRN Reason: NAUSEA OR VOMITING Prochlorperazine (Compazine Supp) 25 mg RECTAL Q12H PRN PRN Reason: NAUSEA OR VOMITING Senna/Docusate Sodium (Rosetta-Colace) 1 tab PO BID [facility] Last Admin: 12/17/17 21:16 Dose: 1 tab Sennosides (Senokot) 17.2 mg PO Q12H PRN PRN Reason: Moderate Constipation Sodium Chloride (Ns Flush) 2 ml IV.FLUSH PRN PRN PRN Reason: FLUSH AFTER USING IV ACCESS Allergies/Adverse Reactions: Allergies Allergy/AdvReac Type Severity Reaction Status Date / Time Sulfa (Sulfonamide Allergy Mild Swelling Verified 12/13/17 12:12 Antibiotics) of Lip/Tongue/Throat Physical Exam Vital signs: Vital Signs 12/17/17 12:00 12/17/17 16:00 12/17/17 20:00 Temperature 98.0 F 98.7 F 98.5 F Pulse Rate 95 H 90 85 Respiratory Rate 18 16 16 Blood Pressure 140/82 120/74 104/63 Pulse Oximetry 94 L 93 L 95 12/18/17 00:00 12/18/17 04:00 Temperature 97.3 F L 97.7 F Pulse Rate 85 73 Respiratory Rate 16 16 Blood Pressure 115/66 113/56 L Pulse Oximetry 95 94 L Intake & Output 12/17/17 12/18/17 12/18/17 18:59 06:59 18:59 Intake Total 100 / 100 1000 / 1000 Output Total 750 / 750 Balance -650 / -650 1000 / 1000 Weight 52.9 kg Intake: IV 100 / 100 1000 / 1000 NS Inj 1,000 ML @ 42 mls/hr IV. 1000 / 1000 CONT .[id number] [facility] Rx#:[id number] Rocephin Inj 1,000 MG In NS Inj 100 / 100 100 ML @ 200 mls/hr IV.SIG Q24H [facility] Rx#:[id number] Output: Urine Amount (Catheter) 750 / 750 Female External 750 / 750 Other: # Incontinent Voids 1 Date of Last Bowel Movement 12/16/17 12/16/17 Narrative: no change rhp aphasic - Urinary Catheter Management Straight Cath placed during this visit: yes, but has since been removed by the nurse Reason for continuing: Not indwelling catheter Insertion date: 12/13/17 Insertion time: 09:48 Removal date: 12/13/17 Removal time: 09:49 Female External Cath placed during this visit: no Objective Laboratory Results - last 24 hr 12/14/17 12/14/17 10:42 10:42 Thrombin Time ND Lupus Anticoagulant LA PTT Screen 34 dRVVT Screen 40 LA dRVVT Confirm ND dRVVT Mix ND Hexagonal Phase Confirm ND APC Resistance 4.4 Antithrombin III Activ 117 Factor VIII Activity 91 Homocysteine Cardiovas 12.7 H Beta-2-GPI IgG Ab <9 Beta-2-GPI IgA Ab <9 Beta-2-GPI IgM Ab <9 Phosphatidylserine IgG Less than 10.0 Phosphatidylserine IgA Less than 20.0 Phosphatidylserine IgM Less than 25.0 MTHFR Mutation Detect Prothrombin [id number] Mut Review/Management - Review/Management Plan: Impression Most of the blood work is pending. CAT scan shows a subacute left large MCA infarct and a small what appears to be chronic right cerebellar infarct. I reviewed these films compared to a CAT scan done in October of this year and there is no significant change in the cerebellar region. Her UA is positive for UTI. It is unclear why she had a stroke but possibly she has had 2 infarcts in the past and anticoagulation could be considered. We will check a MRI of the brain and MRA neck and [place] echocardiogram Holter monitor. Check your LDL. For now we will put her on an aspirin a day and depending on what we come up with could consider anticoagulation. I think it is unlikely that is anything new neurologically going on here however. She would benefit from seeing for Botox for the right arm. 12/14/17 imp no new cva left ica mild dz left vert dom and r vert ends in ? pica ldl pend hypercoag ordered ua positive on abt oob if echo neg and holter done can dc would benefit see dr vickers here or o/p for botox rue 12/15/17 no change echo pend ldl 102 if this is not fasting then i would not start statin asa for now unless echo is abn hypercoag pend at some point could do nirmala i will have to see what was done at [facility] 12/16/17 no change echo and holter neg hyper [facility] would have to get records there /12/17/17 stable neuro oob await [place] records if nirmala done or not etc if hypercoag neg would recommend loop placed sr here still - 12/18/17 sr still hypercoag neg so far i think a loop is indicated if nirmala neg
[2017-12-18] MEDS: Aspirin 325 MG Tablet PO SCH (09:38)
[2017-12-18] MEDS: Senna/Docusate Sodium 8.6/50 MG Tablet PO SCH ×2 (09:38→21:33)
--- NOTE | 2017-12-18 11:55 | P.PNCA ---
<Julita Hameed N - Last Filed: 12/18/17 11:51> Subjective Interval history: Patient denies any chest pain, pressure, palpitations, dizziness or shortness of breath. Patient is very alert and follows commands. Physical Exam Vital signs: Vital Signs 12/17/17 12:00 12/17/17 16:00 12/17/17 20:00 Temperature 98.0 F 98.7 F 98.5 F Pulse Rate 95 H 90 85 Respiratory Rate 18 16 16 Blood Pressure 140/82 120/74 104/63 Pulse Oximetry 94 L 93 L 95 12/18/17 00:00 12/18/17 04:00 12/18/17 08:00 Temperature 97.3 F L 97.7 F 97.7 F Pulse Rate 85 73 80 Respiratory Rate 16 16 20 Blood Pressure 115/66 113/56 L 117/92 H Pulse Oximetry 95 94 L 80 L 12/18/17 10:59 Temperature Pulse Rate 80 Respiratory Rate Blood Pressure Pulse Oximetry Intake & Output 12/17/17 12/18/17 12/18/17 18:59 06:59 18:59 Intake Total 100 / 100 1000 / 1000 Output Total 750 / 750 Balance -650 / -650 1000 / 1000 Weight 52.9 kg Intake: IV 100 / 100 1000 / 1000 NS Inj 1,000 ML @ 42 mls/hr IV. 1000 / 1000 CONT .[id number] [facility] Rx#:[id number] Rocephin Inj 1,000 MG In NS Inj 100 / 100 100 ML @ 200 mls/hr IV.SIG Q24H [facility] Rx#:[id number] Output: Urine Amount (Catheter) 750 / 750 Female External 750 / 750 Other: # Incontinent Voids 1 Date of Last Bowel Movement 12/16/17 12/16/17 - Constitutional no acute distress - Routine HEENT Exam Head: Present: normocephalic Eye: Present: PERRL ENT: Present: mucous membranes moist - Routine Neck Exam Present: supple - Routine Respiratory Exam Present: CTA bilaterally - Routine Cardiovascular Exam Present: S1, S2. Absent: murmur, gallop, rubs - Routine Abdominal Exam Present: soft - Routine Extremities Exam Present: pulses intact, normal capillary refill. Absent: clubbing, edema, full ROM Comments: Patient is unable to move right upper and lower extremity due to previous stroke. - Routine Skin Exam Present: intact - Routine Neurological Exam Present: alert - Detailed Neurological Exam: Coma Scale Eye Opening: Spontaneous Verbal Response: Sounds Motor Response: Obey commands Stephy Coma Scale Total: 12 - Routine Psychiatric Exam Present: normal affect - Urinary Catheter Management Straight Cath placed during this visit: yes, but has since been removed by the nurse Reason for continuing: Not indwelling catheter Insertion date: 12/13/17 Insertion time: 09:48 Removal date: 12/13/17 Removal time: 09:49 Female External Cath placed during this visit: no Assessment and Plan - Assessment (1) CVA (cerebrovascular accident) Code(s): I63.9 - Cerebral infarction, unspecified Status: Acute (2) Expressive aphasia Code(s): R47.01 - Aphasia Status: Acute (3) Carotid stenosis, bilateral Code(s): I65.23 - Occlusion and stenosis of bilateral carotid arteries Status : Acute (4) COPD (chronic obstructive pulmonary disease) Code(s): J44.9 - Chronic obstructive pulmonary disease, unspecified Status: Acute (5) Diabetes mellitus Code(s): E11.9 - Type 2 diabetes mellitus without complications Status: Acute - Plan ALEX scheduled for the 17th, n.p.o. after midnight except for meds. Get consent signed for ALEX. Patient currently on aspirin, continue to monitor for atrial fibrillation. Continue with current cardiac treatment plan and adjust as needed. The patient was seen and evaluated by Dr. Patrick who participated in care, management and decision-making. <Hannah Patrick - Last Filed: 12/18/17 18:59> Physical Exam Vital signs: Vital Signs 12/17/17 20:00 12/18/17 00:00 12/18/17 04:00 Temperature 98.5 F 97.3 F L 97.7 F Pulse Rate 85 85 73 Respiratory Rate 16 16 16 Blood Pressure 104/63 115/66 113/56 L Pulse Oximetry 95 95 94 L 12/18/17 08:00 12/18/17 10:59 12/18/17 12:00 Temperature 97.7 F 98.5 F Pulse Rate 80 80 95 H Respiratory Rate 20 20 Blood Pressure 117/92 H 128/76 Pulse Oximetry 80 L 96 12/18/17 13:51 12/18/17 16:00 12/18/17 16:37 Temperature 97.5 F L Pulse Rate 105 H 83 84 Respiratory Rate 18 Blood Pressure 100/59 L Pulse Oximetry 94 L Intake & Output 12/17/17 12/18/17 12/18/17 18:59 06:59 18:59 Intake Total 100 / 100 1000 / 1000 720 / 720 Output Total 750 / 750 602 / 602 Balance -650 / -650 1000 / 1000 118 / 118 Weight 116 lb 9.992 oz Intake: IV 100 / 100 1000 / 1000 NS Inj 1,000 ML @ 42 mls/hr IV. 1000 / 1000 CONT .[id number] [facility] Rx#:[id number] Rocephin Inj 1,000 MG In NS Inj 100 / 100 100 ML @ 200 mls/hr IV.SIG Q24H [facility] Rx#:[id number] Oral 720 / 720 Output: Urine 600 / 600 Stool 2 / 2 Urine Amount (Catheter) 750 / 750 Female External 750 / 750 Other: # Incontinent Voids 1 Date of Last Bowel Movement 12/16/17 12/16/17 # Bowel Movements 1 - Urinary Catheter Management Straight Cath placed during this visit: no Female External Cath placed during this visit: no Assessment and Plan - Assessment (1) CVA (cerebrovascular accident) Code(s): I63.9 - Cerebral infarction, unspecified Status: Acute (2) Expressive aphasia Code(s): R47.01 - Aphasia Status: Acute (3) Carotid stenosis, bilateral Code(s): I65.23 - Occlusion and stenosis of bilateral carotid arteries Status : Acute (4) COPD (chronic obstructive pulmonary disease) Code(s): J44.9 - Chronic obstructive pulmonary disease, unspecified Status: Acute (5) Diabetes mellitus Code(s): E11.9 - Type 2 diabetes mellitus without complications Status: Acute - Attending Attestation Patient seen and examined. I reviewed and agree with the evaluation and plan as presented. Continue monitoring for AF. ALEX tomorrow to evaluate for cardiac source of emboli. <Julita Hameed - Last Filed: 12/18/17 11:51> (1) CVA (cerebrovascular accident) Qualifiers: CVA mechanism: other Qualified Code(s): I63.8 - Other cerebral infarction <Hannah Patrick - Last Filed: 12/18/17 18:59> (1) CVA (cerebrovascular accident) Qualifiers: CVA mechanism: other Qualified Code(s): I63.8 - Other cerebral infarction
[2017-12-18 11:56] LABS: Factor V Leiden Mutation Negative (Negative); Protein C Antigen 90 % (70-150)
[2017-12-19] MEDS: Baclofen 10 MG Tablet PO SCH ×3 (05:55→23:16)
--- NOTE | 2017-12-19 07:15 | P.PNNEU ---
Subjective Active Medications: Active Medications Acetaminophen (Tylenol) 650 mg PO Q4H PRN PRN Reason: Temp > 100.4 Al Hydroxide/Mg Hydroxide (Milk Of Magnesia Liq) 30 ml PO Q12H PRN PRN Reason: Mild Constipation Aspirin (Aspirin) 325 mg PO DAILY [facility] Last Admin: 12/18/17 09:38 Dose: 325 mg Atorvastatin Calcium (Lipitor) 10 mg PO HS [facility] Last Admin: 12/18/17 21:33 Dose: 10 mg Baclofen (Lioresal) 10 mg PO Q8HR [facility] Last Admin: 12/19/17 05:55 Dose: Not Given Bisacodyl (Dulcolax Supp) 10 mg RECTAL DAILY PRN PRN Reason: SEVERE CONSITIPATION Cefuroxime Axetil (Ceftin) 250 mg PO Q12HR [facility] Stop: 12/22/17 20:59 Last Admin: 12/18/17 21:33 Dose: 250 mg Sodium Chloride (Ns Inj) 1,000 mls @ 42 mls/hr IV.CONT .[id number] [facility] Last Infusion: 12/18/17 06:45 Dose: Infused Lactulose (Lactulose Liq) 30 ml PO DAILY PRN PRN Reason: SEVERE CONSITIPATION Miscellaneous (Pill Splitter) 1 each OTHER UNSCH PRN PRN Reason: PILL SPLITTER Ondansetron HCl (Zofran Inj) 4 mg IV.PUSH Q6H PRN PRN Reason: NAUSEA OR VOMITING Prochlorperazine (Compazine Supp) 25 mg RECTAL Q12H PRN PRN Reason: NAUSEA OR VOMITING Senna/Docusate Sodium (Rosetta-Colace) 1 tab PO BID [facility] Last Admin: 12/18/17 21:33 Dose: 1 tab Sennosides (Senokot) 17.2 mg PO Q12H PRN PRN Reason: Moderate Constipation Sodium Chloride (Ns Flush) 2 ml IV.FLUSH PRN PRN PRN Reason: FLUSH AFTER USING IV ACCESS Allergies/Adverse Reactions: Allergies Allergy/AdvReac Type Severity Reaction Status Date / Time Sulfa (Sulfonamide Allergy Mild Swelling Verified 12/13/17 12:12 Antibiotics) of Lip/Tongue/Throat Physical Exam Vital signs: Vital Signs 12/18/17 08:00 12/18/17 10:59 12/18/17 12:00 Temperature 97.7 F 98.5 F Pulse Rate 80 80 95 H Respiratory Rate 20 20 Blood Pressure 117/92 H 128/76 Pulse Oximetry 80 L 96 12/18/17 13:51 12/18/17 16:00 12/18/17 16:37 Temperature 97.5 F L Pulse Rate 105 H 83 84 Respiratory Rate 18 Blood Pressure 100/59 L Pulse Oximetry 94 L 12/18/17 20:00 12/19/17 00:00 12/19/17 04:00 Temperature 97.3 F L 98.3 F 97.6 F Pulse Rate 94 H 71 85 Respiratory Rate 18 18 18 Blood Pressure 105/66 101/61 108/64 Pulse Oximetry 973 H 95 94 L 12/19/17 06:58 Temperature Pulse Rate Respiratory Rate 12 Blood Pressure Pulse Oximetry Intake & Output 12/18/17 12/19/17 12/19/17 18:59 06:59 18:59 Intake Total 720 / 720 Output Total 602 / 602 Balance 118 / 118 Weight 52.9 kg Intake: Oral 720 / 720 Output: Urine 600 / 600 Stool 2 / 2 Other: Date of Last Bowel Movement 12/16/17 12/18/17 # Bowel Movements 1 Narrative: no change rh aphasia - Urinary Catheter Management Straight Cath placed during this visit: yes, but has since been removed by the nurse Reason for continuing: Not indwelling catheter Insertion date: 12/13/17 Insertion time: 09:48 Removal date: 12/13/17 Removal time: 09:49 Female External Cath placed during this visit: no Objective Laboratory Results - last 24 hr 12/14/17 10:42 Protein C Antigen 90 Protein S Activity 125 Factor V Leiden Mutat Negative Factor V Leiden Interp . Fact V Leiden Review By See below Anti-Cardiolipin IgG Ab <9.4 Anti-Cardiolipin IgM Ab <9.4 Review/Management - Review/Management Plan: Impression Most of the blood work is pending. CAT scan shows a subacute left large MCA infarct and a small what appears to be chronic right cerebellar infarct. I reviewed these films compared to a CAT scan done in October of this year and there is no significant change in the cerebellar region. Her UA is positive for UTI. It is unclear why she had a stroke but possibly she has had 2 infarcts in the past and anticoagulation could be considered. We will check a MRI of the brain and MRA neck and [place] echocardiogram Holter monitor. Check your LDL. For now we will put her on an aspirin a day and depending on what we come up with could consider anticoagulation. I think it is unlikely that is anything new neurologically going on here however. She would benefit from seeing for Botox for the right arm. 12/14/17 imp no new cva left ica mild dz left vert dom and r vert ends in ? pica ldl pend hypercoag ordered ua positive on abt oob if echo neg and holter done can dc would benefit see dr vickers here or o/p for botox rue 12/15/17 no change echo pend ldl 102 if this is not fasting then i would not start statin asa for now unless echo is abn hypercoag pend at some point could do nirmala i will have to see what was done at [facility] 12/16/17 no change echo and holter neg hyper pend was not of [facility] have been [facility] would have to get records there 12/17/17 stable neuro oob await [place] records if nirmala done or not etc if hypercoag neg would recommend loop placed sr here still - 12/18/17 sr still hypercoag neg so far i think a loop is indicated if nirmala neg 12/19/17 nirmala today hypercoag neg if nirmala neg will get loop i dw cards thx ow can dc neurowise
[2017-12-19] MEDS: Aspirin 325 MG Tablet PO SCH (08:34)
[2017-12-19] MEDS: Senna/Docusate Sodium 8.6/50 MG Tablet PO SCH ×2 (08:35→23:16)
--- NOTE | 2017-12-19 08:35 | P.DS ---
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 Per EMS family called because she was "not acting right." EMS does not have any further information. Patient is unable to provide much further information but does answer no to several questions. She denies chest pain, dyspnea, abdominal pain, back pain, extremity pain. Her /significant other stated that she'd been doing well until several days ago when she seemed to forget she had a stroke and became anxious about her paralysis/weakness. She is noted more lethargic at times and not at her normal. Says she was able to ambulate with a walker with supervision 2 day sago and she is not herself anymore. There is change in her behavior . other [place] patient is without fever, change in urination, n/v/d/c. No change in urination, no pain , frequency or change in color of the urine. However the patient is noted with UTI and started rocephin IV abx, urine cx pending/ Patient is with expressive aphasia and is not able to communicate whitch it seems is at baseline aphasia per significant other. Family History: Patient and significant other says no family history of stroke, HTN, diabetes, family is healthy DS: Diagnosis - Discharge Diagnosis (1) CVA (cerebrovascular accident) Status: Acute (2) Carotid stenosis, bilateral Status: Acute (3) Expressive aphasia Status: Acute DS: Medications - Discharge Medications Prescriptions: aspirin [E.C. Prin] 325 mg PO DAILY #30 tab atorvastatin [Lipitor] 10 mg PO HS #30 tab baclofen 10 mg PO Q8HR #90 tab cefuroxime axetil 250 mg PO Q12HR #6 tab DS: Summary Hospital Course: Patient with history of previous CVA admitted with subacute left large MCA infarct and urinary tract infection. MRI revealed subacute infarct involving the posterior temporal posterior left parietal lobe and small old infarct involving the peripheral aspect of the right cerebellar hemisphere.Patient was seen in consultation by Dr. Zarate. Patient started on aspirin for anticoagulation. She was started on IV Ceftriaxone for E Coli UTI and transitioned to po Ceftin. Patient was seen in consultation by rehab medicine and started on baclofen. Patient treated by PT, OT and ST. Per ST evaluation, patient with severe expressive aphasia suspected to be commensurate with baseline. She was placed on mechanical soft thin liquid diet. Her 2D echocardiogram revealed EF 45-50% and global left ventricular dysfunction. She was seen in consultation by cardiology. She underwent ALEX which was negative and loop recorder placement recommended. Rehab/SNF placement was recommended at discharge however patient's refused inpatient rehab placement and/or home health care. This was discussed with and multiple times and both continued to refuse. She was cleared for discharge from Neurology standpoint. - Time Spent with Patient Total time spent providing and/or coordinating discharge services: Greater than 30 minutes Exam Vital signs: Vital Signs 12/18/17 10:59 12/18/17 12:00 12/18/17 13:51 Temperature 98.5 F Pulse Rate 80 95 H 105 H Respiratory Rate 20 Blood Pressure 128/76 Pulse Oximetry 96 12/18/17 16:00 12/18/17 16:37 12/18/17 20:00 Temperature 97.5 F L 97.3 F L Pulse Rate 83 84 94 H Respiratory Rate 18 18 Blood Pressure 100/59 L 105/66 Pulse Oximetry 94 L 973 H 12/19/17 00:00 12/19/17 04:00 12/19/17 06:58 Temperature 98.3 F 97.6 F Pulse Rate 71 85 Respiratory Rate 18 18 12 Blood Pressure 101/61 108/64 Pulse Oximetry 95 94 L Intake & Output 12/18/17 12/19/17 12/19/17 18:59 06:59 18:59 Intake Total 720 / 720 Output Total 602 / 602 Balance 118 / 118 Weight 52.9 kg Intake: Oral 720 / 720 Output: Urine 600 / 600 Stool 2 / 2 Other: Date of Last Bowel Movement 12/16/17 12/18/17 # Bowel Movements 1 Narrative: GENERAL: WDWN female, INAD. Awake and alert lying in bed. Appears comfortable. +Expressive aphasia. SKIN: Warm and dry. No generalized rash. HEENT: Atraumatic. Normocephalic. Pupils equal and round. No scleral icterus. No injection or drainage. +diminished right visual field. No nasal bleeding or discharge. Mucous membranes pink and moist. NECK: Trachea midline. CARDIOVASCULAR: Regular rate and rhythm. No murmur appreciated on auscultation. RESPIRATORY: No accessory muscle use. Clear to auscultation. Breath sounds equal bilaterally. GASTROINTESTINAL: Abdomen soft, non-tender, nondistended. +BS. MUSCULOSKELETAL: Extremities without clubbing, cyanosis, or edema. +Spasticity in right arm. Right arm in splint. Unable to move right upper or lower extremity. NEUROLOGICAL: Awake and alert. Motor grossly within normal limits in left upper and lower extremity. 0/5 muscle strength in RUE and RLE. Abnormal speech , expressive aphasia. PSYCHIATRIC: Calm and cooperative. Results Procedures completed during hospitalization: cc: Hannah Patrick MD DATE: 12/19/2017 INDICATIONS: CVA, evaluation for atrial fibrillation, abnormal EKG. PROCEDURE PERFORMED: Placement of Medtronic Reveal LINQ MRI compatible loop monitor. SEDATION: Per anesthesia. EQUIPMENT USED: Medtronic Reveal LINQ, model LNQ11 MRI compatible loop monitor, serial #[id number]. COMPLICATIONS: None. ESTIMATED BLOOD LOSS: Less than 1 mL. PROCEDURE: After transesophageal echocardiogram was completed, left chest was prepped and draped in the usual sterile manner. Medtronic Reveal LINQ MRI compatible monitor was placed without difficulties. R-wave obtained was 0.7 millivolts. DIAGNOSIS: Successful placement of Medtronic Reveal LINQ MRI compatible loop monitor. DISPOSITION: Ms. Curry will continue her current medical program. We will initiate long-term monitoring of her device. Hannah Patrick MD Labs on day of discharge: Labs from last 24 hours 12/14/17 10:42 Protein C Antigen 90 Protein S Activity 125 Factor V Leiden Mutat Negative Factor V Leiden Interp . Fact V Leiden Review By See below Anti-Cardiolipin IgG Ab <9.4 Anti-Cardiolipin IgM Ab <9.4 - Impressions ITS Impressions Head MRI 12/13/17 00:00 CONCLUSION: 1. There is a subacute infarct involving the posterior temporal and posterior left parietal lobe. 2. Small old infarct involving the peripheral aspect the right cerebellar hemisphere. Head MRA 12/13/17 00:00 CONCLUSION: 1. Unremarkable MRA of the [place]. Neck MRA 12/13/17 00:00 CONCLUSION: 1. Grossly unremarkable MRA of the carotids. Percent stenosis is calculated using the diameter of the stenotic region over the diameter of the normal distal internal carotid artery Chest X-Ray 12/13/17 09:13 CONCLUSION: No acute cardiopulmonary disease Head CT 12/13/17 09:13 CONCLUSION: 1. Evolving left parietal infarct. 2. Subacute right cerebellar infarct. . Discharge Plan - Discharge Disposition Patient Disposition: Discharge Home - Discharge Condition Condition: Stable - Discharge Order Discharge Orders: Discharge Order (Routine); Ordered 12/19/17 Ordered By: Alexandra Metzger - Physicians Team Primary Care Provider: Primary Care Charlene Garcia Attending Provider: Grace Suero Other Providers: Mayuri Weber MD ; Hannah Patrick MD
[2017-12-19] MEDS: Sod Chloride 0.9% Inj 1,000 ML IV.CONT SCH ×2 (11:32→16:22)
[2017-12-19] MEDS ORDERED: Lidocaine PF 1% Inj 5 ML Syringe INFILTRATN ONE (12:00)
[2017-12-19] MEDS ORDERED: Phenylephrine/NS 1000 MCG/10ML Syringe IV.PUSH ONE (12:00)
[2017-12-19] MEDS ORDERED: Metoprolol Tartrate 25 MG Tablet PO SCH (12:15)
[2017-12-19] MEDS ORDERED: Chlorhexidine Gluconate 2% 1 Pack (2 Cloths) TOPICAL SCH ×2 (12:15→13:30)
--- NOTE | 2017-12-19 12:23 | P.DIET ---
Nutritional Evaluation Type of nutrition evaluation: follow-up Nutrition screening: MDC (Calorie Counting) Screening comments: Calorie count ran from 12/16 until now. Unfortunately, only one meal was recorded. Will need to repeat calorie count early next week. Pt is npo today for procedure. Subjective Subjective Comments: Expressive aphasia Objective - Diagnosis Acute Stroke or TIA - Objective % IBW: 95 (IBW = 135#) Body Weight Used for Calculations: Actual (58.2) Energy Needs - Lower Range (kCal/kg): 30 Energy Needs - Upper Range (kCal/kg): 35 Lower Limit kCal/kg (kCals): 1,746 Upper Limit kCal/kg (kCals): 2,037 Lower Limit Protein Factor (Grams per Kg): 1.0 Upper Limit Protein Factor (Grams per Kg): 1.5 Lower Protein Needs (Protein): 58 Upper Protein Needs (Protein): 87 Fluid Factor (ml/kg): 35 Estimated Fluid Needs (ml): 2,037 Dietitian Reviewed in Medical Record: Current diet, Curent medications, Intake & Output, Labs, Medical history Diet Order: Heart Healthy, mechanical soft Feeding - Current PO Supplement Current Supplement: Ensure Enlive Current Supplement Flavor: Vanilla Current Frequency of Supplement: Three times a day Current kCals Provided by Supplement: 350 (per 8 oz serving) Current Protein Provided by Supplement: 20 (per 8 oz serving) Assessment Assessment: Calorie counts completed, however, only one meal recorded. Po intake was 350 kcals and 14 gms protein for that one meal. . Poor po intake has been reported. Pt presents with a BMI of 18.3. Will continue to send Ensure Enlive tid and monitor acceptance. Pt has hx of DM listed, however, glucose had been wnl and pt is on no DM meds. Will repeat calorie counts next week. Recommendations: 1. Diet texture per ST 2. Ensure Enlive tid 3. calorie counts next week Dietitian to Monitor: Lab values, Supplement acceptance, Intake & Output, Diet tolerance, Weight change, PO Intake, Swallow recommendations, Medical course
--- NOTE | 2017-12-19 12:35 | P.PNCA ---
<Julita Hamede N - Last Filed: 12/19/17 12:31> Subjective Interval history: Patient denies any chest pain, pressure, palpitations, dizziness, edema or shortness of breath. Patient is currently signing consent for ALEX with a loop monitor placement. griddigtronic in room educating patient on loop monitor. Patient has been npo since midnight. Physical Exam Vital signs: Vital Signs 12/18/17 13:51 12/18/17 16:00 12/18/17 16:37 Temperature 97.5 F L Pulse Rate 105 H 83 84 Respiratory Rate 18 Blood Pressure 100/59 L Pulse Oximetry 94 L 12/18/17 20:00 12/19/17 00:00 12/19/17 04:00 Temperature 97.3 F L 98.3 F 97.6 F Pulse Rate 94 H 71 85 Respiratory Rate 18 18 18 Blood Pressure 105/66 101/61 108/64 Pulse Oximetry 973 H 95 94 L 12/19/17 06:58 12/19/17 08:00 Temperature 97.4 F L Pulse Rate 76 Respiratory Rate 12 20 Blood Pressure 103/71 Pulse Oximetry 95 Intake & Output 12/18/17 12/19/17 12/19/17 18:59 06:59 18:59 Intake Total 720 / 720 Output Total 602 / 602 Balance 118 / 118 Weight 52.9 kg Intake: Oral 720 / 720 Output: Urine 600 / 600 Stool 2 / 2 Other: Date of Last Bowel Movement 12/16/17 12/18/17 # Bowel Movements 1 - Constitutional no acute distress - Routine HEENT Exam Head: Present: normocephalic ENT: Present: mucous membranes moist - Routine Neck Exam Present: supple - Routine Respiratory Exam Present: CTA bilaterally - Routine Cardiovascular Exam Present: S1, S2. Absent: murmur, gallop, rubs - Routine Abdominal Exam Present: soft - Routine Extremities Exam Present: pulses intact, normal capillary refill Comments: Patient has right-sided paralysis from previous stroke. - Routine Skin Exam Present: intact - Routine Neurological Exam Present: alert, oriented X3 Patient has expressive aphasia. - Detailed Neurological Exam: Coma Scale Eye Opening: Spontaneous Verbal Response: Sounds Motor Response: Obey commands [place] Coma Scale Total: 12 - Routine Psychiatric Exam Present: normal affect - Urinary Catheter Management Straight Cath placed during this visit: yes, but has since been removed by the nurse Reason for continuing: Not indwelling catheter Insertion date: 12/13/17 Insertion time: 09:48 Removal date: 12/13/17 Removal time: 09:49 Female External Cath placed during this visit: no Assessment and Plan - Assessment (1) CVA (cerebrovascular accident) Code(s): I63.9 - Cerebral infarction, unspecified Status: Acute (2) Expressive aphasia Code(s): R47.01 - Aphasia Status: Acute (3) Carotid stenosis, bilateral Code(s): I65.23 - Occlusion and stenosis of bilateral carotid arteries Status : Acute (4) COPD (chronic obstructive pulmonary disease) Code(s): J44.9 - Chronic obstructive pulmonary disease, unspecified Status: Acute (5) Diabetes mellitus Code(s): E11.9 - Type 2 diabetes mellitus without complications Status: Acute - Plan Patient going for a ALEX and loop monitor placement today. Patient currently on aspirin, continue to monitor for atrial fibrillation. Continue with current cardiac treatment plan and adjust as needed. The patient was seen and evaluated by Dr. Patrick who participated in care, management and decision-making. <Hannah Patrick - Last Filed: 12/19/17 15:04> Physical Exam Vital signs: Vital Signs 12/18/17 16:00 12/18/17 16:37 12/18/17 20:00 Temperature 97.5 F L 97.3 F L Pulse Rate 83 84 94 H Respiratory Rate 18 18 Blood Pressure 100/59 L 105/66 Pulse Oximetry 94 L 973 H 12/19/17 00:00 12/19/17 04:00 12/19/17 06:58 Temperature 98.3 F 97.6 F Pulse Rate 71 85 Respiratory Rate 18 18 12 Blood Pressure 101/61 108/64 Pulse Oximetry 95 94 L 12/19/17 08:00 12/19/17 12:00 Temperature 97.4 F L 97.6 F Pulse Rate 76 83 Respiratory Rate 20 20 Blood Pressure 103/71 104/69 Pulse Oximetry 95 94 L Intake & Output 12/18/17 12/19/17 12/19/17 18:59 06:59 18:59 Intake Total 720 / 720 Output Total 602 / 602 Balance 118 / 118 Weight 116 lb 9.992 oz Intake: Oral 720 / 720 Output: Urine 600 / 600 Stool 2 / 2 Other: Date of Last Bowel Movement 12/16/17 12/18/17 # Bowel Movements 1 - Urinary Catheter Management Straight Cath placed during this visit: no Female External Cath placed during this visit: no Assessment and Plan - Assessment (1) CVA (cerebrovascular accident) Code(s): I63.9 - Cerebral infarction, unspecified Status: Acute (2) Expressive aphasia Code(s): R47.01 - Aphasia Status: Acute (3) Carotid stenosis, bilateral Code(s): I65.23 - Occlusion and stenosis of bilateral carotid arteries Status : Acute (4) COPD (chronic obstructive pulmonary disease) Code(s): J44.9 - Chronic obstructive pulmonary disease, unspecified Status: Acute (5) Diabetes mellitus Code(s): E11.9 - Type 2 diabetes mellitus without complications Status: Acute - Attending Attestation Patient seen and examined. I reviewed and agree with the evaluation and plan as presented. ALEX and loop monitor placement today. <Julita Hameed - Last Filed: 12/19/17 12:31> (1) CVA (cerebrovascular accident) Qualifiers: CVA mechanism: other Qualified Code(s): I63.8 - Other cerebral infarction <Hannah Patrick - Last Filed: 12/19/17 15:04> (1) CVA (cerebrovascular accident) Qualifiers: CVA mechanism: other Qualified Code(s): I63.8 - Other cerebral infarction
[2017-12-19] MEDS ORDERED: Sodium Chlor 0.9% Inj 500 ML IV.SIG SCH (13:00)
[2017-12-19] MEDS ORDERED: Mupirocin 2% Nasal Oint Topical Syringe EACH NARE SCH (13:30)
--- NOTE | 2017-12-19 13:46 | MR ---
cc: Hannah Patrick MD DATE: 12/19/2017 INDICATIONS: CVA, evaluation for atrial fibrillation, abnormal EKG. PROCEDURE PERFORMED: Placement of Medtronic Reveal LINQ MRI compatible loop monitor. SEDATION: Per anesthesia. EQUIPMENT USED: Medtronic Reveal LINQ, model LNQ11 MRI compatible loop monitor, serial #[id number]. COMPLICATIONS: None. ESTIMATED BLOOD LOSS: Less than 1 mL. PROCEDURE: After transesophageal echocardiogram was completed, left chest was prepped and draped in the usual sterile manner. Medtronic Reveal LINQ MRI compatible monitor was placed without difficulties. R-wave obtained was 0.7 millivolts. DIAGNOSIS: Successful placement of Medtronic Reveal LINQ MRI compatible loop monitor. DISPOSITION: Ms. Curry will continue her current medical program. We will initiate long-term monitoring of her device. Hannah Patrick MD OQ/ch , 01:08 PM , 01:13 PM MTDD
[2017-12-19] MEDS ORDERED: ceFAZolin Inj 2,000 MG in Sodium Chlor 0.9% Inj 100 ML IV.SIG SCH (14:00)
--- NOTE | 2017-12-19 16:53 | P.PN ---
Subjective Interval history: Follow up on patient with CVA. Patient seen and examined. She is not in any distress. She is n.p.o. for loop recorder placement and ALEX. DW nursing staff , no acute issues noted. Physical Exam Vital signs: Vital Signs 12/18/17 20:00 12/19/17 00:00 12/19/17 04:00 Temperature 97.3 F L 98.3 F 97.6 F Pulse Rate 94 H 71 85 Respiratory Rate 18 Blood Pressure 105/66 101/61 108/64 Pulse Oximetry 973 H 95 94 L 12/19/17 06:58 12/19/17 08:00 12/19/17 12:00 Temperature 97.4 F L 97.6 F Pulse Rate 76 83 Respiratory Rate 12 20 20 Blood Pressure 103/71 104/69 Pulse Oximetry 95 94 L Intake & Output 12/18/17 12/19/17 12/19/17 18:59 06:59 18:59 Intake Total 720 / 720 Output Total 602 / 602 Balance 118 / 118 Weight 52.9 kg Intake: Oral 720 / 720 Output: Urine 600 / 600 Stool 2 / 2 Other: Date of Last Bowel Movement 12/16/17 12/18/17 # Bowel Movements 1 Narrative: GENERAL: WDWN female. Awake and alert lying in bed. +Expressive aphasia. Appears comfortable. Not in any distress. SKIN: Warm and dry. No generalized rash. HEENT: Atraumatic. Normocephalic. Pupils equal and round. No scleral icterus. No injection or drainage. +diminished right visual field. No nasal bleeding or discharge. Mucous membranes pink and moist. NECK: Trachea midline. CARDIOVASCULAR: Regular rate and rhythm. No murmur appreciated on auscultation. RESPIRATORY: No accessory muscle use. Clear to auscultation. Breath sounds equal bilaterally. GASTROINTESTINAL: Abdomen soft, non-tender, nondistended. +BS. MUSCULOSKELETAL: Extremities without clubbing, cyanosis, or edema. +Spasticity in right arm. Unable to move right upper or lower extremity. NEUROLOGICAL: Awake and alert. Motor grossly within normal limits in left upper and lower extremity. 0/5 muscle strength in RUE and RLE. Abnormal speech , expressive aphasia. PSYCHIATRIC: Calm and cooperative. - Urinary Catheter Management Straight Cath placed during this visit: yes, but has since been removed by the nurse Reason for continuing: Not indwelling catheter Insertion date: 12/13/17 Insertion time: 09:48 Removal date: 12/13/17 Removal time: 09:49 Female External Cath placed during this visit: no Results - Labs CBC & Chem 7: 12/14/17 06:56 12/14/17 06:56 - Procedures cc: Hannah Patrick MD DATE: 12/19/2017 INDICATIONS: CVA, evaluation for atrial fibrillation, abnormal EKG. PROCEDURE PERFORMED: Placement of Medtronic Reveal LINQ MRI compatible loop monitor. SEDATION: Per anesthesia. EQUIPMENT USED: Medtronic Reveal LINQ, model LNQ11 MRI compatible loop monitor, serial #[id number]. COMPLICATIONS: None. ESTIMATED BLOOD LOSS: Less than 1 mL. PROCEDURE: After transesophageal echocardiogram was completed, left chest was prepped and draped in the usual sterile manner. Medtronic Reveal LINQ MRI compatible monitor was placed without difficulties. R-wave obtained was 0.7 millivolts. DIAGNOSIS: Successful placement of Medtronic Reveal LINQ MRI compatible loop monitor. DISPOSITION: Ms. Curry will continue her current medical program. We will initiate long-term monitoring of her device. Hannah Patrick MD Assessment and Plan - Assessment (1) CVA (cerebrovascular accident) Code(s): I63.9 - Cerebral infarction, unspecified Status: Acute (2) Carotid stenosis, bilateral Code(s): I65.23 - Occlusion and stenosis of bilateral carotid arteries Status : Acute (3) Expressive aphasia Code(s): R47.01 - Aphasia Status: Acute - Plan 57 yo F with h/o previous CVA and residual aphasia and right sided paralysis who presented with AMS: Hx of left large MCA infarct and chronic right cerebellar infarct with residual expressive and receptive aphasia and right sided weakness September 2017 MRI +subacute infarct involving the posterior temporal and posterior left parietal lobe and small old infarct involving the peripheral aspect the right cerebellar hemisphere 2D echo EF 45-50%, global left ventricular dysfunction, trace tricuspid valve regurgitation, small pericardial effusion Reviewed medical records from [facility] -Neurology following, appreciate recommendations. No new CVA. Continue ASA for now. -Cardiology following, appreciate assistance. NPO for ALEX and loop recorder placement today. -Hypercoagulable w/u pending, neg thusfar. -LDL 102 fasting, started on Lipitor 10mg qhs, continue -Dr. Weber following, started on baclofen 5 mg 3 times daily, increased to 10mg TID. Considering Botox chemodeneravationn pending response to baclofen. -continue with PT/OT/ST - recommending rehab. Patient's is refusing rehab or home health care. -not eating well, dietitian following, calorie count 12/16-12/19. Continue Ensure Enlive 3 times daily. E coli UTI, pansensitive -Continue Ceftin 250 mg twice daily 5 days DVT ppx scd/teds Code Status: FULL Discussed Condition With: patient, RN, Dr. Suero, Dr. Zarate Discharge Planning: Not ready for discharge. Discharge pending neurology clearance and ALEX results. (1) CVA (cerebrovascular accident) Qualifiers: CVA mechanism: other Qualified Code(s): I63.8 - Other cerebral infarction
[2017-12-20] MEDS: Baclofen 10 MG Tablet PO SCH ×2 (06:29→14:05)
--- NOTE | 2017-12-20 07:22 | P.PN ---
Subjective Interval history: Follow up on patient with CVA. Patient seen and examined. Patient appears comfortable. She is not in any distress. s/p Loop recorder placement and ALEX yesterday by cardiology. She has been cleared for discharge from neuro standpoint. Awaiting ALEX results. Physical Exam Vital signs: Vital Signs 12/19/17 08:00 12/19/17 12:00 12/19/17 16:00 Temperature 97.4 F L 97.6 F 97.9 F Pulse Rate 76 83 75 Respiratory Rate 20 20 20 Blood Pressure 103/71 104/69 120/76 Pulse Oximetry 95 94 L 95 12/19/17 20:00 12/19/17 23:29 12/20/17 00:30 Temperature 97.7 F 97.5 F L Pulse Rate 81 85 70 Respiratory Rate 20 20 Blood Pressure 111/75 117/74 Pulse Oximetry 95 12/20/17 04:00 12/20/17 04:30 Temperature 97.6 F Pulse Rate 82 60 Respiratory Rate 17 Blood Pressure 113/65 Pulse Oximetry 95 Intake & Output 12/19/17 12/20/17 12/20/17 18:59 06:59 18:59 Output Total 500 / 500 Balance -500 / -500 Weight 53 kg Output: Urine 500 / 500 Other: # Voids 4 Narrative: GENERAL: WDWN female. Awake and alert lying in bed. +Expressive aphasia. Not in any distress. SKIN: Warm and dry. No generalized rash. HEENT: Atraumatic. Normocephalic. Pupils equal and round. No scleral icterus. No injection or drainage. +diminished right visual field. No nasal bleeding or discharge. Mucous membranes pink and moist. NECK: Trachea midline. CARDIOVASCULAR: Regular rate and rhythm. No murmur appreciated on auscultation. RESPIRATORY: No accessory muscle use. Clear to auscultation. Breath sounds equal bilaterally. GASTROINTESTINAL: Abdomen soft, non-tender, nondistended. +BS. MUSCULOSKELETAL: Extremities without clubbing, cyanosis, or edema. +Spasticity in right arm. Unable to move right upper or lower extremity. NEUROLOGICAL: Awake and alert. Motor grossly within normal limits in left upper and lower extremity. 0/5 muscle strength in RUE and RLE. Abnormal speech , expressive aphasia. PSYCHIATRIC: Calm and cooperative. - Urinary Catheter Management Straight Cath placed during this visit: yes, but has since been removed by the nurse Reason for continuing: Not indwelling catheter Insertion date: 12/13/17 Insertion time: 09:48 Removal date: 12/13/17 Removal time: 09:49 Female External Cath placed during this visit: no Results - Labs CBC & Chem 7: 12/14/17 06:56 12/14/17 06:56 - Procedures cc: Hannah Patrick MD DATE: 12/19/2017 INDICATIONS: CVA, evaluation for atrial fibrillation, abnormal EKG. PROCEDURE PERFORMED: Placement of Medtronic Reveal LINQ MRI compatible loop monitor. SEDATION: Per anesthesia. EQUIPMENT USED: Medtronic Reveal LINQ, model LNQ11 MRI compatible loop monitor, serial #[id number]. COMPLICATIONS: None. ESTIMATED BLOOD LOSS: Less than 1 mL. PROCEDURE: After transesophageal echocardiogram was completed, left chest was prepped and draped in the usual sterile manner. Medtronic Reveal LINQ MRI compatible monitor was placed without difficulties. R-wave obtained was 0.7 millivolts. DIAGNOSIS: Successful placement of Medtronic Reveal LINQ MRI compatible loop monitor. DISPOSITION: Ms. Curry will continue her current medical program. We will initiate long-term monitoring of her device. Hannah Patrick MD Assessment and Plan - Assessment (1) CVA (cerebrovascular accident) Code(s): I63.9 - Cerebral infarction, unspecified Status: Acute (2) Carotid stenosis, bilateral Code(s): I65.23 - Occlusion and stenosis of bilateral carotid arteries Status : Acute (3) Expressive aphasia Code(s): R47.01 - Aphasia Status: Acute - Plan 57 yo F with h/o previous CVA and residual aphasia and right sided paralysis who presented with AMS: Hx of left large MCA infarct and chronic right cerebellar infarct with residual expressive and receptive aphasia and right sided weakness September 2017 MRI +subacute infarct involving the posterior temporal and posterior left parietal lobe and small old infarct involving the peripheral aspect the right cerebellar hemisphere 2D echo EF 45-50%, global left ventricular dysfunction, trace tricuspid valve regurgitation, small pericardial effusion Reviewed medical records from [facility] -Neurology following, appreciate recommendations. No new CVA. Continue ASA for now. -Cardiology following, appreciate assistance. s/p loop recorder placement and ALEX yesterday. Cleared for d/c from Neuro standpoint on ASA 325mg daily. Awaiting ALEX report. -Hypercoagulable w/u pending, neg thusfar. -LDL 102 fasting, started on Lipitor 10mg qhs, continue -Dr. Weber following, started on baclofen 5 mg 3 times daily, increased to 10mg TID. Considering Botox chemodeneravationn pending response to baclofen. -continue with PT/OT/ST - recommending rehab. Patient's is refusing rehab or home health care. -not eating well, dietitian following, calorie count 12/16-12/19. Continue Ensure Enlive 3 times daily. Calorie count could not be completed as only one meal was recorded E coli UTI, pansensitive -Continue Ceftin 250 mg twice daily 5 days DVT ppx scd/teds Code Status: FULL Discussed Condition With: patient, nursing staff, Dr. Suero Discharge Planning: Discharge pending ALEX results. (1) CVA (cerebrovascular accident) Qualifiers: CVA mechanism: other Qualified Code(s): I63.8 - Other cerebral infarction
[2017-12-20] MEDS: Senna/Docusate Sodium 8.6/50 MG Tablet PO SCH (08:15)
[2017-12-20] MEDS: Aspirin 325 MG Tablet PO SCH (08:15)
--- NOTE | 2017-12-23 10:14 | CF ---
cc: Hannah Patrick MD DATE: 12/19/2017 INDICATION: CVA, evaluation for cardiac source of emboli and PFO. PROCEDURE PERFORMED: Transesophageal echocardiogram. PROCEDURE: After the patient was sedated by Anesthesia, transesophageal probe was placed without difficulty. Tomographic images were obtained. Left ventricular function was borderline, with estimated ejection fraction of 50% with no evidence of wall motion abnormalities. Aortic valve was structurally normal. There was no evidence of aortic stenosis or regurgitation. Mitral valve was structurally normal. There was no evidence of mitral stenosis. There was evidence of trace mitral regurgitation. There was evidence of trace tricuspid regurgitation. There was no evidence of pulmonary regurgitation. Left atrial appendage was visualized, and there was no evidence of left atrial thrombus. Bubble study was performed, and there was no evidence of [id number]-[id number] shunt. Descending thoracic aorta had no significant plaque. DIAGNOSES: 1. No evidence of left atrial thrombus. 2. No evidence of patent foramen ovale. 3. Borderline normal left ventricular systolic function. 4. Trace mitral regurgitation. 5. Trace tricuspid regurgitation. IMPRESSION: No evidence of cardiac source of emboli. Hannah Patrick MD OQ/kb , 01:06 PM , 01:11 PM MTDD
== END 2017-12-20 18:43 | disposition home or self-care (01) ==
LOC: NEPC 08:43 → NEDA 14:11 → N05 17:10
PROVIDERS: ADMIT Family Medicine; ATTEND Family Medicine

== ENCOUNTER 2018-03-04 19:33 | Observation (INO) ==
--- NOTE | 2018-03-04 21:13 | ED ---
HPI General Chief complaint: Medical Clearance Stated complaint: Medical Clearance Time Seen by Provider: 03/04/18 20:49 Source: patient and family Mode of arrival: wheelchair Limitations: other (aphasia, dementia) History of Present Illness HPI narrative: 57-year-old female with history of CVA earlier this year with resultant aphasia and right-sided deficits, dementia, seen in the emergency department and discharged a couple of hours ago for change in mental status/ behavior over the last couple of days, diagnosed with a UTI, given 1 g of IV Rocephin here and discharged home with a prescription for Macrobid, back with her significant other because the patient is apparently refusing to go home. Patient requires 24-hour care which is provided by her significant other. States that she has been more agitated and moaning significantly more over the last 2-3 days. This is not her usual behavior. She has been refusing oral intake. Patient is able to communicate by nodding her head. She shakes her head no when asked if she has pain in her head, chest, or abdomen. The rest of the history is limited. No new deficits according to her significant other. Related Data Previous Rx's Medication Instructions Recorded aspirin [E.C. Prin] 325 mg PO DAILY #30 tab 12/19/17 nitrofurantoin monohyd/m-cryst 100 mg PO BID 5 Days #10 cap 03/04/18 [Macrobid] Allergies Allergy/AdvReac Type Severity Reaction Status Date / Time Sulfa (Sulfonamide Allergy Mild Swelling Verified 12/13/17 12:12 Antibiotics) of Lip/Tongue/Throat Review of Systems ROS: all other systems reviewed are negative [facility] Social History Social History Substance History: No History of Abuse Smoking Status: Former smoker Tobacco Type: Cigarettes How Often Do You Have a Drink Containing Alcohol: Never Recent Travel in [facility] within the Last 8 Weeks: No Recent Out of Country Travel within the Last 8 Weeks: No Immunization History Tetanus Immunization: Unsure Exam Narrative Exam Narrative: GENERAL: Well-developed, thin, awake, alert, looking around room , no apparent distress. SKIN: Focused skin assessment warm/dry. No rash. HEAD: Atraumatic. Normocephalic. EYES: Pupils equal, round, 3 mm, reactive to light. EOMI. No scleral icterus. No injection or drainage. ENT: Mucous membranes pink and dry. NECK: Trachea midline. No JVD. No nuchal rigidity. CARDIOVASCULAR: Regular rate and rhythm. RESPIRATORY: No accessory muscle use. Clear to auscultation. Breath sounds equal bilaterally. GASTROINTESTINAL: Abdomen soft, non-tender, nondistended. MUSCULOSKELETAL: No obvious deformities. No clubbing. No cyanosis. No edema. NEUROLOGICAL: Awake and alert. Right upper extremity contractures with limited range of motion. Limited range of motion in her right lower extremity. Normal range of motion in her left upper and left lower extremity. No facial asymmetry. PSYCHIATRIC: Unable to assess. Course Initial Documented Vital Signs Temperature 97.4 F L 03/04/18 19:50 Pulse Rate 103 H 03/04/18 19:50 Respiratory Rate 20 03/04/18 19:50 Blood Pressure 140/83 03/04/18 19:50 Pulse Oximetry 96 03/04/18 19:50 Last Documented Vital Signs Temperature 97.4 F L 03/04/18 19:50 Pulse Rate 76 03/04/18 22:43 Respiratory Rate 18 03/04/18 22:43 Blood Pressure 133/89 03/04/18 22:43 Pulse Oximetry 95 03/04/18 22:43 Medical Decision Making MDM Narrative Medical decision making narrative: Vital signs reviewed. CBC and CMP are normal TSH is normal. Ammonia level was less than 10. CT head: CONCLUSION: 1. Stable remote infarcts in the left parietal lobe and right cerebellar hemisphere. No new findings. Chest x-ray shows no acute cardiopulmonary process. Patient had a UA done a few hours ago during her previous visit in the emergency department that is grossly positive for UTI. She was provided 1 g of IV Rocephin at that time. Because of the patient's delirium, the patient's significant other states that he is unable to properly care for her at home. Given delirium with UTI, patient will be admitted for overnight observation. The patient and the patient's were made aware of findings and plan. Case discussed with hospitalist Dr. Mendoza who will admit the patient to his service. Medical Screen Exam Complete: Yes Emergency Medical Condition: Yes Differential Diagnosis Differential Diagnosis: Altered mental status, UTI, intracranial abnormality, metabolic abnormality, depression Lab Data Result diagrams: 03/04/18 21:16 03/04/18 21:16 Lab Results 10/03/04/18 03/04/18 Range/Units 21:16 21:16 21:16 WBC 9.1 (4.0-11.0) th/mm3 RBC 4.68 (4.00-5.30) mil/mm3 Hgb 14.4 (11.6-15.3) gm/dL Hct 42.1 (35.0-46.0) % MCV 90.1 (80.0-100.0) fL MCH 30.7 (27.0-34.0) pg MCHC 34.1 (32.0-36.0) % RDW 13.4 (11.6-17.2) % Plt Count 348 (150-450) th/mm3 MPV 8.0 (7.0-11.0) fL Neut % (Auto) 59.3 (16.0-70.0) % Lymph % (Auto) 32.5 (9.0-44.0) % [place] % (Auto) 6.0 (0.0-8.0) % Eos % (Auto) 1.2 (0.0-4.0) % Baso % (Auto) 1.0 (0.0-2.0) % Neut # (Auto) 5.4 (1.8-7.7) th/mm3 Lymph # (Auto) 3.0 (1.0-4.8) th/mm3 [place] # (Auto) 0.5 (0.0-0.9) th/mm3 Eos # (Auto) 0.1 (0.0-0.4) th/mm3 Baso # (Auto) 0.1 (0.0-0.2) th/mm3 WBC Differential . Differential Comment Auto diff final PT 10.1 (9.8-11.6) sec INR 1.0 Ratio APTT 24.6 (24.3-30.1) sec Sodium 143 (136-145) meq/L Potassium 3.5 (3.5-5.1) meq/L Chloride 108 H (98-107) meq/L Carbon Dioxide 27.1 (21.0-32.0) meq/L Anion Gap 8 (5-15) meq/L BUN 5 L (7-18) mg/dL Creatinine 0.73 (0.50-1.00) mg/dL Estimated GFR 82 L (>89) mL/min Random Glucose 87 (74-106) mg/dL Calcium 9.1 (8.5-10.1) mg/dL Magnesium 2.0 (1.5-2.5) mg/dL Total Bilirubin 0.4 (0.2-1.0) mg/dL AST 19 (15-37) U/L ALT 19 (10-53) U/L Alkaline Phosphatase 147 H (45-117) U/L Ammonia (11-32) mcmol/L Total Protein 8.1 (6.4-8.2) g/dL Albumin 3.9 (3.4-5.0) g/dL TSH 3.090 (0.358-3.740) uIU/mL 03/04/18 Range/Units 21:16 WBC (4.0-11.0) th/mm3 RBC (4.00-5.30) mil/mm3 Hgb (11.6-15.3) gm/dL Hct (35.0-46.0) % MCV (80.0-100.0) fL MCH (27.0-34.0) pg MCHC (32.0-36.0) % RDW (11.6-17.2) % Plt Count (150-450) th/mm3 MPV (7.0-11.0) fL Neut % (Auto) (16.0-70.0) % Lymph % (Auto) (9.0-44.0) % [place] % (Auto) (0.0-8.0) % Eos % (Auto) (0.0-4.0) % Baso % (Auto) (0.0-2.0) % Neut # (Auto) (1.8-7.7) th/mm3 Lymph # (Auto) (1.0-4.8) th/mm3 [place] # (Auto) (0.0-0.9) th/mm3 Eos # (Auto) (0.0-0.4) th/mm3 Baso # (Auto) (0.0-0.2) th/mm3 WBC Differential Differential Comment PT (9.8-11.6) sec INR Ratio APTT (24.3-30.1) sec Sodium (136-145) meq/L Potassium (3.5-5.1) meq/L Chloride (98-107) meq/L Carbon Dioxide (21.0-32.0) meq/L Anion Gap (5-15) meq/L BUN (7-18) mg/dL Creatinine (0.50-1.00) mg/dL Estimated GFR (>89) mL/min Random Glucose (74-106) mg/dL Calcium (8.5-10.1) mg/dL Magnesium (1.5-2.5) mg/dL Total Bilirubin (0.2-1.0) mg/dL AST (15-37) U/L ALT (10-53) U/L Alkaline Phosphatase (45-117) U/L Ammonia Less than 10 L (11-32) mcmol/L Total Protein (6.4-8.2) g/dL Albumin (3.4-5.0) g/dL TSH (0.358-3.740) uIU/mL Imaging Data Radiologist's impression: Chest X-Ray 03/04/18 20:57 CONCLUSION: No acute cardiopulmonary disease. There is no evidence of pneumonia. Head CT 03/04/18 20:57 CONCLUSION: 1. Stable remote infarcts in the left parietal lobe and right cerebellar hemisphere. No new findings. . Discharge Plan Discharge Disposition Patient Disposition: 30 Still Patient Discharge Condition Condition: Stable Discharge Details Diagnosis: UTI (urinary tract infection), Delirium Physicians Team ED Provider: Angel Ackerman Primary Care Provider: UNKNOWN, Rxs /Orders / Referrals /Forms Prescriptions: No Action aspirin [E.C. Prin] 325 mg Tablet,Delayed Release (Dr/Ec) 325 mg PO DAILY Qty: 30 RF: 0 nitrofurantoin monohyd/m-cryst [Macrobid] 100 mg capsule 100 mg PO BID 5 Days Qty: 10 RF: 0 Discharge Interventions Interventions: Vital Signs Last Done: 03/04/18 22:43 Status ED Status: With Doctor
--- NOTE | 2018-03-04 21:17 | XR ---
EXAM DATE: 03/04/2018 9:12 PM EDT AGE/SEX: 57 years / Female INDICATIONS: Cough. Medical clearance. CLINICAL DATA: This is the patient's initial encounter. Patient reports that signs and symptoms have been present for 1 day and indicates a pain score of Nonresponsive. MEDICAL/SURGICAL HISTORY: . Stroke. Seizures. . Loop recorder placement. COMPARISON: C, CHEST 1V SINGLE AP, 12/13/2017. . FINDINGS: A single AP view of the chest demonstrates the lungs to be symmetrically aerated without evidence of mass, infiltrate or effusion. The cardiomediastinal contours are unremarkable. Osseous structures a re intact. CONCLUSION: No acute cardiopulmonary disease. There is no evidence of pneumonia. Electronically signed by: Bradley Butler MD 03/04/2018 9:16 PM EDT
[2018-03-04 21:31] LABS: Baso # (Auto) 0.1 th/mm3 (0.0-0.2); Eos # (Auto) 0.1 th/mm3 (0.0-0.4); Eos % (Auto) 1.2 % (0.0-4.0); Hematocrit 42.1 % (35.0-46.0); Hemoglobin 14.4 gm/dL (11.6-15.3); Lymph % (Auto) 32.5 % (9.0-44.0); Mean Corpuscular HGB Conc 34.1 % (32.0-36.0); Mean Corpuscular Hemoglobin 30.7 pg (27.0-34.0); Mean Corpuscular Volume 90.1 fL (80.0-100.0); Mono # (Auto) 0.5 th/mm3 (0.0-0.9); Neut # (Auto) 5.4 th/mm3 (1.8-7.7); Neut % (Auto) 59.3 % (16.0-70.0); Platelet Count 348 th/mm3 (150-450); Red Blood Count 4.68 mil/mm3 (4.00-5.30); Red Cell Distribution Width 13.4 % (11.6-17.2); White Blood Count 9.1 th/mm3 (4.0-11.0)
[2018-03-04 21:45] LABS: Activated Partial Thrombo Time 24.6 sec (24.3-30.1); Prothrombin Time 10.1 sec (9.8-11.6)
[2018-03-04 22:00] LABS: Albumin 3.9 g/dL (3.4-5.0); Anion Gap 8 meq/L (5-15); Aspartate Aminotransferase 19 U/L (15-37); Blood Urea Nitrogen 5 mg/dL (7-18); Calcium 9.1 mg/dL (8.5-10.1); Carbon Dioxide 27.1 meq/L (21.0-32.0); Chloride 108 meq/L (98-107); Glomerular Filtration Rate 82 mL/min (>89); Glucose,Random 87 mg/dL (74-106); Potassium 3.5 meq/L (3.5-5.1); Sodium 143 meq/L (136-145)
[2018-03-04 22:01] LABS: Alanine Aminotransferase 19 U/L (10-53)
[2018-03-04 22:11] LABS: Alkaline Phosphatase 147 U/L (45-117); Total Protein 8.1 g/dL (6.4-8.2)
--- NOTE | 2018-03-04 22:11 | CT ---
EXAM DATE: 03/04/2018 10:05 PM EDT AGE/SEX: 57 years / Female INDICATIONS: Altered mental status. CLINICAL DATA: This is the patient's initial encounter. Patient reports that signs and symptoms have been present for 1 day and indicates a pain score of Nonresponsive. MEDICAL/SURGICAL HISTORY: Chronic obstructive pulmonary disease. Cerebrovascular disease. Diabete s. section. RADIATION DOSE: 56.35 CTDI (mGy) COMPARISON: [facility] [place], CT HEAD W/O CONTRAST, 12/13/2017. . TECHNIQUE: CT of the head without contrast. Using automated exposure control and adjustment of the mA and/or kV according to patient size, radiation dose was kept as low as reasonably achievable to ob tain optimal diagnostic quality images. DICOM format image data is available electronically for revi ew and comparison. FINDINGS: Comparison is December 13. There is an infarct in the posterior left hemisphere predominantly in the pa rietal lobe and a small infarct in the right cerebellar hemisphere, stable. No new infarct. No mass e ffect or shift. No hydrocephalus. No abnormal extra-axial fluid. No acute bony abnormality. CONCLUSION: 1. Stable remote infarcts in the left parietal lobe and right cerebellar hemisphere. No new findings . . Electronically signed by: Myles Faith MD 03/04/2018 10:10 PM EDT
[2018-03-04] MEDS ORDERED: Bisacodyl 10 MG Supp RECTAL PRN (23:05)
--- NOTE | 2018-03-05 05:17 | P.HPIM ---
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 Patient with very limited verbal communication, able to answer most yes or no questions. reports that patient has been urinating much more often, requesting to use the restroom much more often over the past several days. Patient was seen earlier today, diagnosed with UTI, given Rocephin and discharged home. Patient refusing to go home. She denies any chest pain, shortness of breath, nausea, vomiting. Review of Systems Difficult review of systems secondary to aphasia. FOR[facility]LY [facility] - History History Provided By: Significant Other - Medical History Medical History: Medical History (Last Reviewed 03/05/18 @ 05:11 by Dev Mendoza MD) COPD (chronic obstructive pulmonary disease) (Acute) Diabetes mellitus (Acute) CVA (cerebral vascular accident) - Surgical History Surgical History: Surgical History (Last Reviewed 03/05/18 @ 05:11 by Dev Mendoza MD) H/O: section (Acute) - Family History Family History: Family History (Last Updated 03/05/18 @ 05:13 by Dev Mendoza MD) Other Family history unobtainable due to patient's condition - Tobacco History Second Hand Smoke Exposure: No Tobacco Use In Past 30 Days: No Smoking Status: Former smoker Tobacco Type: Cigarettes - Alcohol History How Often Do You Have a Drink Containing Alcohol: Never - Substance Use History Substance History: No History of Abuse - Travel History Recent Travel in the [facility] Within the Last 8 Weeks: No Recent Travel Out of the Country Within the Last 8 Weeks: No - Immunization History Tetanus Immunization: Unsure Medications and Allergies Active Medications: Active Medications Al Hydroxide/Mg Hydroxide (Milk Of Magnesia Liq) 30 ml PO Q12H PRN PRN Reason: Mild Constipation Aspirin (Ecotrin) 325 mg PO DAILY LOGAN Bisacodyl (Dulcolax Supp) 10 mg RECTAL DAILY PRN PRN Reason: SEVERE CONSITIPATION Ceftriaxone Sodium 1,000 mg/ (Sodium Chloride) 100 mls @ 200 mls/hr IV.SIG Q24H LOGAN Last Infusion: 03/05/18 00:23 Dose: Infused Lactulose (Lactulose Liq) 30 ml PO DAILY PRN PRN Reason: SEVERE CONSITIPATION Sennosides (Senokot) 17.2 mg PO Q12H PRN PRN Reason: Moderate Constipation Sodium Chloride (Ns Flush) 2 ml IV.FLUSH PRN PRN PRN Reason: FLUSH AFTER USING IV ACCESS Allergies Allergy/AdvReac Type Severity Reaction Status Date / Time Sulfa (Sulfonamide Allergy Mild Swelling Verified 12/13/17 12:12 Antibiotics) of Lip/Tongue/Throat Exam Vital signs: Vital Signs 03/04/18 19:50 03/04/18 20:27 03/04/18 22:43 Temperature 97.4 F L Pulse Rate 103 H 90 76 Respiratory Rate 20 18 18 Blood Pressure 140/83 142/96 H 133/89 Pulse Oximetry 96 97 95 03/04/18 22:45 03/05/18 00:44 03/05/18 03:47 Temperature 97.8 F Pulse Rate 63 79 Respiratory Rate 18 18 Blood Pressure 160/63 H 155/84 H Pulse Oximetry 95 94 L 97 Intake & Output 03/04/18 03/04/18 03/05/18 06:59 18:59 06:59 Intake Total 100 / 100 Balance 100 / 100 Weight 79 kg Intake: IV 100 / 100 Rocephin Inj 1,000 MG In NS Inj 100 / 100 100 ML @ 200 mls/hr IV.SIG Q24H [facility] Rx#:[id number] Other: Date of Last Bowel Movement 03/04/18 Weight On Admission 79 kg Narrative: GENERAL: Patient sitting up in bed. Appears comfortable. Very limited speech. Makes good eye contact. SKIN: Warm and dry. HEAD: Atraumatic. Normocephalic. EYES: Pupils equal and round. No scleral icterus. No injection or drainage. ENT: No nasal bleeding or discharge. Mucous membranes pink and moist. NECK: Trachea midline. No JVD. CARDIOVASCULAR: Regular rate and rhythm. RESPIRATORY: No accessory muscle use. Clear to auscultation. Breath sounds equal bilaterally. GASTROINTESTINAL: Abdomen soft, non-tender, nondistended. Hepatic and splenic margins not palpable. MUSCULOSKELETAL: Extremities without clubbing, cyanosis, or edema. No obvious deformities. NEUROLOGICAL: Awake and alert. No obvious cranial nerve deficits. Right upper and lower extremity weakness. PSYCHIATRIC: Appropriate mood and affect; insight and judgment normal. Results - Labs CBC & Chem 7: 03/04/18 21:16 03/04/18 21:16 Labs: Short CBC 03/04/18 Range/Units 21:16 WBC 9.1 (4.0-11.0) th/mm3 Hgb 14.4 (11.6-15.3) gm/dL Hct 42.1 (35.0-46.0) % Plt Count 348 (150-450) th/mm3 BMP 03/04/18 21:16 Sodium 143 Potassium 3.5 Chloride 108 H Carbon Dioxide 27.1 BUN 5 L Creatinine 0.73 Calcium 9.1 Liver Function 03/04/18 Range/Units 21:16 Total Bilirubin 0.4 (0.2-1.0) mg/dL AST 19 (15-37) U/L ALT 19 (10-53) U/L Alkaline Phosphatase 147 H (45-117) U/L Albumin 3.9 (3.4-5.0) g/dL - Imaging Impressions Chest X-Ray 03/04/18 20:57 CONCLUSION: No acute cardiopulmonary disease. There is no evidence of pneumonia. Head CT 03/04/18 20:57 CONCLUSION: 1. Stable remote infarcts in the left parietal lobe and right cerebellar hemisphere. No new findings. . Caprini VTE Risk Assessment Caprini VTE Risk Assessment: No/Low Risk (score <= 1) Caprini Risk Assessment Model: Point Value = 1 Point Value = 2 Point Value = 3 Point Value = 5 Age 41-60 Minor surgery BMI > 25 kg/m2 Swollen legs Varicose veins or History of unexplained or recurrent spontaneous Oral contraceptives or hormone replacement Sepsis (< 1 month) Serious lung disease, including pneumonia (< 1 month) Abnormal pulmonary function Acute myocardial infarction Congestive heart failure (< 1 month) History of inflammatory bowel disease Medical patient at bed rest Age 61-74 Arthroscopic surgery Major open surgery (> 45 min) Laparoscopic surgery (> 45 min) Malignancy Confined to bed (> 72 hours) Immobilizing plaster cast Central venous access Age >= 75 History of VTE Family history of VTE Factor V Leiden Prothrombin [id number] Lupus anticoagulant Anticardiolipin antibodies Elevated serum homocysteine Heparin-induced thrombocytopenia Other congenital or acquired thrombophilia Stroke (< 1 month) Elective arthroplasty Hip, pelvis, or leg fracture Acute spinal cord injury (< 1 month) Prophylaxis Regimen: Total Risk Factor Score Risk Level Prophylaxis Regimen 0-1 Low Early ambulation 2 Moderate Order ONE of the following: *Sequential Compression Device (SCD) *Heparin 5000 units SQ BID 3-4 Higher Order ONE of the following medications: *Heparin 5000 units SQ TID *Enoxaparin/Lovenox 40 mg SQ daily (WT < 150 kg, CrCl > 30 mL/min) *Enoxaparin/Lovenox 30 mg SQ daily (WT < 150 kg, CrCl > 10-29 mL/min) *Enoxaparin/Lovenox 30 mg SQ BID (WT < 150 kg, CrCl > 30 mL/min) AND/OR *Sequential Compression Device (SCD) 5 or more Highest Order ONE of the following medications: *Heparin 5000 units SQ TID (Preferred with Epidurals) *Enoxaparin/Lovenox 40 mg SQ daily (WT < 150 kg, CrCl > 30 mL/min) *Enoxaparin/Lovenox 30 mg SQ daily (WT < 150 kg, CrCl > 10-29 mL/min) *Enoxaparin/Lovenox 30 mg SQ BID (WT < 150 kg, CrCl > 30 mL/min) AND *Sequential Compression Device (SCD) Assessment and Plan - Plan //Metabolic encephalopathy //History of left parietal infarct with residual right-sided deficits. -Continue aspirin. Likely acute change in mental status secondary to UTI. CT head with no acute findings. Will treat UTI as below //UTI White blood cells on UA 43, positive nitrates. Start on Rocephin. Follow-up urine culture. Discussed Condition With: Patient, nurse, at bedside H&P: Quality - VTE Deep Vein Thrombosis/Pulmonary Embolism Present on Admission: No
[2018-03-05 08:11] LABS: Baso # (Auto) 0.1 th/mm3 (0.0-0.2); Baso % (Auto) 1.3 % (0.0-2.0); Eos # (Auto) 0.1 th/mm3 (0.0-0.4); Eos % (Auto) 1.6 % (0.0-4.0); Hematocrit 41.2 % (35.0-46.0); Hemoglobin 13.8 gm/dL (11.6-15.3); Lymph # (Auto) 1.8 th/mm3 (1.0-4.8); Lymph % (Auto) 26.2 % (9.0-44.0); Mean Corpuscular HGB Conc 33.5 % (32.0-36.0); Mean Corpuscular Hemoglobin 30.2 pg (27.0-34.0); Mean Corpuscular Volume 90.1 fL (80.0-100.0); Mean Platelet Volume 8.1 fL (7.0-11.0); Mono # (Auto) 0.4 th/mm3 (0.0-0.9); Mono % (Auto) 6.7 % (0.0-8.0); Neut # (Auto) 4.3 th/mm3 (1.8-7.7); Neut % (Auto) 64.2 % (16.0-70.0); Platelet Count 350 th/mm3 (150-450); Red Blood Count 4.57 mil/mm3 (4.00-5.30); Red Cell Distribution Width 13.4 % (11.6-17.2); White Blood Count 6.7 th/mm3 (4.0-11.0)
[2018-03-05 08:44] LABS: Albumin 3.5 g/dL (3.4-5.0); Anion Gap 10 meq/L (5-15); Aspartate Aminotransferase 15 U/L (15-37); Blood Urea Nitrogen 6 mg/dL (7-18); Calcium 9.2 mg/dL (8.5-10.1); Carbon Dioxide 25.2 meq/L (21.0-32.0); Chloride 107 meq/L (98-107); Glomerular Filtration Rate Greater Than 89 mL/min (>89); Glucose,Random 78 mg/dL (74-106); Potassium 3.3 meq/L (3.5-5.1); Sodium 142 meq/L (136-145)
[2018-03-05 08:48] LABS: Alanine Aminotransferase 16 U/L (10-53); Alkaline Phosphatase 131 U/L (45-117); Total Protein 7.4 g/dL (6.4-8.2)
--- NOTE | 2018-03-05 09:03 | P.PN ---
Subjective Interval history: Follow-up for UTI with encephalopathy. Patient answers "yeah" inappropriately to every question. She is awake and alert. Does not tell me her name. Vital signs reviewed, afebrile, stable. Physical Exam Vital signs: Vital Signs 03/04/18 19:50 03/04/18 20:27 03/04/18 22:43 Temperature 97.4 F L Pulse Rate 103 H 90 76 Respiratory Rate 20 18 18 Blood Pressure 140/83 142/96 H 133/89 Pulse Oximetry 96 97 95 03/04/18 22:45 03/05/18 00:44 03/05/18 03:47 Temperature 97.8 F Pulse Rate 63 79 Respiratory Rate 18 18 Blood Pressure 160/63 H 155/84 H Pulse Oximetry 95 94 L 97 03/05/18 07:48 Temperature 97.9 F Pulse Rate 83 Respiratory Rate 16 Blood Pressure 151/80 H Pulse Oximetry 95 Intake & Output 03/04/18 03/05/18 03/05/18 18:59 06:59 18:59 Intake Total 100 / 100 Balance 100 / 100 Weight 79 kg Intake: IV 100 / 100 Rocephin Inj 1,000 MG In NS Inj 100 / 100 100 ML @ 200 mls/hr IV.SIG Q24H [facility] Rx#:[id number] Other: # Urine Diapers 1 Date of Last Bowel Movement 03/04/18 Weight On Admission 79 kg Narrative: GENERAL: Well-nourished, well-developed middle-aged female patient in [facility]. Makes eye contact. Speech limited. SKIN: Warm and dry. HEENT: Normocephalic. Atraumatic. Pupils equal and round. Mucous membranes pink and moist. CARDIOVASCULAR: Regular rate and rhythm. No murmur appreciated. RESPIRATORY: No accessory muscle use. Clear to auscultation. Breath sounds equal bilaterally. GASTROINTESTINAL: Abdomen soft, non-tender, nondistended. Normoactive bowel sounds x4. MUSCULOSKELETAL: No obvious deformities. Extremities without clubbing, cyanosis , or edema. NEUROLOGICAL: Awake and alert. No obvious cranial nerve deficits. Motor grossly within normal limits. Moving all extremities spontaneously. Speech limited, mostly answers "yeah" to every question. PSYCHIATRIC: Calm mood; insight and judgment limited. Results - Labs CBC & Chem 7: 03/05/18 07:36 03/05/18 07:36 Laboratory Results - last 24 hr 03/04/18 03/04/18 03/04/18 21:16 21:16 21:16 WBC 9.1 RBC 4.68 Hgb 14.4 Hct 42.1 MCV 90.1 MCH 30.7 MCHC 34.1 RDW 13.4 Plt Count 348 MPV 8.0 Neut % (Auto) 59.3 Lymph % (Auto) 32.5 [place] % (Auto) 6.0 Eos % (Auto) 1.2 Baso % (Auto) 1.0 Neut # (Auto) 5.4 Lymph # (Auto) 3.0 [place] # (Auto) 0.5 Eos # (Auto) 0.1 Baso # (Auto) 0.1 WBC Differential . Differential Comment Auto diff final PT 10.1 INR 1.0 APTT 24.6 Sodium 143 Potassium 3.5 Chloride 108 H Carbon Dioxide 27.1 Anion Gap 8 BUN 5 L Creatinine 0.73 Estimated GFR 82 L Random Glucose 87 Calcium 9.1 Magnesium 2.0 Total Bilirubin 0.4 AST 19 ALT 19 Alkaline Phosphatase 147 H Ammonia Total Protein 8.1 Albumin 3.9 TSH 3.090 03/04/18 03/05/18 03/05/18 21:16 07:36 07:36 WBC 6.7 RBC 4.57 Hgb 13.8 Hct 41.2 MCV 90.1 MCH 30.2 MCHC 33.5 RDW 13.4 Plt Count 350 MPV 8.1 Neut % (Auto) 64.2 Lymph % (Auto) 26.2 [place] % (Auto) 6.7 Eos % (Auto) 1.6 Baso % (Auto) 1.3 Neut # (Auto) 4.3 Lymph # (Auto) 1.8 [place] # (Auto) 0.4 Eos # (Auto) 0.1 Baso # (Auto) 0.1 WBC Differential . Differential Comment Auto diff final PT INR APTT Sodium 142 Potassium 3.3 L Chloride 107 Carbon Dioxide 25.2 Anion Gap 10 BUN 6 L Creatinine 0.60 Estimated GFR Greater than 89 Random Glucose 78 Calcium 9.2 Magnesium Total Bilirubin 0.4 AST 15 ALT 16 Alkaline Phosphatase 131 H Ammonia Less than 10 L Total Protein 7.4 D Albumin 3.5 TSH - Imaging Impressions Chest X-Ray 03/04/18 20:57 CONCLUSION: No acute cardiopulmonary disease. There is no evidence of pneumonia. Head CT 03/04/18 20:57 CONCLUSION: 1. Stable remote infarcts in the left parietal lobe and right cerebellar hemisphere. No new findings. . 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 Patient with very limited verbal communication, able to answer most yes or no questions. Metabolic encephalopathy: suspect secondary to UTI with underlying dementia and history of CVA. -Head CT reviewed, shows stable remote infarcts in the left parietal lobe and right cerebellar hemisphere. No new findings. -CXR reviewed, no acute findings -UA positive for UTI, on antibiotics as below -Monitor neuro checks -Has been requesting to only be treated for UTI with antibiotics, does not want any PT/ST evaluations, plans to take the patient home UTI: UA positive for WBCs, leuks, and nitrates. -Continue antibiotics with IV Rocephin -Monitor urine culture Dementia, Hx of CVA: Chronic, with residual right-sided deficits and speech deficit -Repeat head CT with no new findings as above -Continue aspirin. DVT Prophylaxis: SCDs Discharge Planning: Discharge pending further clinical improvement and urine culture and sensitivities.
[2018-03-06 07:55] VITALS: O2SAT 95
--- NOTE | 2018-03-06 10:06 | P.PN ---
Subjective Interval history: Follow-up for UTI, encephalopathy. The patient continues to be mostly nonverbal , does not verbalize any complaints. was at bedside yesterday and declined any further testing. He reported that this is normal for the patient while she has a UTI. He requested to only receive antibiotics and plans to bring her home at discharge. Patient has remained afebrile. Vital signs stable. Physical Exam Vital signs: Vital Signs 03/05/18 11:38 03/05/18 15:34 03/05/18 19:58 Temperature 98.5 F 98.0 F 98.8 F Pulse Rate 83 88 81 Respiratory Rate 16 18 16 Blood Pressure 123/87 110/75 120/73 Pulse Oximetry 95 95 96 03/06/18 00:00 03/06/18 04:00 03/06/18 07:52 Temperature 98.5 F 97.6 F 98.5 F Pulse Rate 87 88 78 Respiratory Rate 17 16 18 Blood Pressure 109/69 111/68 133/68 Pulse Oximetry 96 96 95 Intake & Output 03/05/18 03/06/18 03/06/18 18:59 06:59 18:59 Intake Total 720 / 720 340 / 340 Balance 720 / 720 340 / 340 Intake: IV 100 / 100 Rocephin Inj 1,000 MG In NS Inj 100 / 100 100 ML @ 200 mls/hr IV.SIG Q24H [facility] Rx#:[id number] Oral 720 / 720 240 / 240 Other: # Voids 2 1 Date of Last Bowel Movement 03/04/18 Narrative: GENERAL: Well-nourished, well-developed middle-aged female patient in [facility]. Makes eye contact. Speech limited. SKIN: Warm and dry. HEENT: Normocephalic. Atraumatic. Pupils equal and round. Mucous membranes pink and moist. CARDIOVASCULAR: Regular rate and rhythm. No murmur appreciated. RESPIRATORY: No accessory muscle use. Clear to auscultation. Breath sounds equal bilaterally. GASTROINTESTINAL: Abdomen soft, non-tender, nondistended. Normoactive bowel sounds x4. MUSCULOSKELETAL: No obvious deformities. Extremities without clubbing, cyanosis , or edema. NEUROLOGICAL: Awake and alert. No obvious cranial nerve deficits. Motor grossly within normal limits. Moving all extremities spontaneously. Speech limited, mostly nonverbal. PSYCHIATRIC: Calm mood; insight and judgment limited. Results - Labs CBC & Chem 7: 03/05/18 07:36 03/05/18 07:36 - Imaging Chest X-Ray 03/04/18 20:57 CONCLUSION: No acute cardiopulmonary disease. There is no evidence of pneumonia. Head CT 03/04/18 20:57 CONCLUSION: 1. Stable remote infarcts in the left parietal lobe and right cerebellar hemisphere. No new findings. . - Procedures None. 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 Patient with very limited verbal communication, able to answer most yes or no questions. Metabolic encephalopathy: suspect secondary to UTI with underlying dementia and history of CVA. -Head CT reviewed, shows stable remote infarcts in the left parietal lobe and right cerebellar hemisphere. No new findings. -CXR reviewed, no acute findings -UA positive for UTI, on antibiotics as below -Monitor neuro checks - requesting to only be treated for UTI with antibiotics, does not want any PT/ST evaluations, plans to take the patient home when at baseline -Appears to be improving, to return today UTI: UA positive for WBCs, leuks, and nitrates. -On antibiotics with IV Rocephin -Urine culture with pansensitive E.coli -Will discharge of Ceftin 500mg po bid x5days (total 7days) Dementia, Hx of CVA: Chronic, with residual right-sided deficits and speech deficit -Repeat head CT with no new findings as above -Continue aspirin. -Patient's declined any PT/ST DVT Prophylaxis: SCDs Discharge Planning: Discharge patient to home Condition on discharge: Stable Heart Healthy Diet as tolerated Ad Karly activity Rx written: Ceftin 500mg po bid x5days (total 7day course of abx) Follow-up with primary care physician
[2018-03-06 11:58] VITALS: BP 115/70; PULSE 75; RESP 20; TEMP 98.6
== END 2018-03-06 17:32 | disposition home or self-care (01) ==
LOC: NEDA 19:33 → NEPD 19:33 → NEPHCDU 03-05 00:55 → N05 03-05 01:26 → NEPHCDU 03-05 01:28 → N06 03-05 01:29 → NEPHCDU 03-05 01:37 → N06 03-05 02:22 → NEPHCDU 03-05 02:32
PROVIDERS: ADMIT Hospitalist; ATTEND Hospitalist